=== PATIENT | male | born 1945 | race Caucasian/White ===

== ENCOUNTER → 2017-09-04 06:10 | Outpatient (CLI) | payer OTHER, SELFPAY ==
[2016-05-29 11:45] VITALS: BMI 29.2
[2017-09-04 08:19] LABS: AST(SGOT) 34 U/L (15-37); Alanine Aminotransfer ALT/SGPT 23 U/L (16-61); Albumin, Serum 3.2 g/dL (3.2-5.0); Alkaline Phosphatase 71 U/L (45-117); Bilirubin, Direct 0.14 mg/dL (0.00-0.30); Cholesterol 137 mg/dL (200); High Density Lipoprotein 59 mg/dL; Protein, Total 7.2 g/dL (6.4-8.2); Triglycerides 89 mg/dL; Very Low Density Lipoprotein 18 mg/dL (5-40)
== END ==
PROVIDERS: Family Provider Internal Medicine; PCP Internal Medicine; Visit Provider Physician Assistant Medical
DX: E78.5 Hyperlipidemia, unspecified (principal); I10 Essential (primary) hypertension; I25.10 Atherosclerotic heart disease of native coronary artery without angina pectoris; Z79.899 Other long term (current) drug therapy
CPT/HCPCS: 36415; 80061; 80076

== ENCOUNTER 2018-02-04 05:52 | Inpatient (IN) | payer MEDICARE, OTHER, SELFPAY ==
[2016-05-29 11:45] VITALS: BMI 29.2
[2018-01-28 14:00] VITALS: BP 111/53; PULSE 59; RESP 16; TEMP 36.5; O2SAT 97; BMI 28.8
--- NOTE | 2018-01-28 14:14 | SDCEKG_ITS ---
Test Reason : Blood Pressure : / mmHG Vent. Rate : 058 BPM Atrial Rate : 058 BPM P-R Int : 208 ms QRS Dur : 096 ms QT Int : 416 ms P-R-T Axes : 059 013 033 degrees QTc Int : 408 ms Sinus bradycardia Inferior infarct , age undetermined Abnormal ECG Confirmed by EDGAR SWAIN, BLU ([id number]), editor sound DANA SAN ([id number]) on 01/30/2018 1:07:19 PM Referred By: Byron Suarez Confirmed By:BLU HERNÁNDEZ MD
[2018-01-28 14:42] LABS: Hematocrit 41.9 % (40-54); Hemoglobin 13.7 g/dl (13.0-16.5); Mean Corp Hgb Conc 32.7 g/gl (32-36); Mean Corpuscular Volume 94.8 fL (80-94); Mean Platelet Vol. 9.6 fl (6.2-12.0); Platelet Count 195 K/mm3 (150-450); Red Blood Count 4.42 M/mm3 (4.6-6.2); Scan Indicated on CBC? Y/N NO
[2018-01-28 14:52] LABS: Anion Gap 4 (5-15); BUN 14 mg/dL (7-18); BUN/Creat Ratio 13.7 RATIO (10-20); Calcium,Total 8.2 mg/dL (8.5-10.1); Chloride 105 mmol/L (98-107); Creatinine, Serum 1.02 mg/dL (0.70-1.30); EST Glomerular Filtration Rate 76 mL/min (>60); Est Glom Filt Rate - Afr Amer 93 mL/min (>60); Estimated Creatinine Clearance 75.07 ml/min; Glucose 109 mg/dL (74-106); Potassium 4.3 mmol/L (3.5-5.1); Sodium Level 137 mmol/L (136-145)
[2018-02-04] VITALS (12 sets, daily range): BP systolic 101–126; BP diastolic 60–82; PULSE 51–95; RESP 14–18; TEMP 36.2–37.2; O2SAT 94–100; BMI 28.8
--- NOTE | 2018-02-04 | COL._PTH ---
PATIENT: KAREN ALMONTE LOC: MS2 U#:[id number] AGE/SX: 72/M ROOM: [facility] – [place] RE02/04/[address]: Dr. Byron Suarez MD : [id number] BED: 1 DIS: 02/08/2018 SPEC #: [id number] RECD: 02/04/18 14:36 STATUS: GODWIN REQ #: [id number] ANTHONY: 02/04/18 00:[address]: Byron Suarez DEPT: SURGICAL PATHOLOGY RECD BY: Jae You ENTERED: 02/04/18 14:37 SP TYPE: COLON OTHR DR: Dr. Anjali Hernandes MD Tissues: Colon, NOS Procedures: Surgery Specimen Level HEADER OPERATION: Laparoscopic right ariadna collectomy PRE-OP DIAGNOSIS: Unresectable polyp of ascending colon TISSUE SUBMITTED: Right colon MICROSCOPIC DIAGNOSIS Right colon, hemicolectomy: Tubulovillous adenoma with focal high-grade dysplasia (3 cm in greatest dimension). Appendix with focal hyperplastic changes at the tip. Five pericolonic lymph nodes with reactive changes. Small intestinal and colonic donuts, no pathologic diagnosis. SJ:sp 02/06/18 COMMENT Case has been reviewed in consultation with Dr. Osorio who concurs with the above diagnosis. IDC:AM MICROSCOPIC DESCRIPTION Slides are reviewed. GROSS DESCRIPTION Received is a previously opened right hemicolectomy specimen with attached adipose tissue. The cecum with ascending colon measures 15 cm in length and segment of small intestine measuring 2 cm in length and attached appendix measures 8 cm in length and 0.5 cm in diameter. Ten centimeter away from the distal resection margin and 5 cm away from the ileocecal wall, there is a sessile polyp measuring 3 x 3 x 1 cm. A metallic clip is present adjacent to the polyp. Both resection margins are stapled. Also present attached to the ascending colon is a piece of omentum measuring 7 x 9 x 1 cm. The serosa corresponding to the polyp showed blue dye discoloration. No additional mass lesion is identified. More dictation will follow after overnight fixation. Adipose tissue is fixed in lymph node revealing solution. YUMIKO:libra 02/04/18 Also present in the container are multiple detached pieces of bowel tissue, possible dough nut pieces measuring in aggregate 5 x 3 x 2 cm. Multiple og are noted in the detached pieces of tissue. Sections of the appendix reveal unremarkable cut surfaces. A small amount of fecal material is noted. No fecalith is identified. Sections of the polyp revealed it is entirely mucosal in location. No invasion into the underlying wall is noted. Section of omentum did not reveal any mass lesion. Section of the pericolonic adipose tissue revealed a few lymph nodes. The largest lymph node measured 1 cm in greatest dimension. Associate Professor Of Biblical Studies sections are submitted as follows: 1 & 2 - detached pieces of bowel tissue, possible donut. 3 - appendix. 4 - proximal and distal resection margins. 5 to 8 - entire polyp with underlying bowel wall. 9 - omentum. 10 - one serially sectioned lymph node. 11 - multiple (3) lymph nodes. 12 - one bisected lymph node.. YUMIKO:libra 02/05/18 TC: 1 CPT: 91907, 70419 x2
[2018-02-04] MEDS: Bupivacaine Mpf 0.5% 30 ML VIAL (10:00)
--- NOTE | 2018-02-04 10:31 | OP.PCM_ITS ---
Report of Operation Date of Procedure: 02/04/18 Pre-Operative Diagnosis: unresectable polyp - right colon Post-Operative Diagnosis: unresectable polyp - right colon Surgery/Procedure Performed:: laparoscopic right hemicolectomy Description of Surgical Findings:: as above - polyp seen in specimen machine i engraver: None Type of Anesthesia:: General Anesthesiologist: Alfred Hare - ASA3 Specimen's removed: right colon Drains: none Estimated Blood Loss (mL): 75 Fluids Replaced: 1700 Description of Procedure: The patient was brought to the operating suite. Sign in was performed verifying patient, site, procedure, position, and DVT prophylaxis with SCDs. Patient 2 g of cefotetan. Preoperative bowel prep of mechanical and antibiotic comprised of GoLYTELY and then neomycin and Flagyl 1 g 3 doses evening before was given Following induction of general anesthetic. The patient?s abdomen was prepped and draped in the usual fashion. Timeout was performed verifying patient, site, position. Local anesthetic was injected below the umbilicus. Incision made and dissection carried down to the umbilical root fascia. 2 stay sutures were placed. Incision made in the fascia, the peritoneum entered under direct visualization. A 10 mm Greco trocar was inserted and secured with the stay sutures. Pneumoperitoneum to 15 mmHg was insufflated. Visual inspection revealed adhesions to the right lower quadrant consistent with his previous bilateral laparoscopic inguinal hernia repair . 2 5mm ports were placed in the standard midline position. lysis adhesions in the right lower quadrant was undertaken using laparoscopic Metzenbaum scissors. Once this was fully mobilized, Mobilization the avascular plane was undertaken from the base of the cecum up and around the hepatic flexure. Division of the lesser sac from the midline to the hepatic flexure was undertaken. When this was fully mobilized. The duodenum was visualized from the right flank region. Next, the terminal ileum area was brought up and a cleavage point noted in the mesentery. Harmonic Scalpel was used to create a window in the terminal ileal mesentery and division was taken down to the ileocolic root. Next the transverse colon was grasped and the vasculature coming from the middle colic vessel was identified. A window was made in the bare area proximal to the middle colic vessels just overlying the duodenal sweep. This was also fully divided. Dissection was then carried out at the ileal colic vessel root. The artery and vein were identified and doubly clipped proximally and doubly clipped distally with Hem-o-navin clips. With full dissection of the mesentery and full mobilization the colon, the umbilical incision was extended and a wound protector placed. The terminal ileum and cecum ascending colon part of the transverse colon were delivered through the wound protector. Complete division of the mesentery to the bowel was undertaken at both sites. The bowel was transected with an intestinal load echelon stapler. On this a functional stapled end-to-end anastomosis was performed between the ileum and transverse colon with an echelon stapler. The staple line was checked for hemostasis and following this the anastomosis closed with a TA stapler creating a wide triangle opening that was easily palpable. A 3-0 silk suture was used to take tension off the apex of the staple line and an additional 3-0 silk suture was used to close the mesenteric defect At this point, the specimen was opened on the back table. There was noted to be tumor in the expected location. Gown and gloves were changed. The umbilical fascial defect was closed with a running 0 PDS suture Pneumoperitoneum was reestablished. the fascial closure was noted to be intact. Half percent Marcaine was injected under laparoscopic guidance trans-rectus abdominous into the retrorectus sheath. Following this The 5mm ports were removed under direct visualization with no signs of bleeding. Pneumoperitoneum was released. Skin was closed with interrupted 4-0 Monocryl subcuticular sutures. Steri-Strips and bandages were applied. The patient was brought to recovery room in stable condition. - Admit VTE Documentation VTE Present on Admission: No VTE Mechan Device Prophylaxis: SCD's
[2018-02-04] MEDS: Acetaminophen 500 MG Tablet 1000 MG PO ×3 (12:06→23:49)
[2018-02-04] MEDS: Ketorolac 15 MG/ML Vial IV ×3 (12:06→23:49)
--- NOTE | 2018-02-04 12:54 | CHAPLAIN ---
Type of Pastoral Visit _x__ Initial Visit ___ Follow-up Visit ___ On-call Visit ___ General Patient Visit ___ Spiritual Assessment ___ Family Conference ___ Bereavement ___ Rapid Response ___ Code Blue ___ Other (describe below) Pastoral Care Referral From ___ Patient ___ Family ___ Nurse ___ Physician ___ Lobster Fisherman ___ Supervisor Painting _x__ Other (describe below) Sacrament/Intervention ___ Active listening ___ Anointing ___ Rastafari ___ Bereavement ___ Communion ___ Nany exploration ___ ___ Life review ___ Prayer ___ Reconciliation ___ Sacrament of Sick _x__ Supportive presence ___ Wedding ___ Other (describe below) Pastoral Comments SUPERVISOR SULF[employer]ANT was moving patient into his room and she acknowledged work of the boat buffer plastic; made offer to patient for support; pt responds that he is doing fine; pt said he would notify someone if further support is desired
[2018-02-04] MEDS: Pravastatin 80 MG Tablet PO (21:08)
[2018-02-04] MEDS: Metoprolol Tartrate 50 MG Tablet PO (21:08)
[2018-02-05] VITALS (8 sets, daily range): BP systolic 116–123; BP diastolic 56–77; PULSE 51–76; RESP 16–18; TEMP 36.3–37.4; O2SAT 96–99
[2018-02-05] MEDS: Ketorolac 15 MG/ML Vial IV ×3 (05:17→17:11)
[2018-02-05] MEDS: Acetaminophen 500 MG Tablet 1000 MG PO ×4 (05:17→23:51)
[2018-02-05 05:47] LABS: Hematocrit 37.3 % (40-54); Hemoglobin 12.4 g/dl (13.0-16.5); Mean Corp Hgb Conc 33.2 g/gl (32-36); Mean Corpuscular Hgb 31.3 pg (27.0-32.0); Mean Corpuscular Volume 94.2 fL (80-94); Mean Platelet Vol. 10.2 fl (6.2-12.0); Platelet Count 185 K/mm3 (150-450); RBC Distribution Width CV 12.5 % (11.6-14.6); RBC Distribution Width SD 42.2 fl (35.1-43.9); Red Blood Count 3.96 M/mm3 (4.6-6.2); White Blood Count 10.5 K/mm3 (4.4-11.0)
[2018-02-05 05:53] LABS: Scan Indicated on CBC? Y/N NO
[2018-02-05 06:22] LABS: Anion Gap 8 (5-15); BUN 14 mg/dL (7-18); Calcium,Total 7.8 mg/dL (8.5-10.1); Chloride 102 mmol/L (98-107); Creatinine, Serum 1.08 mg/dL (0.70-1.30); EST Glomerular Filtration Rate 72 mL/min (>60); Est Glom Filt Rate - Afr Amer 87 mL/min (>60); Glucose 98 mg/dL (74-106); Potassium 4.2 mmol/L (3.5-5.1); Sodium Level 138 mmol/L (136-145)
[2018-02-05] MEDS: Lactated Ringers 1,000 ML 40 ML IV (08:21)
[2018-02-05] MEDS: Aspirin 81 MG TAB.CHEW PO (08:31)
[2018-02-05] MEDS: Metoprolol Tartrate 50 MG Tablet PO ×2 (08:32→21:20)
[2018-02-05] MEDS: Enoxaparin 40 MG/0.4 ML Syringe SC (08:32)
[2018-02-05] MEDS: FLUoxetine 20 MG Capsule PO (08:33)
[2018-02-05] MEDS: Lisinopril 5 MG Tablet PO (08:33)
--- NOTE | 2018-02-05 10:10 | CASEMGMT ---
RN ROSANNE Face to Face with patient for initial transition planning/care coordination assessment. RN CM introduced self and role at [facility]. Patient lying in bed, alert and oriented. Patient willing to participate in assessment and is able to answer all questions appropriately. Care providers, pharmacy, and demographics verified. Patient wishes to discharge home, denies need for home health at this time. Patient states he has no further needs or concerns at this time. CM to follow for discharge planning needs that may arise. PCP: Cecilio Specialists: [place] social work faculty member Preferred Pharmacy: [facility] Insurance: [employer] Prescription Benefit: Yes Living Will/HPOA: No LNOK: Living Arrangements: Patient lives with in 2 story home, independent at home. Transportation: /self DME/HHC: None Disposition Plan: Patient to discharge home with family support and follow-up plans in place. Pippa FRIEDMAN, RN, CM
--- NOTE | 2018-02-05 13:44 | PCM.PN.SRG ---
Subjective: no complaints, scant flatus - Physical Exam General: Alert, Oriented x3, Cooperative Lungs: Clear to auscultation, Normal air movement, Wheezes - few Cardiovascular: Regular rate, No murmurs Abdomen: Bowel Sounds Present, Soft, Non Tender, Hypoactive Bowel Sounds Vital Signs Temp Pulse Resp BP Pulse Ox 97.4 F L 62 18 116/72 96 02/05/18 08:23 02/05/18 08:32 02/05/18 08:23 02/05/18 08:32 02/05/18 08:23 Oxygen Delivery Method Room Air Weight: 99.1 kg Body Mass Index (BMI) 28.8 Intake and Output for Last 24 Hours 02/03/18 02/04/18 02/05/18 23:59 23:59 23:59 Intake Total 3402 / 3402 1460 / 1460 Output Total 400 / 400 1450 / 1450 Balance 3002 / 3002 Laboratory Tests Past 24 Hrs 02/05/18 02/05/18 05:20 05:20 WBC 10.5 RBC 3.96 L Hgb 12.4 L Hct 37.3 L MCV 94.2 H MCH 31.3 MCHC 33.2 RDW 12.5 RDW Differential 42.2 Plt Count 185 MPV 10.2 Sodium 138 Potassium 4.2 Chloride 102 Carbon Dioxide 28.0 Anion Gap 8 BUN 14 Creatinine 1.08 Estim Creat Clear Calc 70.90 Est GFR (MDRD) Af Amer 87 Est GFR (MDRD) Non-Af 72 BUN/Creatinine Ratio 13.0 Glucose 98 Calcium 7.8 L Medical Necessity - Tobacco Use Smoking Status: Former smoker Assessment/Plan All Active Problems Right carotid bruit (Acute) STEMI (ST elevation myocardial infarction) (Acute) POD # 1 s/p right hemicolectomy for unresectable polyp Patient without complaints, scant flatus. will encourage ambulation ,use of IS. continue clears
[2018-02-05] MEDS: oxyCODONE 5 MG Tablet PO ×2 (14:35→23:51)
[2018-02-05] MEDS: Pravastatin 80 MG Tablet PO (21:20)
[2018-02-06 01:50] VITALS: BP 130/73; PULSE 77; RESP 16; TEMP 36.8; O2SAT 97
[2018-02-06] MEDS: Acetaminophen 500 MG Tablet 1000 MG PO ×4 (05:18→23:52)
[2018-02-06] MEDS: oxyCODONE 5 MG Tablet PO ×2 (06:33→21:16)
[2018-02-06 07:50] VITALS: BP 125/65; PULSE 80; RESP 16; TEMP 36.8; O2SAT 95
[2018-02-06] MEDS: Aspirin 81 MG TAB.CHEW PO (07:51)
[2018-02-06] MEDS: Ondansetron ODT 4 MG Tablet PO (11:00)
[2018-02-06 11:43] VITALS: PULSE 78
[2018-02-06] MEDS: Metoprolol Tartrate 50 MG Tablet PO ×2 (11:43→21:14)
[2018-02-06] MEDS: FLUoxetine 20 MG Capsule PO (11:43)
[2018-02-06] MEDS: Enoxaparin 40 MG/0.4 ML Syringe SC (11:43)
[2018-02-06] MEDS: Lisinopril 5 MG Tablet PO (11:43)
[2018-02-06 14:40] VITALS: BP 135/77; PULSE 86; RESP 18; TEMP 36.6; O2SAT 94
--- NOTE | 2018-02-06 15:51 | PCM.PN.SRG ---
Subjective: abdominal distention, burping - Physical Exam General: Alert, Oriented x3, Cooperative Lungs: Clear to auscultation, Normal air movement Cardiovascular: Regular rate, No murmurs Abdomen: Soft, Hypoactive Bowel Sounds, Distended Vital Signs Temp Pulse Resp BP Pulse Ox 97.9 F 86 18 135/77 H 94 02/06/18 14:40 02/06/18 14:40 02/06/18 14:40 02/06/18 14:40 02/06/18 14:40 Oxygen Delivery Method Room Air Weight: 99.1 kg Body Mass Index (BMI) 28.8 Intake and Output for Last 24 Hours 02/04/18 02/05/18 02/06/18 23:59 23:59 23:59 Intake Total 3402 / 3402 2160 / 2160 360 / 360 Output Total 400 / 400 1450 / 1450 Balance 3002 / 3002 710 / 710 360 / 360 Medical Necessity - Tobacco Use Smoking Status: Former smoker Assessment/Plan All Active Problems (Last Updated 02/05/18 @ 13:46 by Byron Suarez MD) Right carotid bruit (Acute) STEMI (ST elevation myocardial infarction) (Acute) POD # 2 s/p right hemicolectomy for unresectable polyp Patient without complaints, scant flatus. will encourage ambulation ,use of IS. likely advanced orals too quickly. We will go a sips of clears on hold and show for now.
[2018-02-06 21:05] VITALS: BP 122/69; PULSE 80; RESP 20; TEMP 36.6; O2SAT 96
[2018-02-06 21:14] VITALS: PULSE 80
[2018-02-06] MEDS: Pravastatin 80 MG Tablet PO (21:14)
[2018-02-07 03:09] VITALS: BP 125/77; PULSE 66; RESP 18; TEMP 36.7; O2SAT 97
[2018-02-07] MEDS: Ondansetron ODT 4 MG Tablet PO ×2 (04:41→17:30)
[2018-02-07] MEDS: Acetaminophen 500 MG Tablet 1000 MG PO ×3 (06:07→19:25)
--- NOTE | 2018-02-07 08:06 | PCM.PN.SRG ---
Subjective: increased flatus, bowel movement, decreased belching still some abdominal cramping - Physical Exam General: Alert, Oriented x3, Cooperative Lungs: Clear to auscultation, Normal air movement Cardiovascular: Regular rate, No murmurs Abdomen: Bowel Sounds Present, Soft, Hypoactive Bowel Sounds, Distended Vital Signs Temp Pulse Resp BP Pulse Ox 98.1 F 66 18 125/77 H 97 02/07/18 03:09 02/07/18 03:09 02/07/18 03:09 02/07/18 03:09 02/07/18 03:09 Oxygen Delivery Method Room Air Weight: 99.1 kg Body Mass Index (BMI) 28.8 Intake and Output for Last 24 Hours 02/05/18 02/06/18 02/07/18 23:59 23:59 23:59 Intake Total 2160 / 2160 1160 / 1160 100 / 100 Output Total 1450 / 1450 Balance 710 / 710 1160 / 1160 100 / 100 Medical Necessity - Tobacco Use Smoking Status: Former smoker Assessment/Plan All Active Problems (Last Updated 02/05/18 @ 13:46 by Byron Suarez MD) Right carotid bruit (Acute) STEMI (ST elevation myocardial infarction) (Acute) POD # 3 s/p right hemicolectomy for unresectable polyp Patient without complaints, scant flatus. will encourage ambulation ,use of IS. likely advanced orals too quickly. improved abdominal discomfort and more flatus and bowel movement. We'll return to clear liquids but not advance for now.
[2018-02-07] MEDS: Aspirin 81 MG TAB.CHEW PO (08:10)
[2018-02-07 08:14] VITALS: BP 126/80; PULSE 78; RESP 16; TEMP 36.8; O2SAT 93
[2018-02-07 09:40] VITALS: PULSE 78
[2018-02-07] MEDS: FLUoxetine 20 MG Capsule PO (09:40)
[2018-02-07] MEDS: Enoxaparin 40 MG/0.4 ML Syringe SC (09:40)
[2018-02-07] MEDS: Metoprolol Tartrate 50 MG Tablet PO ×2 (09:40→21:48)
[2018-02-07] MEDS: Lisinopril 5 MG Tablet PO (09:40)
[2018-02-07] MEDS: oxyCODONE 5 MG Tablet PO (09:49)
[2018-02-07 14:12] VITALS: BP 134/78; PULSE 79; RESP 16; TEMP 36.7; O2SAT 96
[2018-02-07 20:35] VITALS: BP 139/71; PULSE 86; RESP 18; TEMP 37.1; O2SAT 96
[2018-02-07 21:48] VITALS: PULSE 84
[2018-02-07] MEDS: Pravastatin 80 MG Tablet PO (21:48)
[2018-02-08] MEDS: Acetaminophen 500 MG Tablet 1000 MG PO ×2 (00:06→06:09)
[2018-02-08] MEDS: Ondansetron ODT 4 MG Tablet PO (01:23)
[2018-02-08 01:56] VITALS: BP 145/91; PULSE 80; RESP 18; TEMP 36.6; O2SAT 95
--- NOTE | 2018-02-08 06:44 | DCINST_ITS ---
Discharge Diet: Light diet - advance as tolerated - clears until sunday Discharge Activity: May Not Drive - for 1 week or while taking narcotic pain meds., May not drive while taking narcotic pain medications. May shower in (days): 1 Lifting Restrictions: 10 pounds Call your doctor if your incision/area has: Continuous Slow Oozing, Sudden Increased Bleeding, Increased Pain/ Swelling, Increased Redness, Foul Smelling Discharge Call your doctor if you observe: Fever of 101 or Higher Suture Line Care: Avoid Pulling/Pushing, Avoid Pinching/Bending Additional Dressing/Incision Instructions:: Change or remove dressing in 4 days. Leave steri-strips in place for 1 week. Allergies/Adverse Reactions: Allergies No Known Allergies Allergy (Verified 01/28/18 13:54) Medications to take at Discharge Fluoxetine [Prozac] 20 mg PO DAILY 05/28/16 Meclizine HCl 25 mg PO Q6H PRN PRN 05/28/16 Acetaminophen [Tylenol Tablet] 650 mg PO Q6H PRN PRN #0 tablet 05/31/16 Nitroglycerin [Nitrostat] 0.4 mg SL PRN PRN #1 bottle 05/31/16 Aspirin [Aspirin, Baby] 81 mg PO DAILY@0800 01/28/18 Lisinopril [Prinivil] 5 mg PO QDAY 01/28/18 Metoprolol Tartrate [Lopressor (beta shayla)] 50 mg PO BID 01/28/18 Pravastatin Sodium 80 mg PO DAILY 01/28/18 Ticagrelor [Brilinta] 90 mg PO BID 01/28/18 Acetaminophen [Tylenol] 1,000 mg PO Q6 tablet 02/08/18 Fluoxetine [Prozac] 20 mg PO DAILY capsule 02/08/18 Ondansetron [Zofran Odt] 4 mg PO Q6H PRN PRN tablet 02/08/18 Oxycodone [Oxyir] 5 - 10 mg PO Q4H PRN PRN 7 Days #14 tab 02/08/18 The following prescriptions were given: Oxycodone [Oxyir] 5 - 10 mg PO Q4H PRN PRN 7 Days #14 tab PRN Reason: Mod-Severe Pain (4-01/02) Primary Care Physician: Anjali Hernandes MD [Primary Care Provider] - Test Results: Test results from this visit will be discussed in further detail at your follow- up appointment, if applicable. Please Follow Up With: Byron Suarez MD - [phone] When: Call to make an appointment to be seen Sunday or Sunday
[2018-02-08 09:18] VITALS: PULSE 80
[2018-02-08] MEDS: Lisinopril 5 MG Tablet PO (09:18)
[2018-02-08] MEDS: Aspirin 81 MG TAB.CHEW PO (09:18)
[2018-02-08] MEDS: Metoprolol Tartrate 50 MG Tablet PO (09:18)
[2018-02-08] MEDS: FLUoxetine 20 MG Capsule PO (09:18)
[2018-02-08 09:26] VITALS: BP 124/62; PULSE 80; RESP 18; TEMP 36.8; O2SAT 96
--- NOTE | 2018-02-08 12:38 | PCM.DC.SUM ---
Discharge Date and Diagnosis Date of Admission: 02/04/18 Date of Discharge: 02/08/18 - Primary Discharge Diagnosis sessile unresectable right colon polyp - Secondary Discharge Diagnosis Chronic Problems (Last Updated 02/05/18 @ 13:46 by Byron Suarez MD) Depression (Chronic) History of rheumatic fever (Chronic) Smoking addiction (Chronic) HLD (hyperlipidemia) (Chronic) HTN (hypertension) (Chronic) Hospital Course and Treatment Operations: None, - - laparoscopic right hemicolectomy Summary of Care Provided: The patient is a 72 year old M with a sessile unresectable colon polyp identified endoscopy 2 weeks previously. The patient returns for laparoscopic right hemicolectomy. He underwent outpatient bowel prep and presented on February 04 for laparoscopic right hemicolectomy. Surgical procedure was uneventful area did the patient's diet was advanced on postoperative day 1 but then noted some bloating. He was retracted back to clear liquids had improvement of bowel function with flatus and liquid stool and discharged home on postoperative day 4. - Physical Exam Vital Signs Temp Pulse Resp BP Pulse Ox 98.3 F 80 18 124/62 H 96 02/08/18 09:26 02/08/18 09:26 02/08/18 09:26 02/08/18 09:26 02/08/18 09:26 Oxygen Delivery Method Room Air Weight: 99.1 kg Body Mass Index (BMI) 28.8 Intake and Output for Last 24 Hours 02/06/18 02/07/18 02/08/18 23:59 23:59 23:59 Intake Total 1160 / 1160 450 / 450 250 / 250 Balance 1160 / 1160 450 / 450 250 / 250 Discharge Diet: Light diet - advance as tolerated - clears until sunday Discharge Activity: May Not Drive - for 1 week or while taking narcotic pain meds., May not drive while taking narcotic pain medications. May shower in (days): 1 Call your doctor if your incision/area has: Continuous Slow Oozing, Sudden Increased Bleeding, Increased Pain/ Swelling, Increased Redness, Foul Smelling Discharge Call your doctor if you observe: Fever of 101 or Higher Suture Line Care: Avoid Pulling/Pushing, Avoid Pinching/Bending Additional Dressing/Incision Instructions:: Change or remove dressing in 4 days. Leave steri-strips in place for 1 week. Home Medications: Medications to take at Discharge Fluoxetine [Prozac] 20 mg PO DAILY 05/28/16 Meclizine HCl 25 mg PO Q6H PRN PRN 05/28/16 Acetaminophen [Tylenol Tablet] 650 mg PO Q6H PRN PRN #0 tablet 05/31/16 Nitroglycerin [Nitrostat] 0.4 mg SL PRN PRN #1 bottle 05/31/16 Aspirin [Aspirin, Baby] 81 mg PO DAILY@0800 01/28/18 Lisinopril [Prinivil] 5 mg PO QDAY 01/28/18 Metoprolol Tartrate [Lopressor (beta shayla)] 50 mg PO BID 01/28/18 Pravastatin Sodium 80 mg PO DAILY 01/28/18 Ticagrelor [Brilinta] 90 mg PO BID 01/28/18 Acetaminophen [Tylenol] 1,000 mg PO Q6 tablet 02/08/18 Fluoxetine [Prozac] 20 mg PO DAILY capsule 02/08/18 Ondansetron [Zofran Odt] 4 mg PO Q6H PRN PRN tablet 02/08/18 Oxycodone [Oxyir] 5 - 10 mg PO Q4H PRN PRN 7 Days #14 tab 02/08/18 Following Prescrptions Were Given to Patient: Oxycodone [Oxyir] 5 - 10 mg PO Q4H PRN PRN 7 Days #14 tab PRN Reason: Mod-Severe Pain (-01/02) Primary Care Physician: Anjali Hernandes MD [Primary Care Provider] - Please Follow Up With: Byron Suarez MD - [phone] When: Call to make an appointment to be seen Sunday or Sunday Medical Necessity - Tobacco Use Smoking Status: Former smoker Meaningful Use Info Meaningful Use Diagnoses (Choose all that apply): None applicable
--- NOTE | 2018-02-13 17:28 | CASEMGMT ---
Discharge Follow Up phone call. YAEL: 9 STRATA: 3 Discharge Date: 02-08-18 Adm Dx: Lap hemicolectomy RN ROSANNE spoke with Mr Arana and inquired about how he has been doing since his discharge. Pt states, i'm improving, slowly, but improving. States he had an appt with Dr Suarez today who also told him he was improving. States he has another appt with Dr Suarez next week. States he has not made a follow-up appt with Dr Hernandes yet but he plans to do so after his appt with Dr Suarez. Pt reports his pain is manageable now with Tylenol as needed. States does not have any oozing, redness, swelling, or drainage, just some bruising around the incision site. States Dr Suarez looked at it today as well. Pt denies having any questions or concerns at this time. SUMI LYA thanked pt for choosing [facility]. Denzel FRIEDMAN RN, CM
== END 2018-02-08 10:25 | disposition home or self-care (01) | DRG 331 ==
LOC: ACINP 05:52 → MS2 08:28
PROVIDERS: Anesthesiology; Admitting Provider Surgery; Family Provider Internal Medicine; PCP Internal Medicine; Referring Provider Surgery; Visit Provider Surgery
PROC: 0DTF4ZZ Resection of Right Large Intestine, Percutaneous Endoscopic Approach (ICD-10-PCS; CPT 44205; principal; 2018-02-04 07:10)
DX: D12.2 Benign neoplasm of ascending colon (principal); I10 Essential (primary) hypertension; E78.5 Hyperlipidemia, unspecified; Z86.79 Personal history of other diseases of the circulatory system; Z23 Encounter for immunization; Z87.891 Personal history of nicotine dependence; F32.9 Major depressive disorder, single episode, unspecified; I25.10 Atherosclerotic heart disease of native coronary artery without angina pectoris; Z95.5 Presence of coronary angioplasty implant and graft
CPT/HCPCS: 36415; 80048; 85027; 88309; 93005; 94762; J7120; 90686; A4216; J2405

== ENCOUNTER → 2018-05-29 06:10 | Outpatient (CLI) | payer MEDICARE, OTHER, SELFPAY ==
[2016-05-29 11:45] VITALS: BMI 29.2
[2018-03-28 08:51] VITALS: BMI 27.9
[2018-05-29 07:06] LABS: AST(SGOT) 35 U/L (15-37); Alanine Aminotransfer ALT/SGPT 25 U/L (16-61); Albumin, Serum 3.3 g/dL (3.2-5.0); Alkaline Phosphatase 85 U/L (45-117); Bilirubin, Direct 0.19 mg/dL (0.00-0.30); Cholesterol 145 mg/dL (200); Globulin 4.2 g/dL (2.2-4.2); High Density Lipoprotein 56 mg/dL; Protein, Total 7.5 g/dL (6.4-8.2); Triglycerides 96 mg/dL; Very Low Density Lipoprotein 19 mg/dL (5-40)
== END ==
PROVIDERS: Family Provider Internal Medicine; PCP Internal Medicine; Referring Provider Internal Medicine Cardiovascular Disease; Visit Provider Internal Medicine Cardiovascular Disease
DX: E78.5 Hyperlipidemia, unspecified (principal)
CPT/HCPCS: 36415; 80061; 80076

== ENCOUNTER → 2019-01-07 12:18 | Outpatient (CLI) | payer MEDICARE, SELFPAY ==
[2016-05-29 11:45] VITALS: BMI 29.2
[2019-01-07 12:13] VITALS: BMI 29.2
[2019-01-07 13:43] LABS: Absolute Lymphocyte Count 2.34 X10^3/uL (0.83-4.51); Absolute Neutrophil Count 2.8 X10^3/uL (2.0-7.7); Basophil# 0.02 X10^3/uL; Basophil% 0.3 % (0-1); Eosinophil# 0.05 X10^3/uL; Eosinophils% 0.9 % (0-5); Hematocrit 38.6 % (40-54); Hemoglobin 12.1 g/dL (13.0-16.5); Lymphocyte # 2.34 X10^3/ul (4.0); Lymphocyte % 40.3 % (19-41); Mean Corp Hgb Conc 31.3 g/dL (32-36); Mean Corpuscular Hgb 28.3 pg (27.0-32.0); Mean Corpuscular Volume 90.2 fL (80-94); Mean Platelet Vol. 10.5 fl (6.2-12.0); Monocyte# 0.57 X10^3/uL; Monocyte% 9.8 % (0-10); NRBC Flagged by Analyzer 0 % (0-5); Neutrophil # 2.81 X10^3/uL (2.7-7.7); Neutrophil % 48.5 % (47-70); POSITIVE MORPHOLOGY YES; Platelet Count 177 K/mm3 (150-450); RBC Distribution Width CV 20.1 % (11.6-14.6); RBC Distribution Width SD 65.1 fl (35.1-43.9); Red Blood Count 4.28 M/mm3 (4.6-6.2); White Blood Count 5.8 K/mm3 (4.4-11.0)
[2019-01-07 13:45] LABS: Differential Indicated SCAN CRITERIA MET
[2019-01-07 14:14] LABS: Anisocytosis RARE
[2019-01-07 14:29] LABS: AST(SGOT) 26 U/L (15-37); Alanine Aminotransfer ALT/SGPT 20 U/L (16-61); Albumin, Serum 3.1 g/dL (3.2-5.0); Alkaline Phosphatase 62 U/L (45-117); Anion Gap 4 (5-15); BUN 14 mg/dL (7-18); BUN/Creat Ratio 15.1 RATIO (10-20); Bilirubin, Direct 0.13 mg/dL (0.00-0.30); Calcium,Total 8.5 mg/dL (8.5-10.1); Chloride 105 mmol/L (98-107); Creatinine, Serum 0.92 mg/dL (0.70-1.30); EST Glomerular Filtration Rate 85 mL/min (>60); Est Glom Filt Rate - Afr Amer 103 mL/min (>60); Globulin 3.5 g/dL (2.2-4.2); Glucose 87 mg/dL (74-106); Potassium 4.2 mmol/L (3.5-5.1); Protein, Total 6.6 g/dL (6.4-8.2); Sodium Level 137 mmol/L (136-145)
[2019-01-07 15:13] LABS: Hepatitis C Antibody Non-Reactive (Nonreactive)
== END ==
PROVIDERS: Family Provider Internal Medicine; PCP Internal Medicine; Referring Provider Nurse Practitioner Family; Visit Provider Nurse Practitioner Family
DX: Z01.89 Encounter for other specified special examinations (principal); E78.2 Mixed hyperlipidemia; D64.9 Anemia, unspecified; I25.10 Atherosclerotic heart disease of native coronary artery without angina pectoris; I10 Essential (primary) hypertension; Z78.9 Other specified health status; Z79.899 Other long term (current) drug therapy; Z86.2 Personal history of diseases of the blood and blood-forming organs and certain disorders involving the immune mechanism
CPT/HCPCS: 36415; 80048; 80076; 85025; 86803

== ENCOUNTER → 2019-04-15 09:42 | Outpatient (CLI) | payer MEDICARE, OTHER, SELFPAY ==
[2016-05-29 11:45] VITALS: BMI 29.2
[2019-04-07 10:23] VITALS: BMI 30.5
--- NOTE | 2019-04-15 09:43 | CDU_ITS ---
Reason For Study: Carotid artery disease Rt. Velocities/BP Lt. Velocities/BP Prox CCA 98.2/13.4 cm/sec. Prox CCA 104.7/16 cm/sec. Mid CCA 85.2/10.8 cm/sec. Mid CCA 89/16 cm/sec. Dist CCA 79.9/12.1 cm/sec. Dist CCA 78.6/16 cm/sec. Prox ICA 53.9/16 cm/sec. Prox ICA 32.2/6.9 cm/sec. Mid ICA 72.1/22.6 cm/sec. Mid ICA 71.7/24.5 cm/sec. Dist ICA 87.8/22.6 cm/sec. Dist ICA 83.8/28.9 cm/sec. Rt. ICA/CCA = 1.0. Lt. ICA/CCA = 0.9. Prox ECA 96.9/5.6 cm/sec. Prox ECA 81.2/5.6 cm/sec. Rt. Vert. 59.1/17.3 cm/sec. Lt. Vert. 44.7/8.8 cm/sec. Right Extracranial There is intimal thickening but no significant atherosclerotic plaque noted in the right common carotid artery. There is heterogeneous, irregular atherosclerotic plaque noted in the right internal carotid artery. There is no significant atherosclerotic plaque noted in the right external carotid artery. Antegrade flow is noted in the right vertebral artery. Structure noted in the right thyroid measuring approximently 1.22 x 1.73 x 2.43 cm. Left Extracranial There is homogeneous, smooth atherosclerotic plaque noted in the left common carotid artery. There is heterogeneous, irregular atherosclerotic plaque noted in the left internal carotid artery. There is no significant atherosclerotic plaque noted in the left external carotid artery. Antegrade flow is noted in the left vertebral artery. Structure noted in the left thyroid measuring 0.90 x 0.87 x 1.55 cm. Procedure Carotid Duplex [id number]. Exam performed in department. Interpretation Summary Minimal calcific plaque at the proximal right internal carotid artery <50% stenosis right internal carotid <50% stenosis right external carotid Minimal calcific plaque at the proximal left internal carotid artery <50% stenosis left internal carotid <50% stenosis left external carotid Patent, antegrade, <50% stenosis bilateral vertebrals Solid cystic right thyroid nodule 1.22 x 1.73 x 2.43 cm Mostly cystic with some solid component left thyroid 0.9 x 0.87 x 1.55 cm Ordering Physician: Gaurav Rizo Referring Physician: Anjali Hernandes M.D. Performed By: Pippa Weldon RVT
== END ==
PROVIDERS: Family Provider Internal Medicine; PCP Internal Medicine; Referring Provider Internal Medicine Cardiovascular Disease; Visit Provider Internal Medicine Cardiovascular Disease
DX: I65.23 Occlusion and stenosis of bilateral carotid arteries (principal)
CPT/HCPCS: 93880

== ENCOUNTER → 2019-04-24 07:19 | Outpatient (CLI) | payer MEDICARE, OTHER, SELFPAY ==
[2016-05-29 11:45] VITALS: BMI 29.2
[2019-04-07 10:23] VITALS: BMI 30.5
[2019-04-24 07:39] LABS: Hematocrit 43.2 % (40-54); Mean Corp Hgb Conc 32.4 g/dL (32-36); Mean Corpuscular Hgb 29.9 pg (27.0-32.0); Mean Corpuscular Volume 92.3 fL (80-94); Mean Platelet Vol. 8.6 fl (6.2-12.0); Platelet Count 421 K/mm3 (150-450); RBC Distribution Width CV 13.1 % (11.6-14.6); RBC Distribution Width SD 44.1 fl (35.1-43.9); Red Blood Count 4.68 M/mm3 (4.6-6.2); White Blood Count 10.8 K/mm3 (4.4-11.0)
[2019-04-24 08:13] LABS: AST(SGOT) 24 U/L (15-37); Alanine Aminotransfer ALT/SGPT 22 U/L (16-61); Albumin, Serum 2.8 g/dL (3.2-5.0); Alkaline Phosphatase 71 U/L (45-117); Anion Gap 3 (5-15); BUN 18 mg/dL (7-18); BUN/Creat Ratio 15.1 RATIO (10-20); Bilirubin, Direct 0.18 mg/dL (0.00-0.30); Calcium,Total 9.1 mg/dL (8.5-10.1); Chloride 101 mmol/L (98-107); Cholesterol 130 mg/dL (200); Creatinine, Serum 1.19 mg/dL (0.70-1.30); EST Glomerular Filtration Rate 64 mL/min (>60); Est Glom Filt Rate - Afr Amer 77 mL/min (>60); Ferritin 157 ng/mL (26-388); Globulin 4.8 g/dL (2.2-4.2); Glucose 90 mg/dL (74-106); High Density Lipoprotein 44 mg/dL; Iron 69 ug/dL (65-175); Iron Binding Capacity,Total 311 ug/dL (250-450); Potassium 4.4 mmol/L (3.5-5.1); Protein, Total 7.6 g/dL (6.4-8.2); Sodium Level 135 mmol/L (136-145); Triglycerides 81 mg/dL; Very Low Density Lipoprotein 16 mg/dL (5-40)
== END ==
PROVIDERS: PCP Internal Medicine; Referring Provider Internal Medicine Cardiovascular Disease; Visit Provider Internal Medicine Cardiovascular Disease
DX: E78.00 Pure hypercholesterolemia, unspecified (principal); D50.8 Other iron deficiency anemias; Z79.899 Other long term (current) drug therapy
CPT/HCPCS: 36415; 80048; 80061; 80076; 82728; 83540; 83550; 85027

== ENCOUNTER → 2019-05-20 06:29 | Outpatient (CLI) | payer MEDICARE, OTHER, SELFPAY ==
[2016-05-29 11:45] VITALS: BMI 29.2
[2019-05-19 11:35] VITALS: BMI 29.2
[2019-05-20 08:15] LABS: ALB/GLOB Ratio 0.7 RATIO (0.9-2.4); AST(SGOT) 26 U/L (15-37); Alanine Aminotransfer ALT/SGPT 23 U/L (16-61); Albumin, Serum 3.1 g/dL (3.2-5.0); Alkaline Phosphatase 67 U/L (45-117); Anion Gap 4 (5-15); BUN 17 mg/dL (7-18); BUN/Creat Ratio 16.2 RATIO (10-20); Calcium,Total 8.8 mg/dL (8.5-10.1); Chloride 102 mmol/L (98-107); Creatinine, Serum 1.05 mg/dL (0.70-1.30); EST Glomerular Filtration Rate 74 mL/min (>60); Est Glom Filt Rate - Afr Amer 89 mL/min (>60); Free T3 2.6 pg/mL (2.18-3.98); Globulin 4.4 g/dL (2.2-4.2); Glucose 96 mg/dL (74-106); Potassium 4.3 mmol/L (3.5-5.1); Protein, Total 7.5 g/dL (6.4-8.2); Sodium Level 136 mmol/L (136-145); T4 Free Direct 0.92 ng/dL (0.76-1.46); Thyroid Stim Hormone (TSH) 1.16 uIU/mL (0.358-3.74)
--- NOTE | 2019-05-20 15:30 | FLU_PTH ---
PATIENT: KAREN ALMONTE LOC: LAB U#:[id number] AGE/SX: 79/M ROOM: RE05/20/[address]: Dr. Shankar Negrete MD : [id number] BED: DIS: SPEC #: [id number] RECD: 05/21/19 10:38 STATUS: GODWIN REQ #: [id number] ANTHONY: 05/20/19 15:[address]: Hernando Mora DEPT: CYTOLOGY RECD BY: Colt Moe ENTERED: 05/21/19 11:20 SP TYPE: Fluid OTHR DR: MD Dr. Shankar Tineo MD Tissues: A - Thyroid gland, NOS B - Thyroid gland, NOS C - Thyroid gland, NOS Procedures: Special Stain Group II Surgery Specimen Level IV Cytospin Fluid Cytology Other Comments: @ Ordering doctor for SSII edited from to @ by NIRANJAN at 05/21/19 1138 @ Ordering doctor for SUIV edited from to DR.RCEBUL Hill by NIRANJAN at 05/21/19 1138 @ Ordering doctor for CYSPIN edited from to DR.RCEBUL Hill by NIRANJAN at 05/21/19 1138 @ Ordering doctor for CYOTHER edited from to @ by NIRANJAN at 05/21/19 1138 @ Submitting doctor edited from to DR.RCEBUL Hill by NIRANJAN at 05/21/19 1138 HEADER OPERATION: Bilateral thyroid FNA PRE-OP DIAGNOSIS: Bilateral thyroid nodule TISSUE SUBMITTED: A - Right thyroid fluid for cytology, B - Right thyroid slides x6, C - Left thyroid slides x6 DIAGNOSIS CYTOLOGY A. Fine needle aspiration, right thyroid nodule (cytospin and cell block): Adequate for evaluation. Negative, consistent with benign follicular/colloid nodule. B. Fine needle aspiration, right thyroid nodule (smears): Adequate for evaluation. Negative, consistent with benign follicular/colloid nodule. C. Fine needle aspiration, left thyroid nodule (smears): Adequate for evaluation. Negative, consistent with benign follicular/colloid nodule. AM:michael 05/22/19 CYTOLOGY STUDY Slides are reviewed. CYTOLOGY GROSS A - Received is <0.25 ml of red, cloudy fluid labeled with the patient's name and and designated per the requisition as right thyroid. Submitted for cytology preparation including cell block. B - Received are six smears labeled with the patient's name and designated per the requisition as right thyroid. Submitted for staining. C - Received are six smears labeled with the patient's name and designated per the requisition as left thyroid. Submitted for staining. / michael 05/21/19 TC:5 CPT: 73266 x2, 39005, 59112
[2019-05-21 11:36] LABS: Thyroid Peroxidase AB 10 IU/mL (0-34)
== END ==
PROVIDERS: PCP Internal Medicine; Referring Provider Internal Medicine Endocrinology, Diabetes & Metabolism; Visit Provider Internal Medicine Endocrinology, Diabetes & Metabolism
DX: E04.1 Nontoxic single thyroid nodule (principal)
CPT/HCPCS: 36415; 80053; 84439; 84443; 84481; 86376; 88108; 88161; 88305; 88313

== ENCOUNTER → 2019-05-21 | Outpatient (CLI) | payer MEDICARE, OTHER, SELFPAY ==
[2016-05-29 11:45] VITALS: BMI 29.2
[2019-05-20 15:19] VITALS: BMI 29.2
== END | disposition home or self-care (01) ==
LOC: LABSPEC 12:20
PROVIDERS: PCP Internal Medicine; Referring Provider Surgery; Visit Provider Surgery
DX: E04.1 Nontoxic single thyroid nodule (principal)

== ENCOUNTER → 2020-03-17 06:05 | Outpatient (CLI) | payer MEDICARE, OTHER, SELFPAY ==
[2016-05-29 11:45] VITALS: BMI 29.2
[2019-10-09 09:25] VITALS: BMI 30.4
[2020-03-17 07:25] LABS: AST(SGOT) 31 U/L (15-37); Alanine Aminotransfer ALT/SGPT 24 U/L (16-61); Albumin, Serum 3.1 g/dL (3.2-5.0); Alkaline Phosphatase 66 U/L (45-117); Bilirubin, Direct 0.18 mg/dL (0.00-0.30); Cholesterol 159 mg/dL (200); High Density Lipoprotein 60 mg/dL; Protein, Total 7.1 g/dL (6.4-8.2); Triglycerides 93 mg/dL; Very Low Density Lipoprotein 19 mg/dL (5-40)
== END ==
PROVIDERS: PCP Internal Medicine; Referring Provider Internal Medicine Cardiovascular Disease; Visit Provider Internal Medicine Cardiovascular Disease
DX: E78.00 Pure hypercholesterolemia, unspecified (principal); E78.2 Mixed hyperlipidemia
CPT/HCPCS: 36415; 80061; 80076

== ENCOUNTER 2021-03-27 01:18 | Inpatient (IN) | payer MEDICARE, OTHER, SELFPAY ==
[2016-05-29 11:45] VITALS: BMI 29.2
[2021-03-27] VITALS (15 sets, daily range): BP systolic 135–151; BP diastolic 76–93; PULSE 64–82; RESP 16–18; TEMP 36.3–36.9; O2SAT 94–98; BMI 31.3; BMI 31.5
--- NOTE | 2021-03-27 01:51 | RAD_ITS ---
STUDY: X-RAY CHEST REASON FOR EXAM: Male, 75 years old. Cough weakness and shortness of breath. TECHNIQUE: AP COMPARISON: 05/28/2016 CXR FINDINGS: Mild elevation right hemidiaphragm and mild bibasilar densities. Lungs otherwise clear. No evidence of pneumothorax or pleural effusion. Heart size normal. No concerning mediastinal or hilar lesions. Atherosclerosis thoracic aorta. No acute osseous abnormality. No evidence of free air under the diaphragm. RAD/Chest 1 View (Portable) IMPRESSION: Mild bibasilar densities most likely represents atelectasis. Mild pneumonia or edema possible but less likely. Electronically Signed: Aleks Sauer MD at 2:31 EST Tel , Service support ,
--- NOTE | 2021-03-27 01:51 | EKG12_ITS ---
Test Reason : WEAKNESS Blood Pressure : / mmHG Vent. Rate : 066 BPM Atrial Rate : 066 BPM P-R Int : 196 ms QRS Dur : 104 ms QT Int : 442 ms P-R-T Axes : 052 038 049 degrees QTc Int : 463 ms Normal sinus rhythm Normal ECG Confirmed by JENNY SWAIN, DELICIA ([id number]), managing editor OBI TAVERAS ([id number]) on 03/30/2021 10:17:21 AM Referred By: A[place] Confirmed By:DELICIA ALVARADO MD
--- NOTE | 2021-03-27 01:52 | EDS_ITS ---
HPI History of Present Illness Chief Complaint: Cough Informant: patient and spouse/S.O. Onset/Context/Timing Onset: Days Context: Gradual Onset Current Severity: Moderate Maximum Severity: Moderate Narrative Narrative: Patient presents secondary to generalized weakness and cough for the past 6 days. He was seen at his PCPs office on the . Chest x-ray was done and Covid test was negative. He was given prednisone and albuterol. Patient denies significant improvement and did fall tonight secondary to his weakness. No injury. He denies fever. No chest pain. [facility] Medical History (Updated 03/27/21 @ 02:[address] Kareen Perry MD) Depression Essential (primary) hypertension History of rheumatic fever Mixed hyperlipidemia Old myocardial infarction Presence of stent in coronary artery (~05/28/16) Right carotid bruit Smoking addiction STEMI (ST elevation myocardial infarction) Thyroid nodule Home Medications meclizine 25 mg PO Q6H PRN PRN 05/28/16 [History Last Taken 01/25/16 08:00] nitroglycerin 0.4 mg SL PRN PRN #1 bottle 05/31/16 [Rx Last Taken Unknown] aspirin 81 mg PO DAILY@0800 01/28/18 [History Last Taken Unknown] ondansetron 4 mg PO Q6H PRN PRN tab 02/08/18 [Rx Last Taken Unknown] docusate sodium 100 mg capsule 100 mg PO DAILY 05/20/19 [History Last Taken Unknown] pravastatin 80 mg tablet 80 mg PO DAILY #90 tab 05/17/20 [Rx Last Taken Unknown] metoprolol tartrate 50 mg tablet 50 mg PO BID #180 tab 06/07/20 [Rx Last Taken Unknown] buspirone 5 mg tablet 2.5 mg PO Q OTHER DAY tablet 06/30/20 [History Last Taken Unknown] ferrous sulfate 325 mg (65 mg iron) tablet 325 mg PO TID tablet 06/30/20 [History Last Taken Unknown] fluoxetine 40 mg capsule 40 mg PO DAILY cap 06/30/20 [History Last Taken Unknown] fluticasone propionate 50 mcg/actuation nasal spray,suspension 2 spray INTRANASAL DAILY 06/30/20 [History Last Taken Unknown] lisinopril 2.5 mg tablet 2.5 mg PO QDAY #90 tab 08/04/20 [Rx Last Taken Unknown] Allergy/AdvReac Type Severity Reaction Status Date / Time No Known Allergies Allergy Verified 03/27/21 01:27 Family History Grandfather CAD (coronary artery disease) Heart disease Father CAD (coronary artery disease) CABG x 4 Mother Colon cancer Surgical History Atherosclerosis of [place] coronary artery of [place] heart without angina pectoris History of ear surgery (~1986) History of inguinal hernia repair History of partial colectomy (~01/2018) History of tonsillectomy and adenoidectomy (~1952) Presence of coronary angioplasty implant and graft (~05/28/16) Social History Smoking Status: Former smoker how long ago did patient quit smokin years ago alcohol intake: never substance use type: does not use caffeine: Yes Type: coffee Number of servings: 4 what type of physical activity do you participate in: walking, bicycling and weight training frequency: daily duration: 60-90 minutes/day ROS ROS ED Constitutional Constitutional ED: Denies chills or fever(s) Eyes Eyes: Denies change in vision ENT ENT ED: Denies sore throat Cardiovascular Cardiovascular: Denies chest pain Respiratory/Chest Respiratory/Chest: Reports cough and dyspnea Gastrointestinal Gastrointestinal: Denies abdominal pain, diarrhea, nausea or vomiting Genitourinary Genitourinary ED: Denies dysuria Musculoskeletal Musculoskeletal: Denies back pain or neck pain Integumentary Denies rash Neurologic Neurologic: Reports weakness; Denies headache(s) Allergic/Immunologic Allergic/Immunologic ED: Denies urticaria EXAM Physical Exam Const Vital Signs: 03/27/21 01:21 03/27/21 01:28 Temperature 98.1 F Temperature Source Oral Pulse Rate 71 Respiratory Rate 18 Respiratory Effort Normal Respiratory Depth Normal Respiratory Pattern Normal Blood Pressure 148/76 H Blood Pressure Mean 100 Pulse Ox 97 Oxygen Delivery Method Room Air Room Air Positive well nourished and well developed General Appearance ED: well developed HEENT Reports moist mucous membranes Eyes PERRL and EOMs intact bilaterally Neck supple Chest Wall inspection of chest normal and palpation of chest normal Resp normal respiratory effort Auscultation: rales Cardio regular rate and regular rhythm GI normal to inspection, nondistended, normoactive bowel sounds and non-tender Palpation: soft Extremity normal to inspection Neuro oriented x3 Sensorium / Orientation: alert Psych mental status grossly normal Skin no rashes or lesions noted MDM MDM MDM Narrative Medical decision making narrative: EKG, chest x-ray, Covid test, lab work obtained. Lab Data Attestation: I reviewed the patient's lab results. Labs: Laboratory Results - last 24 hr 03/27/21 03/27/21 03/27/21 02:00 02:00 02:00 WBC 13.4 H RBC 4.14 L Hgb 13.1 Hct 37.3 L MCV 90.1 MCH 31.6 MCHC 35.1 RDW Std Deviation 39.2 RDW Coeff of Alicia 11.9 Plt Count 277 MPV 8.7 Immature Gran % (Auto) 0.400 Neut % (Auto) 81.4 H Lymph % (Auto) 10.5 L [place] % (Auto) 7.4 Eos % (Auto) 0.2 Baso % (Auto) 0.1 Absolute Neuts (auto) 10.9 H Absolute Lymphs (auto) 1.41 Nucleated RBC % 0 Sodium 122 L Potassium 4.2 Chloride 87 L Carbon Dioxide 27.0 Anion Gap 8 BUN 15 Creatinine 0.87 Estim Creat Clear Calc 84.19 Est GFR (MDRD) Af Amer 111 Est GFR (MDRD) Non-Af 92 BUN/Creatinine Ratio 17.3 Glucose 95 Calcium 8.1 L Troponin I High Sens 7 B-Natriuretic Peptide 258.7 H Radiography Chest X-Ray - ED: 1 View, Read by ED Physician and Chronic Changes Diagnostic Testing: Clinical Impression(s) from Imaging Studies Chest X-Ray 03/27/21 01:51 IMPRESSION: Mild bibasilar densities most likely represents atelectasis. Mild pneumonia or edema possible but less likely. Electronically Signed: Aleks Sauer MD at 2:31 EST Tel , Service support , EKG Initial EKG: Attestation: I personally reviewed and interpreted this EKG as follows: Interpretation: Sinus Rhythm (Sinus at 66 with no acute ischemia.) Treatment and Re-Evaluation Comments:: Chest x-ray reveals no obvious focal infiltrate. EKG unremarkable. Lab work reveals a white count of 13.4, however patient has been on prednisone. Chemistry studies significant for a sodium of 122. I did [facility]. In November 2020 patient had a sodium level of 135. I believe this is likely the cause of his weakness. Normal saline has been ordered. Troponin is normal at 7 and BNP is 258. I believe the patient likely has a viral URI but his weakness is caused by the hyponatremia. I will speak with hospitalist regarding admission. Discharge Plan Triage Chief Complaint: Cough ED Provider: Kareen Perry Dx/Rx/DC Orders Clinical Impression: Hyponatremia, URI (upper respiratory infection) Prescriptions: No Action docusate sodium [Colace] 100 mg capsule 100 mg PO DAILY RF: 0 buspirone 5 mg tablet 2.5 mg PO Q OTHER DAY RF: 0 ferrous sulfate [Feosol] 325 mg (65 mg iron) tablet 325 mg PO TID RF: 0 fluoxetine 40 mg capsule 40 mg PO DAILY RF: 0 fluticasone propionate 50 mcg/actuation spray,suspension 2 spray INTRANASAL DAILY RF: 0 meclizine 25 MG tablet 25 mg PO Q6H PRN PRN (Reason: Vertigo) RF: 0 nitroglycerin 0.4 MG tablet, sublingual 0.4 mg SL PRN PRN (Reason: chest pain) Qty: 1 RF: 0 aspirin 81 MG tablet,chewable 81 mg PO DAILY@0800 RF: 0 ondansetron 4 MG tablet 4 mg PO Q6H PRN PRN (Reason: NAUSEA) RF: 0 pravastatin 80 mg tablet 80 mg PO DAILY Qty: 90 RF: 3 metoprolol tartrate 50 mg tablet 50 mg PO BID Qty: 180 RF: 3 lisinopril 2.5 mg tablet 2.5 mg PO QDAY Qty: 90 RF: 3 Primary Care Provider: Anjali Hernandes Referrals: Anjali Hernandes MD [Primary Care Provider] -
[2021-03-27 02:09] LABS: Absolute Lymphocyte Count 1.41 X10^3/uL (0.83-4.51); Absolute Neutrophil Count 10.9 X10^3/uL (2.0-7.7); Basophil# 0.02 X10^3/uL; Basophil% 0.1 % (0-1); Eosinophil# 0.03 X10^3/uL; Eosinophils% 0.2 % (0-5); Hematocrit 37.3 % (40-54); Hemoglobin 13.1 g/dL (13.0-16.5); Lymphocyte # 1.41 X10^3/ul (0.83-4.51); Lymphocyte % 10.5 % (19-41); Mean Corp Hgb Conc 35.1 g/dL (32-36); Mean Corpuscular Hgb 31.6 pg (27.0-32.0); Mean Corpuscular Volume 90.1 fL (80-94); Mean Platelet Vol. 8.7 fl (6.2-12.0); Monocyte# 0.99 X10^3/uL; Monocyte% 7.4 % (0-10); NRBC Flagged by Analyzer 0 % (0-5); Neutrophil # 10.93 X10^3/uL (2.7-7.7); Neutrophil % 81.4 % (47-70); Platelet Count 277 K/mm3 (150-450); RBC Distribution Width CV 11.9 % (11.6-14.6); RBC Distribution Width SD 39.2 fl (35.1-43.9); Red Blood Count 4.14 M/mm3 (4.6-6.2); White Blood Count 13.4 K/mm3 (4.4-11.0)
[2021-03-27 02:31] LABS: Anion Gap 8 (5-15); BUN 15 mg/dL (7-18); BUN/Creat Ratio 17.3 RATIO (10-20); Calcium,Total 8.1 mg/dL (8.5-10.1); Chloride 87 mmol/L (98-107); Creatinine, Serum 0.87 mg/dL (0.70-1.30); EST Glomerular Filtration Rate 92 mL/min (>60); Est Glom Filt Rate - Afr Amer 111 mL/min (>60); Estimated Creatinine Clearance 84.19 ml/min; Glucose 95 mg/dL (74-106); Potassium 4.2 mmol/L (3.5-5.1); Sodium Level 122 mmol/L (136-145); Troponin-I HS 7 pg/mL (3.0-78.0)
[2021-03-27 02:36] LABS: BNP,B-Type NATRIURETIC PEPTIDE 258.7 pg/mL (0-100)
--- NOTE | 2021-03-27 03:09 | HP.PCM.HOS_ITS ---
HPI - General General Date of Admission: 03/27/21 Date of Service: 03/27/21 Chief Complaint: Weakness HPI Narrative KAREN ALMONTE, is a 75 M with a significant history of CAD status post stent; former smoker and hypertension who presents to emergency department with 1 day history of progressively worsening weakness. Associated with his symptoms as cough and for which patient went to the urgent care on March 23, 2021 and was prescribed a prednisone and breathing treatment for which he has been taking. He had some wheezes. His reported that with the prednisone and breathing treatments the wheezing has improved. Also patient has been taking NyQuil. Covid test at the urgent care on 23 March 2021 was negative. On this presentation at the emergency department his sodium was severely low so emergent department doctor recommended patient be admitted. COVID-19 vaccination status: Patient has received 2 doses of vaccination plus a booster. [facility] Medical History (Updated 03/27/21 @ 03:52 by Jazmyne Jackson) Anemia Coronary artery disease Depression Essential (primary) hypertension History of rheumatic fever Hypertension Mixed hyperlipidemia Myocardial infarct Old myocardial infarction Presence of stent in coronary artery (~05/28/16) Right carotid bruit Smoking addiction STEMI (ST elevation myocardial infarction) Thyroid nodule Home Medications nitroglycerin 0.4 mg SL PRN PRN #1 bottle 05/31/16 [Rx Last Taken Unknown] aspirin 81 mg PO DAILY@0800 01/28/18 [History Last Taken Unknown] ondansetron 4 mg PO Q6H PRN PRN tab 02/08/18 [Rx Last Taken Unknown] docusate sodium 100 mg capsule 100 mg PO DAILY 05/20/19 [History Last Taken Unknown] pravastatin 80 mg tablet 80 mg PO DAILY #90 tab 05/17/20 [Rx Last Taken Unknown] metoprolol tartrate 50 mg tablet 50 mg PO BID #180 tab 06/07/20 [Rx Last Taken Unknown] buspirone 5 mg tablet 2.5 mg PO Q OTHER DAY tablet 06/30/20 [History Last Taken Unknown] ferrous sulfate 325 mg (65 mg iron) tablet 325 mg PO TID tablet 06/30/20 [History Last Taken Unknown] fluoxetine 40 mg capsule 40 mg PO DAILY cap 06/30/20 [History Last Taken Unknown] fluticasone propionate 50 mcg/actuation nasal spray,suspension 2 spray INTRANASAL DAILY 06/30/20 [History Last Taken Unknown] lisinopril 2.5 mg tablet 2.5 mg PO QDAY #90 tab 08/04/20 [Rx Last Taken Unknown] Allergy/AdvReac Type Severity Reaction Status Date / Time No Known Allergies Allergy Verified 03/27/21 01:27 Family History Grandfather CAD (coronary artery disease) Heart disease Father CAD (coronary artery disease) CABG x 4 Mother Colon cancer Surgical History (Updated 03/27/21 @ 03:52 by Jazmyne Jackson) Atherosclerosis of [place] coronary artery of [place] heart without angina pectoris History of coronary artery stent placement History of ear surgery (~1986) History of inguinal hernia repair History of partial colectomy (~01/2018) History of tonsillectomy and adenoidectomy (~1952) Presence of coronary angioplasty implant and graft (~05/28/16) Social History Smoking Status: Former smoker how long ago did patient quit smokin years ago alcohol intake: never substance use type: does not use caffeine: Yes Type: coffee Number of servings: 4 what type of physical activity do you participate in: walking, bicycling and weight training frequency: daily duration: 60-90 minutes/day ROS ROS Narrative Constitutional: Reports fatigue. Denies fever, chills, anorexia and change in weight Eyes: Denies blurry vision, change in eye color, change in vision, discharge fro m eye(s), double vision, erythema, eye pain, loss of vision or other HEENT: Denies abnormal hearing, dysphagia, ear pain, epistaxis, headache(s), hearing loss, nasal congestion, nasal discharge, post nasal drip, sinus pressure, sore throat or other Cardiovascular: Denies chest pain or palpitations. Denies dyspnea on exertion, orthopnea and paroxysmal nocturnal dyspnea Respiratory/Chest: Reports cough productive for sputum. Reports wheezes. Denies shortness of breath. Gastrointestinal: Denies abdominal pain, coffee ground emesis, constipation, diarrhea, dyspepsia, hematemesis, hematochezia, loose stools, melena, nausea, vomiting or other Genitourinary: Denies burning urination, difficulty urinating, dysuria, hematuria, nocturia, urinary frequency, urinary hesitancy, urinary incontinence, urinary urgency or other Musculoskeletal: Denies arthralgias, back pain, joint pain, joint stiffness, joint swelling, myalgias, neck pain or other Neurologic: Denies abnormal gait, abnormal speech, confusion, disequilibrium, dizziness, focal weakness, headache(s), numbness, paresthesias, seizure-like activity, seizures, syncope, tingling, tremor(s) or other Psychiatric: Denies anxiety, depression, homicidal ideation, suicidal ideation or other Endocrinology: Denies change in body appearance, cold intolerance, excessive sweating, heat intolerance, polydipsia, polyuria or other Hematologic/Lymphatic: Denies anemia, easy bleeding, easy bruising, lymphadenopathy or other Integumentary: Denies rashes Allergic/Immunologic: Denies rhinitis, hives, eczema, asthma or other Vital Signs Vital Signs Vital Signs: 03/27/21 01:21 03/27/21 01:28 Temperature 98.1 F Temperature Source Oral Pulse Rate 71 Respiratory Rate 18 Respiratory Effort Normal Respiratory Depth Normal Respiratory Pattern Normal Blood Pressure 148/76 H Blood Pressure Mean 100 Pulse Ox 97 Oxygen Delivery Method Room Air Room Air Weight Weight: 107.7 kg Body Mass Index (BMI) 31.3 Physical Exam Narrative Physical exam: General: Well-nourished, well-developed. Head: Normocephalic, atraumatic, no tenderness Eyes: PERRLA, EOMI ENT, no trauma, moist mucous membranes, no rhinorrhea Neck: Nontender, full range of motion, no spinal tenderness, deformities, step- off CVS: Regular rate and rhythm. S1-S2 present. No murmur, gallop or rub. Respiratory : Mild Rales, mild rhonchi. Chest wall nontender, no wheezing Abdomen: Soft, nontender, nondistended, normal bowel sounds, no masses : Deferred Back: Nontender, no CVA tenderness, no midline spinal tenderness, deformities, step-offs Extremities: Nontender full range of motion, no trauma Skin: Normal color, no trauma, abrasions Neuro: Alert, oriented, cranial nerves II through XII grossly intact. Psychiatry: Normal mood. Normal affect. Not depressed. Not anxious. Results Lab / Micro Data Result Diagrams: 03/27/21 02:00 03/27/21 02:00 Labs: Laboratory Results - last 24 hr 03/27/21 02:00: WBC 13.4 H, RBC 4.14 L, Hgb 13.1, Hct 37.3 L, MCV 90.1, MCH 31.6, MCHC 35.1, RDW Std Deviation 39.2, RDW Coeff of Alicia 11.9, Plt Count 277, MPV 8.7, Immature Gran % (Auto) 0.400, Neut % (Auto) 81.4 H, Lymph % (Auto) 10.5 L, [place] % (Auto) 7.4, Eos % (Auto) 0.2, Baso % (Auto) 0.1, Absolute Neuts (auto) 10.9 H, Absolute Lymphs (auto) 1.41, Nucleated RBC % 0 03/27/21 02:00: Sodium 122 L, Potassium 4.2, Chloride 87 L, Carbon Dioxide 27.0, Anion Gap 8, BUN 15, Creatinine 0.87, Estim Creat Clear Calc 84.19, Est GFR (MDRD) Af Amer 111, Est GFR (MDRD) Non-Af 92, BUN/Creatinine Ratio 17.3, Glucose 95, Calcium 8.1 L, Troponin I High Sens 7 03/27/21 02:00: B-Natriuretic Peptide 258.7 H Micro: Microbiology 03/27/21 01:54 Nasal Secretion SARS-CoV-2 Antigen (Rapid) - Final Radiology Impression Chest X-Ray 03/27/21 01:51 IMPRESSION: Mild bibasilar densities most likely represents atelectasis. Mild pneumonia or edema possible but less likely. Electronically Signed: Aleks Sauer MD at 2:31 EST Tel , Service support , Assessment & Plan Assessment/Plan (1) Hyponatremia: (2) URI (upper respiratory infection): (3) Weakness: PLAN: Hyponatremia Review emergent department labs showed sodium of 122. From review of previous records [facility] lowest sodium on file is 133. Review of community records show that on 11/24/2020 patient sodium was 135. Etiology is unclear at this time. Check uric acid Check urine osmolarity Check urine sodium Check serum osmolality Check TSH. Of note patient was on prednisone and remote check cortisol level. Received normal saline bolus at the emergency department and started on maintenance infusion of 150 mL's per hour. Normal saline 75 mL/h while inpatient ordered. Goal is not to increase sodium by more than 8 to 10 mL equivalents in 24 hours. Generalized weakness Like secondary to hyponatremia and steroid myopathy. Hold steroids at this time. PT and OT to work with patient for strengthening and balance training. Acute upper URI symptoms Emergent department labs reviewed showed a negative rapid Covid antigen test. Radiologist interpretation of CXR: Mild bibasilar densities most likely representing atelectasis; mild pneumonia or edema possible but less likely . Actual chest x-ray was independently interpreted. Mild pathology seen by radiologist was not clearly noticeable by myself. Received Mucinex at the emergency department. Mucinex. Incentive spirometer and Acapella ordered. Albuterol as needed. Leukocytosis: Review of labs showed white count of 13.4. Likely from demargination secondary to steroid use. Trend CBC. DVT prophylaxis: Subcutaneous Lovenox ordered. Charges/Coding Visit Charges Inpatient E&M: 79696 Init Hosp L3
[2021-03-27 03:10] LABS: Color, Urine Yellow (Yellow); Glucose, Dipstick Normal (Normal); Ketone-Dipstick 5 mg/dl (Negative); Leukocyte Esterase-Dipstick Negative /ul (Negative); Mucous, Urine 0 SEEN /hpf (<or=2+); Nitrite-Dipstick Negative (Negative); Occult Blood-Urine 25 /ul (Negative); Protein-Dipstick Negative (Negative); Squamous Epithelial Cells - UA 0 SEEN /hpf (0-5); Urine Bilirubin Dipstick Negative (Negative); Urine Clarity Clear (Clear); Urine Urobilinogen Normal (Normal); Urine pH 6.5 (5.0 - 8.0); White Blood Cells 0 SEEN /hpf (0-5)
[2021-03-27] MEDS: guaiFENesin 1,200 MG Tablet 1200 MG PO ×2 (03:23→07:58)
[2021-03-27 03:46] LABS: Bacteria 1+ /hpf (None Seen); Red Blood Cells-Urine 0-5 SEEN /hpf (0-5)
--- NOTE | 2021-03-27 03:47 | PCS.PANDOC ---
PANDEMIC DOCUMENTATION INITIATED: Date: 11/08/2020 Time: 1900 Emergency documentation initiated 03/27/20 @ 0345
[2021-03-27 03:52] LABS: Uric Acid 3.1 mg/dL (3.5-7.2)
--- NOTE | 2021-03-27 04:02 | PCS.PANDOC ---
PANDEMIC DOCUMENTATION INITIATED: Date: 03/27/2021 Time: 6272
[2021-03-27] MEDS: Enoxaparin 40 MG/0.4 ML Syringe SC (04:10)
[2021-03-27] MEDS: Meclizine HCl 25 MG Tablet PO ×2 (06:41→12:15)
[2021-03-27 07:54] LABS: Absolute Lymphocyte Count 1.54 X10^3/uL (0.83-4.51); Absolute Neutrophil Count 8.8 X10^3/uL (2.0-7.7); Basophil# 0.01 X10^3/uL; Basophil% 0.1 % (0-1); Eosinophil# 0.02 X10^3/uL; Eosinophils% 0.2 % (0-5); Hematocrit 35.2 % (40-54); Hemoglobin 12.4 g/dL (13.0-16.5); Lymphocyte # 1.54 X10^3/ul (0.83-4.51); Lymphocyte % 13.5 % (19-41); Mean Corp Hgb Conc 35.2 g/dL (32-36); Mean Corpuscular Hgb 31.5 pg (27.0-32.0); Mean Corpuscular Volume 89.3 fL (80-94); Mean Platelet Vol. 8.8 fl (6.2-12.0); Monocyte# 0.97 X10^3/uL; Monocyte% 8.5 % (0-10); NRBC Flagged by Analyzer 0 % (0-5); Neutrophil # 8.83 X10^3/uL (2.7-7.7); Neutrophil % 77.1 % (47-70); Platelet Count 258 K/mm3 (150-450); RBC Distribution Width CV 11.9 % (11.6-14.6); RBC Distribution Width SD 38.6 fl (35.1-43.9); Red Blood Count 3.94 M/mm3 (4.6-6.2); White Blood Count 11.4 K/mm3 (4.4-11.0)
[2021-03-27 08:20] LABS: Anion Gap 8 (5-15); BUN 12 mg/dL (7-18); BUN/Creat Ratio 16.6 RATIO (10-20); Calcium,Total 7.6 mg/dL (8.5-10.1); Chloride 87 mmol/L (98-107); Creatinine, Serum 0.72 mg/dL (0.70-1.30); EST Glomerular Filtration Rate 113 mL/min (>60); Est Glom Filt Rate - Afr Amer 136 mL/min (>60); Estimated Creatinine Clearance 71.13 ml/min; Glucose 92 mg/dL (74-106); Potassium 3.9 mmol/L (3.5-5.1); Sodium Level 121 mmol/L (136-145); Thyroid Stim Hormone (TSH) 0.46 uIU/mL (0.358-3.74)
--- NOTE | 2021-03-27 08:29 | PCM.PN.HOSP ---
Subjective Subjective Patient having dizziness, lightheadedness with progressive weakness for 1 day. Prior to that he was having cough and URI symptoms given prednisone prescription and Flonase on March 23. He tested negative for Covid twice and influenza he and B negative. Patient also having feeling of nystagmus but denies vertigo. Patient has history of dizziness in the past. He also tripped, because of knee weakness but was held up by and no actual fall or major injury. No syncope. Patient denies recent history of vomiting, diarrhea or fluid loss. Not on diuretic patient is on fluoxetine Objective Data Objective Data Vital Signs: Vital Signs Temp Pulse Resp BP Pulse Ox 98.3 F 64 18 138/84 H 97 03/27/21 07:52 03/27/21 07:52 03/27/21 07:52 03/27/21 07:52 03/27/21 07:52 Oxygen Delivery Method Room Air Weight: 232 lb 9.403 oz Body Mass Index (BMI) 31.5 Intake & Output: Intake and Output for Last 24 Hours 03/25/21 03/26/21 03/27/21 23:59 23:59 23:59 Intake Total 700 / 700 Balance 700 / 700 Lab / Micro Data Result Diagrams: 03/27/21 07:30 03/27/21 07:30 Labs: Laboratory Results - last 24 hr 03/27/21 02:00: WBC 13.4 H, RBC 4.14 L, Hgb 13.1, Hct 37.3 L, MCV 90.1, MCH 31.6, MCHC 35.1, RDW Std Deviation 39.2, RDW Coeff of Alicia 11.9, Plt Count 277, MPV 8.7, Immature Gran % (Auto) 0.400, Neut % (Auto) 81.4 H, Lymph % (Auto) 10.5 L, [place] % (Auto) 7.4, Eos % (Auto) 0.2, Baso % (Auto) 0.1, Absolute Neuts (auto) 10.9 H, Absolute Lymphs (auto) 1.41, Nucleated RBC % 0 03/27/21 02:00: Sodium 122 L, Potassium 4.2, Chloride 87 L, Carbon Dioxide 27.0, Anion Gap 8, BUN 15, Creatinine 0.87, Estim Creat Clear Calc 84.19, Est GFR (MDRD) Af Amer 111, Est GFR (MDRD) Non-Af 92, BUN/Creatinine Ratio 17.3, Glucose 95, Calcium 8.1 L, Troponin I High Sens 7 03/27/21 02:00: B-Natriuretic Peptide 258.7 H 03/27/21 02:00: Uric Acid 3.1 L 03/27/21 03:05: Urine Color Yellow, Urine Clarity Clear, Urine pH 6.5, Ur Specific Christine 1.010, Urine Protein Negative, Urine Glucose (UA) Normal, Urine Ketones 5 H, Urine Occult Blood 25 H, Urine Nitrite Negative, Urine Bilirubin Negative, Urine Urobilinogen Normal, Ur Leukocyte Esterase Negative, Urine RBC 0-5 SEEN, Urine WBC 0 SEEN, Ur Squamous Epith Cells 0 SEEN, Urine Bacteria 1+, Urine Mucus 0 SEEN 03/27/21 07:30: WBC 11.4 H, RBC 3.94 L, Hgb 12.4 L, Hct 35.2 L, MCV 89.3, MCH 31.5, MCHC 35.2, RDW Std Deviation 38.6, RDW Coeff of Alicia 11.9, Plt Count 258, MPV 8.8, Immature Gran % (Auto) 0.600, Neut % (Auto) 77.1 H, Lymph % (Auto) 13.5 L, [place] % (Auto) 8.5, Eos % (Auto) 0.2, Baso % (Auto) 0.1, Absolute Neuts (auto) 8.8 H, Absolute Lymphs (auto) 1.54, Nucleated RBC % 0 03/27/21 07:30: Sodium 121 L, Potassium 3.9, Chloride 87 L, Carbon Dioxide 26.0, Anion Gap 8, BUN 12, Creatinine 0.72, Estim Creat Clear Calc 71.13, Est GFR (MDRD) Af Amer 136, Est GFR (MDRD) Non-Af 113, BUN/Creatinine Ratio 16.6, Glucose 92, Calcium 7.6 L, TSH 0.46 Micro: Microbiology 03/27/21 01:54 Nasal Secretion SARS-CoV-2 Antigen (Rapid) - Final Radiography Diagnostic Testing: Radiology Impression Chest X-Ray 03/27/21 01:51 IMPRESSION: Mild bibasilar densities most likely represents atelectasis. Mild pneumonia or edema possible but less likely. Electronically Signed: Aleks Sauer MD at 2:31 EST Tel , Service support , Physical Exam Narrative General: Alert, Oriented x3, Cooperative HEENT: Mild saccadic nystagmus of both eyes. Atraumatic, PERRLA, EOMI, Normocephalic Oral: No Gingival or Mucosal Lesions/ Ulcerations Neck: Supple, No JVD, Negative Carotid Bruits Lungs: Air entry diminished in bilateral lung bases. Bilateral wheezing Cardiovascular: Regular rate, Regular Rhythm, Normal S1, Normal S2, No murmurs Abdomen: Bowel Sounds Present, Soft, Non Tender, Non-Distended : No renal angle tenderness. No suprapubic tenderness. Extremities: No edema, Capillary Refill Less than 3 Seconds Skin: No rashes, No breakdown Musculoskeletal: No Tenderness to Palpation of Joints or Extremities Neurological: Cranial nerves II-XII grossly intact, DTR 2+/4 and Symmetrical, Neuro grossly intact Psych/Mental Status: Flat affect Assessment & Plan Assessment/Plan (1) Hyponatremia: (2) URI (upper respiratory infection): (3) Weakness: PLAN: 1. Hypotonic isovolemic hyponatremia, exact etiology unclear but probably due to medication with possibility of SIADH: Patient does not have history of hypovolemia no clinical signs of hypovolemia. Serum sodium did not increase of sodium with IV fluid after 1 L of bolus and then 75 mill per hour mL but actually went down from 122-1 21. We will try 500 mL and no sign more and then stop it. In the meantime follow serum and urine osmolarity, urine electrolytes and creatinine. TSH is normal. Serum cortisol 4 AM, liver profile and CK ordered. Uric acid 3.1. Serum calcium 7.6. 2. 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 Prednisone was started on 03/23 therefore I do not think it is because of a steroid myopathy. Started on dexamethasone which might help for dizziness and bronchitis PT and OT to work with patient for strengthening and balance training. Hold pravastatin Acute upper URI symptoms: Negative Covid antigen. Negative influenza a and B as per patient as an outpatient. On Flonase, Mucinex D and a steroid bronchodilator as needed. Incentive spirometry and Pep. Chest x-ray shows bibasilar densities. COVID-19 atelectasis Leukocytosis: Review of labs showed white count of 13.4. Likely from demargination secondary to steroid use. Monitor strict DVT prophylaxis: Subcutaneous Lovenox ordered. Charges/Coding Procedures Hospitalists Procedures: [id number] Prolonged Physician INPT
[2021-03-27 08:41] LABS: Osmolality, Serum 247 mOsm/KG (280-301)
[2021-03-27] MEDS: 0.9% Normal Saline 1,000 ML 75 ML IV (08:46)
[2021-03-27 08:49] LABS: AST(SGOT) 43 U/L (15-37); Alanine Aminotransfer ALT/SGPT 23 U/L (16-61); Albumin, Serum 2.2 g/dL (3.2-5.0); Alkaline Phosphatase 57 U/L (45-117); Bilirubin, Direct 0.24 mg/dL (0.00-0.30); Globulin 3.5 g/dL (2.2-4.2); Protein, Total 5.7 g/dL (6.4-8.2)
[2021-03-27] MEDS: diazePAM 2 MG Tablet PO (08:52)
[2021-03-27 08:59] LABS: CPK Total, Creatine Kinase 459 U/L (39-308)
[2021-03-27 09:46] LABS: Urine Sodium 73 mmol/L (Not Establ.)
[2021-03-27 10:02] LABS: Urine Chloride 88 mmol/L (Not Establ.); Urine Sodium 73 mmol/L (Not Establ.)
[2021-03-27 10:12] LABS: Osmolality, Urine 342 mOsm/KG
[2021-03-27] MEDS: Aspirin 81 MG TAB.CHEW PO (10:40)
[2021-03-27] MEDS: Fluticasone 0.05% 1 SPRAY NASAL.SRY 2 SPRAY NASAL (10:40)
[2021-03-27] MEDS: Metoprolol Tartrate 25 MG Tablet PO ×2 (10:41→20:07)
[2021-03-27] MEDS: Ferrous Sulfate 325 MG Tablet PO (10:41)
[2021-03-27] MEDS: Lisinopril 2.5 MG Tablet PO (10:42)
[2021-03-27] MEDS: Senna/Docusate Sodium 1 Tablet 2 TABLET PO ×2 (10:43→20:03)
[2021-03-27] MEDS: Acetaminophen 325 MG Tablet 650 MG PO ×2 (13:51→20:04)
[2021-03-27 15:13] LABS: Sodium Level 120 mmol/L (136-145)
[2021-03-27] MEDS: dexAMETHasone 4 MG Tablet PO (18:20)
[2021-03-27] MEDS: guaiFENesin/D-Methorphan TAB.SR.12H 1 TABLET PO (19:57)
[2021-03-27] MEDS: MELATONIN 3 MG TABLET PO (20:08)
[2021-03-27] MEDS: Polyethylene Glycol 3350 17 GM PACKET PO (20:41)
[2021-03-28] VITALS (14 sets, daily range): BP systolic 127–143; BP diastolic 75–90; PULSE 63–91; RESP 14–18; TEMP 36.5–36.8; O2SAT 92–97
[2021-03-28] MEDS: Enoxaparin 40 MG/0.4 ML Syringe SC (05:41)
[2021-03-28 05:54] LABS: Absolute Lymphocyte Count 1.29 X10^3/uL (0.83-4.51); Absolute Neutrophil Count 8.1 X10^3/uL (2.0-7.7); Basophil# 0.01 X10^3/uL; Basophil% 0.1 % (0-1); Hematocrit 36.2 % (40-54); Hemoglobin 12.8 g/dL (13.0-16.5); Lymphocyte # 1.29 X10^3/ul (0.83-4.51); Lymphocyte % 12.8 % (19-41); Mean Corp Hgb Conc 35.4 g/dL (32-36); Mean Corpuscular Hgb 31.3 pg (27.0-32.0); Mean Corpuscular Volume 88.5 fL (80-94); Monocyte# 0.62 X10^3/uL; Monocyte% 6.2 % (0-10); NRBC Flagged by Analyzer 0 % (0-5); Neutrophil # 8.09 X10^3/uL (2.7-7.7); Neutrophil % 80.2 % (47-70); Platelet Count 285 K/mm3 (150-450); RBC Distribution Width CV 11.9 % (11.6-14.6); RBC Distribution Width SD 38.9 fl (35.1-43.9); Red Blood Count 4.09 M/mm3 (4.6-6.2); White Blood Count 10.1 K/mm3 (4.4-11.0)
[2021-03-28 06:18] LABS: BUN 11 mg/dL (7-18); Estimated Creatinine Clearance 71.13 ml/min; Glucose 104 mg/dL (74-106)
[2021-03-28 06:19] LABS: Anion Gap 8 (5-15); BUN/Creat Ratio 15.6 RATIO (10-20); Calcium,Total 8.3 mg/dL (8.5-10.1); Chloride 89 mmol/L (98-107); EST Glomerular Filtration Rate 116 mL/min (>60); Est Glom Filt Rate - Afr Amer 141 mL/min (>60); Sodium Level 121 mmol/L (136-145)
--- NOTE | 2021-03-28 08:07 | PN.HOSP_ITS ---
Subjective Subjective No fever. Patient dizziness and lightheadedness is resolved. Patient feels more energetic. Sodium remains low, 121. Possible SIADH Objective Data Objective Data Vital Signs: Vital Signs Temp Pulse Resp BP Pulse Ox 97.7 F L 65 18 127/82 H 97 03/28/21 02:20 03/28/21 02:20 03/28/21 02:20 03/28/21 02:20 03/28/21 02:20 Oxygen Delivery Method Room Air Weight: 232 lb 9.403 oz Body Mass Index (BMI) 31.5 Intake & Output: Intake and Output for Last 24 Hours 03/26/21 03/27/21 03/28/21 23:59 23:59 23:59 Intake Total 1747.5 / 2047.5 500 / 500 Balance 1747.5 / 2047.5 500 / 500 Lab / Micro Data Result Diagrams: 03/28/21 05:30 03/28/21 05:30 Labs: Laboratory Results - last 24 hr 03/27/21 07:30: Serum Osmolality 247 L 03/27/21 07:30: Sodium 121 L, Potassium 3.9, Chloride 87 L, Carbon Dioxide 26.0, Anion Gap 8, BUN 12, Creatinine 0.72, Estim Creat Clear Calc 71.13, Est GFR (MDRD) Af Amer 136, Est GFR (MDRD) Non-Af 113, BUN/Creatinine Ratio 16.6, Glucose 92, Calcium 7.6 L, TSH 0.46 03/27/21 07:30: Total Bilirubin 1.00, Direct Bilirubin 0.24, AST 43 H, ALT 23, Alkaline Phosphatase 57, Total Protein 5.7 L, Albumin 2.2 L, Globulin 3.5 03/27/21 07:30: Total Creatine Kinase 459 H 03/27/21 09:35: Urine Osmolality 342, Ur Random Sodium 73 03/27/21 09:35: Ur Random Sodium 73, Urine Potassium 24.0, Urine Chloride 88 03/27/21 09:35: Urine Creatinine 34.80 03/27/21 14:45: Sodium 120 L 03/28/21 05:30: WBC 10.1, RBC 4.09 L, Hgb 12.8 L, Hct 36.2 L, MCV 88.5, MCH 31.3, MCHC 35.4, RDW Std Deviation 38.9, RDW Coeff of Alicia 11.9, Plt Count 285, MPV 9.0, Immature Gran % (Auto) 0.700, Neut % (Auto) 80.2 H, Lymph % (Auto) 12.8 L, [place] % (Auto) 6.2, Eos % (Auto) 0.0, Baso % (Auto) 0.1, Absolute Neuts (auto) 8.1 H, Absolute Lymphs (auto) 1.29, Nucleated RBC % 0 03/28/21 05:30: Sodium 121 L, Potassium 4.0, Chloride 89 L, Carbon Dioxide 24.0, Anion Gap 8, BUN 11, Creatinine 0.70, Estim Creat Clear Calc 71.13, Est GFR (MDRD) Af Amer 141, Est GFR (MDRD) Non-Af 116, BUN/Creatinine Ratio 15.6, Glucose 104, Calcium 8.3 L Micro: Microbiology 03/27/21 01:54 Nasal Secretion SARS-CoV-2 Antigen (Rapid) - Final Physical Exam Narrative Patient is states he has been chronically urinating low amount although does not measure for about 1 year General: Alert, Oriented x3, Cooperative HEENT: No nystagmus noticed atraumatic, PERRLA, EOMI, Normocephalic Oral: No Gingival or Mucosal Lesions/ Ulcerations Neck: Supple, No JVD, Negative Carotid Bruits Lungs: Air entry diminished in bilateral lung bases. No crepitation/rhonchi or wheezing Cardiovascular: Regular rate, Regular Rhythm, Normal S1, Normal S2, No murmurs Abdomen: Bowel Sounds Present, Soft, Non Tender, Non-Distended : No renal angle tenderness. No suprapubic tenderness. Extremities: No edema, Capillary Refill Less than 3 Seconds Skin: No rashes, No breakdown Musculoskeletal: No Tenderness to Palpation of Joints or Extremities Neurological: Cranial nerves II-XII grossly intact, DTR 2+/4 and Symmetrical, Neuro grossly intact Psych/Mental Status: Flat affect Assessment & Plan Assessment/Plan (1) Hyponatremia: (2) URI (upper respiratory infection): (3) Weakness: PLAN: 1. Hypotonic isovolemic hyponatremia, exact etiology unclear but probably due to medication with possibility of SIADH: Patient does not have history of hypovolemia no clinical signs of hypovolemia. Serum sodium did not increase of sodium with IV fluid even after fluid boluses. Started on fluid restriction. TSH is normal. Serum cortisol 4 AM, liver profile and CK ordered. Uric acid 3.1. Serum calcium 7.6. 03/28: CK 459. Urine osmolality more than serum osmolarity. Urine sodium 34, urine potassium 24. Nephrology consult requested yesterday. TSH 0.46 on low normal. Free T4 ordered. Serum cortisol pending. Dizziness is resolved. 2. 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 Prednisone was started on 03/23 therefore I do not think it is because of a steroid myopathy. Started on dexamethasone which might help for dizziness and bronchitis PT and OT to work with patient for strengthening and balance training. Hold pravastatin Acute upper URI symptoms: Negative Covid antigen. Negative influenza a and B as per patient as an outpatient. On Flonase, Mucinex D and a steroid bron chodilator as needed. Incentive spirometry and Pep. Chest x-ray shows bibasilar densities consistent with bilateral atelectasis. Leukocytosis: Review of labs showed white count of 13.4. Likely from demargination secondary to steroid use. Monitor strict DVT prophylaxis: Subcutaneous Lovenox ordered. Charges/Coding Visit Charges Inpatient E&M: 17690 Subs Hosp L2
[2021-03-28] MEDS: Metoprolol Tartrate 25 MG Tablet PO ×2 (08:48→22:54)
[2021-03-28] MEDS: guaiFENesin/D-Methorphan TAB.SR.12H 1 TABLET PO ×2 (08:48→22:55)
[2021-03-28] MEDS: Aspirin 81 MG TAB.CHEW PO (08:48)
[2021-03-28] MEDS: Lisinopril 2.5 MG Tablet PO (08:48)
[2021-03-28] MEDS: dexAMETHasone 4 MG Tablet PO (08:48)
[2021-03-28] MEDS: Fluticasone 0.05% 1 SPRAY NASAL.SRY 2 SPRAY NASAL (08:49)
[2021-03-28] MEDS: Senna/Docusate Sodium 1 Tablet 2 TABLET PO ×2 (08:55→22:55)
[2021-03-28] MEDS: Acetaminophen 325 MG Tablet 650 MG PO (09:26)
[2021-03-28 09:42] LABS: T4 Free Direct 1.51 ng/dL (0.76-1.46)
--- NOTE | 2021-03-28 11:25 | CASEMGMT ---
RN CM Face to Face with patient for initial transition planning/care coordination assessment. RN CM introduced self and role at [facility]. Patient lying in bed, alert and oriented, at bedside. Patient willing to participate in assessment and is able to answer all questions appropriately. Care providers, pharmacy, and demographics verified. Patient wishes to discharge home, denies need for home health at this time. Patient states he has no further needs or concerns at this time. CM to follow for discharge planning needs that may arise. PCP: Cecilio Specialists: Darrius cardiolgoist; Erick surgeon Preferred Pharmacy: [facility] retail Insurance: [employer] Prescription Benefit: yes Living Will/HPOA: yes, Margaret Tobar LNOK: Living Arrangements: Patient lives with in a 2 story home. Patient states he is independent and able to ambulate stairs. Transportation: self, DME/HHC: Patient states he has shower chair and raised toilet. Patient denies previous HHC or SNF. Disposition Plan: Patient to discharge home with family support and follow-up plans in place. Pippa FRIEDMAN, RN, CM
--- NOTE | 2021-03-28 11:35 | CON.PCM.RE_ITS ---
Assessment & Plan Assessment/Plan (1) Hyponatremia: PLAN: There is no prior history of chronic hyponatremia. Last available serum sodium was from 05/20/2019, and his serum sodium was 136 mmol/L at that time. This patient presented to the hospital on 6 03/27/2021 with serum sodium of 122 mmol/L. Despite current treatment, serum sodium has not markedly improved. Serum sodium is 121 mmol/L today. My suspicion for the cause of hyponatremia is still volume depletion. However, SIADH triggered by pulmonary infection is also possible. Urine studies are more consistent with SIADH although this is a diagnosis of exclusion. TSH is not bad. Although cortisol level is on the lower side, I have a low suspicion for adrenal insufficiency since he has been on corticosteroid for 1 week prior to admission. I will limit fluid intake to 1.5 L/day. I encouraged the patient to increase solute intake, particularly protein. We will check serum sodium every 8 hours for the next 24 to 48 hours. If there is no trend towards improvement, I may add furosemide to help obligate distal collecting duct water excretion or add more sources of protein. There is no need for hypertonic saline today. HPI Consult Data Date of Consult: 03/28/21 HPI Narrative Reason for Consultation: Hyponatremia HPI Narrative: KAREN ALMONTE, is a 75-year-old man with past history of hypertension, coronary artery disease status post UT/PCI, hyperlipidemia, and depression. The patient presented to [facility] yesterday with weakness which worsened over the last 24 to 48 hours prior to presentation. The patient has also been weak, coughing, and wheezing for the past 1 week before admission. He presented to the urgent care center on 03/23/2021 and was prescribed pred nisone and bronchodilator. He tested negative for Covid on 03/23/2021. Because of increasing weakness and shortness of breath, the patient presented to the hospital yesterday on 03/27/2021. Nephrology is asked to see the patient because of persistent hyponatremia. Last available serum sodium level was from 05/20/2019, and was normal at that time at 136 mmol/L. The patient denies headache, nausea, vomiting, or diarrhea. In fact, he is complaining of constipation. He denies recent confusion which was corroborated by his who is bedside. There has been no edema, orthopnea or PND. He denies ataxia or frequent falling. [facility] Medical History (Updated 03/27/21 @ 03:52 by Jazmyne Jackson) Anemia Coronary artery disease Depression Essential (primary) hypertension History of rheumatic fever Hypertension Mixed hyperlipidemia Myocardial infarct Old myocardial infarction Presence of stent in coronary artery (~05/28/16) Right carotid bruit Smoking addiction STEMI (ST elevation myocardial infarction) Thyroid nodule Home Medications nitroglycerin 0.4 mg SL PRN PRN #1 bottle 05/31/16 [Rx Last Taken Unknown] aspirin 81 mg PO DAILY@0800 01/28/18 [History Last Taken Unknown] ondansetron 4 mg PO Q6H PRN PRN tab 02/08/18 [Rx Last Taken Unknown] docusate sodium 100 mg capsule 100 mg PO DAILY 05/20/19 [History Last Taken Unknown] pravastatin 80 mg tablet 80 mg PO DAILY #90 tab 05/17/20 [Rx Last Taken Unknown] metoprolol tartrate 50 mg tablet 50 mg PO BID #180 tab 06/07/20 [Rx Last Taken Unknown] buspirone 5 mg tablet 2.5 mg PO Q OTHER DAY tablet 06/30/20 [History Last Taken Unknown] ferrous sulfate 325 mg (65 mg iron) tablet 325 mg PO TID tablet 06/30/20 [History Last Taken Unknown] fluoxetine 40 mg capsule 40 mg PO DAILY cap 06/30/20 [History Last Taken Unknown] fluticasone propionate 50 mcg/actuation nasal spray,suspension 2 spray INTRANASAL DAILY 06/30/20 [History Last Taken Unknown] lisinopril 2.5 mg tablet 2.5 mg PO QDAY #90 tab 08/04/20 [Rx Last Taken Unknown] Allergy/AdvReac Type Severity Reaction Status Date / Time No Known Allergies Allergy Verified 03/27/21 01:27 Family History Grandfather CAD (coronary artery disease) Heart disease Father CAD (coronary artery disease) CABG x 4 Mother Colon cancer Surgical History (Updated 03/27/21 @ 03:52 by Jazmyne Jackson) Atherosclerosis of [place] coronary artery of [place] heart without angina pectoris History of coronary artery stent placement History of ear surgery (~1986) History of inguinal hernia repair History of partial colectomy (~01/2018) History of tonsillectomy and adenoidectomy (~1952) Presence of coronary angioplasty implant and graft (~05/28/16) Social History Smoking Status: Former smoker how long ago did patient quit smokin years ago alcohol intake: never substance use type: does not use caffeine: Yes Type: coffee Number of servings: 4 what type of physical activity do you participate in: walking, bicycling and weight training frequency: daily duration: 60-90 minutes/day ROS ROS Narrative 03/06 review exam was done and are otherwise noncontributory. Physical Exam Narrative General: NAD, alert and oriented x3 HEENT: Normocephalic, atraumatic. Mucous membranes moist. PERRLA, EOMI. Neck: Supple. No JVD. Heart: Normal S1, S2. No rubs, murmurs or gallops. Lungs: Good air exchange. Mild expiratory wheezing diffusely. Abdomen: Normal bowel sounds. Abdomen is soft, nontender, no guarding or rebound. Extremity: No clubbing, cyanosis, or edema. Neurologic: No focal neurologic deficits. Musculoskeletal: Full passive range of motion. There is no joint swelling. Psychiatric: Normal mood and affect. Skin: Warm and dry. No rash. Lab / Micro Data Result Diagrams: 03/28/21 05:30 03/28/21 05:30 Labs: Laboratory Results - last 24 hr 03/27/21 14:45: Sodium 120 L 03/28/21 05:30: Cortisol 3.30 L 03/28/21 05:30: WBC 10.1, RBC 4.09 L, Hgb 12.8 L, Hct 36.2 L, MCV 88.5, MCH 31.3, MCHC 35.4, RDW Std Deviation 38.9, RDW Coeff of Alicia 11.9, Plt Count 285, MPV 9.0, Immature Gran % (Auto) 0.700, Neut % (Auto) 80.2 H, Lymph % (Auto) 12.8 L, [place] % (Auto) 6.2, Eos % (Auto) 0.0, Baso % (Auto) 0.1, Absolute Neuts (auto) 8.1 H, Absolute Lymphs (auto) 1.29, Nucleated RBC % 0 03/28/21 05:30: Sodium 121 L, Potassium 4.0, Chloride 89 L, Carbon Dioxide 24.0, Anion Gap 8, BUN 11, Creatinine 0.70, Estim Creat Clear Calc 71.13, Est GFR (MDRD) Af Amer 141, Est GFR (MDRD) Non-Af 116, BUN/Creatinine Ratio 15.6, Glu cose 104, Calcium 8.3 L 03/28/21 05:30: Free T4 1.51 H
[2021-03-28] MEDS: Ferrous Sulfate 325 MG Tablet PO (12:09)
[2021-03-28 13:11] LABS: Sodium Level 120 mmol/L (136-145)
[2021-03-28] MEDS: dexAMETHasone 2 MG TABLET PO (18:39)
[2021-03-28 21:58] LABS: Sodium Level 122 mmol/L (136-145)
[2021-03-28] MEDS: MELATONIN 3 MG TABLET PO (22:55)
[2021-03-29] VITALS (11 sets, daily range): BP systolic 121–132; BP diastolic 66–81; PULSE 66–99; RESP 18; TEMP 36.6–36.9; O2SAT 96–995
[2021-03-29 05:52] LABS: Absolute Lymphocyte Count 1.71 X10^3/uL (0.83-4.51); Absolute Neutrophil Count 7.8 X10^3/uL (2.0-7.7); Basophil# 0.02 X10^3/uL; Basophil% 0.2 % (0-1); Eosinophil# 0.01 X10^3/uL; Eosinophils% 0.1 % (0-5); Hematocrit 35.7 % (40-54); Hemoglobin 12.4 g/dL (13.0-16.5); Lymphocyte # 1.71 X10^3/ul (0.83-4.51); Lymphocyte % 16.2 % (19-41); Mean Corp Hgb Conc 34.7 g/dL (32-36); Mean Corpuscular Hgb 30.9 pg (27.0-32.0); Monocyte# 0.91 X10^3/uL; Monocyte% 8.6 % (0-10); NRBC Flagged by Analyzer 0 % (0-5); Neutrophil # 7.81 X10^3/uL (2.7-7.7); Platelet Count 291 K/mm3 (150-450); RBC Distribution Width CV 11.9 % (11.6-14.6); RBC Distribution Width SD 39.4 fl (35.1-43.9); Red Blood Count 4.01 M/mm3 (4.6-6.2); White Blood Count 10.6 K/mm3 (4.4-11.0)
[2021-03-29] MEDS: Enoxaparin 40 MG/0.4 ML Syringe SC (05:53)
[2021-03-29 06:09] LABS: Anion Gap 9 (5-15); BUN 12 mg/dL (7-18); BUN/Creat Ratio 17.2 RATIO (10-20); Chloride 88 mmol/L (98-107); EST Glomerular Filtration Rate 117 mL/min (>60); Est Glom Filt Rate - Afr Amer 142 mL/min (>60); Estimated Creatinine Clearance 71.13 ml/min; Glucose 112 mg/dL (74-106); Potassium 3.6 mmol/L (3.5-5.1); Sodium Level 123 mmol/L (136-145)
--- NOTE | 2021-03-29 07:27 | PN.HOSP_ITS ---
Subjective Subjective Patient serum sodium is still low. Started on sodium salt in the morning. Labs reviewed. Does not have dizziness. Patient had prednisone restarted on 03/23 for bronchitis. Objective Data Objective Data Vital Signs: Vital Signs Temp Pulse Resp BP Pulse Ox 97.9 F 66 18 128/81 H 98 03/29/21 03:19 03/29/21 03:19 03/29/21 03:19 03/29/21 03:19 03/29/21 03:19 Oxygen Delivery Method Room Air Weight: 232 lb 9.403 oz Body Mass Index (BMI) 31.5 Intake & Output: Intake and Output for Last 24 Hours 03/27/21 03/28/21 03/29/21 23:59 23:59 23:59 Intake Total 1747.5 / 2047.5 1340 / 1490 300 / 300 Balance 1747.5 / 2047.5 1340 / 1490 300 / 300 Lab / Micro Data Result Diagrams: 03/29/21 05:25 03/29/21 05:25 Labs: Laboratory Results - last 24 hr 03/28/21 05:30: Cortisol 3.30 L 03/28/21 05:30: Free T4 1.51 H 03/28/21 12:30: Sodium 120 L 03/28/21 21:10: Sodium 122 L 03/29/21 05:25: WBC 10.6, RBC 4.01 L, Hgb 12.4 L, Hct 35.7 L, MCV 89.0, MCH 30.9, MCHC 34.7, RDW Std Deviation 39.4, RDW Coeff of Alicia 11.9, Plt Count 291, MPV 9.0, Immature Gran % (Auto) 0.900, Neut % (Auto) 74.0 H, Lymph % (Auto) 16.2 L, [place] % (Auto) 8.6, Eos % (Auto) 0.1, Baso % (Auto) 0.2, Absolute Neuts (auto) 7.8 H, Absolute Lymphs (auto) 1.71, Nucleated RBC % 0 03/29/21 05:25: Sodium 123 L, Potassium 3.6, Chloride 88 L, Carbon Dioxide 26.0, Anion Gap 9, BUN 12, Creatinine 0.70, Estim Creat Clear Calc 71.13, Est GFR (MDRD) Af Amer 142, Est GFR (MDRD) Non-Af 117, BUN/Creatinine Ratio 17.2, Glucose 112 H, Calcium 8.0 L Micro: Microbiology 03/27/21 01:54 Nasal Secretion SARS-CoV-2 Antigen (Rapid) - Final Physical Exam Narrative General: Alert, Oriented x3, Cooperative HEENT: No nystagmus. Atraumatic, PERRLA, EOMI, Normocephalic Oral: No Gingival or Mucosal Lesions/ Ulcerations Neck: Supple, No JVD, Negative Carotid Bruits Lungs: Air entry diminished in bilateral lung bases. No crepitation/rhonchi or wheezing Cardiovascular: Regular rate, Regular Rhythm, Normal S1, Normal S2, No murmurs Abdomen: Bowel Sounds Present, Soft, Non Tender, Non-Distended : No renal angle tenderness. No suprapubic tenderness. Extremities: No edema, Capillary Refill Less than 3 Seconds Skin: No rashes, No breakdown Musculoskeletal: No Tenderness to Palpation of Joints or Extremities Neurological: Cranial nerves II-XII grossly intact, DTR 2+/4 and Symmetrical, Neuro grossly intact Psych/Mental Status: Flat affect Assessment & Plan Assessment/Plan (1) Hyponatremia: (2) URI (upper respiratory infection): (3) Weakness: PLAN: 1. Hypotonic isovolemic hyponatremia, exact etiology unclear but probably due to medication with possibility of SIADH: Patient does not have history of hypovolemia no clinical signs of hypovolemia. Serum sodium did not increase of sodium with IV fluid even after fluid boluses. Started on fluid restriction. TSH is normal. Serum cortisol 4 AM, liver profile and CK ordered. Uric acid 3.1. Serum calcium 7.6. 03/28: CK 459. Urine osmolality more than serum osmolarity. Urine sodium 34, urine potassium 24. Nephrology consult requested yesterday. TSH 0.46 on low normal. Free T4 ordered. Serum cortisol pending. Dizziness is resolved. 03/29: Serum sodium does not show appropriate increase with fluid restriction. Started on sodium chloride tablets 2 g twice daily. Serum cortisol level low. Most likely due to prednisone which was started on 03/23, exact reason unclear although hypothalamic pituitary adrenal axis suppression is possibility but rare in 1 week time. Started on hydrocortisone 10 mg at breakfast and 5 mg p.o. daily. I do not think she will need hydrocortisone/steroid replacement at the time of discharge. Discussed with salt operator and does not Steroid/hydrocortisone for hyponatremia. Follow-up with fishing instructor as an outpatient after 1 month for outpatient cosyntropin test. 2. 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 Prednisone was started on 03/23 therefore I do not think it is because of a steroid myopathy. Dexamethasone was started for dizziness and bronchitis but is now stopped. PT and OT to work with patient for strengthening and balance training. Hold p ravastatin 3 acute upper URI symptoms: Negative Covid antigen. Negative influenza a and B as per patient as an outpatient. On Flonase, Mucinex D and a steroid bronchodilator as needed. Incentive spirometry and Pep. Chest x-ray shows bibasilar densities consistent with bilateral atelectasis. Leukocytosis: Review of labs showed white count of 13.4. Likely from demargination secondary to steroid use. Monitor strict DVT prophylaxis: Subcutaneous Lovenox ordered. Charges/Coding Visit Charges Inpatient E&M: 11791 Subs Hosp L2
[2021-03-29] MEDS: Fluticasone 0.05% 1 SPRAY NASAL.SRY 2 SPRAY NASAL (09:13)
[2021-03-29] MEDS: guaiFENesin/D-Methorphan TAB.SR.12H 1 TABLET PO ×2 (09:14→22:05)
[2021-03-29] MEDS: Senna/Docusate Sodium 1 Tablet 2 TABLET PO ×2 (09:14→22:06)
[2021-03-29] MEDS: Lisinopril 2.5 MG Tablet PO (09:14)
[2021-03-29] MEDS: Metoprolol Tartrate 25 MG Tablet PO ×2 (09:14→22:06)
[2021-03-29] MEDS: Aspirin 81 MG TAB.CHEW PO (09:14)
[2021-03-29] MEDS: Ferrous Sulfate 325 MG Tablet PO (10:45)
[2021-03-29] MEDS: Bisacodyl 5 MG Tablet PO (10:45)
[2021-03-29] MEDS: Sodium Chloride 1 GM Tablet 2 GM PO ×2 (10:46→22:06)
[2021-03-29] MEDS: Hydrocortisone 10 MG Tablet PO (10:46)
--- NOTE | 2021-03-29 11:14 | PCM.PN.REN ---
Subjective Subjective Following for hyponatremia. The patient denies chest pain, shortness of breath, or nausea. There has been no headache today. There is no ataxia when walking between his bed to the restroom. He is not confused. Objective Data Objective Data Vital Signs: Vital Signs Temp Pulse Resp BP Pulse Ox 97.8 F 84 18 132/80 H 100 03/29/21 09:15 03/29/21 09:15 03/29/21 09:15 03/29/21 09:15 03/29/21 09:15 Oxygen Delivery Method Room Air Weight: 105.5 kg Body Mass Index (BMI) 31.5 Intake & Output: Intake and Output for Last 24 Hours 03/27/21 03/28/21 03/29/21 23:59 23:59 23:59 Intake Total 1747.5 / 2047.5 1340 / 1490 300 / 300 Balance 1747.5 / 2047.5 1340 / 1490 300 / 300 Lab / Micro Data Result Diagrams: 03/29/21 05:25 03/29/21 05:25 Labs: Laboratory Results - last 24 hr 03/28/21 12:30: Sodium 120 L 03/28/21 21:10: Sodium 122 L 03/29/21 05:25: WBC 10.6, RBC 4.01 L, Hgb 12.4 L, Hct 35.7 L, MCV 89.0, MCH 30.9, MCHC 34.7, RDW Std Deviation 39.4, RDW Coeff of Alicia 11.9, Plt Count 291, MPV 9.0, Immature Gran % (Auto) 0.900, Neut % (Auto) 74.0 H, Lymph % (Auto) 16.2 L, [place] % (Auto) 8.6, Eos % (Auto) 0.1, Baso % (Auto) 0.2, Absolute Neuts (auto) 7.8 H, Absolute Lymphs (auto) 1.71, Nucleated RBC % 0 03/29/21 05:25: Sodium 123 L, Potassium 3.6, Chloride 88 L, Carbon Dioxide 26.0, Anion Gap 9, BUN 12, Creatinine 0.70, Estim Creat Clear Calc 71.13, Est GFR (MDRD) Af Amer 142, Est GFR (MDRD) Non-Af 117, BUN/Creatinine Ratio 17.2, Glucose 112 H, Calcium 8.0 L Micro: Microbiology 03/27/21 01:54 Nasal Secretion SARS-CoV-2 Antigen (Rapid) - Final Physical Exam Narrative General: NAD, alert and oriented x3 HEENT: Normocephalic, atraumatic. Mucous membranes moist. PERRLA, EOMI. Neck: Supple. No JVD. Heart: Normal S1, S2. No rubs, murmurs or gallops. Lungs: Good air exchange. Mild expiratory wheezing diffusely. Abdomen: Normal bowel sounds. Abdomen is soft, nontender, no guarding or rebound. Extremity: No clubbing, cyanosis, or edema. Neurologic: No focal neurologic deficits. Assessment & Plan Assessment/Plan (1) Hyponatremia: PLAN: There is no prior history of chronic hyponatremia. Last available serum sodium was from 05/20/2019, and his serum sodium was 136 mmol/L at that time. This patient presented to the hospital on 6 03/27/2021 with serum sodium of 122 mmol/L. Serum sodium remained low at 121 mmol/L yesterday. My suspicion is that there was a component of hypotonic hyponatremia due to volume depletion on presentation. 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 TSH is not bad. Although cortisol level is on the lower side, I have a low suspicion for adrenal insufficiency since he has been on corticosteroid for 1 week prior to admission. I will limit fluid intake to 1.5 L/day. I encouraged the patient to continue to to increase solute intake, particularly protein. We will continue to check serum sodium every 8 hours for the next 24 to 48 hours. Although serum sodium has improved to 123 mmol/L today, the rate of rise for her serum sodium has been very slow. Therefore, I will add furosemide to help the kidney obligate more water loss. We will have to be careful with volume depletion with the use of furosemide. I will monitor his volume status closely.
[2021-03-29] MEDS: Furosemide 20 MG Tablet PO (13:16)
[2021-03-29] MEDS: Hydrocortisone 10 MG Tablet 5 MG PO (16:28)
[2021-03-30] VITALS (11 sets, daily range): BP systolic 130–135; BP diastolic 66–72; PULSE 77–92; RESP 18–20; TEMP 36.5–36.9; O2SAT 94–96
[2021-03-30 05:48] LABS: Absolute Lymphocyte Count 1.48 X10^3/uL (0.83-4.51); Absolute Neutrophil Count 7.9 X10^3/uL (2.0-7.7); Basophil# 0.01 X10^3/uL; Basophil% 0.1 % (0-1); Eosinophil# 0.02 X10^3/uL; Eosinophils% 0.2 % (0-5); Hematocrit 35.5 % (40-54); Hemoglobin 12.4 g/dL (13.0-16.5); Lymphocyte # 1.48 X10^3/ul (0.83-4.51); Lymphocyte % 13.8 % (19-41); Mean Corp Hgb Conc 34.9 g/dL (32-36); Mean Corpuscular Hgb 31.6 pg (27.0-32.0); Mean Corpuscular Volume 90.6 fL (80-94); Mean Platelet Vol. 8.7 fl (6.2-12.0); Monocyte# 1.16 X10^3/uL; Monocyte% 10.8 % (0-10); NRBC Flagged by Analyzer 0 % (0-5); Neutrophil # 7.92 X10^3/uL (2.7-7.7); Neutrophil % 73.9 % (47-70); Platelet Count 307 K/mm3 (150-450); RBC Distribution Width CV 12.2 % (11.6-14.6); RBC Distribution Width SD 39.8 fl (35.1-43.9); Red Blood Count 3.92 M/mm3 (4.6-6.2); White Blood Count 10.7 K/mm3 (4.4-11.0)
[2021-03-30 06:08] LABS: Anion Gap 9 (5-15); BUN 14 mg/dL (7-18); BUN/Creat Ratio 21.1 RATIO (10-20); Calcium,Total 7.9 mg/dL (8.5-10.1); Chloride 89 mmol/L (98-107); Creatinine, Serum 0.66 mg/dL (0.70-1.30); EST Glomerular Filtration Rate 125 mL/min (>60); Est Glom Filt Rate - Afr Amer 151 mL/min (>60); Estimated Creatinine Clearance 71.13 ml/min; Glucose 89 mg/dL (74-106); Potassium 3.5 mmol/L (3.5-5.1); Sodium Level 123 mmol/L (136-145)
[2021-03-30] MEDS: Enoxaparin 40 MG/0.4 ML Syringe SC (06:15)
[2021-03-30] MEDS: Aspirin 81 MG TAB.CHEW PO (09:04)
[2021-03-30] MEDS: Sodium Chloride 1 GM Tablet 2 GM PO ×2 (09:05→20:08)
[2021-03-30] MEDS: Metoprolol Tartrate 25 MG Tablet PO ×2 (09:05→20:08)
[2021-03-30] MEDS: Senna/Docusate Sodium 1 Tablet 2 TABLET PO ×2 (09:05→20:08)
[2021-03-30] MEDS: guaiFENesin/D-Methorphan TAB.SR.12H 1 TABLET PO ×2 (09:06→20:08)
[2021-03-30] MEDS: Lisinopril 2.5 MG Tablet PO (09:06)
[2021-03-30] MEDS: Furosemide 20 MG Tablet PO (09:06)
[2021-03-30] MEDS: Fluticasone 0.05% 1 SPRAY NASAL.SRY 2 SPRAY NASAL (09:06)
[2021-03-30] MEDS: Hydrocortisone 10 MG Tablet 5 MG PO ×2 (11:13→16:54)
[2021-03-30] MEDS: Ferrous Sulfate 325 MG Tablet PO (11:13)
--- NOTE | 2021-03-30 13:51 | PCM.PN.REN ---
Subjective Subjective Following for hyponatremia. The patient has bilateral flank bruising without pain. He denies headache, nausea, ataxia, or confusion. There is no shortness of breath at rest. Objective Data Objective Data Vital Signs: Vital Signs Temp Pulse Resp BP Pulse Ox 97.8 F 84 18 134/66 H 96 03/30/21 08:42 03/30/21 09:05 03/30/21 08:42 03/30/21 09:05 03/30/21 08:42 Oxygen Delivery Method Room Air Weight: 105.5 kg Body Mass Index (BMI) 31.5 Intake & Output: Intake and Output for Last 24 Hours 03/28/21 03/29/21 03/30/21 23:59 23:59 23:59 Intake Total 1340 / 1490 1050 / 1210 400 / 400 Output Total 730 / 910 630 / 630 Balance 1340 / 1490 320 / 300 -230 / -230 Lab / Micro Data Result Diagrams: 03/30/21 05:30 03/30/21 05:30 Labs: Laboratory Results - last 24 hr 03/30/21 05:30: WBC 10.7, RBC 3.92 L, Hgb 12.4 L, Hct 35.5 L, MCV 90.6, MCH 31.6, MCHC 34.9, RDW Std Deviation 39.8, RDW Coeff of Alicia 12.2, Plt Count 307, MPV 8.7, Immature Gran % (Auto) 1.200 H, Neut % (Auto) 73.9 H, Lymph % (Auto) 13.8 L, [place] % (Auto) 10.8 H, Eos % (Auto) 0.2, Baso % (Auto) 0.1, Absolute Neuts (auto) 7.9 H, Absolute Lymphs (auto) 1.48, Nucleated RBC % 0 03/30/21 05:30: Sodium 123 L, Potassium 3.5, Chloride 89 L, Carbon Dioxide 25.0, Anion Gap 9, BUN 14, Creatinine 0.66 L, Estim Creat Clear Calc 71.13, Est GFR (MDRD) Af Amer 151, Est GFR (MDRD) Non-Af 125, BUN/Creatinine Ratio 21.1 H, Glucose 89, Calcium 7.9 L Micro: Microbiology 03/27/21 01:54 Nasal Secretion SARS-CoV-2 Antigen (Rapid) - Final Physical Exam Narrative General: NAD, alert and oriented x3 HEENT: Normocephalic, atraumatic. Mucous membranes moist. PERRLA, EOMI. Neck: Supple. No JVD. Heart: Normal S1, S2. No rubs, murmurs or gallops. Lungs: Rhonchi bilaterally. Abdomen: Normal bowel sounds. Abdomen is soft, nontender, no guarding or rebound. Extremity: No clubbing, cyanosis, or edema. Neurologic: No focal neurologic deficits. Assessment & Plan Assessment/Plan (1) Hyponatremia: PLAN: There is no prior history of chronic hyponatremia. Last available serum sodium was from 05/20/2019, and his serum sodium was 136 mmol/L at that time. This patient presented to the hospital on 03/27/2021 with serum sodium of 122 mmol/L. Serum sodium remained low at 121 mmol/L on 03/28/2021. My suspicion is that there was a component of hypotonic hyponatremia due to volume depletion on presentation. 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 TSH is not bad. Although cortisol level is on the lower side, I have a low suspicion for adrenal insufficiency since he has been on corticosteroid for 1 week prior to admission. Serum sodium remains unimproved at 123 mmol/L in the last 24 hours. I will limit fluid intake to 1.2 L/day. Added Lasix yesterday, but he has only received 1 dose prior to this morning lab. Sodium chloride tablet was also started by hospitalist yesterday. I encouraged the patient to continue to to increase solute intake, particularly protein. We will continue to check serum sodium every 8 hours. If there is no trend towards improvement, I will add tolvaptan tomorrow.
--- NOTE | 2021-03-30 14:31 | CT_ITS ---
STUDY: CTA ABDOMEN AND PELVIS WITH CONTRAST REASON FOR EXAM: Male, 75 years old. Flank ecchymosis. RADIATION DOSAGE (If Supplied By Facility): CTDIvol = ( 31.52 ) mGy, DLP = ( 893.67 ) mGycm TECHNIQUE: Transaxial images were obtained from the dome of the diaphragm to the symphysis pubis without oral contrast. IV 100mL Isovue-370 was administered. Sagittal and coronal images were reconstructed. Individualized dose optimization techniques were used for this CT. COMPARISON: None. FINDINGS: Left lower lobe pulmonary infiltration. Coronary artery calcification. Normal liver. Normal gallbladder and extrahepatic biliary system. Normal spleen. Normal pancreas. Normal bilateral adrenal glands. Normal right kidney. There is a 3 cm x 2.4 cm cyst in the posterior inferior pole of the left kidney. There is a small hiatal hernia. Normal small intestine. Moderate amount of fecal material is seen in the colon. The appendix is visualized and appears normal. There is diffuse atherosclerotic calcification of the abdominal aorta and its major visceral branches, without a demonstrated aneurysm. Normal inferior vena cava. Normal retroperitoneum. Normal urinary bladder. There is a small umbilical hernia containing fat. The neck of the hernia measures 3.5 cm. The herniated fat shows increased density. Mild degree of increased markings in the deep subcutaneous tissues overlying the left flank suggestive of the area of ecchymosis. There are diffuse degenerative changes of the visualized lumbar spine. CT/CTA Abdomen W/WO Contrast IMPRESSION: Left lower lobe infiltrate. Mild increased markings in the subcutaneous tissues overlying the left flank suggestive of possible ecchymosis. Left renal cyst. Electronically Signed: Gagan Buck MD at 15:17 EST , Service support ,
--- NOTE | 2021-03-30 17:49 | PCM.PN.HOSP ---
Subjective Subjective Patient reports he is really feeling fairly well overall. He states he would like to go home but when we discussed his sodium being 123 he understands why we cannot allow him to go home yet. He is on room air and appears comfortable. Objective Data Objective Data Vital Signs: Vital Signs Temp Pulse Resp BP Pulse Ox 97.7 F L 80 18 135/71 H 95 03/30/21 15:25 03/30/21 15:25 03/30/21 15:25 03/30/21 15:25 03/30/21 15:25 Oxygen Delivery Method Room Air Weight: 105.5 kg Body Mass Index (BMI) 31.5 Intake & Output: Intake and Output for Last 24 Hours 03/28/21 03/29/21 03/30/21 23:59 23:59 23:59 Intake Total 1340 / 1490 1050 / 1210 640 / 640 Output Total 730 / 910 1730 / 1730 Balance 1340 / 1490 320 / 300 -1090 / -1090 Lab / Micro Data Result Diagrams: 03/30/21 05:30 03/30/21 05:30 Labs: Laboratory Results - last 24 hr 03/30/21 05:30: WBC 10.7, RBC 3.92 L, Hgb 12.4 L, Hct 35.5 L, MCV 90.6, MCH 31.6, MCHC 34.9, RDW Std Deviation 39.8, RDW Coeff of Alicia 12.2, Plt Count 307, MPV 8.7, Immature Gran % (Auto) 1.200 H, Neut % (Auto) 73.9 H, Lymph % (Auto) 13.8 L, [place] % (Auto) 10.8 H, Eos % (Auto) 0.2, Baso % (Auto) 0.1, Absolute Neuts (auto) 7.9 H, Absolute Lymphs (auto) 1.48, Nucleated RBC % 0 03/30/21 05:30: Sodium 123 L, Potassium 3.5, Chloride 89 L, Carbon Dioxide 25.0, Anion Gap 9, BUN 14, Creatinine 0.66 L, Estim Creat Clear Calc 71.13, Est GFR (MDRD) Af Amer 151, Est GFR (MDRD) Non-Af 125, BUN/Creatinine Ratio 21.1 H, Glucose 89, Calcium 7.9 L Micro: Microbiology 03/27/21 01:54 Nasal Secretion SARS-CoV-2 Antigen (Rapid) - Final Radiography Diagnostic Testing: Radiology Impression Abdomen CTA 03/30/21 14:31 IMPRESSION: Left lower lobe infiltrate. Mild increased markings in the subcutaneous tissues overlying the left flank suggestive of possible ecchymosis. Left renal cyst. Electronically Signed: Gagan Buck MD at 15:17 EST , Service support , Physical Exam Const alert, oriented x3, no apparent distress, average body habitus and healthy appearing Constitutional Narrative: Older obese white male sitting up in bed, appears comfortable, nontoxic, watching television Exam Limitations: no limitations Nutritional Appearance: obese HEENT head/scalp atraumatic, moist oral mucous membranes and oropharynx normal HEENT Narrative: No thrush, Mallampati 3 Head and Scalp: normocephalic Resp normal respiratory effort, no retractions, no use of accessory muscles and clear to auscultation bilaterally Auscultation: Negative for crackles, rales, rhonchi or wheezes Cardio regular rate, regular rhythm, S1 normal heart sound, S2 normal heart sound, no murmurs, no rub, no gallops, no clicks and no JVD GI normal to inspection, nondistended, normoactive bowel sounds, soft to palpation, non-tender and non-distended Extremity no clubbing, cyanosis or edema Peripheral Pulses: Yes pulses 2+ throughout Neuro oriented x3, CN's II-XII intact bilaterally, moves all extremities and no focal motor deficits Sensorium / Orientation: awake and alert Speech: speech normal Assessment & Plan Assessment/Plan (1) Hyponatremia: (2) Weakness: PLAN: Acute hyponatremia -Nephrology is following -Serum sodium has slowly improved but now stagnant at 123 -Suspicion is that there is a component of hypotonic hyponatremia due to volume depletion with superimposed SIADH triggered by respiratory infection -Urine studies are also consistent with SIADH -Cortisol is on the lower size but the suspicion for adrenal insufficiency is low since his steroid use has been minimal prior to admission -TSH is normal -Fluid restriction was made more strict to 1.2 L/day -Continue Lasix -Q 8 hours sodiums -If there is no improvement next 24 hours nephrology indicates they will add tolvaptan -Continue to hold home fluoxetine and BuSpar -We will discontinue Cortef Generalized weakness -PT and OT document initial evaluation on 03/27/2021 but no formal documentation with regards to abilities have been documented -Have therapy services reevaluate the patient tomorrow -Discharge plan is for discharge home but we will need to reevaluate debility prior to that time Bilateral flank ecchymosis -Concerning for Roland Summers sign -Benign abdominal exam and stable hemoglobin -CTA of abdomen and pelvis was performed and negative for any acute findings related to his pancreas. Upper respiratory tract infection -Leukocytosis has resolved -Patient states clinically he is feeling well Hypertension -Continue lisinopril -Continue metoprolol CAD -Continue aspirin Hyperlipidemia -Pravastatin on hold with generalized weakness -We will likely reinitiate on discharge DVT prophylaxis -Continue enoxaparin 40 mg daily CODE STATUS -Full code Charges/Coding Visit Charges Inpatient E&M: 70051 Subs Hosp L2
[2021-03-30 21:08] LABS: Anion Gap 9 (5-15); BUN 15 mg/dL (7-18); BUN/Creat Ratio 17.9 RATIO (10-20); Calcium,Total 8.3 mg/dL (8.5-10.1); Chloride 89 mmol/L (98-107); Creatinine, Serum 0.84 mg/dL (0.70-1.30); EST Glomerular Filtration Rate 95 mL/min (>60); Est Glom Filt Rate - Afr Amer 115 mL/min (>60); Estimated Creatinine Clearance 84.68 ml/min; Glucose 103 mg/dL (74-106); Potassium 3.5 mmol/L (3.5-5.1); Sodium Level 124 mmol/L (136-145)
[2021-03-31] VITALS (10 sets, daily range): BP systolic 104–137; BP diastolic 55–75; PULSE 66–86; RESP 16–20; TEMP 36.3–37.1; O2SAT 94–96
[2021-03-31 02:47] LABS: Anion Gap 9 (5-15); BUN 15 mg/dL (7-18); Calcium,Total 8.1 mg/dL (8.5-10.1); Chloride 90 mmol/L (98-107); Creatinine, Serum 0.79 mg/dL (0.70-1.30); EST Glomerular Filtration Rate 102 mL/min (>60); Est Glom Filt Rate - Afr Amer 123 mL/min (>60); Estimated Creatinine Clearance 71.13 ml/min; Glucose 103 mg/dL (74-106); Potassium 3.4 mmol/L (3.5-5.1); Sodium Level 126 mmol/L (136-145)
[2021-03-31] MEDS: Enoxaparin 40 MG/0.4 ML Syringe SC (06:19)
[2021-03-31] MEDS: Aspirin 81 MG TAB.CHEW PO (07:33)
[2021-03-31] MEDS: Furosemide 20 MG Tablet PO (09:48)
[2021-03-31] MEDS: Fluticasone 0.05% 1 SPRAY NASAL.SRY 2 SPRAY NASAL (09:48)
[2021-03-31] MEDS: Metoprolol Tartrate 25 MG Tablet PO ×2 (09:49→21:31)
[2021-03-31] MEDS: guaiFENesin/D-Methorphan TAB.SR.12H 1 TABLET PO ×2 (09:50→21:31)
[2021-03-31] MEDS: Senna/Docusate Sodium 1 Tablet 2 TABLET PO ×2 (09:50→21:31)
[2021-03-31] MEDS: Lisinopril 2.5 MG Tablet PO (09:51)
[2021-03-31] MEDS: Sodium Chloride 1 GM Tablet 2 GM PO ×2 (09:51→21:31)
[2021-03-31 11:08] LABS: Anion Gap 7 (5-15); BUN 17 mg/dL (7-18); BUN/Creat Ratio 20.7 RATIO (10-20); Calcium,Total 8.2 mg/dL (8.5-10.1); Chloride 92 mmol/L (98-107); Creatinine, Serum 0.82 mg/dL (0.70-1.30); EST Glomerular Filtration Rate 97 mL/min (>60); Est Glom Filt Rate - Afr Amer 118 mL/min (>60); Estimated Creatinine Clearance 86.75 ml/min; Glucose 113 mg/dL (74-106); Potassium 3.3 mmol/L (3.5-5.1); Sodium Level 127 mmol/L (136-145)
[2021-03-31] MEDS: Amox/Clavulanate 875 MG Tablet PO ×2 (11:22→17:14)
[2021-03-31] MEDS: Ferrous Sulfate 325 MG Tablet PO (11:24)
--- NOTE | 2021-03-31 11:26 | PCM.DC.SUM ---
Providers Date of Admission: 03/27/21 Primary Care Physician: Dr. Anjali Hernandes MD Consultations 03/27/21 15:23 Consult: Nephrology Routine Consulting Provider: Nakul Bonilla Reason for Consult: Hyponatremia, probably SIADH EMERGENT Consult: No MD Notified: Yes Date Notified: 03/27/21 Time Notified: 15:24 Method of Notification: Answering Service Reason For Visit: HYPONATREMIA Diagnosis Discharge Diagnosis (1) Hyponatremia: Status: Acute Code(s): E87.1 - Hypo-osmolality and hyponatremia (2) Weakness: Status: Acute Code(s): R53.1 - Weakness Medications at Discharge Home Medications nitroglycerin 0.4 mg SL PRN PRN #1 bottle 05/31/16 aspirin 81 mg PO DAILY@0800 01/28/18 ondansetron 4 mg PO Q6H PRN PRN tab 02/08/18 docusate sodium 100 mg capsule 100 mg PO DAILY 05/20/19 pravastatin 80 mg tablet 80 mg PO DAILY #90 tab 05/17/20 metoprolol tartrate 50 mg tablet 50 mg PO BID #180 tab 06/07/20 buspirone 5 mg tablet 2.5 mg PO Q OTHER DAY tablet 06/30/20 ferrous sulfate 325 mg (65 mg iron) tablet 325 mg PO TID tablet 06/30/20 fluoxetine 40 mg capsule 40 mg PO DAILY cap 06/30/20 fluticasone propionate 50 mcg/actuation nasal spray,suspension 2 spray INTRANASAL DAILY 06/30/20 lisinopril 2.5 mg tablet 2.5 mg PO QDAY #90 tab 08/04/20 amoxicillin-pot clavulanate 1 tab PO BIDCM #14 tab 03/31/21 furosemide 20 mg PO DAILY #30 tab 03/31/21 sodium chloride 2 g PO BID #120 tab 03/31/21 Physical Exam Const alert, oriented x3, no apparent distress, average body habitus and healthy appearing Constitutional Narrative: Older obese white male sitting up in bed, appears comfortable, nontoxic, watching television General Appearance: cooperative, comfortable, well kempt and well developed Orientation / Consciousness: awake Exam Limitations: no limitations Nutritional Appearance: obese HEENT normocephalic, head/scalp atraumatic, moist oral mucous membranes and oropharynx normal HEENT Narrative: Mildly hard of hearing, significant nasal congestion with what sounds to be drainage into his upper airway Resp normal respiratory effort, no retractions, no use of accessory muscles and clear to auscultation bilaterally Auscultation: Negative for crackles, rales, rhonchi or wheezes Cardio regular rate, regular rhythm, S1 normal heart sound, S2 normal heart sound, no murmurs, no rub, no gallops, no clicks and no JVD GI normal to inspection, nondistended, normoactive bowel sounds, soft to palpation, non-tender and non-distended Extremity no clubbing, cyanosis or edema Neuro oriented x3, CN's II-XII intact bilaterally, moves all extremities and no focal motor deficits Sensorium / Orientation: awake and alert Speech: speech normal Weight / BMI Weight Weight: 105.5 kg Body Mass Index (BMI) 31.5 ABG / Lab / Microbiology Data Result Diagrams: 03/30/21 05:30 03/31/21 10:39 Laboratory: Laboratory Results - last 24 hr 03/30/21 20:05: Sodium 124 L, Potassium 3.5, Chloride 89 L, Carbon Dioxide 26.0, Anion Gap 9, BUN 15, Creatinine 0.84, Estim Creat Clear Calc 84.68, Est GFR (MDRD) Af Amer 115, Est GFR (MDRD) Non-Af 95, BUN/Creatinine Ratio 17.9, Glucose 103, Calcium 8.3 L 03/31/21 02:24: Sodium 126 L, Potassium 3.4 L, Chloride 90 L, Carbon Dioxide 27.0, Anion Gap 9, BUN 15, Creatinine 0.79, Estim Creat Clear Calc 71.13, Est GFR (MDRD) Af Amer 123, Est GFR (MDRD) Non-Af 102, BUN/Creatinine Ratio 19.0, Glucose 103, Calcium 8.1 L 03/31/21 10:39: Sodium 127 L, Potassium 3.3 L, Chloride 92 L, Carbon Dioxide 28.0, Anion Gap 7, BUN 17, Creatinine 0.82, Estim Creat Clear Calc 86.75, Est GFR (MDRD) Af Amer 118, Est GFR (MDRD) Non-Af 97, BUN/Creatinine Ratio 20.7 H, Glucose 113 H, Calcium 8.2 L Microbiology: Microbiology 03/27/21 01:54 Nasal Secretion SARS-CoV-2 Antigen (Rapid) - Final Radiography Diagnostic Testing: Radiology Impression Abdomen CTA 03/30/21 14:31 IMPRESSION: Left lower lobe infiltrate. Mild increased markings in the subcutaneous tissues overlying the left flank suggestive of possible ecchymosis. Left renal cyst. Electronically Signed: Gagan Buck MD at 15:17 EST , Service support , D/C Instructions Discharge Diet: - (1200 cc (1.2L) of fluids daily) Discharge Activity: Return to Normal Activity Meaningful Use Info Meaningful Use Diagnoses (Choose all that apply): None applicable Discharge Plan Admission Admit Date/Time: 03/27/21 03:03 Primary Reason for Your Visit: Generalized weakness/hyponatremia Attending Provider: Paty Balbuena Primary Care Provider: Anjali Hernandes Consulting Providers: Nakul Bonilla Instructions Additional Instructions / Restrictions: 1. Recheck basic metabolic profile early next week at the instructions of nephrology 2. Take all medications as indicated below 3. Monitor strict fluid restriction to 1200 cc/mL daily Discharge Orders/Prescriptions Prescriptions: New sodium chloride 1 gram Tablet 2 g PO BID Qty: 120 RF: 0 furosemide 20 mg Tablet 20 mg PO DAILY Qty: 30 RF: 0 amoxicillin-pot clavulanate 875-125 mg Tablet 1 tab PO BIDCM Qty: 14 RF: 0 Continued docusate sodium [Colace] 100 mg capsule 100 mg PO DAILY RF: 0 ferrous sulfate [Feosol] 325 mg (65 mg iron) tablet 325 mg PO TID RF: 0 fluticasone propionate 50 mcg/actuation spray,suspension 2 spray INTRANASAL DAILY RF: 0 nitroglycerin 0.4 MG tablet, sublingual 0.4 mg SL PRN PRN (Reason: chest pain) Qty: 1 RF: 0 aspirin 81 MG tablet,chewable 81 mg PO DAILY@0800 RF: 0 ondansetron 4 MG tablet 4 mg PO Q6H PRN PRN (Reason: NAUSEA) RF: 0 pravastatin 80 mg tablet 80 mg PO DAILY Qty: 90 RF: 3 metoprolol tartrate 50 mg tablet 50 mg PO BID Qty: 180 RF: 3 lisinopril 2.5 mg tablet 2.5 mg PO QDAY Qty: 90 RF: 3 Held buspirone 5 mg tablet 2.5 mg PO Q OTHER DAY RF: 0 Hold Instructions: Until discussed at follow-up with nephrology fluoxetine 40 mg capsule 40 mg PO DAILY RF: 0 Hold Instructions: Until discussed as outpatient with nephrology Referrals / Follow Up: Anjali Hernandes MD [Primary Care Provider] - In 1 Week Nakul Bonilla MD [STAFF PHYSICIAN] - In 1 Week (Office should call you for appointment) Disposition Disposition (needs filled in before D/C Order can be placed): Home, Self Care Charges/Coding Visit Charges Inpatient E&M: 92920 Disch Hosp
--- NOTE | 2021-03-31 11:35 | PCM.PN.HOSP ---
Subjective Subjective Patient states he is overall feeling better. His weakness has improved. No issues overnight. He states that he is having some continued sinus drainage that he notices he is coughing up sputum in the morning but seems to get better during the day. It sounds as if he is having a significant amount of sinus drainage with lying supine. Objective Data Objective Data Vital Signs: Vital Signs Temp Pulse Resp BP Pulse Ox 97.6 F L 83 16 124/65 H 94 03/31/21 08:05 03/31/21 09:49 03/31/21 08:05 03/31/21 08:05 03/31/21 08:05 Oxygen Delivery Method Room Air Weight: 105.5 kg Body Mass Index (BMI) 31.5 Intake & Output: Intake and Output for Last 24 Hours 03/29/21 03/30/21 03/31/21 23:59 23:59 23:59 Intake Total 1050 / 1210 1240 / 1240 150 / 150 Output Total 730 / 910 5 / 2054 275 / 275 Balance 320 / 300 -815 / -815 -125 / -125 Lab / Micro Data Result Diagrams: 03/30/21 05:30 03/31/21 10:39 Labs: Laboratory Results - last 24 hr 03/30/21 20:05: Sodium 124 L, Potassium 3.5, Chloride 89 L, Carbon Dioxide 26.0, Anion Gap 9, BUN 15, Creatinine 0.84, Estim Creat Clear Calc 84.68, Est GFR (MDRD) Af Amer 115, Est GFR (MDRD) Non-Af 95, BUN/Creatinine Ratio 17.9, Glucose 103, Calcium 8.3 L 03/31/21 02:24: Sodium 126 L, Potassium 3.4 L, Chloride 90 L, Carbon Dioxide 27.0, Anion Gap 9, BUN 15, Creatinine 0.79, Estim Creat Clear Calc 71.13, Est GFR (MDRD) Af Amer 123, Est GFR (MDRD) Non-Af 102, BUN/Creatinine Ratio 19.0, Glucose 103, Calcium 8.1 L 03/31/21 10:39: Sodium 127 L, Potassium 3.3 L, Chloride 92 L, Carbon Dioxide 28.0, Anion Gap 7, BUN 17, Creatinine 0.82, Estim Creat Clear Calc 86.75, Est GFR (MDRD) Af Amer 118, Est GFR (MDRD) Non-Af 97, BUN/Creatinine Ratio 20.7 H, Glucose 113 H, Calcium 8.2 L Micro: Microbiology 03/27/21 01:54 Nasal Secretion SARS-CoV-2 Antigen (Rapid) - Final Radiography Diagnostic Testing: Radiology Impression Abdomen CTA 03/30/21 14:31 IMPRESSION: Left lower lobe infiltrate. Mild increased markings in the subcutaneous tissues overlying the left flank suggestive of possible ecchymosis. Left renal cyst. Electronically Signed: Gagan Buck MD at 15:17 EST , Service support , Physical Exam Const alert, oriented x3, no apparent distress, average body habitus and healthy appearing Constitutional Narrative: Older obese white male sitting up in bed, appears comfortable, nontoxic, watching television General Appearance: cooperative, comfortable, well kempt and well developed Orientation / Consciousness: awake Exam Limitations: no limitations Nutritional Appearance: obese HEENT normocephalic, head/scalp atraumatic, moist oral mucous membranes and oropharynx normal HEENT Narrative: Nasal drainage noted Head and Scalp: normocephalic Resp normal respiratory effort, no retractions, no use of accessory muscles and clear to auscultation bilaterally Auscultation: Negative for crackles, rales, rhonchi or wheezes Cardio regular rate, regular rhythm, S1 normal heart sound, S2 normal heart sound, no murmurs, no rub, no gallops, no clicks and no JVD GI normal to inspection, nondistended, normoactive bowel sounds, soft to palpation, non-tender and non-distended Extremity no clubbing, cyanosis or edema Peripheral Pulses: Yes pulses 2+ throughout Neuro oriented x3, moves all extremities and no focal motor deficits Sensorium / Orientation: awake and alert Speech: speech normal Assessment & Plan Assessment/Plan (1) Hyponatremia: (2) Weakness: (3) Hypokalemia: PLAN: Acute hyponatremia -Nephrology is following appreciate input -Serum sodium has now improved to 127 with treatment -Suspicion is that there is a component of hypotonic hyponatremia due to volume depletion with superimposed 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 twice daily -Continue Q 8 hours sodiums -Continue to hold home fluoxetine and BuSpar till patient can follow-up as an outpatient with nephrology after discharge Hypokalemia -40 mEq of p.o. potassium -Potassium scheduled since patient will be on continue diuresis for some time -Repeat BMP in a.m. Generalized weakness -Patient was evaluated by PT and OT today and has no home needs or continued inpatient needs for therapy services -Discharge plan is for discharge home but we will need to reevaluate debility prior to that time Bilateral flank ecchymosis -Concerning for Roland Summers sign but CTA of the abdomen pelvis was negative for any acute findings with regards to his pancreas or elsewhere -Benign abdominal exam and stable hemoglobin -Etiology unknown Upper respiratory tract infection -Patient with continued sinus drainage and intermittent cough is worse in the morning -Start Augmentin twice daily for 7 days Hypertension -Continue lisinopril -Continue metoprolol CAD -Continue aspirin Hyperlipidemia -Pravastatin on hold with generalized weakness -We will likely reinitiate on discharge DVT prophylaxis -Continue enoxaparin 40 mg daily CODE STATUS -Full code Charges/Coding Visit Charges Inpatient E&M: 17653 Subs Hosp L2
--- NOTE | 2021-03-31 11:37 | PN.RENAL_ITS ---
Subjective Subjective Following for hyponatremia. The patient denies headache, nausea, or increasing edema. There is no ataxia. He is not confused. Objective Data Objective Data Vital Signs: Vital Signs Temp Pulse Resp BP Pulse Ox 97.6 F L 83 16 124/65 H 94 03/31/21 08:05 03/31/21 09:49 03/31/21 08:05 03/31/21 08:05 03/31/21 08:05 Oxygen Delivery Method Room Air Weight: 105.5 kg Body Mass Index (BMI) 31.5 Intake & Output: Intake and Output for Last 24 Hours 03/29/21 03/30/21 03/31/21 23:59 23:59 23:59 Intake Total 1050 / 1210 1240 / 1240 150 / 150 Output Total 730 / 910 2054 / 2054 275 / 275 Balance 320 / 300 -815 / -815 -125 / -125 Lab / Micro Data Result Diagrams: 03/30/21 05:30 03/31/21 10:39 Labs: Laboratory Results - last 24 hr 03/30/21 20:05: Sodium 124 L, Potassium 3.5, Chloride 89 L, Carbon Dioxide 26.0, Anion Gap 9, BUN 15, Creatinine 0.84, Estim Creat Clear Calc 84.68, Est GFR (MDRD) Af Amer 115, Est GFR (MDRD) Non-Af 95, BUN/Creatinine Ratio 17.9, Glucose 103, Calcium 8.3 L 03/31/21 02:24: Sodium 126 L, Potassium 3.4 L, Chloride 90 L, Carbon Dioxide 27 .0, Anion Gap 9, BUN 15, Creatinine 0.79, Estim Creat Clear Calc 71.13, Est GFR (MDRD) Af Amer 123, Est GFR (MDRD) Non-Af 102, BUN/Creatinine Ratio 19.0, Glucose 103, Calcium 8.1 L 03/31/21 10:39: Sodium 127 L, Potassium 3.3 L, Chloride 92 L, Carbon Dioxide 28.0, Anion Gap 7, BUN 17, Creatinine 0.82, Estim Creat Clear Calc 86.75, Est GFR (MDRD) Af Amer 118, Est GFR (MDRD) Non-Af 97, BUN/Creatinine Ratio 20.7 H, Glucose 113 H, Calcium 8.2 L Micro: Microbiology 03/27/21 01:54 Nasal Secretion SARS-CoV-2 Antigen (Rapid) - Final Radiography Diagnostic Testing: Radiology Impression Abdomen CTA 03/30/21 14:31 IMPRESSION: Left lower lobe infiltrate. Mild increased markings in the subcutaneous tissues overlying the left flank suggestive of possible ecchymosis. Left renal cyst. Electronically Signed: Gagan Buck MD at 15:17 EST , Service support , Physical Exam Narrative General: NAD, alert and oriented x3 HEENT: Normocephalic, atraumatic. Mucous membranes moist. PERRLA, EOMI. Neck: Supple. No JVD. Heart: Normal S1, S2. No rubs, murmurs or gallops. Lungs: Rhonchi bilaterally. Abdomen: Normal bowel sounds. Abdomen is soft, nontender, no guarding or rebound. Extremity: No clubbing, cyanosis, or edema. Neurologic: No focal neurologic deficits. Assessment & Plan Assessment/Plan (1) Hyponatremia: PLAN: There is no prior history of chronic hyponatremia. Last available serum sodium was from 05/20/2019, and his serum sodium was 136 mmol/L at that time. This patient presented to the hospital on 03/27/2021 with serum sodium of 122 mmol/L. Serum sodium remained low at 121 mmol/L on 03/28/2021. My suspicion is that there was a component of hypotonic hyponatremia due to volume depletion on presentation. 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 Urine studies are also more consistent with S IADH. TSH is not bad. Although cortisol level is on the lower side, I have a low suspicion for adrenal insufficiency since he has been on corticosteroid for 1 week prior to admission. Serum sodium has finally starting to correct at a safe rate. Serum sodium is most recently 127 mmol/L. He is asymptomatic from hyponatremia. I will continue to limit fluid intake to 1.2 L/day. Added Lasix on 03/29/2021. We will continue Lasix. Sodium chloride tablet was also started by hospitalist on 03/29/2021 as well. Potassium is low possibly from Lasix. Therefore, I will schedule potassium chloride. Correcting potassium deficit will also help to keep sodium from falling. I encouraged the patient to continue to to increase solute intake, particularly protein. We will continue to check serum sodium every 8 hours for today. No need for tolvaptan today. If serum sodium continues to increase over the next 24 hours, the patient can be discharged tomorrow. Above plan discussed with Dr. Balbuena.
[2021-03-31 19:28] LABS: Anion Gap 7 (5-15); BUN 21 mg/dL (7-18); BUN/Creat Ratio 23.5 RATIO (10-20); Calcium,Total 8.3 mg/dL (8.5-10.1); Chloride 92 mmol/L (98-107); Creatinine, Serum 0.89 mg/dL (0.70-1.30); EST Glomerular Filtration Rate 88 mL/min (>60); Est Glom Filt Rate - Afr Amer 107 mL/min (>60); Estimated Creatinine Clearance 79.93 ml/min; Glucose 134 mg/dL (74-106); Potassium 3.3 mmol/L (3.5-5.1); Sodium Level 127 mmol/L (136-145)
[2021-04-01 00:05] VITALS: PULSE 81
[2021-04-01] MEDS: Acetaminophen 325 MG Tablet 650 MG PO (01:06)
[2021-04-01 04:36] VITALS: BP 106/68; PULSE 69; RESP 16; TEMP 36.7; O2SAT 94
[2021-04-01] MEDS: Enoxaparin 40 MG/0.4 ML Syringe SC (05:21)
[2021-04-01 07:00] VITALS: BP 132/64; PULSE 71; RESP 16; TEMP 36.6; O2SAT 95
[2021-04-01 07:26] LABS: Magnesium 2.4 mg/dL (1.6-2.6)
[2021-04-01] MEDS: Aspirin 81 MG TAB.CHEW PO (07:31)
[2021-04-01] MEDS: Potassium Chloride Oral Tablet 20 MEQ 40 MEQ PO ×2 (07:32→14:39)
[2021-04-01] MEDS: Amox/Clavulanate 875 MG Tablet PO (07:32)
--- NOTE | 2021-04-01 08:24 | NURSING ---
SITTING IN BED EATING BREAKFAST. C/O COUGH, PT IS ON MUCINEX BID
[2021-04-01] MEDS: Fluticasone 0.05% 1 SPRAY NASAL.SRY 2 SPRAY NASAL (09:42)
[2021-04-01 09:43] VITALS: PULSE 71
[2021-04-01] MEDS: Furosemide 20 MG Tablet PO (09:43)
[2021-04-01] MEDS: Metoprolol Tartrate 25 MG Tablet PO (09:43)
[2021-04-01] MEDS: guaiFENesin/D-Methorphan TAB.SR.12H 1 TABLET PO (09:44)
[2021-04-01] MEDS: Lisinopril 2.5 MG Tablet PO (09:45)
[2021-04-01] MEDS: Sodium Chloride 1 GM Tablet 2 GM PO (09:45)
[2021-04-01] MEDS: Senna/Docusate Sodium 1 Tablet 2 TABLET PO (09:47)
[2021-04-01 12:56] VITALS: PULSE 72
--- NOTE | 2021-04-01 13:02 | DS.PCM_ITS ---
Providers Date of Admission: 03/27/21 Primary Care Physician: Dr. Anjali Hernandes MD Consultations 03/27/21 15:23 Consult: Nephrology Routine Consulting Provider: Nakul Bonilla Reason for Consult: Hyponatremia, probably SIADH EMERGENT Consult: No MD Notified: Yes Date Notified: 03/27/21 Time Notified: 15:24 Method of Notification: Answering Service Reason For Visit: HYPONATREMIA Diagnosis Discharge Diagnosis (1) Hyponatremia: Status: Acute Code(s): E87.1 - Hypo-osmolality and hyponatremia (2) Weakness: Status: Acute Code(s): R53.1 - Weakness (3) Hypokalemia: Status: Acute Code(s): E87.6 - Hypokalemia (4) URI (upper respiratory infection): Status: Acute Code(s): J06.9 - Acute upper respiratory infection, unspecified Medications at Discharge Home Medications nitroglycerin 0.4 mg SL PRN PRN #1 bottle 05/31/16 aspirin 81 mg PO DAILY@0800 01/28/18 ondansetron 4 mg PO Q6H PRN PRN tab 02/08/18 docusate sodium 100 mg capsule 100 mg PO DAILY 05/20/19 pravastatin 80 mg tablet 80 mg PO DAILY #90 tab 05/17/20 metoprolol tartrate 50 mg tablet 50 mg PO BID #180 tab 06/07/20 buspirone 5 mg tablet 2.5 mg PO Q OTHER DAY tablet 06/30/20 ferrous sulfate 325 mg (65 mg iron) tablet 325 mg PO TID tablet 06/30/20 fluoxetine 40 mg capsule 40 mg PO DAILY cap 06/30/20 fluticasone propionate 50 mcg/actuation nasal spray,suspension 2 spray INTRANASAL DAILY 06/30/20 lisinopril 2.5 mg tablet 2.5 mg PO QDAY #90 tab 08/04/20 amoxicillin-pot clavulanate 1 tab PO BIDCM #14 tab 03/31/21 furosemide 20 mg PO DAILY #30 tab 03/31/21 sodium chloride 2 g PO BID #120 tab 03/31/21 Hospital Course Procedures None Summary of Care Provided Minutes Spent on Discharge: 38 Hospital Course: Mr. Arana is a 75-year-old white male who presented to the emergency d epartment at [facility] on 03/27/2021 with a chief complaint of generalized weakness and cough. It had been present for approximately 6 days on arrival. He had been seen by his PCP on the . A chest x-ray and a Covid test were done at that time and were negative and he was given prednisone and albuterol. He denied any significant improvement with this treatment and presented after a fall secondary to his generalized weakness. He also complained about dizziness, lightheadedness and continued URI symptoms with cough upon presentation. In the emergency department he was found to be hyponatremic with a sodium of 120. He was initially treated with IV fluids but had no improvement and further work-up was commenced and nephrology was consulted. He had no significant neurological symptoms other than generalized weakness upon presentation. He also had a mild leukocytosis on arrival as well. After being seen by nephrology he was placed on a 1.5 L fluid restriction, enc ouraged to increase solute intake particularly protein, and serial sodiums were monitored. Sodium tablets and Lasix were also added on 03/29/2021 which did improve his hyponatremia more readily than simple fluid restriction. His labs were consistent with SIADH but it was felt that there was a hypotonic hyponatremic component due to volume depletion upon presentation. Urine studies were more consistent with SIADH however. His TSH and cortisol level were performed and both with were within normal range. He had only been on prednisone for a week prior to presentation so adrenal insufficiency is unlikely. His sodium slowly trended up to 127 on the day of discharge. It did show stability and the case was discussed with nephrology and they felt comfortable for discharge as well with close follow-up with them early next week. It was noted he had bilateral flank ecchymosis consistent with Julian Summers sign and a CTA of his abdomen and pelvis was performed to rule out any pancreas issues or retroperitoneal bleeding and this was negative. His hemoglobin was also stable throughout his hospitalization. He was evaluated by physical therapy and able to perform ADLs and IADLs independently and had no mobility difficulties. Given his persistent nasal congestion and a.m. cough that subsided with time during the day I suspect he has a sinus infection and he was started on Augmentin and will complete course at discharge. Prescriptions were faxed to his pharmacy prior to discharge and he was instructed in compliance with these until seen by nephrology next week to address any changes in his Lasix or sodium dosing. He was able to be discharged home in stable condition on 04/01/2021. He is to follow-up next week with Dr. Bocanegra from nephrology and in the next 1 to 2 weeks with his primary care physician. We did hold his antidepressants and antianxiety medications on discharge given the fact that they can contribute to SIADH. Discharge diagnoses: Acute hyponatremia Hypokalemia-resolved Generalized weakness-improved Bilateral flank ecchymosis URI Hypertension CAD Hyperlipidemia Physical Exam Const alert, oriented x3, no apparent distress, average body habitus and healthy appearing Constitutional Narrative: Older obese white male sitting up in bed, appears comfortable, nontoxic, watching television General Appearance: cooperative, comfortable, well kempt and well developed Orientation / Consciousness: awake Exam Limitations: no limitations Nutritional Appearance: obese HEENT normocephalic, head/scalp atraumatic, moist oral mucous membranes and oropharynx normal Eyes PERRL, EOMs intact bilaterally and conjunctivae normal Neck no lymphadenopathy, supple and no JVD Resp normal respiratory effort, no retractions, no use of accessory muscles and clear to auscultation bilaterally Resp Narrative: Slightly diminished but clear Auscultation: Negative for crackles, rales, rhonchi or wheezes Cardio regular rate, regular rhythm, S1 normal heart sound, S2 normal heart sound, no murmurs, no rub, no gallops, no clicks and no JVD GI normal to inspection, nondistended, normoactive bowel sounds, soft to palpation, non-tender and non-distended Extremity no clubbing, cyanosis or edema Skin no rashes or lesions noted, no wounds, skin turgor normal and no jaundice Neuro oriented x3, CN's II-XII intact bilaterally, moves all extremities and no focal motor deficits Neuro Narrative: Mild generalized weakness Sensorium / Orientation: awake and alert Speech: speech normal Psych affect normal Weight / BMI Weight Weight: 105.5 kg Body Mass Index (BMI) 31.5 ABG / Lab / Microbiology Data Result Diagrams: 03/30/21 05:30 03/31/21 18:53 Laboratory: Laboratory Results - last 24 hr 03/31/21 18:53: Sodium 127 L, Potassium 3.3 L, Chloride 92 L, Carbon Dioxide 28.0, Anion Gap 7, BUN 21 H, Creatinine 0.89, Estim Creat Clear Calc 79.93, Est GFR (MDRD) Af Amer 107, Est GFR (MDRD) Non-Af 88, BUN/Creatinine Ratio 23.5 H, Glucose 134 H, Calcium 8.3 L 04/01/21 05:59: Magnesium 2.4 Microbiology: Microbiology 03/27/21 01:54 Nasal Secretion SARS-CoV-2 Antigen (Rapid) - Final D/C Instructions Discharge Diet: - (1200 cc (1.2L) of fluids daily) Meaningful Use Info Meaningful Use Diagnoses (Choose all that apply): None applicable Discharge Plan Admission Admit Date/Time: 03/27/21 03:03 Primary Reason for Your Visit: Generalized weakness/hyponatremia Attending Provider: Paty Balbuena Primary Care Provider: Anjali Hernandes Consulting Providers: Nakul Bonilla Instructions Additional Instructions / Restrictions: 1. Recheck basic metabolic profile early next week at the instructions of nephrology 2. Take all medications as indicated below 3. Monitor strict fluid restriction to 1200 cc/mL daily Discharge Orders/Prescriptions Prescriptions: New sodium chloride 1 gram Tablet 2 g PO BID Qty: 120 RF: 0 furosemide 20 mg Tablet 20 mg PO DAILY Qty: 30 RF: 0 amoxicillin-pot clavulanate 875-125 mg Tablet 1 tab PO BIDCM Qty: 14 RF: 0 Continued docusate sodium [Colace] 100 mg capsule 100 mg PO DAILY RF: 0 ferrous sulfate [Feosol] 325 mg (65 mg iron) tablet 325 mg PO TID RF: 0 fluticasone propionate 50 mcg/actuation spray,suspension 2 spray INTRANASAL DAILY RF: 0 nitroglycerin 0.4 MG tablet, sublingual 0.4 mg SL PRN PRN (Reason: chest pain) Qty: 1 RF: 0 aspirin 81 MG tablet,chewable 81 mg PO DAILY@0800 RF: 0 ondansetron 4 MG tablet 4 mg PO Q6H PRN PRN (Reason: NAUSEA) RF: 0 pravastatin 80 mg tablet 80 mg PO DAILY Qty: 90 RF: 3 metoprolol tartrate 50 mg tablet 50 mg PO BID Qty: 180 RF: 3 lisinopril 2.5 mg tablet 2.5 mg PO QDAY Qty: 90 RF: 3 Held buspirone 5 mg tablet 2.5 mg PO Q OTHER DAY RF: 0 Hold Instructions: Until discussed at follow-up with nephrology fluoxetine 40 mg capsule 40 mg PO DAILY RF: 0 Hold Instructions: Until discussed as outpatient with nephrology Referrals / Follow Up: Anjali Hernandes MD [Primary Care Provider] - In 1 Week Nakul Bonilla MD [STAFF PHYSICIAN] - In 1 Week (Office should call you for appointment) Disposition Disposition (needs filled in before D/C Order can be placed): Home, Self Care Charges/Coding Visit Charges Inpatient E&M: 02947 Disch Hosp
[2021-04-01 14:33] VITALS: BP 123/81; PULSE 84; RESP 16; TEMP 36.7; O2SAT 97
[2021-04-01] MEDS: Ferrous Sulfate 325 MG Tablet PO (14:39)
== END 2021-04-01 15:50 | disposition home or self-care (01) | DRG 645 ==
LOC: ED 02:59 → MS2 03:12
PROVIDERS: Internal Medicine; Internal Medicine Nephrology; Admitting Provider Hospitalist; Emergency Provider Emergency Medicine; PCP Internal Medicine; Visit Provider Internal Medicine
DX: E22.2 Syndrome of inappropriate secretion of antidiuretic hormone (principal); E78.2 Mixed hyperlipidemia; E86.9 Volume depletion, unspecified; E87.6 Hypokalemia; I25.10 Atherosclerotic heart disease of native coronary artery without angina pectoris; J40 Bronchitis, not specified as acute or chronic; I10 Essential (primary) hypertension; J06.9 Acute upper respiratory infection, unspecified; I25.2 Old myocardial infarction; R53.1 Weakness; Z79.82 Long term (current) use of aspirin; Z79.01 Long term (current) use of anticoagulants; Z87.891 Personal history of nicotine dependence
CPT/HCPCS: 36415; 71045; 74175; 80048; 80076; 81001; 82436; 82533; 82550; 82570; 83735; 83880; 83930; 83935; 84133; 84295; 84300; 84439; 84443; 84484; 84550; 85025; 87426; 93005; 94667; 94668; 97162; 99251; 99285; 99406; J7030; J7040; Q9967; A4216; G0463

== ENCOUNTER 2021-04-11 08:46 | Outpatient (CLI) | payer MEDICARE, OTHER, SELFPAY ==
[2016-05-29 11:45] VITALS: BMI 29.2
[2021-04-11 10:28] LABS: Albumin, Serum 2.9 g/dL (3.2-5.0); BUN 21 mg/dL (7-18); BUN/Creat Ratio 24.9 RATIO (10-20); Calcium,Total 8.8 mg/dL (8.5-10.1); Chloride 102 mmol/L (98-107); Creatinine, Serum 0.84 mg/dL (0.70-1.30); EST Glomerular Filtration Rate 95 mL/min (>60); Est Glom Filt Rate - Afr Amer 114 mL/min (>60); Glucose 85 mg/dL (74-106); Phosphorus 2.6 mg/dL (2.5-4.9); Potassium 4.1 mmol/L (3.5-5.1); Sodium Level 137 mmol/L (136-145)
[2021-04-11 10:35] LABS: Osmolality, Serum 286 mOsm/KG (280-301)
[2021-04-11 15:13] LABS: Osmolality, Urine 569 mOsm/KG
[2021-04-11 15:17] LABS: Urine Sodium 116 mmol/L (Not Establ.)
== END 2021-04-11 23:59 | disposition short-term general hospital (02) ==
PROVIDERS: PCP Internal Medicine; Visit Provider Internal Medicine Nephrology
DX: E87.1 Hypo-osmolality and hyponatremia (principal)
CPT/HCPCS: 36415; 80069; 83930; 83935; 84133; 84300

== ENCOUNTER 2022-10-22 14:04 | Observation (INO) | payer MEDICARE, OTHER, SELFPAY ==
[2016-05-29 11:45] VITALS: BMI 29.2
[2022-10-22 14:05] VITALS: BP 154/101; PULSE 69; RESP 16; TEMP 37; O2SAT 98; BMI 30.6
--- NOTE | 2022-10-22 14:23 | CT_ITS ---
INDICATION: vertigo EXAMINATION: CT BRAIN WITH CONTRAST TECHNIQUE: Noncontrast axial images were obtained of the brain. Subsequently, routine carotid CT angiogram protocol was performed without and with IV contrast. In addition, images were obtained of the [place]. NASCET criteria using the distal ICAs for comparison were used for evaluation of stenoses. 3D reconstructions were reviewed. A radiation dose optimization technique was used for this scan. IV Contrast dosage and agent: 100 cc [id number] COMPARISON: None. FINDINGS: --CT BRAIN: BRAIN PARENCHYMA: No intra- or extra-axial hemorrhage. No evidence of acute infarct. No intracranial mass or mass effect. Posterior fossa structures are unremarkable. CSF SPACES: Appropriate for age. No hydrocephalus. Basal cisterns are patent. CALVARIUM, SKULL BASE, PARANASAL SINUSES AND MASTOID AIR CELLS: Mild left maxillary sinus mucoperiosteal thickening. No discrete lytic or blastic abnormalities. ASPECTS Score for Acute Strokes: 10 --CTA NECK: AORTIC ARCH AND BRANCHES: Great vessel origins patent. RIGHT CCA: No occlusion, significant stenosis or dissection. RIGHT ICA: No occlusion, significant stenosis or dissection. LEFT CCA: No occlusion, significant stenosis or dissection. LEFT ICA: No occlusion, significant stenosis or dissection. RIGHT VERTEBRAL ARTERY: No occlusion, significant stenosis or dissection. LEFT VERTEBRAL ARTERY: No occlusion, significant stenosis or dissection. NECK SOFT TISSUES: Multiple and bilateral thyroid nodules, 1.4 cm on the right and 1.3 cm on the left. --CTA HEAD: --Anterior circulation: ICAs: No significant stenosis at the intracranial/visualized segments. ACAs: No significant stenosis at the visualized segments. ACOM: Present. MCAs: No significant stenosis at the visualized segments. --Posterior circulation: PCOMs: Not seen. electronic transaction implementer: No significant stenosis at the visualized segments. BASILAR ARTERY: No significant stenosis. VERTEBRAL ARTERIES: No significant stenosis at the intradural/visualized segments. No evidence of intracranial aneurysm or vascular malformation. CT/CTA Head AND Neck W/ Contrast IMPRESSION: Negative CT Brain, CTA Carotid, and CTA Brain. Electronically Signed: Ga Saxena MD at 16:02 EDT ,
--- NOTE | 2022-10-22 14:23 | EKG12_ITS ---
Test Reason : Blood Pressure : / mmHG Vent. Rate : 068 BPM Atrial Rate : 068 BPM P-R Int : 206 ms QRS Dur : 110 ms QT Int : 400 ms P-R-T Axes : 059 032 016 degrees QTc Int : 425 ms Normal sinus rhythm Incomplete right bundle branch block Inferior infarct , age undetermined Abnormal ECG Confirmed by CESAR SWAIN, MODE ([id number]), magazine editor KELLI GLASER ([id number]) on 10/26/2022 8:40:03 AM Referred By: Confirmed By:VIVIANA GUERRERO MD
--- NOTE | 2022-10-22 14:25 | EX.ED.DYSGE1 ---
HPI History of Present Illness Chief Complaint: Weakness Informant: patient Onset/Context/Timing Onset: Today Narrative Narrative: Patient presents with an 10-minute episode of head spinning and lightheaded sensation. He states he was driving and had sudden onset of lightheadedness, near syncope, head spinning sensation. He was able to pull off the road and call family. He states he started drinking some water and episode resolved after about 10 minutes. He did not have any speech difficulties or difficulty with extremities at the time. He denies any dizziness at this time and is able to turn his head side to side without difficulty, however does state he would not of been able to turn his head like that during this episode. [facility] Medical History Anemia Coronary artery disease Depression Essential (primary) hypertension History of rheumatic fever Hypertension Hyponatremia Mixed hyperlipidemia Myocardial infarct Old myocardial infarction Presence of stent in coronary artery (~05/28/16) Right carotid bruit Smoking addiction STEMI (ST elevation myocardial infarction) Thyroid nodule Home Medications nitroglycerin 0.4 mg sublingual tablet 0.4 mg sublingual PRN PRN chest pain #1 BOTTLE 05/31/16 [Rx Last Taken Unknown] aspirin 81 mg chewable tablet 81 mg PO DAILY@0800 BLOOD THINNER 01/28/18 [History Last Taken Unknown] ondansetron 4 mg disintegrating tablet 4 mg PO Q6H PRN PRN NAUSEA 02/08/18 [Rx Last Taken Unknown] docusate sodium 100 mg capsule (Colace) 100 mg PO DAILY stool softner 05/20/19 [History Last Taken Unknown] ferrous sulfate 325 mg (65 mg iron) tablet (Feosol) 325 mg PO TID vitamin 06/30/20 [History Last Taken Unknown] fluticasone propionate 50 mcg/actuation nasal spray,suspension 2 spray intranasal DAILY allergy 06/30/20 [History Last Taken Unknown] escitalopram oxalate 10 mg tablet 10 mg PO DAILY 01/17/22 [History Last Taken Unknown] rosuvastatin 20 mg tablet 20 mg PO DAILY #30 tabs 02/13/22 [Rx Last Taken Unknown] metoprolol tartrate 50 mg tablet 50 mg PO BID BP #180 tabs 06/15/22 [Rx Last Taken Unknown] Allergy/AdvReac Type Severity Reaction Status Date / Time No Known Allergies Allergy Verified 10/22/22 14:08 Family History Grandfather CAD (coronary artery disease) Heart disease Father CAD (coronary artery disease) CABG x 4 Mother Colon cancer Surgical History Atherosclerosis of [place] coronary artery of [place] heart without angina pectoris History of coronary artery stent placement History of ear surgery (~1986) History of inguinal hernia repair History of partial colectomy (~01/2018) History of tonsillectomy and adenoidectomy (~1952) Presence of coronary angioplasty implant and graft (~05/28/16) Social History Smoking Status: Current some day smoker tobacco type: cigarettes how long ago did patient quit smokin alcohol intake: never substance use type: does not use caffeine: Yes Type: coffee Number of servings: 4 what type of physical activity do you participate in: walking, bicycling and weight training frequency: daily duration: 60-90 minutes/day ROS ROS ED Constitutional Constitutional ED: Denies chills or fever(s) Eyes Eyes: Denies change in vision or discharge from eye(s) ENT ENT ED: Denies discharge from eye(s), rhinorrhea or sore throat Cardiovascular Cardiovascular: Denies chest pain or palpitations Respiratory/Chest Respiratory/Chest: Denies cough or dyspnea Gastrointestinal Gastrointestinal: Denies abdominal pain, diarrhea, nausea or vomiting Genitourinary Genitourinary ED: Denies dysuria Musculoskeletal Musculoskeletal: Denies back pain or extremity pain Integumentary Denies Abrasions or rash Neurologic Neurologic: Denies headache(s) or weakness Psychiatric Psychiatric: Denies anxiety or depression Allergic/Immunologic Allergic/Immunologic ED: Denies lip swelling or urticaria EXAM Physical Exam Const Vital Signs: 10/22/22 14:05 10/22/22 14:39 Temperature 98.6 F Temperature Source Temporal Pulse Rate 69 Respiratory Rate 16 Respiratory Effort Normal Respiratory Pattern Normal Blood Pressure 154/101 H Blood Pressure Mean 118 Pulse Ox 98 Oxygen Delivery Method Room Air Positive well nourished and well developed General Appearance ED: well developed HEENT Reports normocephalic and head/scalp atraumatic Eyes PERRL and EOMs intact bilaterally Neck supple Chest Wall inspection of chest normal and palpation of chest normal Resp normal respiratory effort and clear to auscultation bilaterally Cardio regular rate and regular rhythm GI normal to inspection, nondistended, normoactive bowel sounds Palpation: soft Extremity normal to inspection Neuro oriented x3 and no sensory deficits noted Neuro Narrative: NIH equals 0 at the time of my exam. Sensorium / Orientation: alert Motor Exam: strength 5/5 throughout Psych mental status grossly normal Skin no rashes or lesions noted MDM MDM MDM Narrative Medical decision making narrative: Patient placed on cardiac tech. EKG obtained to evaluate for cardiac arrhythmia/ischemia. Labwork obtained to evaluate for leukocytosis, anemia, and electrolyte derangement. CTA of the head and neck obtained to evaluate for any evidence of stroke. Lab Data Attestation: I reviewed the patient's lab results. Labs: Laboratory Results - last 24 hr 10/22/22 14:30 WBC 6.7 RBC 4.64 Hgb 14.8 Hct 44.5 MCV 95.9 H MCH 31.9 MCHC 33.3 RDW Std Deviation 44.2 H RDW Coeff of Alicia 12.4 Plt Count 194 MPV 9.7 Immature Gran % (Auto) 0.100 Neut % (Auto) 54.3 Lymph % (Auto) 37.0 [place] % (Auto) 7.9 Eos % (Auto) 0.6 Baso % (Auto) 0.1 Absolute Neuts (auto) 3.6 Absolute Lymphs (auto) 2.47 Nucleated RBC % 0 Sodium 134 L Potassium 4.3 Chloride 101 Carbon Dioxide 31.0 Anion Gap 2 L BUN 21 H Creatinine 1.13 Estim Creat Clear Calc 61.04 Est GFR (MDRD) Af Amer 81 Est GFR (MDRD) Non-Af 67 BUN/Creatinine Ratio 18.6 Glucose 116 H Calcium 8.8 Troponin I High Sens 7 Radiography Diagnostic Testing: Clinical Impression(s) from Imaging Studies Head/Neck CTA 10/22/22 14:23 IMPRESSION: Negative CT Brain, CTA Carotid, and CTA Brain. Electronically Signed: Ga Saxena MD at 16:02 EDT , EKG Initial EKG: Attestation: I personally reviewed and interpreted this EKG as follows: Interpretation: Sinus Rhythm (Sinus at 68 bpm. No acute ischemia.) Treatment and Re-Evaluation :: CBC and chemistry studies significant only for slightly low sodium at 134. Patient has a history of hyponatremia as low as 120 in the past. Troponin is normal at 7. Glucose is 116. CTA of the head and neck reveals no acute findings. EKG is sinus rhythm with no ischemia. On repeat evaluation patient lying in bed. He states he will get intermittent warm flushes over his body with a little bit of lightheadedness/spinning sensation. At this time he is able to turn his head side to side without symptoms. I will order a COVID swab to ensure he is not developing early symptoms of COVID. My biggest concern would be possible TIA with central vertigo as patient had a nontriggered 10-minute episode of what sounds on vertigo that spontaneously resolved. I will speak with hospitalist regarding observation overnight for monitoring of symptoms and probable MRI. Discharge Plan Triage Chief Complaint: Weakness ED Provider: Kareen Perry Dx/Rx/DC Orders Clinical Impression: Vertigo Prescriptions: No Action docusate sodium [Colace] 100 mg capsule 100 mg PO DAILY ferrous sulfate [Feosol] 325 mg (65 mg iron) tablet 325 mg PO TID fluticasone propionate 50 mcg/actuation spray,suspension 2 spray INTRANASAL DAILY Rx Instructions: administer into each nostril escitalopram oxalate 10 mg tablet 10 mg PO DAILY nitroglycerin 0.4 MG tablet, sublingual 0.4 mg SL PRN PRN (Reason: chest pain) Qty: 1 0RF Patient Comments: CHEST PAIN aspirin 81 MG tablet,chewable 81 mg PO DAILY@0800 Patient Comments: HEART HEALTH ondansetron 4 MG tablet 4 mg PO Q6H PRN PRN (Reason: NAUSEA) 0RF rosuvastatin 20 mg tablet 20 mg PO DAILY Qty: 30 11RF metoprolol tartrate 50 mg tablet 50 mg PO BID Qty: 180 3RF Primary Care Provider: Anjali Hernandes Referrals: Anjali Hernandes MD [Primary Care Provider] - Disposition Disposition: [facility]
[2022-10-22 14:37] LABS: Absolute Lymphocyte Count 2.47 X10^3/uL (0.83-4.51); Absolute Neutrophil Count 3.6 X10^3/uL (2.0-7.7); Basophil# 0.01 X10^3/uL; Basophil% 0.1 % (0-1); Eosinophil# 0.04 X10^3/uL; Eosinophils% 0.6 % (0-5); Hematocrit 44.5 % (40-54); Hemoglobin 14.8 g/dL (13.0-16.5); Lymphocyte # 2.47 X10^3/ul (0.83-4.51); Mean Corp Hgb Conc 33.3 g/dL (32-36); Mean Corpuscular Hgb 31.9 pg (27.0-32.0); Mean Corpuscular Volume 95.9 fL (80-94); Mean Platelet Vol. 9.7 fl (6.2-12.0); Monocyte# 0.53 X10^3/uL; Monocyte% 7.9 % (0-10); NRBC Flagged by Analyzer 0 % (0-5); Neutrophil # 3.61 X10^3/uL (2.7-7.7); Neutrophil % 54.3 % (47-70); Platelet Count 194 K/mm3 (150-450); RBC Distribution Width CV 12.4 % (11.6-14.6); RBC Distribution Width SD 44.2 fl (35.1-43.9); Red Blood Count 4.64 M/mm3 (4.6-6.2); White Blood Count 6.7 K/mm3 (4.4-11.0)
[2022-10-22 15:00] LABS: Anion Gap 2 (5-15); BUN 21 mg/dL (7-18); BUN/Creat Ratio 18.6 RATIO (10-20); Calcium,Total 8.8 mg/dL (8.5-10.1); Chloride 101 mmol/L (98-107); Creatinine, Serum 1.13 mg/dL (0.70-1.30); EST Glomerular Filtration Rate 67 mL/min (>60); Est Glom Filt Rate - Afr Amer 81 mL/min (>60); Estimated Creatinine Clearance 61.04 ml/min; Glucose 116 mg/dL (74-106); Potassium 4.3 mmol/L (3.5-5.1); Sodium Level 134 mmol/L (136-145); Troponin-I HS 7 pg/mL (3.0-78.0)
[2022-10-22] MEDS: 0.9% Normal Saline 1,000 ML 150 ML IV (15:03)
--- NOTE | 2022-10-22 16:39 | HP.PCM_ITS ---
HPI - General General Date of Admission: 10/22/22 Date of Service: 10/22/22 Chief Complaint: weakness, lightheadedness HPI Narrative KAREN ALMONTE, is a 77 M with a PMH as outlined who presents via the ED on 10/22/2022 with a complaint of weakness and lightheadedness as well as head spinning for about 10 mins. He said he felt flushed and he said it felt like he was having an anxiety attack. THis occurred whilst he was driving. He said he was able to pull off the road till his symptoms resolved. He drank some water which helped symptoms resolve. He denied any weakness, numbness or tingling nad denied any speech difficulty. He said earlier he felt dizzy with turning his head, which had resolved by the time he came in to the ED. Vitals were otherwise stable. He hasnt experienced any symptoms like this before. Vitals were BP of 154/101, [place] of 69, RR of 16 and temp of 98.6F. He was saturating at 98% on room air. CBC showed hemoglobin of 14.8 with WBC of 6.7 and platelets of 194. Chemistry shows sodium of 134 with potassium of 4.3 and creatinine of 1.13. Initial troponin was negative. CTA of the head and neck showed no evidence of any hemodynamically significant occlusion. CT of the brain showed no acute intracranial pathology. He has been admitted to be managed for probable TIA to rule out a stroke. [facility] Medical History Anemia Coronary artery disease Depression Essential (primary) hypertension History of rheumatic fever Hypertension Hyponatremia Mixed hyperlipidemia Myocardial infarct Old myocardial infarction Presence of stent in coronary artery (~05/28/16) Right carotid bruit Smoking addiction STEMI (ST elevation myocardial infarction) Thyroid nodule Home Medications nitroglycerin 0.4 mg sublingual tablet 0.4 mg sublingual PRN PRN chest pain #1 BOTTLE 05/31/16 [Rx Last Taken Unknown] aspirin 81 mg chewable tablet 81 mg PO DAILY@0800 BLOOD THINNER 01/28/18 [History Last Taken Unknown] ondansetron 4 mg disintegrating tablet 4 mg PO Q6H PRN PRN NAUSEA 02/08/18 [Rx Last Taken Unknown] docusate sodium 100 mg capsule (Colace) 100 mg PO DAILY stool softner 05/20/19 [History Last Taken Unknown] ferrous sulfate 325 mg (65 mg iron) tablet (Feosol) 325 mg PO TID vitamin 06/30/20 [History Last Taken Unknown] fluticasone propionate 50 mcg/actuation nasal spray,suspension 2 spray intranasal DAILY allergy 06/30/20 [History Last Taken Unknown] escitalopram oxalate 10 mg tablet 10 mg PO DAILY 01/17/22 [History Last Taken Unknown] rosuvastatin 20 mg tablet 20 mg PO DAILY #30 tabs 02/13/22 [Rx Last Taken Unknown] metoprolol tartrate 50 mg tablet 50 mg PO BID BP #180 tabs 06/15/22 [Rx Last Taken Unknown] Allergy/AdvReac Type Severity Reaction Status Date / Time No Known Allergies Allergy Verified 10/22/22 14:08 Family History Grandfather CAD (coronary artery disease) Heart disease Father CAD (coronary artery disease) CABG x 4 Mother Colon cancer Surgical History Atherosclerosis of [place] coronary artery of [place] heart without angina pecto ris History of coronary artery stent placement History of ear surgery (~1986) History of inguinal hernia repair History of partial colectomy (~01/2018) History of tonsillectomy and adenoidectomy (~1952) Presence of coronary angioplasty implant and graft (~05/28/16) Social History Smoking Status: Current some day smoker tobacco type: cigarettes how long ago did patient quit smokin alcohol intake: never substance use type: does not use caffeine: Yes Type: coffee Number of servings: 4 what type of physical activity do you participate in: walking, bicycling and weight training frequency: daily duration: 60-90 minutes/day ROS Constitutional Constitutional: Reports fatigue, malaise and weakness; Denies anorexia, chills or fever(s) Eyes Eyes: Denies change in vision or double vision ENT HEENT: Denies dysphagia, headache(s) or hearing loss Cardiovascular Cardiovascular: Denies chest pain, edema, orthopnea, palpitations or paroxysmal nocturnal dyspnea Respiratory/Chest Respiratory/Chest: Denies cough, shortness of breath at rest or shortness of breath with exertion Gastrointestinal Gastrointestinal: Denies abdominal pain, constipation, diarrhea, nausea or vomiting Genitourinary Genitourinary: Denies dysuria Musculoskeletal Musculoskeletal: Denies back pain, extremity pain or muscle weakness Integumentary Integumentary: Denies dry skin Neurologic Neurologic: Reports dizziness and weakness; Denies confusion, focal weakness, headache(s), lack of coordination, numbness, seizures, tingling or tremor(s) Psychiatric Psychiatric: Denies anxiety Endocrine Endocrinology: Denies change in body appearance Vital Signs Vital Signs Vital Signs: 10/22/22 14:05 10/22/22 14:39 Temperature 98.6 F Temperature Source Temporal Pulse Rate 69 Respiratory Rate 16 Respiratory Effort Normal Respiratory Pattern Normal Blood Pressure 154/101 H Blood Pressure Mean 118 Pulse Ox 98 Oxygen Delivery Method Room Air Weight Weight: 226 lb Body Mass Index (BMI) 30.6 Physical Exam Const alert, oriented x3 and no apparent distress General Appearance: cooperative HEENT normocephalic, head/scalp atraumatic and moist oral mucous membranes Eyes PERRL and EOMs intact bilaterally Neck supple and no JVD General: trachea midline Lymph Lymphatic: no lymphadenopathy noted Resp normal respiratory effort, normal air movement and clear to auscultation bilaterally Cardio regular rate, regular rhythm, S1 normal heart sound, S2 normal heart sound and no murmurs GI normal to inspection, nondistended, normoactive bowel sounds, soft to palpation, non-tender and non-distended Extremity normal capillary refill, no clubbing, cyanosis or edema and no calf tenderness Skin General Skin Exam: no breakdown Neuro CN's II-XII intact bilaterally, no focal motor deficits, no sensory deficits noted and deep tendon reflexes 2+ bilaterally Speech: speech normal Motor Exam: strength 5/5 throughout and general weakness Psych thought process normal and cooperative Appearance: appropriate Results Lab / Micro Data 10/22/22 14:30 10/22/22 14:30 Labs: Laboratory Results - last 24 hr 10/22/22 14:30: WBC 6.7, RBC 4.64, Hgb 14.8, Hct 44.5, MCV 95.9 H, MCH 31.9, MCHC 33.3, RDW Std Deviation 44.2 H, RDW Coeff of Alicia 12.4, Plt Count 194, MPV 9.7, Immature Gran % (Auto) 0.100, Neut % (Auto) 54.3, Lymph % (Auto) 37.0, [place] % (Auto) 7.9, Eos % (Auto) 0.6, Baso % (Auto) 0.1, Absolute Neuts (auto) 3.6, Absolute Lymphs (auto) 2.47, Nucleated RBC % 0, Sodium 134 L, Potassium 4.3, Chloride 101, Carbon Dioxide 31.0, Anion Gap 2 L, BUN 21 H, Creatinine 1.13, Estim Creat Clear Calc 61.04, Est GFR (MDRD) Af Amer 81, Est GFR (MDRD) Non-Af 67, BUN/Creatinine Ratio 18.6, Glucose 116 H, Calcium 8.8, Troponin I High Sens 7 Radiology Impression Head/Neck CTA 10/22/22 14:23 IMPRESSION: Negative CT Brain, CTA Carotid, and CTA Brain. Electronically Signed: Ga Saxena MD at 16:02 EDT Reading Location ID and State: formerly [facility] / [place] Tel , Service support , Assessment & Plan Assessment/Plan (1) Vertigo: PLAN: Plan #dizziness and feeling of lighteadedness, due to possible TIA * Resolved. Was in his car driving when he is felt a sudden onset of dizziness and lightheadedness. Symptoms subsequently stopped after he stopped his car. * This does sound like a TIA which lasted about 10 minutes. He has not had such symptoms before. * Admit to PCU. CT of the brain was negative for any acute intracranial pathology and CT of the head and neck showed no evidence of hemodynamically significant stenosis. * CBC and BMP were unremarkable. * Get MRI of the brain tomorrow. * Monitor NIH score * PO aspirin and high intensity statin * PT./OT on board. Fall precautions * check lipid panel and A1C * #Hypertension: * says he was taken off his BP meds by his doctors, and has not been on any BP meds for a while. * IV hydralazine as needed. * Monitor blood pressure and resume BP meds as needed. Blood pressure elevated in the 150s now but will keep off of BP meds to allow for permissive hypertension if he does have a stroke. CAD s/p stents: had stent inserted in May 2016. On aspirin, high intensity statin. #Hyperlipidemia: On statin #History of anxiety and depression; on escitalopram. PO ativan 1mg every 6 hours as needed DVT prophylaxis: lovenox Code status: full code * Patient and counseled extensively about different types of CODE STATUS including full code, DNR CCA and DNR CCA. Patient elects to be full code. * Total [id number] time 17 minutes. Charges/Coding Visit Charges Inpatient E&M: 75685 Init Hosp L2 Procedures Hospitalists Procedures: 55700 Advncd Care Plan 30 Min
[2022-10-22 17:01] VITALS: BP 146/83; PULSE 85; RESP 18; TEMP 36.4; O2SAT 95
--- NOTE | 2022-10-22 17:33 | MRI_ITS ---
HISTORY: vertigo, episode of sudden onset dizziness. TECHNIQUE: Multiplanar and multisequence MR images of the brain were obtained without contrast. 303 images. COMPARISON: CT prior day. FINDINGS: BRAIN PARENCHYMA: Mild foci of increased T2 FLAIR signal in the bilateral cerebral white matter. No abnormal focus of restricted diffusion. No acute intracranial hemorrhage identified. CSF SPACES: Mild generalized volume loss. No significant midline shift or other mass effect.No extra-axial fluid collection. VASCULAR SYSTEM: Major intracranial flow voids are maintained. PARANASAL SINUSES AND MASTOID AIR CELLS: Mild left maxillary sinus mucosal thickening. ORBITS: Symmetric contents. MRI/Brain without Contrast IMPRESSION: No evidence for acute infarct. Mild chronic involutional and white matter changes. Electronically Signed: Lisa De Leon MD at 10:46 EDT ,
[2022-10-22 17:55] VITALS: BP 143/77; PULSE 81; RESP 18; TEMP 36.7; O2SAT 95
[2022-10-22 18:00] VITALS: BP 143/77; PULSE 81; RESP 18; TEMP 36.7; O2SAT 95
[2022-10-22 18:20] LABS: Troponin-I HS 12 pg/mL (3.0-78.0)
[2022-10-22] MEDS: LORazepam 1 MG Tablet PO (18:29)
[2022-10-22 20:20] VITALS: O2SAT 98
[2022-10-22] MEDS: Meclizine 12.5 MG Tablet PO (20:44)
[2022-10-22] MEDS: Atorvastatin Calcium 40 MG Tablet PO (20:44)
[2022-10-22 21:02] LABS: Troponin-I HS 14 pg/mL (3.0-78.0)
[2022-10-22 22:00] VITALS: BP 126/56; PULSE 88; RESP 16; TEMP 36.7; O2SAT 96
[2022-10-23] VITALS: BMI 30.6
[2022-10-23] MEDS: LORazepam 1 MG Tablet PO (00:46)
[2022-10-23] MEDS: 0.9% Normal Saline 1,000 ML 150 ML IV ×2 (01:37→08:25)
[2022-10-23 02:00] VITALS: BP 109/62; PULSE 79; RESP 16; TEMP 36.7; O2SAT 95
[2022-10-23] MEDS: Meclizine 12.5 MG Tablet PO ×2 (05:05→13:57)
[2022-10-23] MEDS: Acetaminophen 325 MG Tablet 650 MG PO ×2 (05:06→11:07)
[2022-10-23 06:00] VITALS: BP 130/74; PULSE 68; RESP 16; TEMP 36.7; O2SAT 96
[2022-10-23 06:08] LABS: Absolute Lymphocyte Count 2.45 X10^3/uL (0.83-4.51); Absolute Neutrophil Count 3.1 X10^3/uL (2.0-7.7); Basophil# 0.02 X10^3/uL; Basophil% 0.3 % (0-1); Eosinophil# 0.04 X10^3/uL; Eosinophils% 0.6 % (0-5); Hematocrit 41.4 % (40-54); Hemoglobin 13.5 g/dL (13.0-16.5); Lymphocyte # 2.45 X10^3/ul (0.83-4.51); Lymphocyte % 39.1 % (19-41); Mean Corp Hgb Conc 32.6 g/dL (32-36); Mean Corpuscular Hgb 31.3 pg (27.0-32.0); Mean Corpuscular Volume 96.1 fL (80-94); Mean Platelet Vol. 10.1 fl (6.2-12.0); Monocyte# 0.61 X10^3/uL; Monocyte% 9.7 % (0-10); NRBC Flagged by Analyzer 0 % (0-5); Neutrophil # 3.13 X10^3/uL (2.7-7.7); Neutrophil % 50.1 % (47-70); Platelet Count 179 K/mm3 (150-450); RBC Distribution Width CV 12.3 % (11.6-14.6); RBC Distribution Width SD 44.2 fl (35.1-43.9); Red Blood Count 4.31 M/mm3 (4.6-6.2); White Blood Count 6.3 K/mm3 (4.4-11.0)
[2022-10-23 06:34] LABS: Anion Gap 4 (5-15); BUN 13 mg/dL (7-18); BUN/Creat Ratio 17.2 RATIO (10-20); Calcium,Total 8.1 mg/dL (8.5-10.1); Chloride 108 mmol/L (98-107); Cholesterol 135 mg/dL (200); Creatinine, Serum 0.76 mg/dL (0.70-1.30); EST Glomerular Filtration Rate 106 mL/min (>60); Est Glom Filt Rate - Afr Amer 129 mL/min (>60); Estimated Creatinine Clearance 68.98 ml/min; Glucose 100 mg/dL (74-106); High Density Lipoprotein 48 mg/dL; Potassium 3.5 mmol/L (3.5-5.1); Sodium Level 139 mmol/L (136-145); Triglycerides 95 mg/dL; Very Low Density Lipoprotein 19 mg/dL (5-40)
--- NOTE | 2022-10-23 07:00 | ECHOD_ITS ---
Reason For Study: TIA/CVA Procedure This was a 2D Doppler, Color Flow transthoracic echocardiogram. Exam performed portable in patient room. Left Ventricle Normal LV size. The estimated ejection fraction is 55 %. No evidence for diastolic dysfunction. No regional wall motion abnormalities noted. Right Ventricle Normal RV size. Normal systolic function. Atria Normal left atrium. Normal right atrium. No doppler evidence for ASD. Bubble contrast study negative for right to left interatrial shunt. Mitral Valve There is no mitral valve stenosis. Trivial mitral valve insufficiency. Tricuspid Valve There is no tricuspid stenosis. Trivial tricuspid valve insufficiency. Unable to estimate RV systolic pressure due to insufficient tricuspid regurgitant envelope. Aortic Valve Trisinus/trileaflet aortic valve. There is no aortic stenosis. No aortic valve insufficiency. Pulmonic Valve There is no pulmonic valvular stenosis. No pulmonic valve insufficiency. Great Vessels Normal aortic root. Pericardium/Pleural No pericardial effusion. Medication Performed a rapid injection of agitated mix of 9 cc saline and 1cc air to assess for atrial septal defect. MMode/2D Measurements & Calculations LVIDd: 5.1 cm IVSd: 1.1 cm Ao root diam: 3.4 cm LVIDs: 3.6 cm LVPWd: 0.99 cm RVDd: 3.4 cm FS: 28.5 % LAV(MOD-bp): 62.6 ml LVAd ap4: 31.6 cm2 LVAd ap2: 35.5 cm2 LAV(MOD-bp) Indexed: 28.1 ml/m2 LVLd ap4: 8.4 cm LVLd ap2: 9.0 cm LAV(MOD-sp2): 61.1 ml EDV(MOD-sp4): 98.1 ml EDV(MOD-sp2): 115.4 ml LAV(MOD-sp4): 56.8 ml EDV(sp4-el): 100.4 ml EDV(sp2-el): 118.6 ml LVAs ap4: 18.2 cm2 LVAs ap2: 19.0 cm2 LVLs ap4: 7.0 cm LVLs ap2: 7.1 cm ESV(MOD-sp4): 39.1 ml ESV(MOD-sp2): 43.6 ml ESV(sp4-el): 40.1 ml ESV(sp2-el): 43.5 ml EF(MOD-sp4): 60.2 % EF(MOD-sp2): 62.2 % EF(sp4-el): 60.1 % SV(MOD-sp4): 59.0 ml SV(MOD-sp2): 71.7 ml SV(sp4-el): 60.3 ml LA A4 area: 18.9 cm2 LA dimension(2D): 4.2 cm RA A4 area: 16.4 cm2 TAPSE: 2.5 cm Time Measurements MV dec time: 0.20 sec Doppler Measurements & Calculations MV E max burak: 76.1 cm/sec Lat Peak E' Burak: 11.5 cm/sec Med Peak E' Burak: 7.5 cm/sec MV A max burak: 104.5 cm/sec E/E' lat: 6.6 E/E' med: 10.2 MV E/A: 0.73 MV V2 max: 108.0 cm/sec Ao V2 max: 116.8 cm/sec MV max P.7 mmHg MV dec slope: 392.5 cm/sec2 Ao max P.5 mmHg MV V2 mean: 73.0 cm/sec Ao V2 mean: 79.2 cm/sec MV mean P.3 mmHg Ao mean P.9 mmHg MV V2 VTI: 43.6 cm Ao V2 VTI: 28.9 cm AV (velocity ratio): 0.99 LV V1 max: 112.1 cm/sec PA V2 max: 119.3 cm/sec LV V1 max P.0 mmHg PA V2 mean: 79.3 cm/sec LV V1 mean P.0 mmHg LV V1 mean: 81.1 cm/sec LV V1 VTI: 28.5 cm ECHO/Echo Complete Interpretation Summary The estimated ejection fraction is 55 %. No evidence for diastolic dysfunction. Trivial mitral valve insufficiency. Ordering Physician: Kimmie Woods Referring Physician: Anjali Hernandes M.D. Performed By: Maricarmen Goldstein RCS
[2022-10-23 07:33] VITALS: O2SAT 96
--- NOTE | 2022-10-23 09:20 | NURSING ---
Off floor to MRI
[2022-10-23 10:58] VITALS: BP 138/77; PULSE 71; RESP 18; TEMP 35.7; O2SAT 98
--- NOTE | 2022-10-23 11:00 | NURSING ---
Patient off unit for MRI, NIH and VS late for this reason. NIH and VS completed upon patient return to unit.
[2022-10-23] MEDS: Escitalopram Oxalate 10 MG Tablet PO (11:08)
[2022-10-23] MEDS: Ferrous Sulfate 325 MG Tablet PO (11:08)
[2022-10-23] MEDS: Aspirin 81 MG TAB.CHEW PO (11:08)
[2022-10-23] MEDS: Docusate Sodium 100 MG Capsule PO (11:08)
[2022-10-23] MEDS: Fluticasone 0.05% 1 SPRAY NASAL.SRY 2 SPRAY NASAL (11:49)
[2022-10-23 14:00] VITALS: BP 150/86; PULSE 78; RESP 16; TEMP 36.4; O2SAT 99
--- NOTE | 2022-10-23 14:28 | DCINST_ITS ---
Discharge Instructions Diet Discharge Diet: - (DASH diet) Activity Discharge Activity: Return to Normal Activity Follow Up Care Test Results: Test results from this visit will be discussed in further detail at your follow- up appointment, if applicable. Discharge Plan Admission Admit Date/Time: 10/22/22 16:50 Primary Reason for Your Visit: Vertigo Attending Provider: Laura Villalta Primary Care Provider: Anjali Hernandes Consulting Providers: Kimmie Woods Instructions Patient Instructions: BPPV, ED Vertigo, Unspecified Additional Instructions / Restrictions: DISCHARGE INSTRUCTIONS PLEASE READ *Please take this with you to your next doctors appointment* -You are brought in due to a dizzy spell that improved with meclizine. No acute stroke was found, you will be discharged with a prescription for outpatient vestibular rehab as well as meclizine as needed -Please call your primary care provider's office upon discharge to schedule a hospital follow up within 1 week. -For any concerning signs or symptoms please call 911 or proceed to the nearest emergency department Discharge Orders/Prescriptions Prescriptions: New meclizine 12.5 mg Tablet 12.5 mg PO TID PRN PRN (Reason: Vertigo) 5 Days Qty: 15 0RF Continued docusate sodium [Colace] 100 mg capsule 100 mg PO BID ferrous sulfate [Feosol] 325 mg (65 mg iron) tablet 325 mg PO BID fluticasone propionate 50 mcg/actuation spray,suspension 2 spray INTRANASAL DAILY Rx Instructions: administer into each nostril escitalopram oxalate 10 mg tablet 10 mg PO DAILY aspirin 81 MG tablet,chewable 81 mg PO DAILY@0800 Patient Comments: HEART HEALTH ondansetron 4 MG tablet 4 mg PO Q6H PRN PRN (Reason: NAUSEA) 0RF rosuvastatin 20 mg tablet 20 mg PO DAILY Qty: 30 11RF metoprolol tartrate 50 mg tablet 50 mg PO BID Qty: 180 3RF Discontinued nitroglycerin 0.4 MG tablet, sublingual 0.4 mg SL PRN PRN (Reason: chest pain) Qty: 1 0RF Hold Instructions: NEVER USED Patient Comments: CHEST PAIN Referrals / Follow Up: Anjali Hernandes MD [Primary Care Provider] - Within 1 Week Disposition Disposition (needs filled in before D/C Order can be placed): Home, Self Care
--- NOTE | 2022-10-23 14:32 | PCM.DC.SUM ---
Providers Date of Admission: 10/22/22 Date of Discharge: 10/23/22 Primary Care Physician: Dr. Anjali Hernandes MD Reason For Visit: VERTIGO Diagnosis Discharge Diagnosis (1) Vertigo: Status: Acute Code(s): R42 - Dizziness and giddiness Plan #Vertigo #hx CAD Medications at Discharge Home Medications aspirin 81 mg chewable tablet 81 mg PO DAILY@0800 BLOOD THINNER 01/28/18 ondansetron 4 mg disintegrating tablet 4 mg PO Q6H PRN PRN NAUSEA 02/08/18 docusate sodium 100 mg capsule (Colace) 100 mg PO BID stool softner 05/20/19 ferrous sulfate 325 mg (65 mg iron) tablet (Feosol) 325 mg PO BID vitamin 06/30/20 fluticasone propionate 50 mcg/actuation nasal spray,suspension 2 spray intranasal DAILY allergy 06/30/20 escitalopram oxalate 10 mg tablet 10 mg PO DAILY 01/17/22 rosuvastatin 20 mg tablet 20 mg PO DAILY #30 tabs 02/13/22 metoprolol tartrate 50 mg tablet 50 mg PO BID BP #180 tabs 06/15/22 meclizine 12.5 mg tablet 12.5 mg PO TID PRN PRN Vertigo 5 days #15 tabs 10/23/22 Hospital Course Summary of Care Provided Minutes Spent on Discharge: 31 Hospital Course: 77-year-old male history of hypertension, coronary artery disease with stenting, vertigo presented to [facility] 10/22/2022 due to an episode of vertigo for about 10 minutes that resolved with meclizine. Given his age and risk factors he was admitted for TIA/stroke rule out. CTA of head and neck with no hemodynamically significant occlusion. Upon further discussion with patient he has had episodes exactly like this in the past that responded to meclizine but he had no further prescriptions at home. MRI with no acute stroke and echocardiogram with no PFO. Symptoms completely resolved and not resumed. Will give prescription for outpatient vestibular rehab and meclizine. Patient had no complaints on day of discharge. Discharge instructions as follows: -You are brought in due to a dizzy spell that improved with meclizine. No acute stroke was found, you will be discharged with a prescription for outpatient vestibular rehab as well as meclizine as needed -Please call your primary care provider's office upon discharge to schedule a hospital follow up within 1 week. -For any concerning signs or symptoms please call 911 or proceed to the nearest emergency department Physical Exam Narrative General: Alert, oriented, no apparent distress HEENT: Atraumatic, normocephalic Eyes: Anicteric, normal conjunctiva, extraocular movements grossly intact Neck: Supple Respiratory: Clear to auscultation bilaterally, normal respiratory effort Cardiovascular: Regular rate and rhythm GI: Soft, nontender, nondistended Extremities: No edema Musculoskeletal: Moving all extremities Neuro: No overt focal neurological deficits Skin: No rashes appreciated Psych: Cooperative Weight / BMI Weight Weight: 101.151 kg Body Mass Index (BMI) 30.6 ABG / Lab / Microbiology Data 10/23/22 05:33 10/23/22 05:33 Laboratory: Laboratory Results - last 24 hr 10/22/22 14:30: WBC 6.7, RBC 4.64, Hgb 14.8, Hct 44.5, MCV 95.9 H, MCH 31.9, MCHC 33.3, RDW Std Deviation 44.2 H, RDW Coeff of Alicia 12.4, Plt Count 194, MPV 9.7, Immature Gran % (Auto) 0.100, Neut % (Auto) 54.3, Lymph % (Auto) 37.0, Davidson % (Auto) 7.9, Eos % (Auto) 0.6, Baso % (Auto) 0.1, Absolute Neuts (auto) 3.6, Absolute Lymphs (auto) 2.47, Nucleated RBC % 0, Sodium 134 L, Potassium 4.3, Chloride 101, Carbon Dioxide 31.0, Anion Gap 2 L, BUN 21 H, Creatinine 1.13, Estim Creat Clear Calc 61.04, Est GFR (MDRD) Af Amer 81, Est GFR (MDRD) Non-Af 67, BUN/Creatinine Ratio 18.6, Glucose 116 H, Calcium 8.8, Troponin I High Sens 7 10/22/22 17:54: Troponin I High Sens 12 10/22/22 20:38: Troponin I High Sens 14 10/23/22 05:33: WBC 6.3, RBC 4.31 L, Hgb 13.5, Hct 41.4, MCV 96.1 H, MCH 31.3, MCHC 32.6, RDW Std Deviation 44.2 H, RDW Coeff of Alicia 12.3, Plt Count 179, MPV 10.1, Immature Gran % (Auto) 0.200, Neut % (Auto) 50.1, Lymph % (Auto) 39.1, Davidson % (Auto) 9.7, Eos % (Auto) 0.6, Baso % (Auto) 0.3, Absolute Neuts (auto) 3.1, Absolute Lymphs (auto) 2.45, Nucleated RBC % 0, Sodium 139, Potassium 3.5, Chloride 108 H, Carbon Dioxide 27.0, Anion Gap 4 L, BUN 13, Creatinine 0.76, Estim Creat Clear Calc 68.98, Est GFR (MDRD) Af Amer 129, Est GFR (MDRD) Non-Af 106, BUN/Creatinine Ratio 17.2, Glucose 100, Calcium 8.1 L, Triglycerides 95, Cholesterol 135, LDL Cholesterol 68, VLDL Cholesterol 19, HDL Cholesterol 48 Microbiology: Microbiology 10/22/22 17:14 Nasal Secretion SARS-CoV-2 Antigen (Rapid) - Final Radiography Diagnostic Testing: Radiology Impression Head/Neck CTA 10/22/22 14:23 IMPRESSION: Negative CT Brain, CTA Carotid, and CTA Brain. Electronically Signed: Ga Saxena MD at 16:02 EDT , Brain MRI 10/22/22 17:33 IMPRESSION: No evidence for acute infarct. Mild chronic involutional and white matter changes. Electronically Signed: Lisa De eLon MD at 10:46 EDT , Echocardiogram 10/23/22 07:00 Interpretation Summary The estimated ejection fraction is 55 %. No evidence for diastolic dysfunction. Trivial mitral valve insufficiency. Ordering Physician: Kimmie Woods Referring Physician: Anjali Hernandes M.D. Performed By: Maricarmen Goldstein RCS D/C Instructions Discharge Diet: - (DASH diet) Meaningful Use Info Meaningful Use Diagnoses (Choose all that apply): None applicable Discharge Plan Admission Admit Date/Time: 10/22/22 16:50 Primary Reason for Your Visit: Vertigo Attending Provider: Laura Villalta Primary Care Provider: Anjali Hernandes Consulting Providers: Kimmie Woods Instructions Patient Instructions: BPPV, ED Vertigo, Unspecified Additional Instructions / Restrictions: DISCHARGE INSTRUCTIONS PLEASE READ *Please take this with you to your next doctors appointment* -You are brought in due to a dizzy spell that improved with meclizine. No acute stroke was found, you will be discharged with a prescription for outpatient vestibular rehab as well as meclizine as needed -Please call your primary care provider's office upon discharge to schedule a hospital follow up within 1 week. -For any concerning signs or symptoms please call 911 or proceed to the nearest emergency department Discharge Orders/Prescriptions Prescriptions: New meclizine 12.5 mg Tablet 12.5 mg PO TID PRN PRN (Reason: Vertigo) 5 Days Qty: 15 0RF Continued docusate sodium [Colace] 100 mg capsule 100 mg PO BID ferrous sulfate [Feosol] 325 mg (65 mg iron) tablet 325 mg PO BID fluticasone propionate 50 mcg/actuation spray,suspension 2 spray INTRANASAL DAILY Rx Instructions: administer into each nostril escitalopram oxalate 10 mg tablet 10 mg PO DAILY aspirin 81 MG tablet,chewable 81 mg PO DAILY@0800 Patient Comments: [facility] ondansetron 4 MG tablet 4 mg PO Q6H PRN PRN (Reason: NAUSEA) 0RF rosuvastatin 20 mg tablet 20 mg PO DAILY Qty: 30 11RF metoprolol tartrate 50 mg tablet 50 mg PO BID Qty: 180 3RF Discontinued nitroglycerin 0.4 MG tablet, sublingual 0.4 mg SL PRN PRN (Reason: chest pain) Qty: 1 0RF Hold Instructions: NEVER USED Patient Comments: CHEST PAIN Referrals / Follow Up: Anjali Hernandes MD [Primary Care Provider] - Within 1 Week Disposition Disposition (needs filled in before D/C Order can be placed): Home, Self Care Charges/Coding Visit Charges Inpatient E&M: 83772 Disch Hosp >30min
--- NOTE | 2022-10-23 14:56 | CASEMGMT ---
SUMI LAY notified that patient has order for discharge. Hospitalist recommending vestibular therapy at discharge. Script received. SUMI LAY in to discuss vestibular therapy with patient, patient agreeable. Patient provided script for outpatient therapy with [facility] information. Patient had no further questions or concerns at this time.
--- NOTE | 2022-10-23 15:13 | PHA.DC.MR.R ---
Pharmacy [place] Med Reconciliation Pharmacy Service has performed discharge medication reconciliation for this patient. Per home medication list, patient has taken before. Did not educational guidance counselor. The patient's discharge medication list was reviewed for discrepancies and discrepancies were resolved. Medications at Discharge Home Medications aspirin 81 mg chewable tablet 81 mg PO DAILY@0800 BLOOD THINNER 01/28/18 ondansetron 4 mg disintegrating tablet 4 mg PO Q6H PRN PRN NAUSEA 02/08/18 docusate sodium 100 mg capsule (Colace) 100 mg PO BID stool softner 05/20/19 ferrous sulfate 325 mg (65 mg iron) tablet (Feosol) 325 mg PO BID vitamin 06/30/20 fluticasone propionate 50 mcg/actuation nasal spray,suspension 2 spray intranasal DAILY allergy 06/30/20 escitalopram oxalate 10 mg tablet 10 mg PO DAILY 01/17/22 rosuvastatin 20 mg tablet 20 mg PO DAILY #30 tabs 02/13/22 metoprolol tartrate 50 mg tablet 50 mg PO BID BP #180 tabs 06/15/22 meclizine 12.5 mg tablet 12.5 mg PO TID PRN PRN Vertigo 5 days #15 tabs 10/23/22
[2022-10-23 15:26] VITALS: BP 141/78; PULSE 72; RESP 16; TEMP 35.9; O2SAT 99
[2022-10-23 16:03] VITALS: BMI 30.6
== END 2022-10-23 14:31 | disposition home or self-care (01) ==
LOC: ED 16:26 → PCU 17:05
PROVIDERS: Admitting Provider Student in an Organized Health Care Education/Training Program; Emergency Provider Emergency Medicine; PCP Internal Medicine; Visit Provider Internal Medicine
DX: R42 Dizziness and giddiness (principal); I25.10 Atherosclerotic heart disease of native coronary artery without angina pectoris; I10 Essential (primary) hypertension; E78.2 Mixed hyperlipidemia; R53.1 Weakness; D64.9 Anemia, unspecified; Z79.82 Long term (current) use of aspirin; F17.210 Nicotine dependence, cigarettes, uncomplicated; Z79.899 Other long term (current) drug therapy; I25.2 Old myocardial infarction; F41.9 Anxiety disorder, unspecified; F32.A Depression, unspecified
CPT/HCPCS: 36415; 70496; 70498; 70551; 80048; 80061; 84484; 85025; 87811; 93005; 93306; 94762; 96360; 96361; 97162; 97166; 99221; 99285; J7030; Q9967; G0378

== ENCOUNTER 2022-11-14 10:30 | Outpatient (RCR) | payer MEDICARE, OTHER, SELFPAY ==
[2016-05-29 11:45] VITALS: BMI 29.2
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
--- NOTE | 2022-12-29 08:38 | HP.PT.NRP ---
Patient Information Patient Information: KAREN ALMONTE was seen in my office for initial evaluation on 11/06/22. The following Plan of Care was established for this patient: POC Established Initial Frequency: 1x/Week Initial Duration: 2-4 Weeks Anticipated Interventions Patient/Client Instruction: Educate patient on: Condition and Plan of Care For the Purpose of:: To increase tolerance to activity/condition/position For the Purpose of:: To increase tolerance to activity/condition/position Last Seen Last Seen: This patient was last seen in our office 11/14/22. Pertinent comments regarding their Physical therapy will appear below: Pt seen 2 visits of POC and was 50% better. Was to f/u two weeks later but did not schedule or attend. at this point it has been over 6 weeks and I will discontinue due to nonattendance. At this point I will be discontinuing this patient from physical therapy. I would be happy to see this patient again in the future if found appropriate by the physician. Thank you! Alfred Richardson, DPT, OCS, CSCS Balance/Gait/Functional tests Balance/Special Test Scores Functional Gait Assessment Score: 28 % Disability: 6.6700 Dizziness Score: 74
== END 2022-11-14 19:00 | disposition home or self-care (01) ==
LOC: PT 10:30
PROVIDERS: PCP Internal Medicine; Referring Provider Internal Medicine; Visit Provider Internal Medicine
DX: R42 Dizziness and giddiness (principal)
CPT/HCPCS: 97110; 97161; 97530

== ENCOUNTER → 2023-05-21 | Outpatient (CLI) | payer MEDICARE, OTHER, SELFPAY ==
[2016-05-29 11:45] VITALS: BMI 29.2
--- NOTE | 2023-05-21 09:54 | CDU_ITS ---
Reason For Study: Carotid Bruit Rt. Velocities/BP Lt. Velocities/BP Prox CCA 79.0/13.8 cm/sec. Prox CCA 90.4/24.1 cm/sec. Mid CCA 71.4/15.7 cm/sec. Mid CCA 96.5/21.6 cm/sec. Dist CCA 75.2/10.0 cm/sec. Dist CCA 73.2/18.2 cm/sec. Prox ICA 66.7/16.6 cm/sec. Prox ICA 55.6/11.7 cm/sec. Mid ICA 88.4/28.0 cm/sec. Mid ICA 72.1/27.0 cm/sec. Dist ICA 65.8/26.1 cm/sec. Dist ICA 80.9/34.6 cm/sec. Rt. ICA/CCA = 1.2. Lt. ICA/CCA = 0.8. Prox ECA 68.6/9.1 cm/sec. Prox ECA 79.9/8.1 cm/sec. Rt. Vert. 47.8/10.0 cm/sec. Lt. Vert. 32.8/6.6 cm/sec. Right Extracranial There is intimal thickening but no significant atherosclerotic plaque noted in the right common carotid artery. There is heterogeneous, irregular atherosclerotic plaque noted in the right internal carotid artery. There is intimal thickening but no significant atherosclerotic plaque noted in the right external carotid artery. Antegrade flow is noted in the right vertebral artery. Incidental Finding : Anechoic non-vascularized area noted in Rt Thyroid measuring approximately 1.15cm x 0.44cm. Left Extracranial There is intimal thickening but no significant atherosclerotic plaque noted in the left common carotid artery. There is heterogeneous, irregular atherosclerotic plaque noted in the left internal carotid artery. There is heterogeneous, irregular atherosclerotic plaque noted in the left external carotid artery. Antegrade flow is noted in the left vertebral artery. Procedure Carotid Duplex [id number]. This is a Carotid Duplex examination using B-mode, color flow and specral Doppler. The exam was diagnostic. Exam performed in department. VL/Carotid Duplex Ultrasound Interpretation Summary Mild (<50%) stenosis right extracranial internal carotid. Mild (<50%) stenosis left extracranial internal carotid. Patent and antegrade vertebrals bilaterally. Incidental Finding : Anechoic non-vascularized area noted in right thyroid leda uring approximately 1.15cm x 0.44cm. Ordering Physician: Toro Loving Referring Physician: Anjali Hernandes Performed By: Mook Vanegas RVT
--- OUTSIDE RECORDS SUMMARY | 2023-05-21 10:33 | XMS RPT_ITS | CCD ---
Author Name Unknown Address [address] [place] [address] Organization [facility] Care Team Providers Care 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 Name Role Phone Lavern Justice Unavailable Unavailable Jaleesa Christopher Unavailable Unavailable Lavern Justice Unavailable Unavailable Anel JONAS, Gaye Mckee Unavailable Agata JONAS, Heidi Nichols Unavailable Unavailable JOSE Resendiz, Gaye Layton Unavailable Khushi Hernandes MD Primary Care Provider Khushi Hernandes MD Primary Care Provider Khushi Hernandes MD Primary Care Provider NORA KHUSHI Lan Primary Care Unavailable JERMAIN HARTLEY Attending Unavailable LAVERN RAMOS Attending Unavailable TALAMPAS, KHUSHI D Primary Care Unavailable TALAMPAS, KHUSHI D Primary Care Unavailable JERMAIN HARTLEY Referring Unavailable TALAMPAS, KHUSHI D Primary Care Unavailable JERMAIN HARTLEY Attending Unavailable LAVERN RAMOS Referring Unavailable TALAMPAS, KHUSHI D Primary Care Unavailable MARIAH MCCAIN Attending Unavailable TALAMPAS, KHUSHI D Primary Care Unavailable JERMAIN HARTLEY Referring Unavailable TALAMPAS, KHUSHI D Primary Care Unavailable JERMAIN HARTLEY Referring Unavailable Medications Current Medications Medication Drug Class(es) Dates Sig (Normalized) Sig (Original) furosemide 20 mg oral tablet (1 source) Loop Diuretic Start: 03-31-2021 End: 09-02-2021 take 1 tablet by mouth once daily furosemide (LASIX) 20 mg tablet Take 20 mg by mouth once daily. 0 03/31/2021 09/02/2021 Discontinued Completed/Discontinued Medications Medication Drug Class(es) Dates Sig (Normalized) Sig (Original) acetaminophen 325 mg oral capsule (13 sources) acetaminophen 32 5 mg cap Take by mouth every 4 hours as needed. 0 Active Problems Active Problems Problem Classification Problem Date Documented Date Episodic/Chronic Acute myocardial infarction (7 sources) Myocardial infarction; Translations: [ST elevation (STEMI) myocardial infarction involving other coronary artery of inferior wall] Onset: 06-09-2016 06-09-2016 Chronic Anxiety disorders (14 sources) Mixed anxiety and depressive disorder; Translations: [Anxiety disorder, unspecified] Chronic Cardiac dysrhythmias (7 sources) Ventricular tachycardia; Translations: [Ventricular tachycardia] Onset: 06-09-2016 06-09-2016 Chronic Coronary atherosclerosis and other heart disease (20 sources) Atherosclerotic heart disease of [place] coronary artery without angina pectoris; Translations: [Coronary atherosclerosis] Onset: 06-09-2016 06-09-2016 Chronic Deficiency and other anemia (1 source) Iron deficiency anemia; Translations: [Iron deficiency anemia, unspecified] 10-27-2022 Episodic Disorders of lipid metabolism (8 sources) Hyperlipidemia; Translations: [Pure hypercholesterolemia] Onset: 06-09-2016 06-09-2016 Chronic Essential hypertension (20 sources) Hypertensive disorder; Translations: [Essential (primary) hypertension] Onset: 06-09-2016 09-15-2016 Chronic Fluid and electrolyte disorders (1 source) Hyponatremia; Translations: [Hypo-osmolality and hyponatremia] Episodic Hypertension with complications and secondary hypertension (4 sources) Essential (primary) hypertension; Translations: [Essential (primary) hypertension] Onset: 06-09-2016 06-09-2016 Chronic Mood disorders (13 sources) Depressive disorder; Translations: [Depression] 09-28-2017 Chronic Nutritional deficiencies (2 sources) Vitamin D deficiency; Translations: [Vitamin D deficiency, unspecified] Onset: 10-27-2022 10-27-2022 Chronic Other and unspecified benign neoplasm (2 sources) History of polyp of colon; Translations: [Personal history of colonic polyps] Episodic Other and unspecified benign neoplasm (1 source) Dysplasia of colon; Translations: [Polyp of colon] Episodic Other ear and sense organ disorders (13 sources) Tinnitus; Translations: [Tinnitus, unspecified ear] 11-29-2004 Episodic Other screening for suspected conditions (not mental disorders or infectious disease) (6 sources) Patient encounter status; Translations: [Encounter for screening for malignant neoplasm of colon] Episodic Residual codes; unclassified (1 source) Family history of cancer of colon; Translations: [Family history of malignant neoplasm of digestive organs] Episodic Screening or history of mental health and substance abuse (14 sources) Tobacco dependence syndrome; Translations: [Nicotine dependence, unspecified, uncomplicated] Onset: 06-09-2016 Resolved: 06-15-2016 06-15-2016 Chronic Spondylosis; intervertebral disc disorders; other back problems (1 source) Acute back pain with sciatica; Translations: [Lumbago with sciatica, left side] Episodic Thyroid disorders (2 sources) Multinodular goiter; Translations: [Nontoxic multinodular goiter] Onset: 10-27-2022 10-27-2022 Chronic Unclassified (4 sources) Placement of stent in coronary artery ; Translations: [Presence of cardiac and vascular implant and graft, unspecified] Onset: 06-09-2016 06-09-2016 Unclassified (3 sources) Long-term drug therapy; Translations: [Other joint terminal attack controller (current) drug therapy] Onset: 06-09-2016 06-09-2016 Unclassified (1 source) Acute midline low back pain without sciatica; Translations: [Acute midline low back pain without sciatica] Onset: 05-15-2023 Past or Other Problems Problem Classification Problem Date Documented Date Episodic/Chronic Abdominal hernia (13 sources) Bilateral inguinal hernia; Translations: [Bilateral inguinal hernia, without obstruction or gangrene, not specified as recurrent] Onset: 08-24-2008 08-24-2008 Episodic Conditions associated with dizziness or vertigo (2 sources) Vertigo; Translations: [Dizziness and giddiness] Onset: 10-27-2022 10-27-2022 Episodic Deficiency and other anemia (1 source) Iron deficiency anemia, unspecified; Translations: [Iron deficiency anemia, unspecified iron deficiency anemia type] Onset: 10-27-2022 Episodic Immunizations and screening for infectious disease (3 sources) Requires varicella vaccination; Translations: [Encounter for immunization] Onset: 02-06-2023 02-06-2023 Episodic Other aftercare (4 sources) Other joint terminal attack controller (current) drug therapy; Translations: [Other snf (current) drug therapy] Onset: 06-09-2016 06-09-2016 Episodic Other aftercare (1 source) Encounter for therapeutic drug level monitoring; Translations: [Encounter for therapeutic drug monitoring] Onset: 10-27-2022 Episodic Other circulatory disease (13 sources) Telangiectasia disorder; Translations: [Nevus, non-neoplastic] Onset: 01-28-2009 01-28-2009 Episodic Other nutritional; endocrine; and metabolic disorders (7 sources) Body mass index (BMI) 28.0-28.9, adult; Translations: [Body mass index (BMI) 28.0-28.9, adult] Onset: 06-15-2016 06-15-2016 Episodic Other nutritional; endocrine; and metabolic disorders (2 sources) Body mass index (BMI) 29.0-29.9, adult; Translations: [Body mass index (BMI) 29.0-29.9, adult] Onset: 06-15-2016 12-29-2016 Episodic Residual codes; unclassified (13 sources) Insomnia disorder related to known organic factor; Translations: [Insomnia, unspecified] Onset: 03-25-2007 03-25-2007 Episodic Results Test Name Value Interpretation Reference Range Facil ity Vital Signs Date Time Vital Sign Value Performing Clinician Christelle reno 02-06-2023 09:43-0500 Body weight 100.7 kg Lavern Rudolphs SOIL CONSERVATION TEACHER.FERRULER Work Phone: [facility] 02-06-2023 09:43-0500 Diastolic blood pressure 75 mm[Hg] Lavern Ramos SOIL CONSERVATION TEACHER.FERRULER Work Phone: [facility] 02-06-2023 09:43-0500 Heart rate 62 /min Lavern Ramos SOIL CONSERVATION TEACHER.FERRULER Work Phone: [facility] 02-06-2023 09:43-0500 Respiratory rate 16 /min Lavern Ramos SOIL CONSERVATION TEACHER.FERRULER Work Phone: [facility] 02-06-2023 09:43-0500 Systolic blood pressure 125 mm[Hg] Lavern Ramos SOIL CONSERVATION TEACHER.FERRULER Work Phone: [facility] 10-27-2022 07:27-0400 Body weight 101.15 kg Jermain Hartley SOIL CONSERVATION TEACHER.TUFTING MACHINE OPERATOR Work Phone: [facility] 10-27-2022 07:27-0400 Diastolic blood pressure 88 mm[Hg] Jermain Vasquezr SOIL CONSERVATION TEACHER.TUFTING MACHINE OPERATOR Work Phone: [facility] 10-27-2022 07:27-0400 Heart rate 66 /min Jermain Odilia SOIL CONSERVATION TEACHER.TUFTING MACHINE OPERATOR Work Phone: [facility] 10-27-2022 07:27-0400 Respiratory rate 20 /min Jermain Odilia SOIL CONSERVATION TEACHER.TUFTING MACHINE OPERATOR Work Phone: [facility] 10-27-2022 07:27-0400 SaO2% (BldA) [Mass fraction] 96 % Jermain Odilia SOIL CONSERVATION TEACHER.TUFTING MACHINE OPERATOR Work Phone: [facility] 10-27-2022 07:27-0400 Systolic blood pressure 140 mm[Hg] Jermain Odilia SOIL CONSERVATION TEACHER.TUFTING MACHINE OPERATOR Work Phone: [facility] 03-07-2022 12:15-0500 Diastolic blood pressure 64 mm[Hg] Byron Suarez MD Work Phone: [facility] 03-07-2022 12:15-0500 Heart rate 57 /min Byron Suarez MD Work Phone: [facility] 03-07-2022 12:15-0500 Respiratory rate 16 /min Byron Suarez MD Work Phone: [facility] 03-07-2022 12:15-0500 SaO2% (BldA) [Mass fraction] 95 % Byron Suarez MD Work Phone: [facility] 03-07-2022 12:15-0500 Systolic blood pressure 121 mm[Hg] Byron Suarez MD Work Phone: [facility] 03-07-2022 10:19-0500 Body temperature 97.7 [degF] Byron Suarez MD Work Phone: [facility] 03-07-2022 10:19-0500 Body weight 102 kg Byron Suarez MD Work Phone: [facility] 02-06-2022 08:24-0500 Body weight 102.01 kg Khushi Hernandes MD Work Phone: [facility] 02-06-2022 08:24-0500 Diastolic blood pressure 84 mm[Hg] Khushi Hernandes MD Work Phone: [facility] 02-06-2022 08:24-0500 Heart rate 57 /min Khushi Hernandes MD Work Phone: [facility] 02-06-2022 08:24-0500 SaO2% (BldA) [Mass fraction] 97 % Khushi Hernandes MD Work Phone: [facility] 02-06-2022 08:24-0500 Systolic blood pressure 138 mm[Hg] Khushi Hernandes MD Work Phone: [facility] 12-28-2021 10:17-0400 Body height 182.9 cm Shavon Keke PA-C Work Phone: [facility] 12-28-2021 10:17-0400 Body temperature 97.5 [degF] Shavon Wakonda PA-C Work Phone: [facility] 12-28-2021 10:17-0400 Body weight 102.06 kg Shavon Wakonda PA-C Work Phone: [facility] 12-28-2021 10:17-0400 Diastolic blood pressure 82 mm[Hg] Shavon Keke PA-C Work Phone: [facility] 12-28-2021 10:17-0400 Heart rate 66 /min Shavon Keke PA-C Work Phone: [facility] 12-28-2021 10:17-0400 Respiratory rate 14 /min Shavon Wakonda PA-C Work Phone: [facility] 12-28-2021 10:17-0400 SaO2% (BldA) [Mass fraction] 95 % Shavon Wakonda PA-C Work Phone: [facility] 12-28-2021 10:17-0400 Systolic blood pressure 138 mm[Hg] Shavon Wakonda PA-C Work Phone: [facility] 06-10-2021 09:49-0400 Body weight 100.25 kg Khushi Hernandes MD Work Phone: [facility] 06-10-2021 09:49-0400 Diastolic blood pressure 82 mm[Hg] Khushi Hernandes MD Work Phone: [facility] 06-10-2021 09:49-0400 Heart rate 76 /min Khushi Hernandes MD Work Phone: [facility] 06-10-2021 09:49-0400 Systolic blood pressure 122 mm[Hg] Khushi Hernandes MD Work Phone: [facility] 12-29-2016 10:51-0400 BMI (Body Mass Index) 29.02 kg/m2 Gaye Resendiz PA-C [facility] Work Phone: 12-29-2016 10:51-0400 BP Diastolic 70 mm[Hg] Gaye Resendiz PA-C [facility] Work Phone: 12-29-2016 10:51-0400 BP Systolic 122 mm[Hg] Gaye Resendiz PA-C [facility] Work Phone: 12-29-2016 10:51-0400 Height 185.42 cm Gaye Resendiz PA-C [facility] Work Phone: 12-29-2016 10:51-0400 Pulse (Heart Rate) 50 /min Gaye Resendiz PA-C [facility] Work Phone: 12-29-2016 10:51-0400 Respiratory Rate 20 /min Gaye Resendiz PA-C [facility] Work Phone: 12-29-2016 10:51-0400 Weight 99.79 kg Gaye Resendiz PA-C [facility] Work Phone: 09-15-2016 14:28-0400 BMI (Body Mass Index) 29.13 kg/m2 [facility] Work Phone: 09-15-2016 14:28-0400 BP Diastolic 70 mm[Hg] [facility] Work Phone: 09-15-2016 14:28-0400 BP Systolic 120 mm[Hg] [facility] Work Phone: 09-15-2016 14:28-0400 Height 185.42 cm [facility]vern [facility] Work Phone: 09-15-2016 14:28-0400 Pulse (Heart Rate) 56 /min [facility] Work Phone: 09-15-2016 14:28-0400 Respiratory Rate 20 /min [facility] Work Phone: 09-15-2016 14:28-0400 Weight 100.15 kg Lavern [facility] Work Phone: 06-15-2016 12:15-0400 Heart rate 52 /min Heidi Parmar RN [facility] Work Phone: 06-15-2016 11:43-0400 BMI (Body Mass Index) 28.63 kg/m2 [facility] Work Phone: 06-15-2016 11:43-0400 BP Diastolic 80 mm[Hg] Gaye Tam RN [facility] Work Phone: 06-15-2016 11:43-0400 BP Systolic 122 mm[Hg] Gaye Tam RN [facility] Work Phone: 06-15-2016 11:43-0400 Height 185.42 cm Gaye Tam RN [facility] Work Phone: 06-15-2016 11:43-0400 Pulse (Heart Rate) 56 /min [facility] Work Phone: 06-15-2016 11:43-0400 Respiratory Rate 12 /min [facility] Work Phone: 06-15-2016 11:43-0400 Weight 98.43 kg [facility] Work Phone: Encounters Encounter Date Encounter Type Care Provider Facility Start: 05-15-2023 End: 05-15-2023 ambulatory MARIAH MARRERO Facility:[facility] Start: 05-10-2023 ambulatory Jermain Nichols PRN.CNP Work Phone: [facility] Procedures Date Procedure Procedure Detail Performing Clinician Start: 03-07-2022 Colonoscopy flx dx w /collj spec when pfrmd Shavon Davies PA-C Work Phone: Start: 03-07-2022 Colonoscopy Snow curran RN Start: 02-06-2022 INFLUENZA SEASONAL QUADRIVALENT HIGH DOSE AGE 65+ Khushi Hernandes MD Work Phone: Start: 12-17-2018 Colonoscopy Khushi cartagena MD Work Phone: Start: 12-03-2018 Electrocardiogram Start: 12-29-2016 End: 12-29-2016 Follow Up Appt 6 months Gaye thomas PA-C Work Phone: Start: 12-29-2016 End: 12-29-2016 PFM Gaye Resendiz PA-C Work Phone: Start: 09-15-2016 End: 12-13-2016 Follow Up Appt 3 months Gaye thomas PA-C Work Phone: Start: 09-15-2016 End: 12-13-2016 MMM Gaye Resendiz PA-C Work Phone: Start: 06-15-2016 End: 07-12-2016 Cardiovascular stress test using treadmill Gaurav Rizo MD Start: 06-15-2016 End: 06-15-2016 Ecg routine ecg w/least 12 lds w/i&r Gaurav Rizo MD Start: 06-15-2016 End: 08-25-2016 Follow Up Appt 3 months Gaurav Rizo MD Start: 06-15-2016 End: 08-25-2016 MMM Gaurav Rizo MD Start: 06-15-2016 End: 06-16-2016 Referral to lathe set up person Gaurav headley MD Start: 06-15-2016 End: 06-15-2016 Dietary management education, guidance, and counseling Heidi Parmar RN Start: 06-15-2016 End: 07-12-2016 Cardiovascular stress test using treadmill Gaurav Rizo MD Start: 06-15-2016 End: 06-15-2016 Electrocardiogram, complete Gaurav dominguez MD Start: 06-15-2016 End: 08-25-2016 Follow Up Appt 3 months Gaurav Rizo MD Start: 06-15-2016 End: 08-25-2016 MMM Gaurav Rzio MD Start: 06-15-2016 End: 06-16-2016 Referral to lathe set up person Gaurav headley MD Start: 06-09-2016 Placement of stent i n coronary artery Coronary stent Heidi Parmar RN Plan of Treatment Date Care Activity Detail Author Start: 11-28-2032 Urine microalbumin profile DTaP,Tdap,Td Vaccine (3 - Td or Tdap) [facility] Start: 01-20-2027 LIPID SCREEN LIPID SCREEN [facility] Start: 05-04-2026 Diabetes Screening Diabetes Screening [facility] Start: 04-26-2026 LIPID SCREEN LIPID SCREEN [facility] Start: 03-07-2025 Colonoscopy COLONOSCOPY [facility] Start: 03-07-2025 COLORECTAL CANCER SCREENING COLORECTAL CANCER SCREENING [facility] Start: 01-20-2025 DIABETES SCREEN DIABETES SCREEN [facility] Start: 01-20-2025 Diabetes Screening Diabetes Screening [facility] Start: 05-04-2024 Hepatitis B surface antibody level LDL Cholesterol [facility] Start: 04-26-2024 DIABETES SCREEN DIABETES SCREEN [facility] Start: 04-24-2024 Annual PCP Team Chronic Disease Visit Annual PCP Team Chronic Disease Visit [facility] Start: 02-07-2024 BP Controlled (<130/80) BP Controlled (<130/80) [facility] Start: 10-28-2023 ANNUAL PCP TEAM CHRONIC DISEASE VISIT ANNUAL PCP TEAM CHRONIC DISEASE VISIT [facility] Start: 03-26-2023 Advance Directive Discussion Advance Directive Discussion [facility] Start: 02-06-2023 ANNUAL PCP TEAM CHRONIC DISEASE VISIT ANNUAL PCP TEAM CHRONIC DISEASE VISIT [facility] Start: 02-06-2023 End: 05-08-2023 Comprehensive metabolic 2000 panel - Serum or Plasma [facility] Work Phone: Immunizations Immunization Date Immunization Notes Care Provider Fa cility 11-28-2022 respiratory syncytia l virus (RSV) vaccine, bivalent (ABRYSVO) Lavern Ramos SOIL CONSERVATION TEACHER.FERRULER Work Phone: [facility] Work Phone: 11-28-2022 tetanus toxoid, redu rashawn diphtheria toxoid, and acellular pertussis vaccine, adsorbed Lavern Ramos SOIL CONSERVATION TEACHER.FERRULER Work Phone: [facility] Work Phone: 11-28-2022 zoster vaccine recombinant Lavern Ramos SOIL CONSERVATION TEACHER.FERRULER Work Phone: [facility] Work Phone: 11-07-2022 influenza (aIIV4) vaccine, age 65+ yr, quadrivalent, PF (FLUAD QUAD) Lavern Ramos SOIL CONSERVATION TEACHER.FERRULER Work Phone: [facility] Work Phone: 02-06-2022 influenza, high-dose , quadrivalent vaccine (FLUZONE HIGH DOSE QUADRIVALENT) Khushi Hernandes MD Work Phone: [facility] 02-06-2022 influenza virus vacc ine, unspecified formulation Byron Suarez MD Work Phone: [facility] 03-09-2021 COVID-19 original vaccine, full dose, monovalent (MODERNA) Lavern Ramos SOIL CONSERVATION TEACHER.FERRULER Work Phone: [facility] Work Phone: 01-25-2021 influenza, seasonal, injectable, preservative free Lavern Ramos SOIL CONSERVATION TEACHER.FERRULER Work Phone: [facility] Work Phone: 01-05-2021 COVID-19 original vaccine, full dose, monovalent (MODERNA) Lavern Ramos SOIL CONSERVATION TEACHER.FERRULER Work Phone: [facility] Work Phone: 11-26-2020 influenza, high-dose , quadrivalent vaccine (FLUZONE HIGH DOSE QUADRIVALENT) Khushi Hernandes MD Work Phone: [facility] 04-07-2020 COVID-19 original vaccine, full dose, monovalent (MODERNA) Lavern Ramos SOIL CONSERVATION TEACHER.FERRULER Work Phone: [facility] Work Phone: 12-22-2019 influenza (aIIV4) vaccine, age 65+ yr, quadrivalent, PF (FLUAD QUAD) Lavern Ramos SOIL CONSERVATION TEACHER.FERRULER Work Phone: [facility] Work Phone: 12-22-2019 influenza, injectabl e, quadrivalent, contains preservative Khushi Hernandes MD Work Phone: [facility] Work Phone: 04-09-2019 influenza, high dose seasonal, preservative-free Khushi Hernandes MD Work Phone: [facility] 02-05-2018 influenza, seasonal, injectable Lavern Ramos SOIL CONSERVATION TEACHER.FERRULER Work Phone: [facility] Work Phone: 02-05-2018 influenza, seasonal, injectable, preservative free Khushi Hernandes MD Work Phone: [facility] 01-17-2016 influenza, high dose seasonal, preservative-free Khushi Hernandes MD Work Phone: [facility] 12-25-2015 influenza, seasonal, injectable Lavern Ramos SOIL CONSERVATION TEACHER.FERRULER Work Phone: [facility] Work Phone: 12-25-2015 influenza, seasonal, injectable, preservative free Khushi Hernandes MD Work Phone: [facility] 12-24-2014 pneumococcal conjuga te vaccine, 13 valent Khushi Hernandes MD Work Phone: [facility] 05-12-2014 pneumococcal conjuga te vaccine, 13 valent Khushi Hernandes MD Work Phone: [facility] 01-24-2013 pneumococcal polysaccharide vaccine, 23 valent Khushi Hernandes MD Work Phone: [facility] 03-26-1995 diphtheria and tetan us toxoids, adsorbed for pediatric use Khushi Hernandes MD Work Phone: [facility] Work Phone: Payers Date Payer Category Payer Medicare [id number] 2017 Private Health Insurance [employer] [id number] 2017-Present [phone] [address] [place] [address] Indemnity [id number] 2017 Private Health Insurance [employer] [id number] 2017-Present [phone] [address] [place] [address] Indemnity [id number] 2017 Medicare MEDICARE MEDICAR E A AND B [id number] 2017-Present [phone] [place] [address] Medicare [id number] 2017 Medicare MEDICARE MEDICAR E A AND B [id number] 2017-Present [phone] [place] [address] Medicare [id number] 2017 Medicare [id number] Social History Date Type Detail Facility Start: 10-28-2016 End: 12-28-2021 Tobacco smoking status NHIS Ex-smoker [facility] End: 05-26-2016 History of tobacco use Current smoker [facility] End: 05-26-2016 History of tobacco use Cigarette Smoker [facility] Start: 10-28-2016 End: 10-02-2022 Cigarettes smoked current (pack per day) - Reported 0.5 [facility] Start: 10-28-2016 End: 12-28-2021 Tobacco use and exposure Smokeless tobacco non-user [facility] Start: 04-12-2021 End: 04-24-2023 Alcohol intake Ex-drinker (finding) [facility] Start: 08-21-2019 End: 02-05-2022 History SDOH Alcohol Frequency 2 [facility] Start: 04-04-2019 End: 08-21-2019 History SDOH Alcohol Std Drinks 1 [facility] Start: 04-04-2019 End: 08-21-2019 History SDOH Social Connections Phone 3 [facility] Start: 07-24-2019 End: 02-05-2022 History SDOH Physical Activity DPW 0 [facility] Start: 07-24-2019 End: 08-21-2019 History SDOH Stress 5 [facility] Start: 04-03-2019 Education 20 [facility] Start: 1945 Sex Assigned At Not on file C [facility] Start: 05-31-2021 End: 02-06-2022 Exposure to SARS-CoV-2 (event) Not sure [facility] Start: 12-28-2021 History SDOH Alcohol Comment Socially- monthly [facility] Start: 12-28-2021 Tobacco Comment pipe [facility] Start: 08-21-2019 End: 10-02-2022 Social connection and isolation panel [facility] Attends [employer] Services Not on file C [facility] How often to you hav e a drink containing alcohol? Monthly or less [facility] How many standard dr inks containing alcohol do you have on a typical day? 1 or 2 [facility] Do you feel stress - tense, restless, nervous, or anxious, or unable to sleep at night because your mind is troubled all the time - these days [OSQ] Very much [facility] (I/We) worried wheth er (my/our) food would run out before (I/we) got money to buy more. Never true [facility] At any time in the p ast 12 months, were you homeless or living in senior care [including now]? No [facility] Start: 12-18-2018 Gender identity Identifies as male gender (finding) [facility] Are you now , , , , never or living with a partner? [facility] How often do you hav e 6 or more drinks on 1 occasion? Never [facility] Do you feel stress - tense, restless, nervous, or anxious, or unable to sleep at night because your mind is troubled all the time - these days [OSQ] Only a little [facility] Clinical Notes 10-28-2016 to 05-16-2023 Telephone Encounter - Jermain Hartley APRN.TUFTING MACHINE OPERATOR - 05/09/2023 9:03 AM Lavern Dorado APRN.FERRULER - 02/06/2023 9:40 AM ESTTelephone Encounter - Shavon Frank RN - 10/31/2022 3:31 PM EDT Note Date & Type Note Facility 05-16-2023 Note HNO ID: [id number] Author: MARIAH [facility] Service: ? Author Type: Physical Therapist Type: Progress Notes Filed: 05/16/2023 14:42 Note Text: Episode Visit Count: 1 Therapist That Will Accept/Oversee The Plan Of Care: Mariah Mccain Start of Care Date: 05/15/23 Onset Date: 03/15/23 Plan of Care Certification Date: 05/15/23 Next Certification Due Date: 07/14/23 Patient Identified by Name and Date of : Yes REHABILITATION AND SPORTS THERAPY PHYSICAL THERAPY EVALUATION PLAN OF CARE: Assessment: Karen Arana presents with chief complaint of chronic LBP that interferes with sitting, rising from a chair, standing, walking, bending, heavy exertion, lifting, sleeping . He presents with impairments in ADL's, overall function, posture, range of motion, strength, and symptom management. PROMIS? (Patient-Reported Outcomes Measurement Information System) scores were reviewed and self efficacy domain identified as a rehabilitation concern. Prognosis for therapy is Good due to: current objective clinical presentation, good overall health status, positive past response to therapy, within-session changes, good support system/ coping skills . He will benefit from skilled therapy servicesto meet the goals established for this plan of care as noted below. Classification Low Back Pain Classification: Movement Control MDT Spine Classification: Lumbar Spinal Stenosis Lumbar Spinal Stenosis Criteria: Leg symptoms relieved with flexion and exacerbated with extension, Longstanding loss of lumbar extension, Older population Goals for Episode of Care: created on 05/15/23 through 07/14/23 Independent in home exercises. Patient will decrease pain rating by 2 points to meet minimal clinical important difference for numeric pain rating scale. Restore pain-free lumbar ROM to Minimal limitations to allow for improved functional mobility Stand / Walk as needed for ADLs and IADLs without pain/symptoms. Sleep through night without pain/symptoms. Patient will increase strength of trunk/core to 4+/5 to allow for improve ability to complete ADLs. Planned Interventions, Frequency, and Duration: Current Frequency: 1x/week Duration: 8 weeks Total Number of Visits Planned: 8 Planned Treatment Interventions: Therapeutic exercise (31186), Neuromuscular re-education (44187), Manual therapy (32278), Therapeutic activities (29898), Self-senior living management (73155), Patient/Family/Caregiver Education, Body Mechanics Training PLAN FOR NEXT VISIT: July trial traction, progress neutral spine strengthening Patient demonstrates good understanding of plan of care and treatment. The above goals and plan of care were discussed and agreed upon by patient/family. SUBJECTIVE: LBP for years with recent exacerbation when he was sweeping snow. Notes pain was higher than previous episodes, and feels cramping/pressure like sensation. Radiating pain into the L hip and thigh, occasional numbness into the L thigh and as far down as the al. Patient is taking prescribed pain meds and anti-inflammatory, limited his activity. Patient notes it feels better to lie flat on his back on the floor. patient has an inversion table and finds traction does help. Standing for prolonged periods, sitting for prolonged periods, standing to cook can worsen symptoms. Functional Limitations: sitting, rising from a chair, standing, walking, bending, heavy exertion, lifting, sleeping Prior Level of Function: Independent without limitations Intake Information: Prescription present Red Flags Vertebral Fracture Red Flags: Age >70 Abdominal Aortic Aneurysm Red Flags: Age >60, History of PVD, CAD Abdominal Aortic Aneurysm Clinical Reasoning: Proceed with caution Cancer Red Flags: Age >50 or <20 Cancer Clinical Reasoning: No identified risk factors. Infection Clinical Reasoning: No identified risk factors. Cauda Equina Syndrome Clinical Reasoning: No identified risk factors. Red Flags - Cervical Cancer Red Flags: Age >50 or <20 Cancer Clinical Reasoning: No identified risk factors. Infection Clinical Reasoning: No identified risk factors. Pain: Pain Pain Level: 8 Pain Location: Low Back/Lumbar Spine - Left Description: Cramping, Aching, Pressure, Numbness Frequency: Continuous PROMIS Scales Higher is Better 05/14/2023 Phys Func - Score 41 (mild dysfunction) Phys Func - Percentile 18% Self-Eff Symptom - Score 41 (Average) Self-Eff Symptom - Percentile 18% T-scores: mean of general population = 50. 5 points is clinically meaningfully difference Percentiles provide an indication of how the patient's score ranks in relation to the general population. Higher percentile rankings indicate better function/quality of life. 50th percentile is the average of the general population and indicates half of respondents had a worse score. OBJECTIVE MEASURES WITH LEVEL OF FUNCTION: Lumbar Spine AROM Lumbar Flexion: Pain (more content not included)... [facility] 05-09-2023 Miscellaneous Notes See separate encounter documented in this encounter [facility] 04-24-2023 Note HNO ID: [id number] Author: ERNA SYLVESTER RT(R) Service: ? Author Type: Nursing Care Attendant Type: Progress Notes Filed: 04/24/2023 08:46 Note Text: Radiology Service Progress Note PATIENT NAME: Karen Arana DATE OF SERVICE: April 24, 2023 TIME: 8:38 AM PATIENT IDENTITY VERIFICATION COMPLETED USING TWO (2) IDENTIFIERS: Name and Date of confirmed by patient verbally. FALL SCREENING: Has the patient had 2 falls in the last year or 1 fall with injury or currently using an Ambulatory Assistive Device (Walker, Cane, Wheelchair, Crutches, etc.)? No PATIENT GENDER DATA: Male PATIENT RELEVANT IMPLANT DATA REVIEWED: Yes PATIENT PRESENTS WITH AN IMPLANTABLE OR ATTACHED CHOCOLATE PRODUCTION MACHINE OPERATOR: No RADIOLOGY DEPARTMENT: General X-ray: Exam(s) Completed: Spine X-Ray(s): Lumbar AP / LAT / L5-S1 PERIPHERAL IV DATA: Not applicable SIGNED BY: RT Destinee(R) April 24, 2023 8:38 AM [facility] 04-24-2023 Note HNO ID: [id number] Author: JERMAIN HARTLEY APRN.TUFTING MACHINE OPERATOR Service: ? Author Type: Nurse Practitioner Type: Progress Notes Filed: 04/24/2023 09:15 Note Text: SUBJECTIVE Karen Arana is a 77 year old male here today for acute concern. Chief Complaint Patient presents with: Same Day Appointment: lower back pain , getting worse, chronic problem since 1964 HPI Karen Arana is an 77 year old male presents today for back pain. Onset was years ago, worse the last few weeks. It is localized to lower back. Told in the past it was a compressed vertebra. Not sleeping great. It is constant. It is described as aching. It has been alleviated by nothing, tried tylenol and aggravated by movement like sitting to standing. Severity is 7/10 at the worst. No significant trauma that patient is aware of. Off and on numbness in the left front thigh, no issues with tingling, weakness, saddle paresthesia and no bowel or bladder difficulties/leaking/loss of control. His medications were reviewed today and his list is now up to date. Medications Current Outpatient Medications Medication Sig naproxen (NAPROSYN) 500 mg tablet Take 1 tablet by mouth two times a day with meals. Take with food. escitalopram oxalate (LEXAPRO) 10 mg tablet Take 1 tablet by mouth once daily. rosuvastatin (CRESTOR) 20 mg tablet meclizine (ANTIVERT) 25 mg tab Take 1 tablet by mouth three times daily as needed. EVERY 6 HOURS NEEDED acetaminophen 325 mg cap Take by mouth every 4 hours as needed. fluticasone (FLONASE) 50 mcg/actuation nasal spray Use 2 Sprays in each nostril once daily. docusate sodium (STOOL SOFTENER ORAL) Take 1 tablet by mouth once daily. Ferrous Fumarate 324 mg (106 mg iron) tab Take by mouth three times daily. metoprolol tartrate, short acting, (LOPRESSOR) 50 mg tablet Take 1 tablet by mouth twice daily. aspirin, enteric coated (ADULT LOW DOSE ASPIRIN) 81 mg EC tablet Take 1 tablet by mouth once daily. nitroglycerin sublingual (NITROQUICK) 0.4 mg SL tablet Dissolve 0.4 mg under the tongue every 5 minutes as needed. No current facility-administered medications for this visit. 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 OBJECTIVE BP 142/70 Pulse 71 Temp 96.9 Resp 12 Ht 6' 0 (1.83m) Wt 228 lb (103.4kg) SpO2 97% BMI 30.92 kg/(m2). Physical Exam Vitals and nursing note reviewed. Constitutional: General: He is awake. He is not in acute distress. Appearance: Normal appearance. He is well-developed and well-groomed. He is not ill-appearing, toxic-appearing or diaphoretic. HENT: Head: Normocephalic. Right Ear: External ear normal. Left Ear: External ear normal. Nose: Nose normal. Eyes: General: Vision grossly intact. Conjunctiva/sclera: Conjunctivae normal. Pupils: Pupils are equal, round, and reactive to light. Neck: Vascular: No JVD. Trachea: Trachea normal. Cardiovascular: Rate and Rhythm: Normal rate and regular rhythm. Pulses: Normal pulses. Heart sounds: Normal heart sounds. No murmur heard. Pulmonary: Effort: Pulmonary effort is normal. No accessory muscle usage, prolonged expiration or respiratory distress. Breath sounds: Normal breath sounds. Musculoskeletal: Cervical back: Normal and neck supple. Thoracic back: Normal. Lumbar back: Tenderness present. No swelling, edema, deformity, signs of trauma, lacerations, spasms or bony tenderness. Decreased range of motion. Positive left straight leg raise test (slightly). Negative right straight leg raise test. No scoliosis. Skin: General: Skin is warm and dry. Capillary Refill: Capillary refill takes less than 2 seconds. Neurological: General: No focal deficit present. Mental Status: He is alert and oriented to person, place, and time. Mental status is at baseline. Psychiatric: Attention and Perception: Attention and perception normal. Mood and Affect: Mood and affect normal. Speech: Speech normal. Behavior (more content not included)... [facility] 02-06-2023 Note HNO ID: [id number] Author: Lavern Ramos APRN.FERRULER Service: ? Author Type: Nurse Specialist Type: Progress Notes Filed: 02/06/2023 5:32 PM Note Text: SUBJECTIVE: Advance Directive Discussion due on 03/26/2022 BP Controlled (<130/80) due on 04/12/2022 Covid-19 Vaccine() due on 01/02/2023 LDL Cholesterol due on 01/20/2023 Shingrix Vaccine(2 of 2) due on 01/23/2023 HPI Karen Arana is a 77 year old male. 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 3 year follow up recommended. Followed by [facility], most recent visit July 2022. ER visit for vertigo October 22, 2022. He was seen at 03/23/2021 for lower respiratory tract infection. Treated with albuterol and prednisone. CXR was unremarkable. Negative covid19 test. Notes listening to professors lecture on Youtube channel. Vertigo not currently bothersome. Did do rehab and found it helpful. New lathe set up person, Dr Rizo went to [place]. Discharged from nephrology. HTN: Without report of headache, chest pain, palpitations, dyspnea, peripheral edema, orthopnea, fatigue, and PND. Last 3 Encounter BP Readings: Date: BP: 02/06/2023 125/75 10/27/2022 140/88 03/07/2022 121/64 Hyperlipidemia. Mr. Arana reports doing well on current therapy His most recent lipid panels are: Cholesterol, Total (mg/dL) Date Value 01/20/2022 171 04/26/2021 154 11/24/2020 142 HDL Cholesterol (mg/dL) Date Value 01/20/2022 49 04/26/2021 49 11/24/2020 55 LDL Cholesterol (mg/dL) Date Value 01/20/2022 88 04/26/2021 87 11/24/2020 70 Triglyceride (mg/dL) Date Value 01/20/2022 172 04/26/2021 90 11/24/2020 85 Mood stable on current treatment, no voiced SI, HI. Review of Systems Constitutional: Negative. Objective BP 125/75 Pulse 62 Resp 16 Wt 100.7 kg (222 lb) BMI 30.11 kg/m? Physical Exam Vitals and nursing note reviewed. Constitutional: Appearance: Normal appearance. HENT: Head: Normocephalic and atraumatic. Eyes: Conjunctiva/sclera: Conjunctivae normal. Cardiovascular: Rate and Rhythm: Normal rate and regular rhythm. Heart sounds: Normal heart sounds. Pulmonary: Effort: Pulmonary effort is normal. Breath sounds: Normal breath sounds. Abdominal: General: Bowel sounds are normal. Palpations: Abdomen is soft. Musculoskeletal: Right lower leg: No edema. Left lower leg: No edema. Skin: General: Skin is warm and dry. Neurological: General: No focal deficit present. Mental Status: He is alert and oriented to person, place, and time. ALLERGIES No Known Allergies Medications rosuvastatin (CRESTOR) 20 mg tablet meclizine (ANTIVERT) 25 mg tab Take 1 tablet by mouth three times daily as needed. EVERY 6 HOURS NEEDED escitalopram oxalate (LEXAPRO) 10 mg tablet Take 1 tablet by mouth once daily. acetaminophen 325 mg cap Take by mouth every 4 hours as needed. fluticasone (FLONASE) 50 mcg/actuation nasal spray Use 2 Sprays in each nostril once daily. docusate sodium (STOOL SOFTENER ORAL) Take 1 tablet by mouth once daily. Ferrous Fumarate 324 mg (106 mg iron) tab Take by mouth three times daily. metoprolol tartrate, short acting, (LOPRESSOR) 50 mg tablet Take 1 tablet by mouth twice daily. aspirin, enteric coated (ADULT LOW DOSE ASPIRIN) 81 mg EC tablet Take 1 tablet by mouth once daily. nitroglycerin sublingual (NITROQUICK) 0.4 mg SL tablet Dissolve 0.4 mg under the tongue every 5 minutes as needed. PAST MEDICAL HISTORY Diagnosis Date Coronary artery disease involving [place] coronary artery of [place] heart without angina pectoris 10/28/[address] [facility]; left circumflex stent after May [address] segment elevation CA--syncope the only symptom Depressive disorder, not elsewhere classified Depression (non-psychotic) Generalized anxiety disorder Anxiety, Generalized Hypertension Low sodium levels 03/2021 Rheumatic fever with cardiac involvement at 10 years old; had murmur in the past Tobacco use disorder Unspecified tinnitus Tinnitus left ear Social History Tobacco Use Smoking status: Former Packs/day: 0.50 Years: 20.00 Additional pack years: 0.00 Total pack years: 10.00 Types: Cigarettes Quit date: 05/26/2016 Years since quittin.7 Smokeless tobacco: Never Tobacco comments: pipe Vaping Use Vaping Use: Never used Substance Use Topics Alcohol use: Not Currently Comment: Socially- monthly (more content not included)... [facility] 02-06-2023 History of Present illness Narrative SUBJECTIVE: Advance Directive Discussion due on 03/26/2022 BP Controlled (<130/80) due on 04/12/2022 Covid-19 Vaccine( season) due on 01/02/2023 LDL Cholesterol due on 01/20/2023 Shingrix Vaccine(2 of 2) due on 01/23/2023 HPI Karen Arana is a 77 year old male. 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 3 year follow up recommended. Followed by [facility], most recent visit July 2022. ER visit for vertigo October 22, 2022. He was seen at 03/23/2021 for lower respiratory tract infection. Treated with albuterol and prednisone. CXR was unremarkable. Negative covid19 test. Notes listening to professors lecture on Youtube channel. Vertigo not currently bothersome. Did do rehab and found it helpful. New lathe set up person, Dr Rizo went to [place]. Discharged from nephrology. HTN: Without report of headache, chest pain, palpitations, dyspnea, peripheral edema, orthopnea, fatigue, and PND. Last 3 Encounter BP Readings: Date: BP: 02/06/2023 125/75 10/27/2022 140/88 03/07/2022 121/64 Hyperlipidemia. Mr. Arana reports doing well on current therapy His most recent lipid panels are: Cholesterol, Total (mg/dL) Date Value 01/20/2022 171 04/26/2021 154 11/24/2020 142 HDL Cholesterol (mg/dL) Date Value 01/20/2022 49 04/26/2021 49 11/24/2020 55 LDL Cholesterol (mg/dL) Date Value 01/20/2022 88 04/26/2021 87 11/24/2020 70 Triglyceride (mg/dL) Date Value 01/20/2022 172 04/26/2021 90 11/24/2020 85 Mood stable on current treatment, no voiced SI, HI. Review of Systems Constitutional: Negative. Objective BP 125/75 Pulse 62 Resp 16 Wt 100.7 kg (222 lb) BMI 30.11 kg/m Physical Exam Vitals and nursing note reviewed. Constitutional: Appearance: Normal appearance. HENT: Head: Normocephalic and atraumatic. Eyes: Conjunctiva/sclera: Conjunctivae normal. Cardiovascular: Rate and Rhythm: Normal rate and regular rhythm. Heart sounds: Normal heart sounds. Pulmonary: Effort: Pulmonary effort is normal. Breath sounds: Normal breath sounds. Abdominal: General: Bowel sounds are normal. Palpations: Abdomen is soft. Musculoskeletal: Right lower leg: No edema. Left lower leg: No edema. Skin: General: Skin is warm and dry. Neurological: General: No focal deficit present. Mental Status: He is alert and oriented to person, place, and time. ALLERGIES No Known Allergies Medications rosuvastatin (CRESTOR) 20 mg tablet meclizine (ANTIVERT) 25 mg tab Take 1 tablet by mouth three times daily as needed. EVERY 6 HOURS NEEDED escitalopram oxalate (LEXAPRO) 10 mg tablet Take 1 tablet by mouth once daily. acetaminophen 325 mg cap Take by mouth every 4 hours as needed. fluticasone (FLONASE) 50 mcg/actuation nasal spray Use 2 Sprays in each nostril once daily. docusate sodium (STOOL SOFTENER ORAL) Take 1 tablet by mouth once daily. Ferrous Fumarate 324 mg (106 mg iron) tab Take by mouth three times daily. metoprolol tartrate, short acting, (LOPRESSOR) 50 mg tablet Take 1 tablet by mouth twice daily. aspirin, enteric coated (ADULT LOW DOSE ASPIRIN) 81 mg EC tablet Take 1 tablet by mouth once daily. nitroglycerin sublingual (NITROQUICK) 0.4 mg SL tablet Dissolve 0.4 mg under the tongue every 5 minutes as needed. PAST MEDICAL HISTORY Diagnosis Date Coronary artery disease involving [place] coronary artery of [place] heart without angina pectoris 10/28/[address] [facility]; left circumflex stent after May [address] segment elevation CA--syncope the only symptom Depressive disorder, not elsewhere classified Depression (non-psychotic) Generalized anxiety disorder Anxiety, Generalized Hypertension Low sodium levels 03/2021 Rheumatic fever with cardiac involvement at 10 years old; had murmur in the past Tobacco use disorder Unspecified tinnitus Tinnitus left ear Social History Tobacco Use Smoking status: Former Packs/day: 0.50 Years: 20.00 Additional pack years: 0.00 Total pack years: 10.00 Types: Cigarettes Quit date: 05/26/2016 Years since quittin.7 Smokeless tobacco: Never Tobacco comments: pipe Vaping Use Vaping Use: Never used Substance Use Topics Alcohol use: Not Currently Comment: Socially- monthly Drug use: No Component Latest Ref Rng & Units 01/19/2022 01/20/2022 10/27/2022 WBC 3.70 - 11.00 k/uL 6.45 7.38 RBC 4.20 - 6.00 m/uL 4.86 4.88 Hemoglobin 13.0 - 17.0 g/dL 15.2 15.3 Hematocrit 39.0 - 51.0 % 46.5 47.2 MCV 80.0 - 100.0 fL 95.7 96.7 MCH 26.0 - 34.0 pg 31.3 31.4 MCHC 30.5 - 36.0 g/dL 32.7 32.4 RDW-CV 11.5 - 15.0 % 12.5 12.6 Platelet Count 150 - 400 k/uL 231 227 MPV 9.0 - 12.7 fL 10.0 10.7 Neut% % 63.4 Abs Neut (ANC) 1.45 - 7.50 k/uL 4.68 Lymph% % 26.8 Abs Lymph 1.00 - 4.00 k/uL 1.98 Perkins% % 8.3 Abs Perkins <0.87 k/uL 0.61 Eosin% % 0.9 Abs Eosin <0.46 k/uL 0.07 Baso% % 0.3 Abs Baso <0.11 k/uL <0.03 Immature Gran % % 0.3 IMMATURE GRANS (ABS) <0.10 k/uL <0.03 NRBC /100 WBC 0.0 Absolute nRBC <0.01 k/uL <0.01 <0.01 DTYPE Auto Protein, Total 6.3 - 8.0 g/dL 6.3 Albumin 3.9 - 4.9 g/dL 4.0 Calcium 8.5 - 10.2 mg/dL 9.6 9.2 Bilirubin, Total 0.2 - 1.3 mg/dL 0.3 Alkaline Phosphatase 38 - 113 U/L 71 AST 14 - 40 U/L 32 ALT 10 - 54 U/L 16 Glucose 74 - 99 mg/dL 61 (L) 68 (L) BUN 9 - 24 mg/dL 21 23 Creatinine 0.73 - 1.22 mg/dL 0.95 0.88 Sodium 136 - 144 mmol/L 138 135 (L) Potassium 3.7 - 5.1 mmol/L 4.8 4.9 Chloride 97 - 105 mmol/L 102 100 CO2 22 - 30 mmol/L 29 27 Anion Gap 9 - 18 mmol/L 7 (L) 8 (L) eGFR >=60 mL/min/1.73m 83 90 Cholesterol, Total <200 mg/dL 171 Triglyceride <150 mg/dL 172 (H) HDL Cholesterol >39 mg/dL 49 Non HDL Cholesterol <130 mg/dL 122 Fasting Time hrs 2 VLDL Cholesterol <30 mg/dL 34 (H) TC:HDL Ratio <5.10 3.49 LDL Cholesterol <100 mg/dL 88 LDL:HDL Ratio <2.54 1.80 Iron 41 - 186 ug/dL 122 TIBC 232 - 386 ug/dL 309 Transferrin Saturation 15.0 - 57.0 % 39.5 Sodium, Urine Random 14 - 216 mmol/L 118 Osmolality, Urine 50 - 1,200 mOsm/kg 709 Vitamin D 25 Hydroxy 31.0 - 80.0 ng/mL 40.1 TSH 0.270 - 4.200 mIU/L 1.770 Magnesium 1.7 - 2.3 mg/dL 2.2 Vitamin B12 232 - 1,245 pg/mL 406 ASSESSMENT/PLAN: 1. Primary hypertension - ICD9: 401.9, ICD10: I10 (primary diagnosis) controlled - Continue current medications - Encouraged sodium restriction, DASH or Mediterranean diet - Recommend regular aerobic exercise 2. Need for shingles vaccine - ICD9: V04.89, ICD10: Z23 - [employer]INGRIX PRINTED PHARMACY INSTRUCTIONS 3. Encounter for immunization - ICD9: V03.89, ICD10: Z23 - TDAP PRINTED PHARMACY INSTRUCTIONS - RSV PRINTED PHARMACY INSTRUCTIONS - INFLUENZA VACCINE, PRSV FREE, AGE 65+ YR, HIGH DOSE, QUADRIVALENT (FLUZONE HIGH-DOSE) - [employer] COVID-19 VACCINE (2022- [place]) AGE 12+ YR 4. Coronary artery disease involving [place] coronary artery of [place] heart without angina pectoris - ICD9: 414.01, ICD10: I25.10 - LIPID PANEL BASIC - COMP METABOLIC PANEL - LIPID PANEL BASIC 6 mo follow up MD Lavern Gibbons APRN.FERRULER Medical Decision Making: Problems: Moderate: 2+ stable chronic illnesses Data: Unique test(s) ordered: 2 Risk: Moderate: Drug management Medical Decision Making Level: 4 - Moderate documented in this encounter [facility] 10-31-2022 Miscellaneous Notes Pt called in asking about what else he could try for vertigo. I told him he had a consult in for PT and that is one of the main ways to help with vertigo. Pt states he has an appointment for 11/14/22. Put Pt through to see if he would be able to get in sooner. Jermain increased his Meclizine at his most recent appointment. Pt was asking if there was anything else he could do. Please call and advise. documented in this encounter [facility] 10-27-2022 Note HNO ID: [id number] Author: Jermain Hartley APRN.TUFTING MACHINE OPERATOR Service: ? Author Type: Nurse Practitioner Type: Progress Notes Filed: 10/27/2022 8:11 AM Note Text: SUBJECTIVE Karen Arana is a 77 year old male here today for a hospital follow up. Chief Complaint Patient presents with: Hospital F/U HPI Karen Arana is a 77 year old male established patient of Dr. Hernandes. He presents today for follow up from being seen at [facility], admitted on 10/22 and discharged on 10/23. No outreach done. He had an episode of vertigo. Has a history of this. Did not have any meclizine. Went to ER for eval. Vertigo causes depression, feels down about this. Takes the meclizine daily to prevent episodes. About twice daily. Work up done in the hospital, no significant findings. Reviewed in care every where. He had an ECHO. EF 55%, trivial mitral valve insufficiency. Sees [facility]. Stent in 2017. Last episode of vertigo had been 5+ years. Ekg in the hospital was stable. Drinks up to 3-7ish cups of coffee a day, little water, maybe a gatorade. History of low sodium. Brain imaging had no acute issues. Mild white matter changes. CTA head and neck negative. Thyroid nodules noted, known history of this. His medications were reviewed today and his list is now up to date. Medications Current Outpatient Medications Medication Sig rosuvastatin (CRESTOR) 20 mg tablet escitalopram oxalate (LEXAPRO) 10 mg tablet Take 1 tablet by mouth once daily. acetaminophen 325 mg cap Take by mouth every 4 hours as needed. fluticasone (FLONASE) 50 mcg/actuation nasal spray Use 2 Sprays in each nostril once daily. docusate sodium (STOOL SOFTENER ORAL) Take 1 tablet by mouth once daily. Ferrous Fumarate 324 mg (106 mg iron) tab Take by mouth three times daily. metoprolol tartrate, short acting, (LOPRESSOR) 50 mg tablet Take 1 tablet by mouth twice daily. aspirin, enteric coated (ADULT LOW DOSE ASPIRIN) 81 mg EC tablet Take 1 tablet by mouth once daily. nitroglycerin sublingual (NITROQUICK) 0.4 mg SL tablet Dissolve 0.4 mg under the tongue every 5 minutes as needed. meclizine (ANTIVERT) 25 mg tab Take 1 tablet by mouth three times daily as needed. EVERY 6 HOURS NEEDED No current facility-administered medications for this visit. 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 Cardiovascular: Negative. Neurological: Positive for dizziness and light-headedness. Negative for tremors, seizures, syncope, facial asymmetry, speech difficulty, weakness, numbness and headaches. OBJECTIVE BP 140/88 Pulse 66 Resp 20 Wt 223 lb (101.2kg) SpO2 96% Physical Exam Vitals and nursing note reviewed. Constitutional: General: He is awake. He is not in acute distress. Appearance: Normal appearance. He is well-developed and well-groomed. He is not ill-appearing, toxic-appearing or diaphoretic. HENT: Head: Normocephalic. Right Ear: Hearing and external ear normal. There is impacted cerumen (small amount of soft appearing cerumen in the right canal). Left Ear: Hearing, tympanic membrane, ear canal and external ear normal. Nose: Nose normal. Eyes: General: Vision grossly intact. Conjunctiva/sclera: Conjunctivae normal. Pupils: Pupils are equal, round, and reactive to light. Neck: Vascular: No JVD. Trachea: Trachea normal. Cardiovascular: Rate and Rhythm: Normal rate and regular rhythm. Pulses: Normal pulses. Heart sounds: Normal heart sounds. No murmur heard. Pulmonary: Effort: Pulmonary effort is normal. No accessory muscle usage, prolonged expiration or respiratory distress. Breath sounds: Normal breath sounds. Musculoskeletal: Cervical back: Neck supple. Skin: General: Skin is warm and dry. Capillary Refill: Capillary refill takes less than 2 seconds. Neurological: General: No focal deficit present. Mental Status: He is alert and oriented to person, place, and time. Mental status is at baseline. Cranial Nerves: Cranial nerves 2-12 are intact. Sensory: Sensation is intact. (more content not included)... [facility] 10-27-2022 Instructions Jermain Hartley APRN.CNP - 10/27/2022 7:49 AM EDT Look in to Vestibular physical therapy, can do with [facility] or [facility]. documented in this encounter [facility] 10-27-2022 History of Present illness Narrative SUBJECTIVE Karen Arana is a 77 year old male here today for a hospital follow up. Chief Complaint Patient presents with: Hospital F/U HPI Karen Arana is a 77 year old male established patient of Dr. Hernandes. He presents today for follow up from being seen at [facility], admitted on 10/22 and discharged on 10/23. No outreach done. He had an episode of vertigo. Has a history of this. Did not have any meclizine. Went to ER for eval. Vertigo causes depression, feels down about this. Takes the meclizine daily to prevent episodes. About twice daily. Work up done in the hospital, no significant findings. Reviewed in care every where. He had an ECHO. EF 55%, trivial mitral valve insufficiency. Sees [facility]. Stent in 2017. Last episode of vertigo had been 5+ years. Ekg in the hospital was stable. Drinks up to 3-7ish cups of coffee a day, little water, maybe a gatorade. History of low sodium. Brain imaging had no acute issues. Mild white matter changes. CTA head and neck negative. Thyroid nodules noted, known history of this. His medications were reviewed today and his list is now up to date. Medications Current Outpatient Medications Medication Sig rosuvastatin (CRESTOR) 20 mg tablet escitalopram oxalate (LEXAPRO) 10 mg tablet Take 1 tablet by mouth once daily. acetaminophen 325 mg cap Take by mouth every 4 hours as needed. fluticasone (FLONASE) 50 mcg/actuation nasal spray Use 2 Sprays in each nostril once daily. docusate sodium (STOOL SOFTENER ORAL) Take 1 tablet by mouth once daily. Ferrous Fumarate 324 mg (106 mg iron) tab Take by mouth three times daily. metoprolol tartrate, short acting, (LOPRESSOR) 50 mg tablet Take 1 tablet by mouth twice daily. aspirin, enteric coated (ADULT LOW DOSE ASPIRIN) 81 mg EC tablet Take 1 tablet by mouth once daily. nitroglycerin sublingual (NITROQUICK) 0.4 mg SL tablet Dissolve 0.4 mg under the tongue every 5 minutes as needed. meclizine (ANTIVERT) 25 mg tab Take 1 tablet by mouth three times daily as needed. EVERY 6 HOURS NEEDED No current facility-administered medications for this visit. 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 Cardiovascular: Negative. Neurological: Positive for dizziness and light-headedness. Negative for tremors, seizures, syncope, facial asymmetry, speech difficulty, weakness, numbness and headaches. OBJECTIVE BP 140/88 Pulse 66 Resp 20 Wt 223 lb (101.2kg) SpO2 96% Physical Exam Vitals and nursing note reviewed. Constitutional: General: He is awake. He is not in acute distress. Appearance: Normal appearance. He is well-developed and well-groomed. He is not ill-appearing, toxic-appearing or diaphoretic. HENT: Head: Normocephalic. Right Ear: Hearing and external ear normal. There is impacted cerumen (small amount of soft appearing cerumen in the right canal). Left Ear: Hearing, tympanic membrane, ear canal and external ear normal. Nose: Nose normal. Eyes: General: Vision grossly intact. Conjunctiva/sclera: Conjunctivae normal. Pupils: Pupils are equal, round, and reactive to light. Neck: Vascular: No JVD. Trachea: Trachea normal. Cardiovascular: Rate and Rhythm: Normal rate and regular rhythm. Pulses: Normal pulses. Heart sounds: Normal heart sounds. No murmur heard. Pulmonary: Effort: Pulmonary effort is normal. No accessory muscle usage, prolonged expiration or respiratory distress. Breath sounds: Normal breath sounds. Musculoskeletal: Cervical back: Neck supple. Skin: General: Skin is warm and dry. Capillary Refill: Capillary refill takes less than 2 seconds. Neurological: General: No focal deficit present. Mental Status: He is alert and oriented to person, place, and time. Mental status is at baseline. Cranial Nerves: Cranial nerves 2-12 are intact. Sensory: Sensation is intact. Motor: Motor function is intact. Coordination: Coordination is intact. Gait: Gait is intact. Psychiatric: Attention and Perception: Attention and perception normal. Mood and Affect: Mood and affect normal. Speech: Speech normal. Behavior: Behavior normal. Behavior is cooperative. Thought Content: Thought content normal. Cognition and Memory: Cognition and memory normal. Judgment: Judgment normal. ASSESSMENT/PLAN: 1. Vertigo - ICD9: 780.4, ICD10: R42 (primary diagnosis) No red flags on exam. Reviewed hospital notes and work up. Agree with checking in with cardiology soon. Meclizine as needed. Consult to PT for vestibular therapy. Can check labs for any other issues that might be contributing. - CBC + DIFF - IRON + TIBC - VITAMIN D 25 HYDROXY - TSH BLD - MAGNESIUM BLD - VITAMIN B12 BLOOD - CONSULT TO PHYSICAL THERAPY - MECLIZINE 25 MG TABLET 2. Iron deficiency anemia, unspecified iron deficiency anemia type - ICD9: 280.9, ICD10: D50.9 - CBC + DIFF - IRON + TIBC 3. Vitamin D deficiency - ICD9: 268.9, ICD10: E55.9 - VITAMIN D 25 HYDROXY 4. Multiple thyroid nodules - ICD9: 241.1, ICD10: E04.2 - TSH BLD 5. Encounter for therapeutic drug monitoring - ICD9: V58.83, ICD10: Z51.81 - CBC + DIFF - IRON + TIBC - VITAMIN D 25 HYDROXY - TSH BLD - MAGNESIUM BLD - VITAMIN B12 BLOOD Portions of this note have been entered by ancillary staff. I have reviewed and when necessary edited, so that they are an adequate record of my encounter with this patient Please note that parts of this document were created using voice recognition software and therefore may contain grammatical errors. Patient verbalizes understanding of instructions from today's visit and in agreement with treatment plan. Questions answered. Agrees to call the office if questions, concerns of issues with acute symptoms not improving or if they worsen. See diagnoses and orders for additional plan(s). Allergies and medications were reviewed, list was updated, and refills given if needed. Past medical, surgical, social, and family history reviewed and updated as appropriate. Encouraged proper diet & exercise as well as compliance with taking medications. Age-appropriate health preventative measures were discussed. Return if symptoms worsen or fail to improve. We will call with lab results and decide on next steps/follow up from there. ALICIA Ag documented in this encounter [facility] 03-17-2022 Miscellaneous Notes Pt stated he tested positive for covid today at home. She stated he has congestion, sinus pressure and achy. He stated he would like to know what medication he can get. Offer to triage pt or he can do the Express care online. Pt stated he will do the Express care online. WHAT TO DO IF YOU ARE SICK WITH CORONAVIRUS DISEASE 2019 (COVID-19) If you are sick with COVID-19 or think you might have COVID-19, follow the steps below to care for yourself and to help protect other people in your home and community. Stay home except to get medical care Stay home. Most people with COVID-19 have mild illness and can recover at home without medical care. Do not leave your home, except to get medical care. Do not visit public areas. Take care of yourself. Get rest and stay hydrated. Take [id number] medicines, such as acetaminophen, to help you feel better. Stay in touch with your doctor. Call before you get medical care. Be sure to get care if you have trouble breathing, or have any other emergency warning signs, or if you think it is an emergency. Avoid public transportation, ride-sharing, or taxis. Separate yourself from other people As much as possible, stay in a specific room and away from other people and pets in your home. If possible, you should use a separate bathroom. If you need to be around other people or animals in or outside of the home, wear a mask. Tell your close contacts that they may have been exposed to COVID-19. An infected person can spread COVID-19 starting 48 hours (or 2 days) before the person has any symptoms or tests positive. By letting your close contacts know they may have been exposed to COVID-19, you are helping to protect everyone. Additional guidance is available for those living in close quarters and shared housing. See COVID-19 and Animals if you have questions about pets. If you are diagnosed with COVID-19, someone from the health department may call you. Answer the call to slow the spread. When you can be around others after you had or likely had COVID-19 If You Test Positive for COVID-19 (Isolation) Everyone, regardless of vaccination status: Stay home for 5 days. If you have no symptoms or your symptoms are resolving after 5 days, you can leave your house. Continue to wear a mask around others for 5 additional days. If you have a fever, continue to stay home until your fever resolves, even if it is longer than 5 days. If You Were Exposed to Someone with COVID-19 (Quarantine) If you: 1. Have been boosted OR 2. Completed the primary series of Pfizer or Moderna vaccine within the last 6 months OR 3. Completed the primary series of J&J vaccine within the last 2 months THEN: 1. Wear a mask around others for 10 days. 2. Test on day 5, if possible. If you develop symptoms get a test and stay home. If You Were Exposed to Someone with COVID-19 (Quarantine) If you: 1. Completed the primary series of Pfizer or Moderna vaccine over 6 months ago and are not boosted OR 2. Completed the primary series of J&J over 2 months ago and are not boosted OR 3. Are unvaccinated THEN: 1. Stay home for 5 days. After that continue to wear a mask around others for 5 additional days. 2. If you can't quarantine you must wear a mask for 10 days. 3. Test on day 5 if possible. If you develop symptoms get a test and stay home. I had COVID-19 or I tested positive for COVID-19 and I have a weakened immune system If you have a weakened immune system (immunocompromised) due to a health condition or medication, you might need to stay home and isolate longer than 10 days. Talk to your healthcare provider for more information. Your doctor may work with an infectious disease expert at your local health department to determine when you can be around others. Monitor your symptoms Symptoms of COVID-19 include fever, cough, or other symptoms. Follow care instructions from your healthcare provider and local health department. Your local health authorities may give instructions on checking your symptoms and reporting information. When to seek emergency medical attention Look for emergency warning signs* for COVID-19. If someone is showing any of these signs, seek emergency medical care immediately: Trouble breathing Persistent pain or pressure in the chest New confusion Inability to wake or stay awake Bluish lips or face *This list is not all possible symptoms. Please call your medical provider for any other symptoms that are severe or concerning to you. Call 911 or call ahead to your local emergency facility: Notify the fitting room operator that you are seeking care for someone who has or may have COVID-19. Call ahead before visiting your doctor Call ahead. Many medical visits for routine care are being postponed or done by phone or telemedicine. If you have a medical appointment that cannot be postponed, call your doctor s office, and tell them you have or may have COVID-19. This will help the office protect themselves and other patients. If you are sick, wear a mask over your nose and mouth You should wear a mask over your nose and mouth if you must be around other people or animals, including pets (even at home). You don t need to wear the mask if you are alone. If you can t put on a mask (because of trouble breathing, for example), cover your coughs and sneezes in some other way. Try to stay at least 6 feet away from other people. This will help protect the people around you. Masks should not be placed on young children under age 2 years, anyone who has trouble breathing, or anyone who is not able to remove the mask without help. Note: During the COVID-19 pandemic, medical grade facemasks are reserved for healthcare workers and some first responders. Cover your coughs and sneezes Cover your mouth and nose with a tissue when you cough or sneeze. Throw away used tissues in a lined trash can. Immediately wash your hands with soap and water for at least 20 seconds. If soap and water are not available, clean your hands with an alcohol-based hand braiding machine tender that contains at least 60% alcohol. Clean your hands often Wash your hands often with soap and water for at least 20 seconds. This is especially important after blowing your nose, coughing, or sneezing; going to the bathroom; and before eating or preparing food. Use hand braiding machine tender if soap and water are not available. Use an alcohol-based hand braiding machine tender with at least 60% alcohol, covering all surfaces of your hands and rubbing them together until they feel dry. Soap and water are the best option, especially if hands are visibly dirty. Avoid touching your eyes, nose, and mouth with unwashed hands. Avoid sharing personal household items Do not share dishes, drinking glasses, cups, eating utensils, towels, or bedding with other people in your home. Wash these items thoroughly after using them with soap and water or put in the math and science instructor. Clean all high-touch surfaces everyday Clean and disinfect high-touch surfaces in your sick room and bathroom; wear disposable gloves. Let someone else clean and disinfect surfaces in common areas, but you should clean your bedroom and bathroom, if possible. If a caregiver or other person needs to clean and disinfect a sick person s bedroom or bathroom, they should do so on an as-needed basis. The caregiver/other person should wear a mask and disposable gloves prior to cleaning. They should wait as long as possible after the person who is sick has used the bathroom before coming in to clean and use the bathroom. High-touch surfaces include phones, remote controls, counters, tabletops, doorknobs, bathroom fixtures, toilets, keyboards, tablets, and bedside tables. Clean and disinfect areas that may have blood, stool, or body fluids on them. Use household cigarette filter inspector and disinfectants. Clean the area or item with soap and water or another detergent if it is dirty. Then, use a household disinfectant. Be sure to follow the instructions on the label to ensure safe and effective use of the product. Many products recommend keeping the surface wet for several minutes to ensure germs are killed. Many also recommend precautions such as wearing gloves and making sure you have good ventilation during use of the product. Most EPA-registered household disinfectants should be effective. Updated 03.30.2021 Source: https://www.cdc.gov/coronavirus/20 19-ncov/ub-gkc-bym-sick/steps-when -sick.html documented in this encounter [facility] 03-07-2022 Nurse Note Arrived in phase II via cart. Left lateral position. Sedated, but responds to verbal stimuli. Color normal; skin warm and dry Respirations wnl and unlabored. Abdomen soft and with + bowel sounds in quads X 4. Patient resting comfortably. Family at bedside. Dr. Suarez at bedside to review procedure and recommendations. Alysha Gusman RN documented in this encounter [facility] 03-07-2022 History and physical note UPDATED PROCEDURAL SEDATION HISTORY AND PHYSICAL EXAMINATION SERVICE DATE: 03/07/2022 SERVICE TIME: 11:05 AM PHYSICAL EXAM MUST BE COMPLETED ON ADMISSION PROCEDURE: Procedure Indications: The History and Physical (completed in the past 30 days) has been reviewed and the patient has been examined. The contents accurately reflect the patient's condition with the following additions or revisions since the H&P was completed. ASA Class: ASA Class:: Patient with mild systemic disease Examination indicates no changes. AIRWAY: Airway Visualization of [place]: Yes Mouth opening greater than 2 fingerbreadths: Yes Neck Full Range of Motion: Yes LUNGS: Lungs clear to auscultation CARDIAC: Regular rhythm,Regular rate Provisional Diagnosis/Treatment Plan: history of polyps - screening colonoscopy SEDATION GOAL: Moderate This H&P can be found in the attached. SIGNATURE: Byron Suarez MD PATIENT NAME: Karen Arana DATE: March 07, 2022 TIME: 11:05 AM Source Note - Byron Suarez MD - 03/07/2022 10:30 AM EST HISTORY AND PHYSICAL Karen Arana 1945 REFERRING PHYSICIAN: Self CHIEF COMPLAINT: Consult HPI: The patient is a 76 year old male referred for endoscopy. Karen notes a personal history of colon polyps and prior colon resection for a dysplastic polyp. Patient denies any change in bowel habits, weight changes, blood in stools, black tarry stools or abdominal pain. NOTES family history of colon issues. The patient notes no upper GI complaints. Karen has undergone prior endoscopy. Most recent colonoscopy 12/17/[address] Suarez. Prep was noted to be inadequate at that time. Anastomosis was patent with healthy-appearing mucosa. Repeat colonoscopy was recommended in 3 years. Patient's past medical history is significant for coronary artery disease, hypertension, anxiety, tobacco use, history of rheumatic fever, Patient follows with Dr. Hernandes in primary care. Patient denies chest pain, shortness of breath or recent hospitalizations. Denies problems with sedation in the past. PAST MEDICAL HISTORY PAST MEDICAL HISTORY Diagnosis Date Coronary artery disease involving [place] coronary artery of [place] heart without angina pectoris 10/28/[address] [facility]; left circumflex stent after May [address] segment elevation CA--syncope the only symptom Depressive disorder, not elsewhere classified Depression (non-psychotic) Generalized anxiety disorder Anxiety, Generalized Hypertension Low sodium levels 03/2021 Rheumatic fever with cardiac involvement at 10 years old; had murmur in the past Tobacco use disorder Unspecified tinnitus Tinnitus left ear PAST SURGICAL HISTORY PAST SURGICAL HISTORY Procedure Laterality Date ADENOIDECTOMY PRIMARY <AGE 13 Adenoidectomy COLONOSCOPY FLX DX W/COLLJ SPEC WHEN PFRMD 01/15/2018 Colonoscopy COLONOSCOPY FLX DX W/COLLJ SPEC WHEN PFRMD 12/17/2018 repeat in 3 years ESOPHAGOGASTRODUODENOSCOPY TRANSORAL DIAGNOSTIC 12/17/2018 EGD LAPAROSCOPY SURG RPR INITIAL INGUINAL HERNIA 09/23/08 BILATERAL - triple hernia repair. Dr. Mora PAST SURGICAL HISTORY OF stapedectomy TONSILLECTOMY PRIMARY/SECONDARY <AGE 13 Tonsillectomy CURRENT MEDICATIONS Current Outpatient Medications Medication Sig escitalopram oxalate (LEXAPRO) 10 mg tablet Take 1 tablet by mouth once daily. meclizine (ANTIVERT) 25 mg tab EVERY 6 HOURS NEEDED acetaminophen 325 mg cap Take by mouth every 4 hours as needed. fluticasone (FLONASE) 50 mcg/actuation nasal spray Use 2 Sprays in each nostril once daily. ondansetron (ZOFRAN) 4 mg tablet Take by mouth every 8 hours as needed for nausea/vomiting. docusate sodium (STOOL SOFTENER ORAL) Take 1 tablet by mouth once daily. lisinopril (ZESTRIL) 5 mg tablet Take 0.5 tablets by mouth once daily. Ferrous Fumarate 324 mg (106 mg iron) tab Take by mouth three times daily. metoprolol tartrate, short acting, (LOPRESSOR) 50 mg tablet Take 1 tablet by mouth twice daily. pravastatin (PRAVACHOL) 80 mg tablet Take 1 tablet by mouth once daily. aspirin, enteric coated (ADULT LOW DOSE ASPIRIN) 81 mg EC tablet Take 1 tablet by mouth once daily. nitroglycerin sublingual (NITROQUICK) 0.4 mg SL tablet Dissolve 0.4 mg under the tongue every 5 minutes as needed. No current facility-administered medications for this visit. ALLERGIES: Patient has no known allergies. PERSONAL HISTORY: SOCIAL HISTORY Social History Tobacco Use Smoking status: Former Packs/day: 0.50 Years: 20.00 Pack years: 10.00 Types: Cigarettes Quit date: 05/26/2016 Years since quittin.5 Smokeless tobacco: Never Tobacco comments: pipe Vaping Use Vaping Use: Never used Substance Use Topics Alcohol use: Not Currently Comment: Socially- monthly Drug use: No FAMILY HISTORY: FAMILY HISTORY FAMILY HISTORY Problem Relation Age of Onset Colon Cancer Mother 88 Resected 2012 Heart Father Cancer Father Cancer Maternal Grandmother bladder other (pud) Paternal Grandfather other (ascvd) Paternal Grandfather other (Bladder Cancer) Paternal Grandfather Cancer Paternal Uncle bladder REVIEW OF SYMPTOMS: The review of systems data was entered by the nurse and reviewed by me REVIEW OF SYSTEMS: General: The patient denies fatigue, denies weight loss, denies weight gain, denies feeling hot, and denies feelings of cold. Eyes: The patient denies glaucoma, denies eye injury/surgery, does not wear glasses or contacts. Ear/Nose/Throat: The patient denies allergies, denies hayfever, denies ear infections, and denies bloody noses. Cardiovascular: The patient denies chest pain, denies heart disease, denies high blood pressure,notes cardiac stent, denies prior heart attack, denies irregular heart beat, denies high cholesterol, denies poor circulation, denies heart failure, other cardiac issues, denies claudication, denies cold feet, denies peripheral arterial stent. Respiratory: The patient denies tuberculosis, denies pneumonia, denies frequent cough, denies pulmonary embolism, denies shortness of breath, and denies coughing up blood. Gastrointestinal: The patient denies difficulty swallowing, denies acid reflux, denies ulcers, denies vomiting, denies jaundice/hepatitis, denies gallbladder problems, denies black or tarry stools, denies hemorrhoids, denies bleeding from rectum, denies diverticulitis, denies constipation, denies diarrhea, denies loss of stool control, and denies hernias. Kidney/Bladder: The patient denies kidney stones, denies urine infections, and denies bloody urine. Skin: The patient denies a history of skin cancer, denies bleeding/changing moles, and denies a history of skin rash. Neurologic: The patient denies a history of epilepsy/convulsions, denies headaches, denies head/spinal injuries, and denies stroke/TIA. Psychiatric: The patient denies psychiatric medications, notes depression, and denies voices, denies substance abuse. Endocrine: The patient denies thyroid disorders, denies diabetes, and denies hormonal problems. Hematologic: The patient denies a history of bruising, denies bleeding, and denies anemia, denies blood clots. Infections: The patient denies a history of measles and mumps, notes rheumatic fever, and denies sexually transmitted diseases. Musculoskeletal: The patient notes back pain/injury, denies back problems, denies sciatica, denies knee/foot trouble, denies arthritis, or denies gout. When was patient's last Mammogram screening? N/A Last Colonoscopy: 12/17/2018 Laurence Salmeron LPN I have confirmed and edited as necessary, the PFSH and ROS obtained by others. Shavon Davies PA-C PHYSICAL EXAMINATION: General: The patient is 76 year old male, well nourished, well hydrated in no acute distress. The patient is oriented to time, place, and person. VITALS: Blood pressure 138/82, pulse 66, temperature 36.4 C (97.5 F), temperature source Temporal, resp. rate 14, height 182.9 cm (6'), weight 102.1 kg (225 lb), SpO2 95 %. Body mass index is 30.52 kg/m . HEENT: Normal cephalic, ataumatic, pupils are equally round, sclera are anicteric, mucous membranes are moist, oropharynx is clear. Neck has no masses, asymmetry or lymphadenopathy. Respiratory: Clear to auscultation and percussion. Normal respiratory excursion and pattern. Cardiac: Examination is regular rate and rhythm. Normal S1/S2 Abdominal exam: Soft, nontender, with no palpable masses. No hepatosplenomegaly. No palpable hernias. Extremities: no clubbing, cyanosis or edema. No adenopathy. LABORATORY VALUES: As Noted RADIOLOGIC STUDIES: As Noted Assessment IMPRESSION: encounter for high-risk surveillance colonoscopy-personal history of colon polyps and s/p colon resection for dysplastic polyp PLAN: I have reviewed my findings with the surgeon. Will plan for lower endoscopy. We discussed the risks and benefits of the planned endoscopy. I have informed the patient that complications can occur including failure to complete the endoscopy and perforation. The patient had the opportunity to ask questions concerning the planned endoscopy. My staff has also explained the procedure to the patient in understandable terms and has given the patient printed material concerning the procedure. The patient freely consents to surgery. The patient was offered a surgery/procedure at a [facility] facility. I have counseled the patient regarding the risk of exposure to and/or potential harm posed by the COVID-19 virus with having a surgery/procedure at this time versus the risk of delaying the surgery/procedure. It is not possible to know either the risk of delaying the surgery or procedure or chance of getting an infection with perfect accuracy, but a joint decision was made between the patient and myself to proceed at this time with endoscopy. I plan to use Miralax/Dulcolaxbowel preparation I have explained to the patient the difference between IV conscious sedation and MAC anesthesia - and I have offered either, according to the patient's wishes. I have explained that with IV conscious sedation there is no anesthesia provider available and therefore there is a limitation of the amount of IV medications that can be given and that the patient may wake up in the middle of the procedure and/or experience pain/discomfort during the procedure. Further discussion was done and the patient was given the opportunity to ask questions and all questions were answered. The patient chooses IV conscious sedation Diagnoses: (Z12.11) Encounter for screening for malignant neoplasm of colon (primary encounter diagnosis) (Z86.010) History of colonic polyps (K63.5) Dysplastic colon polyp (Z80.0) Family history of colon cancer I spent a total of 25 minutes on the date of the service which included preparing to see the patient, [id number] patient care, completing clinical documentation, obtaining and/or reviewing separately obtained history, performing a medically appropriate examination, and counseling and educating the patient/family/caregiver. Shavon Davies PA-C HISTORY AND PHYSICAL Karen Arana 1945 REFERRING PHYSICIAN: Self CHIEF COMPLAINT: Consult HPI: The patient is a 76 year old male referred for endoscopy. Karen notes a personal history of colon polyps and prior colon resection for a dysplastic polyp. Patient denies any change in bowel habits, weight changes, blood in stools, black tarry stools or abdominal pain. NOTES family history of colon issues. The patient notes no upper GI complaints. Karen has undergone prior endoscopy. Most recent colonoscopy 12/17/[address] Suarez. Prep was noted to be inadequate at that time. Anastomosis was patent with healthy-appearing mucosa. Repeat colonoscopy was recommended in 3 years. Patient's past medical history is significant for coronary artery disease, hypertension, anxiety, tobacco use, history of rheumatic fever, Patient follows with Dr. Hernandes in primary care. Patient denies chest pain, shortness of breath or recent hospitalizations. Denies problems with sedation in the past. PAST MEDICAL HISTORY PAST MEDICAL HISTORY Diagnosis Date Coronary artery disease involving [place] coronary artery of [place] heart without angina pectoris 10/28/[address] Rizo at [facility]; left circumflex stent after May [address] segment elevation CA--syncope the only symptom Depressive disorder, not elsewhere classified Depression (non-psychotic) Generalized anxiety disorder Anxiety, Generalized Hypertension Low sodium levels 03/2021 Rheumatic fever with cardiac involvement at 10 years old; had murmur in the past Tobacco use disorder Unspecified tinnitus Tinnitus left ear PAST SURGICAL HISTORY PAST SURGICAL HISTORY Procedure Laterality Date ADENOIDECTOMY PRIMARY <AGE 13 Adenoidectomy COLONOSCOPY FLX DX W/COLLJ SPEC WHEN PFRMD 01/15/2018 Colonoscopy COLONOSCOPY FLX DX W/COLLJ SPEC WHEN PFRMD 12/17/2018 repeat in 3 years ESOPHAGOGASTRODUODENOSCOPY TRANSORAL DIAGNOSTIC 12/17/2018 EGD LAPAROSCOPY SURG RPR INITIAL INGUINAL HERNIA 09/23/08 BILATERAL - triple hernia repair. Dr. Mora PAST SURGICAL HISTORY OF stapedectomy TONSILLECTOMY PRIMARY/SECONDARY <AGE 13 Tonsillectomy CURRENT MEDICATIONS Current Outpatient Medications Medication Sig escitalopram oxalate (LEXAPRO) 10 mg tablet Take 1 tablet by mouth once daily. meclizine (ANTIVERT) 25 mg tab EVERY 6 HOURS NEEDED acetaminophen 325 mg cap Take by mouth every 4 hours as needed. fluticasone (FLONASE) 50 mcg/actuation nasal spray Use 2 Sprays in each nostril once daily. ondansetron (ZOFRAN) 4 mg tablet Take by mouth every 8 hours as needed for nausea/vomiting. docusate sodium (STOOL SOFTENER ORAL) Take 1 tablet by mouth once daily. lisinopril (ZESTRIL) 5 mg tablet Take 0.5 tablets by mouth once daily. Ferrous Fumarate 324 mg (106 mg iron) tab Take by mouth three times daily. metoprolol tartrate, short acting, (LOPRESSOR) 50 mg tablet Take 1 tablet by mouth twice daily. pravastatin (PRAVACHOL) 80 mg tablet Take 1 tablet by mouth once daily. aspirin, enteric coated (ADULT LOW DOSE ASPIRIN) 81 mg EC tablet Take 1 tablet by mouth once daily. nitroglycerin sublingual (NITROQUICK) 0.4 mg SL tablet Dissolve 0.4 mg under the tongue every 5 minutes as needed. No current facility-administered medications for this visit. ALLERGIES: Patient has no known allergies. PERSONAL HISTORY: SOCIAL HISTORY Social History Tobacco Use Smoking status: Former Packs/day: 0.50 Years: 20.00 Pack years: 10.00 Types: Cigarettes Quit date: 05/26/2016 Years since quittin.5 Smokeless tobacco: Never Tobacco comments: pipe Vaping Use Vaping Use: Never used Substance Use Topics Alcohol use: Not Currently Comment: Socially- monthly Drug use: No FAMILY HISTORY: FAMILY HISTORY FAMILY HISTORY Problem Relation Age of Onset Colon Cancer Mother 88 Resected 2012 Heart Father Cancer Father Cancer Maternal Grandmother bladder other (pud) Paternal Grandfather other (ascvd) Paternal Grandfather other (Bladder Cancer) Paternal Grandfather Cancer Paternal Uncle bladder REVIEW OF SYMPTOMS: The review of systems data was entered by the nurse and reviewed by me REVIEW OF SYSTEMS: General: The patient denies fatigue, denies weight loss, denies weight gain, denies feeling hot, and denies feelings of cold. Eyes: The patient denies glaucoma, denies eye injury/surgery, does not wear glasses or contacts. Ear/Nose/Throat: The patient denies allergies, denies hayfever, denies ear infections, and denies bloody noses. Cardiovascular: The patient denies chest pain, denies heart disease, denies high blood pressure,notes cardiac stent, denies prior heart attack, denies irregular heart beat, denies high cholesterol, denies poor circulation, denies heart failure, other cardiac issues, denies claudication, denies cold feet, denies peripheral arterial stent. Respiratory: The patient denies tuberculosis, denies pneumonia, denies frequent cough, denies pulmonary embolism, denies shortness of breath, and denies coughing up blood. Gastrointestinal: The patient denies difficulty swallowing, denies acid reflux, denies ulcers, denies vomiting, denies jaundice/hepatitis, denies gallbladder problems, denies black or tarry stools, denies hemorrhoids, denies bleeding from rectum, denies diverticulitis, denies constipation, denies diarrhea, denies loss of stool control, and denies hernias. Kidney/Bladder: The patient denies kidney stones, denies urine infections, and denies bloody urine. Skin: The patient denies a history of skin cancer, denies bleeding/changing moles, and denies a history of skin rash. Neurologic: The patient denies a history of epilepsy/convulsions, denies headaches, denies head/spinal injuries, and denies stroke/TIA. Psychiatric: The patient denies psychiatric medications, notes depression, and denies voices, denies substance abuse. Endocrine: The patient denies thyroid disorders, denies diabetes, and denies hormonal problems. Hematologic: The patient denies a history of bruising, denies bleeding, and denies anemia, denies blood clots. Infections: The patient denies a history of measles and mumps, notes rheumatic fever, and denies sexually transmitted diseases. Musculoskeletal: The patient notes back pain/injury, denies back problems, denies sciatica, denies knee/foot trouble, denies arthritis, or denies gout. When was patient's last Mammogram screening? N/A Last Colonoscopy: 12/17/2018 Laurence Salmeron LPN I have confirmed and edited as necessary, the PFSH and ROS obtained by others. Shavon Davies PA-C PHYSICAL EXAMINATION: General: The patient is 76 year old male, well nourished, well hydrated in no acute distress. The patient is oriented to time, place, and person. VITALS: Blood pressure 138/82, pulse 66, temperature 36.4 C (97.5 F), temperature source Temporal, resp. rate 14, height 182.9 cm (6'), weight 102.1 kg (225 lb), SpO2 95 %. Body mass index is 30.52 kg/m . HEENT: Normal cephalic, ataumatic, pupils are equally round, sclera are anicteric, mucous membranes are moist, oropharynx is clear. Neck has no masses, asymmetry or lymphadenopathy. Respiratory: Clear to auscultation and percussion. Normal respiratory excursion and pattern. Cardiac: Examination is regular rate and rhythm. Normal S1/S2 Abdominal exam: Soft, nontender, with no palpable masses. No hepatosplenomegaly. No palpable hernias. Extremities: no clubbing, cyanosis or edema. No adenopathy. LABORATORY VALUES: As Noted RADIOLOGIC STUDIES: As Noted Assessment IMPRESSION: encounter for high-risk surveillance colonoscopy-personal history of colon polyps and s/p colon resection for dysplastic polyp PLAN: I have reviewed my findings with the surgeon. Will plan for lower endoscopy. We discussed the risks and benefits of the planned endoscopy. I have informed the patient that complications can occur including failure to complete the endoscopy and perforation. The patient had the opportunity to ask questions concerning the planned endoscopy. My staff has also explained the procedure to the patient in understandable terms and has given the patient printed material concerning the procedure. The patient freely consents to surgery. The patient was offered a surgery/procedure at a [facility] facility. I have counseled the patient regarding the risk of exposure to and/or potential harm posed by the COVID-19 virus with having a surgery/procedure at this time versus the risk of delaying the surgery/procedure. It is not possible to know either the risk of delaying the surgery or procedure or chance of getting an infection with perfect accuracy, but a joint decision was made between the patient and myself to proceed at this time with endoscopy. I plan to use Miralax/Dulcolaxbowel preparation I have explained to the patient the difference between IV conscious sedation and MAC anesthesia - and I have offered either, according to the patient's wishes. I have explained that with IV conscious sedation there is no anesthesia provider available and therefore there is a limitation of the amount of IV medications that can be given and that the patient may wake up in the middle of the procedure and/or experience pain/discomfort during the procedure. Further discussion was done and the patient was given the opportunity to ask questions and all questions were answered. The patient chooses IV conscious sedation Diagnoses: (Z12.11) Encounter for screening for malignant neoplasm of colon (primary encounter diagnosis) (Z86.010) History of colonic polyps (K63.5) Dysplastic colon polyp (Z80.0) Family history of colon cancer I spent a total of 25 minutes on the date of the service which included preparing to see the patient, [id number] patient care, completing clinical documentation, obtaining and/or reviewing separately obtained history, performing a medically appropriate examination, and counseling and educating the patient/family/caregiver. Shavon Davies PA-C documented in this encounter [facility] 03-06-2022 Miscellaneous Notes Last office visit: 02/06/22 Next appointment scheduled: 10/02/22 Patient has been identified by name and date of : Yes Requested Prescriptions Pending Prescriptions Disp Refills escitalopram oxalate (LEXAPRO) 10 mg tablet 90 tablet 3 Sig: Take 1 tablet by mouth once daily. RX INSTRUCTIONS: Patient aware RX will be sent to pharmacy. No need to notify patient. Jada Pineda Pss documented in this encounter [facility] 02-06-2022 History of Present illness Narrative This note was created using [employer]. Subjective Karen Arana is a 76 year old male. Patient presents with: F/U 6 months SUBJECTIVE: Karen Arana is a 76 year old year old gentleman here today for 6 month follow up appointment for review of medical conditions. Recurrent back pain issues since 19. This time worse after hours of driving (6 hours). Some numbness in left thigh. Wakes up in pain. Has inversion table to 60 degrees for about 10 minutes. Seeing chiropractor--had helped last year. Has taken Tylenol two 500mg once or twice a day. 12 hour capsules. [employer] wants his LDL under 70. Dr. Rizo and [facility] Oneal. Does healthy oils. Herrick oil and eats lots of salmon. Avoids processed sugars. Noted that lipids were not fasting. PAST MEDICAL HISTORY Diagnosis Date Coronary artery disease involving [place] coronary artery of [place] heart without angina pectoris 10/28/[address] [facility]; left circumflex stent after May [address] segment elevation CA--syncope the only symptom Depressive disorder, not elsewhere classified Depression (non-psychotic) Generalized anxiety disorder Anxiety, Generalized Hypertension Low sodium levels 03/2021 Rheumatic fever with cardiac involvement at 10 years old; had murmur in the past Tobacco use disorder Unspecified tinnitus Tinnitus left ear Current Outpatient Medications Medication Sig escitalopram oxalate (LEXAPRO) 10 mg tablet Take 1 tablet by mouth once daily. meclizine (ANTIVERT) 25 mg tab EVERY 6 HOURS NEEDED acetaminophen 325 mg cap Take by mouth every 4 hours as needed. fluticasone (FLONASE) 50 mcg/actuation nasal spray Use 2 Sprays in each nostril once daily. docusate sodium (STOOL SOFTENER ORAL) Take 1 tablet by mouth once daily. Ferrous Fumarate 324 mg (106 mg iron) tab Take by mouth three times daily. metoprolol tartrate, short acting, (LOPRESSOR) 50 mg tablet Take 1 tablet by mouth twice daily. pravastatin (PRAVACHOL) 80 mg tablet Take 1 tablet by mouth once daily. aspirin, enteric coated (ADULT LOW DOSE ASPIRIN) 81 mg EC tablet Take 1 tablet by mouth once daily. nitroglycerin sublingual (NITROQUICK) 0.4 mg SL tablet Dissolve 0.4 mg under the tongue every 5 minutes as needed. ondansetron (ZOFRAN) 4 mg tablet Take by mouth every 8 hours as needed for nausea/vomiting. lisinopril (ZESTRIL) 5 mg tablet Take 0.5 tablets by mouth once daily. No current facility-administered medications for this visit. Review of Systems Objective BP 138/84 Pulse (!) 57 Wt 102 kg (224 lb 14.4 oz) SpO2 97% BMI 30.50 kg/m Last 5 Encounter Wt Readings: Date: Wt: 02/06/2022 102 kg (224 lb 14.4 oz) 12/28/2021 102.1 kg (225 lb) 06/10/2021 100.2 kg (221 lb) 04/12/2021 98 kg (216 lb) 03/23/2021 104.9 kg (231 lb 3.2 oz) No waist measurement recorded Estimated body mass index is 30.5 kg/m as calculated from the following: Height as of 12/28/21: 182.9 cm (6'). Weight as of this encounter: 102 kg (224 lb 14.4 oz). Last 5 Encounter BP Readings: Date: BP: 02/06/2022 138/84 12/28/2021 138/82 06/10/2021 122/82 04/12/2021 124/84 03/23/2021 126/84 Physical Exam Vitals reviewed. Constitutional: Appearance: Normal appearance. Eyes: Conjunctiva/sclera: Conjunctivae normal. Cardiovascular: Rate and Rhythm: Normal rate and regular rhythm. Heart sounds: Normal heart sounds. Pulmonary: Effort: Pulmonary effort is normal. Breath sounds: Normal breath sounds. Musculoskeletal: Lumbar back: Tenderness (paravertebral muscles and over spine muscles) present. Comments: Straightening of normal lumbar lordosis. Skin: General: Skin is warm and dry. Neurological: General: No focal deficit present. Mental Status: He is alert and oriented to person, place, and time. Psychiatric: Mood and Affect: Mood normal. Behavior: Behavior normal. Thought Content: Thought content normal. Judgment: Judgment normal. Nodule in left hand near over ring finger tendon in palm. About pea sized. Component Latest Ref Rng & Units 04/26/2021 01/19/2022 01/20/2022 Protein, Total 6.3 - 8.0 g/dL 6.8 6.3 Albumin 3.9 - 4.9 g/dL 3.7 (L) 4.0 Calcium 8.5 - 10.2 mg/dL 9.2 9.6 9.2 Bilirubin, Total 0.2 - 1.3 mg/dL 0.5 0.3 Alkaline Phosphatase 38 - 113 U/L 76 71 AST 14 - 40 U/L 28 32 Glucose 74 - 99 mg/dL 86 61 (L) 68 (L) BUN 9 - 24 mg/dL 19 21 23 Creatinine 0.73 - 1.22 mg/dL 0.93 0.95 0.88 Sodium 136 - 144 mmol/L 138 138 135 (L) Potassium 3.7 - 5.1 mmol/L 3.8 4.8 4.9 Chloride 97 - 105 mmol/L 100 102 100 CO2 22 - 30 mmol/L 29 29 27 Anion Gap 9 - 18 mmol/L 9 7 (L) 8 (L) ALT 10 - 54 U/L 18 16 eGFR- >60 eGFR-All Other Races . >60 eGFR >=60 mL/min/1.73m 83 90 WBC 3.70 - 11.00 k/uL 6.65 6.45 RBC 4.20 - 6.00 m/uL 4.64 4.86 Hemoglobin 13.0 - 17.0 g/dL 14.5 15.2 Hematocrit 39.0 - 51.0 % 46.3 46.5 MCV 80.0 - 100.0 fL 99.8 95.7 MCH 26.0 - 34.0 pg 31.3 31.3 MCHC 30.5 - 36.0 g/dL 31.3 32.7 RDW-CV 11.5 - 15.0 % 13.3 12.5 Platelet Count 150 - 400 k/uL 278 231 MPV 9.0 - 12.7 fL 9.8 10.0 Absolute nRBC <0.01 k/uL <0.01 <0.01 Cholesterol, Total <200 mg/dL 154 171 Triglyceride <150 mg/dL 90 172 (H) HDL Cholesterol >39 mg/dL 49 49 LDL Cholesterol <100 mg/dL 87 88 Non HDL Cholesterol <130 mg/dL 105 122 Fasting Time hrs 12 2 VLDL Cholesterol <30 mg/dL 18 34 (H) TC:HDL Ratio <5.10 3.14 3.49 LDL:HDL Ratio <2.54 1.78 1.80 Sodium, Urine Random 14 - 216 mmol/L 118 Osmolality, Urine 50 - 1,200 mOsm/kg 709 Assessment and Plan Encounter Diagnosis ICD-10-CM 1. Acute midline low back pain with left-sided sciatica M54.42 recurrent 2. Pure hypercholesterolemia E78.00 3. Primary hypertension I10 4. Coronary artery disease involving [place] coronary artery of [place] heart without angina pectoris I25.10 5. Encounter for immunization Z23 INFLUENZA SEASONAL QUADRIVALENT HIGH DOSE AGE 65+ Above issues addressed with patient. Patient involved in shared decision making for management of medical issues. Sounds like probably pinched nerve with sciatica symptoms. Working with chiropractor on back issues (Dr. Sree Martinez). Discussed might need anti-inflammatory if ice/cold compresses not effective along with rest, stretching and chiropractor treatment. Can refer to PT or pain management as needed. Discussed goal LDL<70 per lathe set up person given CAD. Faxing results of labs to [facility]. Patient wants to discuss with them options of meds but did discuss with him that they can change statin to Crestor or Lipitor from pravastatin, instead of adding a med. Continue healthy diet. BP controlled. Continue present management. History and medications reviewed. Epic updated as needed Refills and/or prescriptions taken care of and meds adjusted as indicated after reviewed history, exam and labs. Health Maintenance reviewed. Updated record and/or ordered tests as recorded. Encouraged on efforts at healthy diet and regular exercise and adequate sleep. Khushi Hernandes MD documented in this encounter [facility] 12-28-2021 History of Present illness Narrative HISTORY AND PHYSICAL Karen Arana 1945 REFERRING PHYSICIAN: Self CHIEF COMPLAINT: Consult HPI: The patient is a 76 year old male referred for endoscopy. Karen notes a personal history of colon polyps and prior colon resection for a dysplastic polyp. Patient denies any change in bowel habits, weight changes, blood in stools, black tarry stools or abdominal pain. NOTES family history of colon issues. The patient notes no upper GI complaints. Karen has undergone prior endoscopy. Most recent colonoscopy 12/17/[address] Suarez. Prep was noted to be inadequate at that time. Anastomosis was patent with healthy-appearing mucosa. Repeat colonoscopy was recommended in 3 years. Patient's past medical history is significant for coronary artery disease, hypertension, anxiety, tobacco use, history of rheumatic fever, Patient follows with Dr. Hernandes in primary care. Patient denies chest pain, shortness of breath or recent hospitalizations. Denies problems with sedation in the past. PAST MEDICAL HISTORY Diagnosis Date Coronary artery disease involving [place] coronary artery of [place] heart without angina pectoris 10/28/[address] [facility]; left circumflex stent after May [address] segment elevation CA--syncope the only symptom Depressive disorder, not elsewhere classified Depression (non-psychotic) Generalized anxiety disorder Anxiety, Generalized Hypertension Low sodium levels 03/2021 Rheumatic fever with cardiac involvement at 10 years old; had murmur in the past Tobacco use disorder Unspecified tinnitus Tinnitus left ear PAST SURGICAL HISTORY Procedure Laterality Date ADENOIDECTOMY PRIMARY <AGE 13 Adenoidectomy COLONOSCOPY FLX DX W/COLLJ SPEC WHEN PFRMD 01/15/2018 Colonoscopy COLONOSCOPY FLX DX W/COLLJ SPEC WHEN PFRMD 12/17/2018 repeat in 3 years ESOPHAGOGASTRODUODENOSCOPY TRANSORAL DIAGNOSTIC 12/17/2018 EGD LAPAROSCOPY SURG RPR INITIAL INGUINAL HERNIA 09/23/08 BILATERAL - triple hernia repair. Dr. Mora PAST SURGICAL HISTORY OF stapedectomy TONSILLECTOMY PRIMARY/SECONDARY <AGE 13 Tonsillectomy Current Outpatient Medications Medication Sig escitalopram oxalate (LEXAPRO) 10 mg tablet Take 1 tablet by mouth once daily. meclizine (ANTIVERT) 25 mg tab EVERY 6 HOURS NEEDED acetaminophen 325 mg cap Take by mouth every 4 hours as needed. fluticasone (FLONASE) 50 mcg/actuation nasal spray Use 2 Sprays in each nostril once daily. ondansetron (ZOFRAN) 4 mg tablet Take by mouth every 8 hours as needed for nausea/vomiting. docusate sodium (STOOL SOFTENER ORAL) Take 1 tablet by mouth once daily. lisinopril (ZESTRIL) 5 mg tablet Take 0.5 tablets by mouth once daily. Ferrous Fumarate 324 mg (106 mg iron) tab Take by mouth three times daily. metoprolol tartrate, short acting, (LOPRESSOR) 50 mg tablet Take 1 tablet by mouth twice daily. pravastatin (PRAVACHOL) 80 mg tablet Take 1 tablet by mouth once daily. aspirin, enteric coated (ADULT LOW DOSE ASPIRIN) 81 mg EC tablet Take 1 tablet by mouth once daily. nitroglycerin sublingual (NITROQUICK) 0.4 mg SL tablet Dissolve 0.4 mg under the tongue every 5 minutes as needed. No current facility-administered medications for this visit. ALLERGIES: Patient has no known allergies. PERSONAL HISTORY: Social History Tobacco Use Smoking status: Former Packs/day: 0.50 Years: 20.00 Pack years: 10.00 Types: Cigarettes Quit date: 05/26/2016 Years since quittin.5 Smokeless tobacco: Never Tobacco comments: pipe Vaping Use Vaping Use: Never used Substance Use Topics Alcohol use: Not Currently Comment: Socially- monthly Drug use: No FAMILY HISTORY: FAMILY HISTORY Problem Relation Age of Onset Colon Cancer Mother 88 Resected 2012 Heart Father Cancer Father Cancer Maternal Grandmother bladder other (pud) Paternal Grandfather other (ascvd) Paternal Grandfather other (Bladder Cancer) Paternal Grandfather Cancer Paternal Uncle bladder REVIEW OF SYMPTOMS: The review of systems data was entered by the nurse and reviewed by me REVIEW OF SYSTEMS: General: The patient denies fatigue, denies weight loss, denies weight gain, denies feeling hot, and denies feelings of cold. Eyes: The patient denies glaucoma, denies eye injury/surgery, does not wear glasses or contacts. Ear/Nose/Throat: The patient denies allergies, denies hayfever, denies ear infections, and denies bloody noses. Cardiovascular: The patient denies chest pain, denies heart disease, denies high blood pressure,notes cardiac stent, denies prior heart attack, denies irregular heart beat, denies high cholesterol, denies poor circulation, denies heart failure, other cardiac issues, denies claudication, denies cold feet, denies peripheral arterial stent. Respiratory: The patient denies tuberculosis, denies pneumonia, denies frequent cough, denies pulmonary embolism, denies shortness of breath, and denies coughing up blood. Gastrointestinal: The patient denies difficulty swallowing, denies acid reflux, denies ulcers, denies vomiting, denies jaundice/hepatitis, denies gallbladder problems, denies black or tarry stools, denies hemorrhoids, denies bleeding from rectum, denies diverticulitis, denies constipation, denies diarrhea, denies loss of stool control, and denies hernias. Kidney/Bladder: The patient denies kidney stones, denies urine infections, and denies bloody urine. Skin: The patient denies a history of skin cancer, denies bleeding/changing moles, and denies a history of skin rash. Neurologic: The patient denies a history of epilepsy/convulsions, denies headaches, denies head/spinal injuries, and denies stroke/TIA. Psychiatric: The patient denies psychiatric medications, notes depression, and denies voices, denies substance abuse. Endocrine: The patient denies thyroid disorders, denies diabetes, and denies hormonal problems. Hematologic: The patient denies a history of bruising, denies bleeding, and denies anemia, denies blood clots. Infections: The patient denies a history of measles and mumps, notes rheumatic fever, and denies sexually transmitted diseases. Musculoskeletal: The patient notes back pain/injury, denies back problems, denies sciatica, denies knee/foot trouble, denies arthritis, or denies gout. When was patient's last Mammogram screening? N/A Last Colonoscopy: 12/17/2018 Laurence Salmeron LPN I have confirmed and edited as necessary, the PFSH and ROS obtained by others. Shavon Davies PA-C PHYSICAL EXAMINATION: General: The patient is 76 year old male, well nourished, well hydrated in no acute distress. The patient is oriented to time, place, and person. VITALS: Blood pressure 138/82, pulse 66, temperature 36.4 C (97.5 F), temperature source Temporal, resp. rate 14, height 182.9 cm (6'), weight 102.1 kg (225 lb), SpO2 95 %. Body mass index is 30.52 kg/m . HEENT: Normal cephalic, ataumatic, pupils are equally round, sclera are anicteric, mucous membranes are moist, oropharynx is clear. Neck has no masses, asymmetry or lymphadenopathy. Respiratory: Clear to auscultation and percussion. Normal respiratory excursion and pattern. Cardiac: Examination is regular rate and rhythm. Normal S1/S2 Abdominal exam: Soft, nontender, with no palpable masses. No hepatosplenomegaly. No palpable hernias. Extremities: no clubbing, cyanosis or edema. No adenopathy. LABORATORY VALUES: As Noted RADIOLOGIC STUDIES: As Noted Assessment IMPRESSION: encounter for high-risk surveillance colonoscopy-personal history of colon polyps and s/p colon resection for dysplastic polyp PLAN: I have reviewed my findings with the surgeon. Will plan for lower endoscopy. We discussed the risks and benefits of the planned endoscopy. I have informed the patient that complications can occur including failure to complete the endoscopy and perforation. The patient had the opportunity to ask questions concerning the planned endoscopy. My staff has also explained the procedure to the patient in understandable terms and has given the patient printed material concerning the procedure. The patient freely consents to surgery. The patient was offered a surgery/procedure at a [facility] facility. I have counseled the patient regarding the risk of exposure to and/or potential harm posed by the COVID-19 virus with having a surgery/procedure at this time versus the risk of delaying the surgery/procedure. It is not possible to know either the risk of delaying the surgery or procedure or chance of getting an infection with perfect accuracy, but a joint decision was made between the patient and myself to proceed at this time with endoscopy. I plan to use Miralax/Dulcolaxbowel preparation I have explained to the patient the difference between IV conscious sedation and MAC anesthesia - and I have offered either, according to the patient's wishes. I have explained that with IV conscious sedation there is no anesthesia provider available and therefore there is a limitation of the amount of IV medications that can be given and that the patient may wake up in the middle of the procedure and/or experience pain/discomfort during the procedure. Further discussion was done and the patient was given the opportunity to ask questions and all questions were answered. The patient chooses IV conscious sedation Diagnoses: (Z12.11) Encounter for screening for malignant neoplasm of colon (primary encounter diagnosis) (Z86.010) History of colonic polyps (K63.5) Dysplastic colon polyp (Z80.0) Family history of colon cancer I spent a total of 25 minutes on the date of the service which included preparing to see the patient, [id number] patient care, completing clinical documentation, obtaining and/or reviewing separately obtained history, performing a medically appropriate examination, and counseling and educating the patient/family/caregiver. Shavon Davies PA-C REVIEW OF SYSTEMS: General: The patient denies fatigue, denies weight loss, denies weight gain, denies feeling hot, and denies feelings of cold. Eyes: The patient denies glaucoma, denies eye injury/surgery, does not wear glasses or contacts. Ear/Nose/Throat: The patient denies allergies, denies hayfever, denies ear infections, and denies bloody noses. Cardiovascular: The patient denies chest pain, denies heart disease, denies high blood pressure,notes cardiac stent, denies prior heart attack, denies irregular heart beat, denies high cholesterol, denies poor circulation, denies heart failure, other cardiac issues, denies claudication, denies cold feet, denies peripheral arterial stent. Respiratory: The patient denies tuberculosis, denies pneumonia, denies frequent cough, denies pulmonary embolism, denies shortness of breath, and denies coughing up blood. Gastrointestinal: The patient denies difficulty swallowing, denies acid reflux, denies ulcers, denies vomiting, denies jaundice/hepatitis, denies gallbladder problems, denies black or tarry stools, denies hemorrhoids, denies bleeding from rectum, denies diverticulitis, denies constipation, denies diarrhea, denies loss of stool control, and denies hernias. Kidney/Bladder: The patient denies kidney stones, denies urine infections, and denies bloody urine. Skin: The patient denies a history of skin cancer, denies bleeding/changing moles, and denies a history of skin rash. Neurologic: The patient denies a history of epilepsy/convulsions, denies headaches, denies head/spinal injuries, and denies stroke/TIA. Psychiatric: The patient denies psychiatric medications, notes depression, and denies voices, denies substance abuse. Endocrine: The patient denies thyroid disorders, denies diabetes, and denies hormonal problems. Hematologic: The patient denies a history of bruising, denies bleeding, and denies anemia, denies blood clots. Infections: The patient denies a history of measles and mumps, notes rheumatic fever, and denies sexually transmitted diseases. Musculoskeletal: The patient notes back pain/injury, denies back problems, denies sciatica, denies knee/foot trouble, denies arthritis, or denies gout. When was patient's last Mammogram screening? N/A Last Colonoscopy: 12/17/2018 Laurence Salmeron LPN documented in this encounter [facility] 06-10-2021 History of Present illness Narrative This note was created using [employer]. Subjective Karen Arana is a 75 year old male. Patient presents with: F/U 6 months SUBJECTIVE: Karen Arana is a 75 year old year old gentleman here today for 6 month follow up appointment for review of medical conditions. Reviewed had been admitted for low sodium. Was not able to walk, so called for squad. Was admitted for 5 days. Was given sodium tablets and Lasix. Was told might have been due to either antidepressant or maybe prednisone that was given for respiratory infection through . Seeing Dr. May for kidneys--November 29. Dr. 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 Doing okay so far--no panic attacks. Just a few sad moments. Not overwhelming. Told to get 80 grams of proteins daily. Does not like red meat or chicken or pork. Gets fis hand vegetables with protein. PAST MEDICAL HISTORY Diagnosis Date Coronary artery disease involving [place] coronary artery of [place] heart without angina pectoris 10/28/[address] [facility]; left circumflex stent after May [address] segment elevation CA--syncope the only symptom Depressive disorder, not elsewhere classified Depression (non-psychotic) Generalized anxiety disorder Anxiety, Generalized Hypertension Rheumatic fever with cardiac involvement at 10 years old; had murmur in the past Tobacco use disorder Unspecified tinnitus Tinnitus left ear Current Outpatient Medications Medication Sig meclizine (ANTIVERT) 25 mg tab EVERY 6 HOURS NEEDED acetaminophen (TYLENOL) 325 mg cap Take by mouth. fluticasone (FLONASE) 50 mcg/actuation nasal spray Use in the nose. ondansetron (ZOFRAN) 4 mg tablet Take by mouth every 8 hours as needed for nausea/vomiting. docusate sodium (STOOL SOFTENER ORAL) Take 1 tablet by mouth once daily. lisinopril (ZESTRIL) 5 mg tablet Take 0.5 tablets by mouth once daily. Ferrous Fumarate 324 mg (106 mg iron) tab Take by mouth three times daily. metoprolol tartrate, short acting, (LOPRESSOR) 50 mg tablet Take 1 tablet by mouth twice daily. pravastatin (PRAVACHOL) 80 mg tablet Take 1 tablet by mouth once daily. aspirin, enteric coated (ADULT LOW DOSE ASPIRIN) 81 mg EC tablet Take 1 tablet by mouth once daily. nitroglycerin sublingual (NITROQUICK) 0.4 mg SL tablet Dissolve 0.4 mg under the tongue every 5 minutes as needed. furosemide (LASIX) 20 mg tablet Take 20 mg by mouth once daily. sodium chloride 1 gram tab Take 2 g by mouth twice daily. No current facility-administered medications for this visit. Review of Systems Objective BP 122/82 Pulse 76 Wt 100.2 kg (221 lb) BMI 31.43 kg/m Last 5 Encounter Wt Readings: Date: Wt: 06/10/2021 100.2 kg (221 lb) 04/12/2021 98 kg (216 lb) 03/23/2021 104.9 kg (231 lb 3.2 oz) 11/26/2020 103.4 kg (228 lb) 04/09/2020 105.7 kg (233 lb) No waist measurement recorded Estimated body mass index is 31.43 kg/m as calculated from the following: Height as of 11/26/20: 178.6 cm (5' 10.32 ). Weight as of this encounter: 100.2 kg (221 lb). Last 5 Encounter BP Readings: Date: BP: 06/10/2021 122/82 04/12/2021 124/84 03/23/2021 126/84 11/26/2020 112/62 04/09/2020 132/78 Physical Exam Component Latest Ref Rng & Units 07/28/2019 03/17/2020 11/24/2020 04/26/2021 Protein, Total 6.3 - 8.0 g/dL 6.5 6.8 Albumin 3.9 - 4.9 g/dL 3.8 (L) 3.7 (L) Calcium 8.5 - 10.2 mg/dL 8.9 9.2 Bilirubin, Total 0.2 - 1.3 mg/dL 0.6 0.5 Alkaline Phosphatase 38 - 113 U/L 67 76 AST 14 - 40 U/L 31 33 28 Glucose 74 - 99 mg/dL 80 86 BUN 9 - 24 mg/dL 14 19 Creatinine 0.73 - 1.22 mg/dL 0.99 0.93 Sodium 136 - 144 mmol/L 135 (L) 138 Potassium 3.7 - 5.1 mmol/L 4.4 3.8 Chloride 97 - 105 mmol/L 99 100 CO2 22 - 30 mmol/L 28 29 Anion Gap 9 - 18 mmol/L 8 (L) 9 ALT 10 - 54 U/L 24 16 18 eGFR- >60 >60 eGFR-All Other Races . >60 >60 WBC 3.70 - 11.00 k/uL 7.87 6.52 6.65 RBC 4.20 - 6.00 m/uL 4.93 4.74 4.64 Hemoglobin 13.0 - 17.0 g/dL 15.2 15.0 14.5 Hematocrit 39.0 - 51.0 % 46.2 46.1 46.3 MCV 80.0 - 100.0 fL 93.7 97.3 99.8 MCH 26.0 - 34.0 pG 30.8 31.6 31.3 MCHC 30.5 - 36.0 g/dL 32.9 32.5 31.3 RDW-CV 11.5 - 15.0 % 13.1 12.5 13.3 Platelet Count 150 - 400 k/uL 274 239 278 MPV 9.0 - 12.7 fL 10.0 10.1 9.8 Absolute nRBC <0.01 k/uL <0.01 <0.01 <0.01 Cholesterol, Total <200 mg/dL 142 154 Triglyceride <150 mg/dL 93 85 90 HDL Cholesterol >39 mg/dL 60 55 49 LDL Cholesterol <100 mg/dL 80 70 87 Non HDL Cholesterol <130 mg/dL 87 105 Fasting Time hrs 12 12 VLDL Cholesterol <30 mg/dL 17 18 TC:HDL Ratio <5.10 2.58 3.14 LDL:HDL Ratio <2.54 1.27 1.78 T PROT 6 - 8.5 g/dL 7.1 ALB 3.2 - 5.2 g/dL 3.1 (A) GLOBULIN 2.2 - 4.2 g/dL 4.0 Alk Phos 50 - 136 U/L 66 BILI T 0 - 1.3 mg/dL 0.60 BILIRUBIN DIRECT 0.00 - 0.30 mg/dL 0.18 Cholesterol, Total 0 - 200 MG/DL 159 VLDL 10 - 38 Ratio 19 Iron 41 - 186 ug/dL 168 TIBC 232 - 386 ug/dL 300 Transferrin Saturation 15 - 57 % 56 Ferritin 30.3 - 565.7 ng/mL 345.0 TSH 0.270 - 4.200 uU/mL 0.638 Hep C Antibody IA Negative Negative Assessment and Plan ASSESSMENT/PLAN: 1. Primary hypertension - ICD9: 401.9, ICD10: I10 (primary diagnosis) - good control - Recommended regular aerobic exercise. - Goal of BP <130/80 - COMP METABOLIC PANEL - LIPID PANEL BASIC - CBC 2. Coronary artery disease involving [place] coronary artery of [place] heart without angina pectoris - ICD9: 414.01, ICD10: I25.10 Will see lathe set up person for follow up next week; stable - COMP METABOLIC PANEL - LIPID PANEL BASIC - CBC 3. Hyponatremia - ICD9: 276.1, ICD10: E87.1 Last checks were within normal limits 4. Anxiety and depression - ICD9: 300.00, 311, ICD10: F41.9, F32.A Stable off med Khushi Hernandes MD documented in this encounter [facility] documented as of this encounter (statuses as of 09/02/2021) [address] History of Past illness Narrative* Problem Noted Date Resolved Date Tobacco use disorder 10/28/2016 documented as of this encounter (statuses as of 10/24/2021) [address] History of Past illness Narrative* Problem Noted Date Resolved Date Tobacco use disorder 10/28/2016 documented as of this encounter (statuses as of 12/30/2021) [address] History of Past illness Narrative* Problem Noted Date Resolved Date Tobacco use disorder 10/28/2016 documented as of this encounter (statuses as of 02/07/2022) [address] History of Past illness Narrative* Problem Noted Date Resolved Date Tobacco use disorder 10/28/2016 documented as of this encounter (statuses as of 03/06/2022) [address] History of Past illness Narrative* Problem Noted Date Resolved Date Tobacco use disorder 10/28/2016 documented as of this encounter (statuses as of 03/19/2022) [address] History of Past illness Narrative* Problem Noted Date Diagnosed Date Resolved Date Tobacco use disorder 017 documented as of this encounter (statuses as of 10/27/2022) [address] History of Past illness Narrative* Problem Noted Date Diagnosed Date Resolved Date Tobacco use disorder 017 documented as of this encounter (statuses as of 11/01/2022) [address] History of Past illness Narrative* Problem Noted Date Diagnosed Date Resolved Date Tobacco use disorder 017 documented as of this encounter (statuses as of 01/27/2023) [address] History of Past illness Narrative* Problem Noted Date Diagnosed Date Resolved Date Tobacco use disorder 017 documented as of this encounter (statuses as of 02/07/2023) [address] History of Past illness Narrative* Problem Noted Date Diagnosed Date Resolved Date Tobacco use disorder 017 documented as of this encounter (statuses as of 02/14/2023) [address] History of Past illness Narrative* Problem Noted Date Diagnosed Date Resolved Date Tobacco use disorder 017 documented as of this encounter (statuses as of 05/09/2023) [facility] History of Past illness Narrative* Problem Noted Date Diagnosed Date Resolved Date Tobacco use disorder 017 documented as of this encounter (statuses as of 05/10/2023) [facility] Primary hypertension- Primary Unspecified essential hypertension Coronary artery disease involving [place] coronary artery of [place] heart without angina pectoris Hyponatremia Hyposmolality and/or hyponatremia Anxiety and depression Dysthymic disorder documented in this encounter [facility] note* Diagnosis Encounter for screening for malignant neoplasm of colon- Primary Special screening for malignant neoplasms, colon History of colonic polyps Personal history of colonic polyps Dysplastic colon polyp Benign neoplasm of colon Family history of colon cancer Family history of malignant neoplasm of gastrointestinal tract [facility] Diagnosis Acute midline low back pain with left-sided sciatica- Primary Pure hypercholesterolemia Primary hypertension Unspecified essential hypertension Coronary artery disease involving [place] coronary artery of [place] heart without angina pectoris Encounter for immunization Need for other specified prophylactic vaccination against single bacterial disease Encounter for long-term current use of medication documented in this encounter [facility] note* Diagnosis Vertigo- Primary Dizziness and giddiness Iron deficiency anemia, unspecified iron deficiency anemia type Vitamin D deficiency Unspecified vitamin D deficiency Multiple thyroid nodules Nontoxic multinodular goiter Encounter for therapeutic drug monitoring documented in this encounter [facility] note* Diagnosis Special screening for malignant neoplasms, colon- Primary History of colonic polyps Personal history of colonic polyps [facility] Diagnosis Primary hypertension- Primary Unspecified essential hypertension Need for shingles vaccine Need for prophylactic vaccination and inoculation against other viral diseases Encounter for immunization Need for other specified prophylactic vaccination against single bacterial disease Coronary artery disease involving [place] coronary artery of [place] heart without angina pectoris documented in this encounter [facility] for referral (narrative)* Outpatient Procedure (Routine) - Closed Specialty Diagnoses / Procedures Referred By Berta cortez Referred To Contact [facility] Diagnoses History of colonic polyps Procedures COLONOSCOPY SCREENING COLONOSCOPY FLX DX W/COLLJ SPEC WHEN PFRMD Shavon Davies PA-C [address] [place] [address] [address] Referral ID Status Reason Start Date Expiration Date V isits Requested Visits Authorized [id number] Closed Auto-Generate d Referral 12/28/2021 12/28/2022 1 1 [facility] for visit Narrative* Outpatient Procedure (Routine) - Closed Specialty Diagnoses / Procedures Referred By Berta cortez Referred To Contact [facility] Diagnoses History of colonic polyps Procedures COLONOSCOPY SCREENING COLONOSCOPY FLX DX W/COLLJ SPEC WHEN PFRMD Shavon Davies PA-C [address] [facility] 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 Advance Directive(s) 12/17/2018 9:27 AM Advance Directive(s) 01/15/2018 8:27 AM Reason for Referral Specialty Diagnoses / Procedures Referred By Berta cortez Referred To Contact [facility] Diagnoses Vertigo Procedures CONSULT TO PHYSICAL THERAPY PHYSICAL THERAPY EVALUATION HIGH COMPLEX 45 MINS Jermain Hartley APRN.TUFTING MACHINE OPERATOR [address] [place] [address] [facility] [address] [address] Referral ID Status Reason Start Date Expiration Date Visits Requested Visits Authorized [id number] Authorized PCP Requested Referral Auto-Generate d Referral 10/27/2022 10/27/2023 99 99 Medications Administered Section Inactive Administered Medications - up to 3 most recent administrations Medication Order MAR Action Action Date Dose Rate Site fentaNYL 50 mcg/mL 25-100 mcg injection (SUBLIMAZE) 25-100 mcg, INTRAVENOUS, DIRECTED, Starting on Sun03/07/22 at 1130, Until Sun03/07/22 at 1529, DOSING DIRECTED BY PHYSICIAN FOR PROCEDURAL SEDATION ONLY, Intraprocedure Given by LIP 03/07/2022 11:18 AM EST 25 mcg Additional Source Comments (unrecognized sect ion and content) No Status Records FoundNo Status Records Found INFORMATION SOURCE (unrecogn ized section and content) DATE CREATED AUTHOR AUTHOR'S TOSIN PATRICK 05/16/2023 [facility] Source Comments (unrecognize d section and content) In the event this informatio n is protected by the Federal Confidentiality of Alcohol and Drug Abuse Patient Records regulations: The Federal rules restrict any use of the information to criminally investigate or prosecute any alcohol or drug abuse patient.[facility] System[facility] the event this information is protected by the Federal Confidentiality of Alcohol and Drug Abuse Patient Records regulations: The Federal rules restrict any use of the information to criminally investigate or prosecute any alcohol or drug abuse patient.[facility] SystemIn the event this information is protected by the Federal Confidentiality of Alcohol and Drug Abuse Patient Records regulations: The Federal rules restrict any use of the information to criminally investigate or prosecute any alcohol or drug abuse patient.[facility] SystemIn the event this information is protected by the Federal Confidentiality of Alcohol and Drug Abuse Patient Records regulations: The Federal rules restrict any use of the information to criminally investigate or prosecute any alcohol or drug abuse patient.[facility] SystemIn the event this information is protected by the Federal Confidentiality of Alcohol and Drug Abuse Patient Records regulations: The Federal rules restrict any use of the information to criminally investigate or prosecute any alcohol or drug abuse patient.[facility] SystemIn the event this information is protected by the Federal Confidentiality of Alcohol and Drug Abuse Patient Records regulations: The Federal rules restrict any use of the information to criminally investigate or prosecute any alcohol or drug abuse patient.[facility] SystemIn the event this information is protected by the Federal Confidentiality of Alcohol and Drug Abuse Patient Records regulations: The Federal rules restrict any use of the information to criminally investigate or prosecute any alcohol or drug abuse patient.[facility] the event this information is protected by the Federal Confidentiality of Alcohol and Drug Abuse Patient Records regulations: The Federal rules restrict any use of the information to criminally investigate or prosecute any alcohol or drug abuse patient.[facility] SystemIn the event this information is protected by the Federal Confidentiality of Alcohol and Drug Abuse Patient Records regulations: The Federal rules restrict any use of the information to criminally investigate or prosecute any alcohol or drug abuse patient.[facility] SystemIn the event this information is protected by the Federal Confidentiality of Alcohol and Drug Abuse Patient Records regulations: The Federal rules restrict any use of the information to criminally investigate or prosecute any alcohol or drug abuse patient.[facility] SystemIn the event this information is protected by the Federal Confidentiality of Alcohol and Drug Abuse Patient Records regulations: The Federal rules restrict any use of the information to criminally investigate or prosecute any alcohol or drug abuse patient.[facility] SystemIn the event this information is protected by the Federal Confidentiality of Alcohol and Drug Abuse Patient Records regulations: The Federal rules restrict any use of the information to criminally investigate or prosecute any alcohol or drug abuse patient.[facility] SystemIn the event this information is protected by the Federal Confidentiality of Alcohol and Drug Abuse Patient Records regulations: The Federal rules restrict any use of the information to criminally investigate or prosecute any alcohol or drug abuse patient.[facility] Reason for Visit (unrecogniz ed section and content) Reason Comments Consult Reason Comments Refill Request Reason Comments Medication Question Reason Comments Hospital F/U Reason Comments F/U 6 Month Care Teams (unrecognized sec tion and content) 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 Specialty Start Date End Date Khushi Hernandes MD [address] [place], [place] [id number] PCP - General 05/18/03 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 Specialty Start Date End Date Khushi Hernandes MD [address] [place], [place] [id number] PCP - General 05/18/03 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 Specialty Start Date End Date Khushi Hernandes MD [address] [place], [place] [id number] PCP - General 05/18/03 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 Specialty Start Date End Date Khushi Hernandes MD [address] [place] [address] PCP - General 05/18/03 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 Specialty Start Date End Date Khushi Hernandes MD [address] [place] [address] PCP - General 05/18/03 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 Specialty Start Date End Date Khushi Hernandes MD [address] [place] [address] PCP - General 05/18/03 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 Specialty Start Date End Date Khushi Hernandes MD [address] [place] [address] PCP - General 05/18/03 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 Specialty Start Date End Date Khushi Hernandes MD [address] [place] [address] PCP - General 05/18/03 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 This clinical summary was aggregated from multiple sources. Caution should be exercised in using it in the provision of clinical care. This summary normalizes information from multiple sources, and as a consequence, information in this document may materially change the coding, format and clinical context of patient data. In addition, data may be omitted in some cases. CLINICAL DECISIONS SHOULD BE BASED ON THE PRIMARY CLINICAL RECORDS. [facility] [employer] is [employer] [facility]. provides no warranty or guarantee of the accuracy or completeness of information in this document.
[2023-05-21 12:00] LABS: Anion Gap 0 (5-15); BUN 21 mg/dL (7-18); BUN/Creat Ratio 20.6 RATIO (10-20); Calcium,Total 9.2 mg/dL (8.5-10.1); Chloride 104 mmol/L (98-107); Creatinine, Serum 1.02 mg/dL (0.70-1.30); EST Glomerular Filtration Rate 75 mL/min (>60); Est Glom Filt Rate - Afr Amer 91 mL/min (>60); Glucose 84 mg/dL (74-106); Potassium 4.9 mmol/L (3.5-5.1); Sodium Level 136 mmol/L (136-145)
== END | disposition home or self-care (01) ==
PROVIDERS: PCP Internal Medicine; Referring Provider Internal Medicine Cardiovascular Disease; Visit Provider Internal Medicine Cardiovascular Disease
DX: R09.89 Other specified symptoms and signs involving the circulatory and respiratory systems (principal); I25.10 Atherosclerotic heart disease of native coronary artery without angina pectoris; I10 Essential (primary) hypertension; E78.2 Mixed hyperlipidemia; F17.200 Nicotine dependence, unspecified, uncomplicated
CPT/HCPCS: 36415; 80048; 93880

== ENCOUNTER 2024-02-20 05:26 | Inpatient (IN) | payer MEDICARE, OTHER, SELFPAY ==
[2016-05-29 11:45] VITALS: BMI 29.2
[2024-02-20] VITALS (7 sets, daily range): BP systolic 102–120; BP diastolic 50–73; PULSE 74–115; RESP 12–22; TEMP 36.3–37; O2SAT 94–98; BMI 32.8
[2024-02-20 06:24] LABS: Anion Gap 6 (5-15); BUN 27 mg/dL (7-18); BUN/Creat Ratio 18.2 RATIO (10-20); Calcium,Total 8.6 mg/dL (8.5-10.1); Chloride 104 mmol/L (98-107); Creatinine, Serum 1.48 mg/dL (0.70-1.30); EST Glomerular Filtration Rate 49 mL/min (>60); Est Glom Filt Rate - Afr Amer 59 mL/min (>60); Estimated Creatinine Clearance 53.45 ml/min; Glucose 88 mg/dL (74-106); Potassium 4.4 mmol/L (3.5-5.1); Sodium Level 135 mmol/L (136-145); Troponin-I HS 67 pg/mL (3.0-78.0)
[2024-02-20 06:47] LABS: Absolute Neutrophil Count 15.2 X10^3/uL (2.0-7.7); Basophil# 0.04 X10^3/uL; Basophil% 0.2 % (0-1); Eosinophil# 0.02 X10^3/uL; Eosinophils% 0.1 % (0-5); Hematocrit 46.2 % (40-54); Lymphocyte % 3.7 % (19-41); Mean Corp Hgb Conc 32.5 g/dL (32-36); Mean Corpuscular Hgb 31.1 pg (27.0-32.0); Mean Corpuscular Volume 95.7 fL (80-94); Mean Platelet Vol. 9.7 fl (6.2-12.0); Monocyte# 0.11 X10^3/uL; Monocyte% 0.7 % (0-10); NRBC Flagged by Analyzer 0 % (0-5); Neutrophil # 15.16 X10^3/uL (2.7-7.7); Neutrophil % 94.6 % (47-70); POSITIVE DIFFERENTIAL YES; Platelet Count 175 K/mm3 (150-450); RBC Distribution Width CV 12.9 % (11.6-14.6); RBC Distribution Width SD 45.6 fl (35.1-43.9); Red Blood Count 4.83 M/mm3 (4.6-6.2)
[2024-02-20] MEDS: 0.9% Normal Saline (1000mL) 1,000 ML 999 ML IV (06:52)
[2024-02-20 07:54] LABS: Bacteria 0 SEEN /hpf (None Seen); Mucous, Urine 0 SEEN /hpf (<or=2+); Squamous Epithelial Cells - UA 0 SEEN /hpf (0-5); White Blood Cells 0 SEEN /hpf (0-5)
[2024-02-20 07:56] LABS: Color, Urine Yellow (Yellow); Glucose, Dipstick Normal (Normal); Ketone-Dipstick Negative (Negative); Leukocyte Esterase-Dipstick Negative /ul (Negative); Nitrite-Dipstick Negative (Negative); Occult Blood-Urine 10 /ul (Negative); Protein-Dipstick 15 mg/dl (Negative); Specific Gravity, Urine 1.015 (1.002-1.030); Urine Bilirubin Dipstick Negative (Negative); Urine Clarity Clear (Clear); Urine Urobilinogen Normal (Normal)
[2024-02-20 08:06] LABS: Red Blood Cells-Urine 0-5 SEEN /hpf (0-5)
[2024-02-20 09:26] LABS: Troponin-I HS 159 pg/mL (3.0-78.0)
[2024-02-20] MEDS: Aspirin 81 MG TAB.CHEW 324 MG PO (10:07)
[2024-02-20 14:03] LABS: Troponin-I HS 148 pg/mL (3.0-78.0)
[2024-02-20] MEDS: Metoprolol Tartrate 50 MG Tablet PO (20:35)
[2024-02-20] MEDS: Atorvastatin Calcium 40 MG Tablet PO (20:35)
[2024-02-20] MEDS: Ferrous Sulfate 325 MG Tablet PO (20:49)
[2024-02-20] MEDS: Docusate Sodium 100 MG Capsule PO (20:50)
[2024-02-21] MEDS: Acetaminophen 325 MG Tablet 650 MG PO ×3 (01:18→19:35)
[2024-02-21 05:30] VITALS: BP 107/62; PULSE 74; RESP 14; TEMP 36.8; O2SAT 97
[2024-02-21 07:25] LABS: Absolute Lymphocyte Count 0.97 X10^3/uL (0.83-4.51); Absolute Neutrophil Count 14.2 X10^3/uL (2.0-7.7); Basophil# 0.03 X10^3/uL; Basophil% 0.2 % (0-1); Eosinophil# 0.01 X10^3/uL; Eosinophils% 0.1 % (0-5); Hematocrit 40.1 % (40-54); Hemoglobin 13.1 g/dL (13.0-16.5); Lymphocyte # 0.97 X10^3/ul (0.83-4.51); Lymphocyte % 6.1 % (19-41); Mean Corp Hgb Conc 32.7 g/dL (32-36); Mean Corpuscular Hgb 30.8 pg (27.0-32.0); Mean Corpuscular Volume 94.4 fL (80-94); Monocyte# 0.64 X10^3/uL; NRBC Flagged by Analyzer 0 % (0-5); Neutrophil # 14.23 X10^3/uL (2.7-7.7); Platelet Count 153 K/mm3 (150-450); RBC Distribution Width CV 13.4 % (11.6-14.6); RBC Distribution Width SD 46.3 fl (35.1-43.9); Red Blood Count 4.25 M/mm3 (4.6-6.2)
[2024-02-21 07:46] LABS: Anion Gap 6 (5-15); BUN 20 mg/dL (7-18); BUN/Creat Ratio 19.8 RATIO (10-20); Calcium,Total 8.2 mg/dL (8.5-10.1); Chloride 103 mmol/L (98-107); Creatinine, Serum 1.01 mg/dL (0.70-1.30); EST Glomerular Filtration Rate 76 mL/min (>60); Est Glom Filt Rate - Afr Amer 92 mL/min (>60); Estimated Creatinine Clearance 78.46 ml/min; Glucose 85 mg/dL (74-106); Potassium 3.9 mmol/L (3.5-5.1); Sodium Level 133 mmol/L (136-145)
[2024-02-21 09:58] VITALS: BP 127/69; PULSE 87; RESP 18; TEMP 36.8; O2SAT 96
[2024-02-21 10:01] VITALS: PULSE 87
[2024-02-21] MEDS: Metoprolol Tartrate 50 MG Tablet PO ×2 (10:01→20:55)
[2024-02-21] MEDS: Ferrous Sulfate 325 MG Tablet PO ×2 (10:01→17:25)
[2024-02-21] MEDS: Docusate Sodium 100 MG Capsule PO ×2 (10:01→20:56)
[2024-02-21] MEDS: Escitalopram Oxalate 10 MG Tablet PO (10:01)
[2024-02-21] MEDS: Aspirin 81 MG TAB.CHEW PO (10:01)
[2024-02-21 15:32] VITALS: BP 116/69; PULSE 68; RESP 17; TEMP 36.7; O2SAT 97
[2024-02-21 20:45] VITALS: BP 136/76; PULSE 73; RESP 18; TEMP 36.4; O2SAT 96
[2024-02-21 20:55] VITALS: BP 136/76; PULSE 73
[2024-02-21] MEDS: 0.9% Saline Lock 10 ML Syringe IV (20:56)
[2024-02-21] MEDS: Atorvastatin Calcium 40 MG Tablet PO (20:56)
[2024-02-22 03:05] VITALS: BP 133/84; PULSE 63; RESP 16; TEMP 36.6; O2SAT 97
[2024-02-22] MEDS: Aspirin 81 MG TAB.CHEW PO (06:16)
[2024-02-22] MEDS: 0.9% Saline Lock 10 ML Syringe IV (06:16)
[2024-02-22 06:25] VITALS: BP 132/71; PULSE 69; RESP 18; TEMP 36.4; O2SAT 97
[2024-02-22 07:07] LABS: Absolute Lymphocyte Count 1.02 X10^3/uL (0.83-4.51); Absolute Neutrophil Count 7.1 X10^3/uL (2.0-7.7); Basophil# 0.01 X10^3/uL; Basophil% 0.1 % (0-1); Eosinophil# 0.03 X10^3/uL; Eosinophils% 0.3 % (0-5); Hematocrit 40.2 % (40-54); Hemoglobin 13.2 g/dL (13.0-16.5); Lymphocyte # 1.02 X10^3/ul (0.83-4.51); Lymphocyte % 11.6 % (19-41); Mean Corp Hgb Conc 32.8 g/dL (32-36); Mean Corpuscular Hgb 30.4 pg (27.0-32.0); Mean Corpuscular Volume 92.6 fL (80-94); Mean Platelet Vol. 9.4 fl (6.2-12.0); Monocyte# 0.57 X10^3/uL; Monocyte% 6.5 % (0-10); NRBC Flagged by Analyzer 0 % (0-5); Neutrophil # 7.11 X10^3/uL (2.7-7.7); Neutrophil % 81.2 % (47-70); Platelet Count 141 K/mm3 (150-450); RBC Distribution Width CV 13.2 % (11.6-14.6); RBC Distribution Width SD 45.3 fl (35.1-43.9); Red Blood Count 4.34 M/mm3 (4.6-6.2); White Blood Count 8.8 K/mm3 (4.4-11.0)
[2024-02-22 08:42] LABS: Anion Gap 7 (5-15); BUN 18 mg/dL (7-18); BUN/Creat Ratio 21.3 RATIO (10-20); Calcium,Total 8.3 mg/dL (8.5-10.1); Chloride 103 mmol/L (98-107); Creatinine, Serum 0.85 mg/dL (0.70-1.30); EST Glomerular Filtration Rate 93 mL/min (>60); Est Glom Filt Rate - Afr Amer 113 mL/min (>60); Estimated Creatinine Clearance 93.22 ml/min; Glucose 95 mg/dL (74-106); Potassium 3.8 mmol/L (3.5-5.1); Sodium Level 136 mmol/L (136-145)
== END 2024-02-22 15:02 | disposition home or self-care (01) | DRG 684 ==
LOC: ED 10:33 → PCU 12:19
PROVIDERS: Admitting Provider Family Medicine; Emergency Provider Emergency Medicine; PCP Internal Medicine; Visit Provider Family Medicine
DX: N17.9 Acute kidney failure, unspecified (principal); D50.9 Iron deficiency anemia, unspecified; I10 Essential (primary) hypertension; F32.A Depression, unspecified; F41.9 Anxiety disorder, unspecified; E78.2 Mixed hyperlipidemia; I25.10 Atherosclerotic heart disease of native coronary artery without angina pectoris; M54.50 Low back pain, unspecified; I25.2 Old myocardial infarction; I45.10 Unspecified right bundle-branch block; G89.29 Other chronic pain; R79.89 Other specified abnormal findings of blood chemistry; Z95.5 Presence of coronary angioplasty implant and graft; Z79.52 Long term (current) use of systemic steroids; Z79.82 Long term (current) use of aspirin; Z79.899 Other long term (current) drug therapy; Z87.891 Personal history of nicotine dependence
CPT/HCPCS: 36415; 71045; 78452; 80048; 81001; 84484; 85025; 87633; 93005; 93017; 97802; 99285; A9500; J7030; A4216; J2785

== ENCOUNTER 2024-03-10 20:25 | Inpatient (IN) | payer MEDICARE, OTHER, SELFPAY ==
[2016-05-29 11:45] VITALS: BMI 29.2
[2024-03-10] VITALS (16 sets, daily range): BP systolic 99–204; BP diastolic 53–162; PULSE 107–132; RESP 10–33; TEMP 36.2–38.6; O2SAT 92–99; BMI 32.9
--- NOTE | 2024-03-10 21:42 | ED.RN ---
Dr. Milton notified of patients tachypnea, purple nail beds and delayed cap refill time.
--- NOTE | 2024-03-10 21:53 | ED.RN ---
RT bedside to perform EKG
--- NOTE | 2024-03-10 22:03 | EKG12_ITS ---
Test Reason : DYSRHYTHMIA Blood Pressure : */* mmHG Vent. Rate : 127 BPM Atrial Rate : 127 BPM P-R Int : 144 ms QRS Dur : 128 ms QT Int : 416 ms P-R-T Axes : 16 34 18 degrees QTcB Int : 604 ms Sinus tachycardia Right bundle branch block Inferior infarct , age undetermined Abnormal ECG Confirmed by EDGAR SWAIN, BLU ([id number]), content editor KELLI GLASER ([id number]) on 03/12/2024 6:37:44 AM Referred By: CASSANDRA Confirmed By: BLU HERNÁNDEZ MD
--- NOTE | 2024-03-10 22:05 | RAD_ITS ---
INDICATION: weakness EXAMINATION/TECHNIQUE: X-RAY - XR Chest 2 Views COMPARISON: February 20, 2024 FINDINGS: LINES/DEVICES: None. LUNGS: No consolidation, edema or effusion. Possible slightly more prominent left upper lobe nodular density since the previous study. No pneumothorax. MEDIASTINUM AND CARDIOVASCULAR STRUCTURES: Cardiac silhouette not enlarged. Central airways and mediastinal contour are unremarkable. BONES AND SOFT TISSUES: Degenerative vertebral changes. RAD/Chest PA and Lateral IMPRESSION: Possible slightly more prominent left upper lobe nodular density since the previous study. Electronically Signed: Mor Jim DO at 23:46 EST Reading Location ID and State: [facility] / [place] Tel [phone], Service support ,
--- NOTE | 2024-03-10 22:05 | EX.ED.DYSGE1 ---
HPI History of Present Illness Chief Complaint: General Illness Informant: patient and spouse/S.O. Narrative Narrative: Presents with progressive decreased appetite and tremors over the past week. States today did not eat anything. He was admitted for 2 days over for elevated troponin and ISABELL. He had a nuclear stress test that was negative felt he was secondary to dehydration. Has been try to keep up with fluids. Denies chest or abdominal pain. Denies any urinary symptoms. Denies vomiting or diarrhea. Denies cough. Denies fevers or chills. Slight headache. States headache is secondary to the way he is sitting in bed currently. History of coronary disease with 1 stent in 2017. Today is able to walk to the car. States had weakness when he was admitted last time. Prior similar symptoms: Yes PFSH PFS Medical History Low back pain Hypokalemia Anemia Myocardial infarct Coronary artery disease Hypertension URI (upper respiratory infection) Hyponatremia Thyroid nodule Presence of stent in coronary artery (~05/28/16) Old myocardial infarction Mixed hyperlipidemia Essential (primary) hypertension Depression Right carotid bruit History of rheumatic fever Smoking addiction STEMI (ST elevation myocardial infarction) Home Medications ?Medication ?Instructions ?Recorded ?Last Taken ?Type aspirin 81 mg chewable tablet 81 mg PO DAILY@0800 BLOOD THINNER 01/28/18 Unknown History ondansetron 4 mg disintegrating 4 mg PO Q6H PRN PRN NAUSEA 02/08/18 Unknown Rx tablet docusate sodium 100 mg capsule 100 mg PO BID stool softner 05/20/19 Unknown History (Colace) ferrous sulfate 325 mg (65 mg 325 mg PO BID vitamin 06/30/20 Unknown History iron) tablet (Feosol) escitalopram oxalate 10 mg tablet 10 mg PO DAILY 01/17/22 Unknown History meclizine 12.5 mg tablet 12.5 mg PO TID PRN PRN Vertigo 5 10/23/22 Unknown Rx days #15 tabs losartan 50 mg tablet 50 mg PO DAILY #90 tabs 05/09/23 Unknown Rx metoprolol tartrate 50 mg tablet 50 mg PO BID BP #180 tabs 06/11/23 Unknown Rx fluticasone propionate 50 2 spray intranasal DAILY PRN 11/22/23 Unknown History mcg/actuation nasal allergy spray,suspension meloxicam 15 mg tablet 15 mg PO DAILY 11/22/23 Unknown History rosuvastatin 20 mg tablet 20 mg PO DAILY #90 tabs 11/22/23 Unknown Rx clopidogrel 75 mg tablet (Plavix) 75 mg PO DAILY #30 tabs 02/22/24 Unknown Rx Allergy/AdvReac Type Severity Reaction Status Date / Time No Known Allergies Allergy Verified 02/20/24 05:27 Family History Grandfather CAD (coronary artery disease) Heart disease Father CAD (coronary artery disease) CABG x 4 Mother Colon cancer Surgical History History of coronary artery stent placement Presence of coronary angioplasty implant and graft (~05/28/16) History of tonsillectomy and adenoidectomy (~1952) History of ear surgery (~1986) History of inguinal hernia repair History of partial colectomy (~01/2018) Atherosclerosis of [place] coronary artery of [place] heart without angina pectoris Social History Smoking Status: Former smoker how long ago did patient quit smokin alcohol intake: never substance use type: does not use caffeine: Yes Type: coffee Number of servings: 4 what type of physical activity do you participate in: walking, bicycling and weight training frequency: daily duration: 60-90 minutes/day ROS ROS ED Constitutional Constitutional ED: Denies chills, fever(s) or sweats Eyes Eyes: Denies change in vision ENT ENT ED: Denies dysphagia or sore throat Cardiovascular Cardiovascular: Denies chest pain, leg edema, palpitations or racing heartbeat Respiratory/Chest Respiratory/Chest: Denies cough, dyspnea or dyspnea on exertion Gastrointestinal Gastrointestinal: Reports other Details: Decreased appetite ; Denies abdominal pain, diarrhea, nausea or vomiting Genitourinary Genitourinary ED: Denies dysuria, hematuria or urinary frequency Musculoskeletal Musculoskeletal: Denies back pain, extremity pain or neck pain Integumentary Denies rash or wounds Neurologic Neurologic: Reports headache(s); Denies paresthesias or weakness EXAM Physical Exam Const Vital Signs: 03/10/24 20:26 03/10/24 20:29 03/10/24 20:54 Temperature 97.2 F L 97.2 F L Temperature Source Temporal Oral Pulse Rate 110 H 107 H Respiratory Rate 20 H 22 H Respiratory Effort Short of Breath Labored Respiratory Pattern Tachypnea Blood Pressure 156/74 H 204/162 H Blood Pressure Mean 101 176 Pulse Ox 99 96 Oxygen Delivery Method Room Air Room Air 03/10/24 21:18 03/10/24 21:30 03/10/24 21:33 Temperature 99.3 F H Temperature Source Oral Pulse Rate 121 H 127 H 126 H Respiratory Rate 20 H 25 H 28 H Respiratory Effort Respiratory Pattern Blood Pressure 145/99 H 145/99 H Blood Pressure Mean 109 114 Pulse Ox 93 92 Oxygen Delivery Method Room Air 03/10/24 21:45 03/10/24 21:46 03/10/24 22:00 Temperature 98.8 F Temperature Source Oral Pulse Rate 128 H 132 H 126 H Respiratory Rate 26 H 25 H 32 H Respiratory Effort Respiratory Pattern Blood Pressure 156/125 H 156/125 H 163/79 H Blood Pressure Mean 136 135 107 Pulse Ox 95 94 96 Oxygen Delivery Method Room Air Room Air 03/10/24 22:00 03/10/24 22:15 03/10/24 22:22 Temperature Temperature Source Pulse Rate Respiratory Rate 10 L Respiratory Effort Respiratory Pattern Blood Pressure 163/79 H 146/104 H Blood Pressure Mean 100 112 Pulse Ox 96 Oxygen Delivery Method 03/10/24 22:30 03/10/24 22:45 03/10/24 23:00 Temperature 101.4 F H Temperature Source Oral Pulse Rate 124 H 115 H 112 H Respiratory Rate 31 H 26 H 22 H Respiratory Effort Respiratory Pattern Blood Pressure 140/53 H 144/59 H 99/72 Blood Pressure Mean 75 81 81 Pulse Ox 95 96 Oxygen Delivery Method Room Air 03/10/24 23:00 03/10/24 23:15 03/10/24 23:30 Temperature Temperature Source Pulse Rate 113 H 113 H Respiratory Rate 27 H 26 H 33 H Respiratory Effort Respiratory Pattern Blood Pressure 99/72 132/60 H 127/60 H Blood Pressure Mean 79 80 79 Pulse Ox 96 95 95 Oxygen Delivery Method 03/10/24 23:45 03/11/24 00:00 03/11/24 00:00 Temperature 98.2 F Temperature Source Oral Pulse Rate 109 H 105 H 106 H Respiratory Rate 26 H 21 H 20 H Respiratory Effort Respiratory Pattern Blood Pressure 129/53 H 136/73 H 131/68 H Blood Pressure Mean 75 94 84 Pulse Ox 95 94 94 Oxygen Delivery Method Room Air 03/11/24 00:15 03/11/24 00:30 03/11/24 00:45 Temperature Temperature Source Pulse Rate 104 H 101 H 100 Respiratory Rate 22 H 26 H 21 H Respiratory Effort Respiratory Pattern Blood Pressure 134/75 H 136/73 H 142/74 H Blood Pressure Mean 92 88 92 Pulse Ox 95 95 96 Oxygen Delivery Method 03/11/24 01:00 03/11/24 01:15 03/11/24 01:16 Temperature 98 F Temperature Source Pulse Rate 95 96 Respiratory Rate 19 H 23 H Respiratory Effort Respiratory Pattern Blood Pressure 135/71 H 131/74 H Blood Pressure Mean 89 93 Pulse Ox 96 94 Oxygen Delivery Method Positive well nourished and well developed General Appearance ED: well developed and NAD HEENT Reports moist mucous membranes normocephalic and atraumatic Eyes EOMs intact bilaterally and conjunctivae normal General Eye ED: Yes normal appearance of both eyes Neck no lymphadenopathy and supple General: Negative for tenderness Chest Wall Chest: Negative for tenderness Resp normal respiratory effort and normal air movement Effort and Inspection: symmetric chest movement; Negative for respiratory distress Cardio regular rhythm and no murmurs Rate: tachycardic Peripheral Pulses: pulses 2+ throughout GI normal to inspection, nondistended, normoactive bowel sounds and non-tender Palpation: Negative for guarding or rebound tenderness present Back/Spine no CVA tenderness Extremity normal to inspection General Extremety ED: Negative for edema or tenderness General Extremity: Negative for edema Neuro oriented x3, CN's II-XII intact bilaterally and no sensory deficits noted Sensorium / Orientation: awake and alert Skin no rashes or lesions noted and no wounds Sepsis Attestation Sepsis Alert: Yes Sepsis Attestation: Agree w/Sepsis Date exam was performed: 03/10/24 Time exam was performed: 23:10 Possible Source of Sepsis: Genitourinary Sepsis Organ Dysfunction Criteria Present: Lactic Acid > 2 mmol/L Fluid Resuscitation Fluid Resuscitation ordered: Fluids not indicated MDM MDM MDM Narrative Medical decision making narrative: Interventions / MDM: Differential diagnosis: Febrile illness, urinary tract infection, electrolyte abnormalities Diagnosis considered but do not suspect: Pneumonia however chest x-ray negative. My EKG interpretation: Sinus rate of 127, no ST or T wave changes right bundle branch block. Chronic right bundle branch block compared to February 22, 2024. Imaging independently reviewed and interpreted by myself: 2 view chest x-ray: No infiltrates. External documents reviewed: N/A Test considered but not ordered:N/A ED course: Patient decreased appetite progressing, recent ISABELL per family. Order for labs. Urine test. COVID and flu. Two-view chest x-ray. 2310: White count returned at 16.5 temperature went up to 101.4 per nursing. I added sepsis labs with lactic acid and blood cultures. Urine being straight cath at this time. Tylenol ordered. Patient's sodium did return at 122. Creatinine 1.12. 0100: Cath urine returning with signs of infection 25 leukocytes bacteria and white cells 1125. Urine culture pending. Covered with Rocephin antibiotics as he meets severe sepsis criteria with lactic acid 3.6. Blood pressure stable. I spoke with hospitalist Dr. Quinonez for admission to ICU. Re-evaluation: stable Disposition discussed with patient/family/significant other: Patient and family Case discussed with consulting clinician: Hospitalist This note was generated with [place] dictation software. It may contain incorrect words, spelling, and punctuation that were not noted in checking the note before signing. Lab Data Attestation: I reviewed the patient's lab results. Labs: Laboratory Results - last 24 hr 03/10/24 03/10/24 20:00 23:41 WBC 16.5 H RBC 4.52 L Hgb 14.1 Hct 43.2 MCV 95.6 H MCH 31.2 MCHC 32.6 RDW Std Deviation 45.1 H RDW Coeff of Alicia 12.7 Plt Count 280 MPV 9.6 Immature Gran % (Auto) 0.600 Neut % (Auto) 77.0 H Lymph % (Auto) 14.4 L [place] % (Auto) 7.8 Eos % (Auto) 0.0 Baso % (Auto) 0.2 Absolute Neuts (auto) 12.7 H Absolute Lymphs (auto) 2.37 Nucleated RBC % 0 Sodium 122 L Potassium 5.1 Chloride 94 L Carbon Dioxide 18.0 L Anion Gap 9 BUN 16 Creatinine 1.12 Estim Creat Clear Calc 70.81 Est GFR (MDRD) Af Amer 82 Est GFR (MDRD) Non-Af 68 BUN/Creatinine Ratio 14.3 Glucose 118 H Lactic Acid 3.6 H* Calcium 8.8 Total Bilirubin 1.10 H AST 55 H ALT 30 Alkaline Phosphatase 89 Total Protein 7.8 Albumin 2.4 L Globulin 5.4 H Albumin/Globulin Ratio 0.4 L Urine Color Yellow Urine Clarity Clear Urine pH 6.0 Ur Specific Sheldon 1.015 Urine Protein 30 H Urine Glucose (UA) Normal Urine Ketones 50 H Urine Occult Blood 150 H Urine Nitrite Negative Urine Bilirubin Negative Urine Urobilinogen Normal Ur Leukocyte Esterase 25 H Urine RBC 5-10 SEEN Urine WBC 10-25 SEEN Ur Squamous Epith Cells 0 SEEN Urine Bacteria 2+ Urine Mucus 0 SEEN Radiography Diagnostic Testing: Clinical Impression(s) from Imaging Studies Chest X-Ray 03/10/24 22:05 IMPRESSION: Possible slightly more prominent left upper lobe nodular density since the previous study. Electronically Signed: Mor Jim DO at 23:46 EST Reading Location ID and State: [facility] / [place] Tel [phone], Service support , Critical Care Time Critical Care Time: Yes Critical care time (excluding procedures): 30-74 minutes, Discussing w/Patient &/or Family/Scrap Dealer, Discussing w/Consultants, Arranging Admission or Transfer, Performing Direct Patient Care at Bedside and - (35 minutes) Discharge Plan Dx/Rx/DC Orders Clinical Impression: Sepsis, Acute UTI, Acute hyponatremia, Fever Disposition Disposition: Acute Care Hospital [facility] Discharge Date/Time: 03/11/24 01:59
[2024-03-10] MEDS: 0.9% Normal Saline (1000mL) 1,000 ML 1000 ML IV (22:08)
[2024-03-10 22:10] LABS: Absolute Lymphocyte Count 2.37 X10^3/uL (0.83-4.51); Absolute Neutrophil Count 12.7 X10^3/uL (2.0-7.7); Basophil# 0.04 X10^3/uL; Basophil% 0.2 % (0-1); Hematocrit 43.2 % (40-54); Hemoglobin 14.1 g/dL (13.0-16.5); Lymphocyte # 2.37 X10^3/ul (0.83-4.51); Lymphocyte % 14.4 % (19-41); Mean Corp Hgb Conc 32.6 g/dL (32-36); Mean Corpuscular Hgb 31.2 pg (27.0-32.0); Mean Corpuscular Volume 95.6 fL (80-94); Mean Platelet Vol. 9.6 fl (6.2-12.0); Monocyte# 1.28 X10^3/uL; Monocyte% 7.8 % (0-10); NRBC Flagged by Analyzer 0 % (0-5); Neutrophil # 12.66 X10^3/uL (2.7-7.7); Platelet Count 280 K/mm3 (150-450); RBC Distribution Width CV 12.7 % (11.6-14.6); RBC Distribution Width SD 45.1 fl (35.1-43.9); Red Blood Count 4.52 M/mm3 (4.6-6.2); White Blood Count 16.5 K/mm3 (4.4-11.0)
[2024-03-10 22:32] LABS: ALB/GLOB Ratio 0.4 RATIO (0.9-2.4); AST(SGOT) 55 U/L (15-37); Alanine Aminotransfer ALT/SGPT 30 U/L (16-61); Albumin, Serum 2.4 g/dL (3.2-5.0); Alkaline Phosphatase 89 U/L (45-117); Anion Gap 9 (5-15); BUN 16 mg/dL (7-18); BUN/Creat Ratio 14.3 RATIO (10-20); Calcium,Total 8.8 mg/dL (8.5-10.1); Chloride 94 mmol/L (98-107); Creatinine, Serum 1.12 mg/dL (0.70-1.30); EST Glomerular Filtration Rate 68 mL/min (>60); Est Glom Filt Rate - Afr Amer 82 mL/min (>60); Estimated Creatinine Clearance 70.81 ml/min; Globulin 5.4 g/dL (2.2-4.2); Glucose 118 mg/dL (74-106); Potassium 5.1 mmol/L (3.5-5.1); Protein, Total 7.8 g/dL (6.4-8.2); Sodium Level 122 mmol/L (136-145)
[2024-03-10] MEDS: Acetaminophen 325 MG Tablet 650 MG PO (23:31)
[2024-03-10 23:43] LABS: Lactic Acid 3.6 mmol/L (0.4-1.9)
[2024-03-10 23:48] LABS: Mucous, Urine 0 SEEN /hpf (<or=2+); Squamous Epithelial Cells - UA 0 SEEN /hpf (0-5)
[2024-03-11] VITALS (24 sets, daily range): BP systolic 120–158; BP diastolic 59–88; PULSE 88–125; RESP 16–26; TEMP 36–37.7; O2SAT 94–99; BMI 32.3
[2024-03-11 00:58] LABS: Color, Urine Yellow (Yellow); Glucose, Dipstick Normal (Normal); Ketone-Dipstick 50 mg/dl (Negative); Protein-Dipstick 30 mg/dl (Negative); Specific Gravity, Urine 1.015 (1.002-1.030); Urine Bilirubin Dipstick Negative (Negative); Urine Clarity Clear (Clear); Urine Urobilinogen Normal (Normal)
[2024-03-11 00:59] LABS: Bacteria 2+ /hpf (None Seen); Leukocyte Esterase-Dipstick 25 /ul (Negative); Nitrite-Dipstick Negative (Negative); Occult Blood-Urine 150 /ul (Negative); Red Blood Cells-Urine 5-10 SEEN /hpf (0-5); White Blood Cells 10-25 SEEN /hpf (0-5)
[2024-03-11] MEDS: Ceftriaxone 2 GM in 0.9% Normal Saline (50mL MB+) 50 ML IV (01:23)
--- NOTE | 2024-03-11 01:54 | PCM.HP.STD ---
HPI - General General Date of Admission: 03/11/24 HPI Narrative KAREN ALMONTE, is a 78 M who presents to the hospital with fatigue and lack of appetite over the last week. States that he may have had a little bit increased urinary frequency but denies any fevers or chills. Here in the hospital he did have a temperature to 101.4 as well as a white count of 16.5. Urine sample was positive for UTI and a urine culture is pending. Lactic acid was 3.6, based on his insurance he does meet sepsis criteria and was admitted to the ICU per policy. He was also found to have hyponatremia to 122 which is new, likely related to dehydration and poor p.o. intake as well as being on escitalopram. He was given a liter of fluid in the ER. [facility] Medical History Low back pain Hypokalemia Anemia Myocardial infarct Coronary artery disease Hypertension URI (upper respiratory infection) Hyponatremia Thyroid nodule Presence of stent in coronary artery (~05/28/16) Old myocardial infarction Mixed hyperlipidemia Essential (primary) hypertension Depression Right carotid bruit History of rheumatic fever Smoking addiction STEMI (ST elevation myocardial infarction) Home Medications ?Medication ?Instructions ?Recorded ?Last Taken ?Type aspirin 81 mg chewable tablet 81 mg PO DAILY@0800 BLOOD THINNER 01/28/18 Unknown History ondansetron 4 mg disintegrating 4 mg PO Q6H PRN PRN NAUSEA 02/08/18 Unknown Rx tablet docusate sodium 100 mg capsule 100 mg PO BID stool softner 05/20/19 Unknown History (Colace) ferrous sulfate 325 mg (65 mg 325 mg PO BID vitamin 06/30/20 Unknown History iron) tablet (Feosol) escitalopram oxalate 10 mg tablet 10 mg PO DAILY 01/17/22 Unknown History meclizine 12.5 mg tablet 12.5 mg PO TID PRN PRN Vertigo 5 10/23/22 Unknown Rx days #15 tabs losartan 50 mg tablet 50 mg PO DAILY #90 tabs 05/09/23 Unknown Rx metoprolol tartrate 50 mg tablet 50 mg PO BID BP #180 tabs 06/11/23 Unknown Rx fluticasone propionate 50 2 spray intranasal DAILY PRN 11/22/23 Unknown History mcg/actuation nasal allergy spray,suspension meloxicam 15 mg tablet 15 mg PO DAILY 11/22/23 Unknown History rosuvastatin 20 mg tablet 20 mg PO DAILY #90 tabs 11/22/23 Unknown Rx clopidogrel 75 mg tablet (Plavix) 75 mg PO DAILY #30 tabs 02/22/24 Unknown Rx Allergy/AdvReac Type Severity Reaction Status Date / Time No Known Allergies Allergy Verified 02/20/24 05:27 Family History Grandfather CAD (coronary artery disease) Heart disease Father CAD (coronary artery disease) CABG x 4 Mother Colon cancer Surgical History History of coronary artery stent placement Presence of coronary angioplasty implant and graft (~05/28/16) History of tonsillectomy and adenoidectomy (~1952) History of ear surgery (~1986) History of inguinal hernia repair History of partial colectomy (~01/2018) Atherosclerosis of [place] coronary artery of [place] heart without angina pectoris Social History Smoking Status: Former smoker how long ago did patient quit smokin alcohol intake: never substance use type: does not use caffeine: Yes Type: coffee Number of servings: 4 what type of physical activity do you participate in: walking, bicycling and weight training frequency: daily duration: 60-90 minutes/day ROS Constitutional Constitutional: Reports fatigue; Denies chills, fever(s) or malaise Eyes Eyes: Denies blurry vision ENT HEENT: Denies headache(s) or nasal discharge Cardiovascular Cardiovascular: Denies chest pain, dyspnea on exertion or syncope Respiratory/Chest Respiratory/Chest: Denies cough, shortness of breath at rest or shortness of breath with exertion Gastrointestinal Gastrointestinal: Denies constipation, diarrhea, nausea or vomiting Genitourinary Genitourinary: Reports urinary frequency; Denies dysuria Neurologic Neurologic: Denies focal weakness, numbness or tremor(s) Psychiatric Psychiatric: Denies anxiety or depression Vital Signs Vital Signs Vital Signs: 03/10/24 20:26 03/10/24 20:29 03/10/24 20:54 Temperature 97.2 F L 97.2 F L Temperature Source Temporal Oral Pulse Rate 110 H 107 H Respiratory Rate 20 H 22 H Respiratory Effort Short of Breath Labored Respiratory Pattern Tachypnea Blood Pressure 156/74 H 204/162 H Blood Pressure Mean 101 176 Pulse Ox 99 96 Oxygen Delivery Method Room Air Room Air 03/10/24 21:18 03/10/24 21:30 03/10/24 21:33 Temperature 99.3 F H Temperature Source Oral Pulse Rate 121 H 127 H 126 H Respiratory Rate 20 H 25 H 28 H Respiratory Effort Respiratory Pattern Blood Pressure 145/99 H 145/99 H Blood Pressure Mean 109 114 Pulse Ox 93 92 Oxygen Delivery Method Room Air 03/10/24 21:45 03/10/24 21:46 03/10/24 22:00 Temperature 98.8 F Temperature Source Oral Pulse Rate 128 H 132 H 126 H Respiratory Rate 26 H 25 H 32 H Respiratory Effort Respiratory Pattern Blood Pressure 156/125 H 156/125 H 163/79 H Blood Pressure Mean 136 135 107 Pulse Ox 95 94 96 Oxygen Delivery Method Room Air Room Air 03/10/24 22:00 03/10/24 22:15 03/10/24 22:22 Temperature Temperature Source Pulse Rate Respiratory Rate 10 L Respiratory Effort Respiratory Pattern Blood Pressure 163/79 H 146/104 H Blood Pressure Mean 100 112 Pulse Ox 96 Oxygen Delivery Method 03/10/24 22:30 03/10/24 22:45 03/10/24 23:00 Temperature 101.4 F H Temperature Source Oral Pulse Rate 124 H 115 H 112 H Respiratory Rate 31 H 26 H 22 H Respiratory Effort Respiratory Pattern Blood Pressure 140/53 H 144/59 H 99/72 Blood Pressure Mean 75 81 81 Pulse Ox 95 96 Oxygen Delivery Method Room Air 03/10/24 23:00 03/10/24 23:15 03/10/24 23:30 Temperature Temperature Source Pulse Rate 113 H 113 H Respiratory Rate 27 H 26 H 33 H Respiratory Effort Respiratory Pattern Blood Pressure 99/72 132/60 H 127/60 H Blood Pressure Mean 79 80 79 Pulse Ox 96 95 95 Oxygen Delivery Method 03/10/24 23:45 03/11/24 00:00 03/11/24 00:00 Temperature 98.2 F Temperature Source Oral Pulse Rate 109 H 105 H 106 H Respiratory Rate 26 H 21 H 20 H Respiratory Effort Respiratory Pattern Blood Pressure 129/53 H 136/73 H 131/68 H Blood Pressure Mean 75 94 84 Pulse Ox 95 94 94 Oxygen Delivery Method Room Air 03/11/24 00:15 03/11/24 00:30 03/11/24 00:45 Temperature Temperature Source Pulse Rate 104 H 101 H 100 Respiratory Rate 22 H 26 H 21 H Respiratory Effort Respiratory Pattern Blood Pressure 134/75 H 136/73 H 142/74 H Blood Pressure Mean 92 88 92 Pulse Ox 95 95 96 Oxygen Delivery Method 03/11/24 01:00 03/11/24 01:15 03/11/24 01:16 Temperature 98 F Temperature Source Pulse Rate 95 96 Respiratory Rate 19 H 23 H Respiratory Effort Respiratory Pattern Blood Pressure 135/71 H 131/74 H Blood Pressure Mean 89 93 Pulse Ox 96 94 Oxygen Delivery Method Weight Weight: 242 lb 14.4 oz Body Mass Index (BMI) 32.9 Physical Exam Narrative General: Alert, Oriented x3, Cooperative, No apparent distress HEENT: Atraumatic, PERRLA, EOMI, Normocephalic Oral: Moist Mucosa Neck: Supple, No JVD Lungs: Clear to auscultation, Normal air movement, No rhonchi, No wheeze, No rales Cardiovascular: Regular rate, Regular Rhythm, Normal S1, Normal S2, No murmurs Abdomen: Soft, Non Tender, Non-Distended, No Hepato-splenomegaly Extremities: Nonpitting edema, Capillary Refill Less than 3 Seconds Skin: No rashes, No breakdown Musculoskeletal: No Tenderness to Palpation of Joints or Extremities Neurological: No focal neurological deficits, Motor Exam 5/5 strength throughout, Sensory exam intact to light touch and pain Psych/Mental Status: Normal Affect, Appropriate Results Lab / Micro Data 03/11/24 03:50 03/10/24 20:00 Labs: Laboratory Results - last 24 hr 03/10/24 20:00: WBC 16.5 H, RBC 4.52 L, Hgb 14.1, Hct 43.2, MCV 95.6 H, MCH 31.2, MCHC 32.6, RDW Std Deviation 45.1 H, RDW Coeff of Alicia 12.7, Plt Count 280, MPV 9.6, Immature Gran % (Auto) 0.600, Neut % (Auto) 77.0 H, Lymph % (Auto) 14.4 L, [place] % (Auto) 7.8, Eos % (Auto) 0.0, Baso % (Auto) 0.2, Absolute Neuts (auto) 12.7 H, Absolute Lymphs (auto) 2.37, Nucleated RBC % 0, Sodium 122 L, Potassium 5.1, Chloride 94 L, Carbon Dioxide 18.0 L, Anion Gap 9, BUN 16, Creatinine 1.12, Estim Creat Clear Calc 70.81, Est GFR (MDRD) Af Amer 82, Est GFR (MDRD) Non-Af 68, BUN/Creatinine Ratio 14.3, Glucose 118 H, Lactic Acid 3.6 H*, Calcium 8.8, Total Bilirubin 1.10 H, AST 55 H, ALT 30, Alkaline Phosphatase 89, Total Protein 7.8, Albumin 2.4 L, Globulin 5.4 H, Albumin/Globulin Ratio 0.4 L 03/10/24 23:41: Urine Color Yellow, Urine Clarity Clear, Urine pH 6.0, Ur Specific [place] 1.015, Urine Protein 30 H, Urine Glucose (UA) Normal, Urine Ketones 50 H, Urine Occult Blood 150 H, Urine Nitrite Negative, Urine Bilirubin Negative, Urine Urobilinogen Normal, Ur Leukocyte Esterase 25 H, Urine RBC 5-10 SEEN, Urine WBC 10-25 SEEN, Ur Squamous Epith Cells 0 SEEN, Urine Bacteria 2+, Urine Mucus 0 SEEN Micro: Microbiology 03/10/24 22:10 Mucosa - Nose SARS-CoV-2, Influenza & RSV (PCR) - Final Imaging Radiology Impression Chest X-Ray 03/10/24 22:05 IMPRESSION: Possible slightly more prominent left upper lobe nodular density since the previous study. Electronically Signed: Mor Jim DO at 23:46 EST Reading Location ID and State: [address] [place] [address] Tel [phone], Service support , Assessment & Plan Assessment/Plan (1) Sepsis: PLAN: Plan 1. Sepsis secondary to UTI/hyponatremia ? Vital signs are stable ? Continue with Rocephin ? Urine cultures and blood cultures are pending ? Sepsis secondary to SIRS criteria in the setting of being Medicare A and B ? Will not consult the operations analyst at this time as placement in the ICU is precautionary versus necessary ? Given his decreased p.o. intake, will give him another liter of IV fluids and then monitor his response and sodium, if it does improve would recommend continued IV fluids until normalization 2. Essential HTN/HLD/CAD status post stent ? Will continue with his home aspirin ? Will hold his losartan and metoprolol secondary to his sepsis and hyponatremia ? Continue with a statin ? Will monitor make adjustments as necessary ? Continue with aspirin ? Continue with Plavix 3. Iron deficiency anemia ? Stable ? Continue with his iron replacement 4. Anxiety/depression ? Stable ? Continue with escitalopram DVT: Lovenox Sepsis Attestation Date exam was performed: 03/11/24 Time exam was performed: 01:30 Possible Source of Sepsis: Genitourinary Sepsis Organ Dysfunction Criteria Present: Lactic Acid > 2 mmol/L Sepsis Note Date exam was performed: 03/11/24 Time exam was performed: 04:12 Sepsis Attestation: Sepsis re-evaluation was performed Charges/Coding Visit Charges Inpatient E&M: 60411 Init Hosp L3
[2024-03-11] MEDS: 0.9% Normal Saline (1000mL) 1,000 ML 100 ML IV (02:50)
[2024-03-11 03:17] LABS: Reflex Lactate? Y
[2024-03-11] MEDS: 0.9% Saline Lock 10 ML Syringe IV (03:34)
[2024-03-11 03:58] LABS: Absolute Lymphocyte Count 1.06 X10^3/uL (0.83-4.51); Absolute Neutrophil Count 14.4 X10^3/uL (2.0-7.7); Basophil# 0.04 X10^3/uL; Basophil% 0.2 % (0-1); Hematocrit 37.8 % (40-54); Hemoglobin 12.7 g/dL (13.0-16.5); Lymphocyte # 1.06 X10^3/ul (0.83-4.51); Lymphocyte % 6.4 % (19-41); Mean Corp Hgb Conc 33.6 g/dL (32-36); Mean Corpuscular Hgb 31.1 pg (27.0-32.0); Mean Corpuscular Volume 92.6 fL (80-94); Mean Platelet Vol. 9.5 fl (6.2-12.0); Monocyte# 0.91 X10^3/uL; Monocyte% 5.5 % (0-10); NRBC Flagged by Analyzer 0 % (0-5); Neutrophil # 14.36 X10^3/uL (2.7-7.7); Platelet Count 245 K/mm3 (150-450); RBC Distribution Width CV 12.7 % (11.6-14.6); RBC Distribution Width SD 43.3 fl (35.1-43.9); Red Blood Count 4.08 M/mm3 (4.6-6.2); White Blood Count 16.5 K/mm3 (4.4-11.0)
[2024-03-11 04:20] LABS: Lactic Acid 2.5 mmol/L (0.4-1.9)
[2024-03-11 04:49] LABS: Anion Gap 9 (5-15); BUN 14 mg/dL (7-18); Calcium,Total 8.3 mg/dL (8.5-10.1); Chloride 96 mmol/L (98-107); EST Glomerular Filtration Rate 77 mL/min (>60); Est Glom Filt Rate - Afr Amer 93 mL/min (>60); Estimated Creatinine Clearance 78.61 ml/min; Glucose 121 mg/dL (74-106); Potassium 4.6 mmol/L (3.5-5.1); Sodium Level 128 mmol/L (136-145)
[2024-03-11] MEDS: Acetaminophen 500 MG Tablet PO ×2 (06:45→13:31)
--- NOTE | 2024-03-11 07:50 | US_ITS ---
STUDY: RENAL ULTRASOUND - COMPLETE REASON FOR EXAM: Male, 78 years old. UTI w/ sepsis, eval for pyelonephritis TECHNIQUE: Ultrasound evaluation of the kidneys was performed with real-time and static chatterjee-scale imaging. COMPARISON: None. FINDINGS: RIGHT KIDNEY: Normal location of the right kidney, which is normal in size. The right kidney measures 12.3 cm x 5 cm x 5.9 cm. There is a normal cortex of the right kidney. The renal cortex measures 1.3 cm. There is a 1.6 cm x 1.6 x 1.5 cm cyst in the lateral midportion of the right kidney. There are no right renal calculi. There is no right hydronephrosis. DISTAL RIGHT URETER: There is non-visualization of the distal right ureter. There is no demonstrated right ureterovesical junction calculus. There is a visualized right ureteral jet. LEFT KIDNEY: Normal location of the left kidney, which is normal in size. The left kidney measures 11 cm x 4.7 cm x 4.7 cm. There is a normal cortex of the left kidney. The renal cortex measures 1.1 cm. There are 2 cysts in the left kidney. The largest cyst is in the lower pole and measures 2.6 cm x 2.2 cm x 2.3 cm. There are no left renal calculi. There is no left hydronephrosis. DISTAL LEFT URETER: There is non-visualization of the distal left ureter. There is no demonstrated left ureterovesical junction calculus. There is a visualized left ureteral jet. BLADDER: The distended urinary bladder has a volume of 250 ml. There is a normal wall thickness of the distended urinary bladder. There is no demonstrated mass within the urinary bladder. There are no demonstrated bladder calculi. US/Kidney and Bladder IMPRESSION: Bilateral renal cysts. Electronically Signed: Gagan Buck MD at 10:57 EST ,
--- NOTE | 2024-03-11 09:52 | CASEMGMT ---
Readmission Note: Index: 02/21/24-02/22/24. Dx: Elevated Troponin, Generalized Weakness Readmission: 03/11/24. Dx: Sepsis From index admission, the patient was discharged home with his and denied the need for any outpatient therapy or home healthcare. 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 The patient was also prescribed Plavix. The patient re-presents to [facility] with shaking, fatigue, loss of appetite for about one week, and increased urinary frequency. Patient temperature, white blood cell count, and lactic acid were noted to be elevated upon arrival. The patient was admitted to the ICU for sepsis. This school operations manager to the patient room at this time. Pt at bedside. The patient states that he was able to get his Plavix and take it as ordered. The patient also states that he has been able to continue taking all of his regular prescriptions as ordered. The patient states that he followed up with the pari mut[employer] ticket cashier and his PCP. The patient states that he does not believe there?s anything that he could have done to prevent this current hospitalization. Moving forward, the patient states that he plans to be discharged home with his once he is medically ready. Pt states that he is completely independent. The patient states that he feels safe at home with his and denies further needs including home healthcare, outpatient therapy, or CCN. The patient denies any further questions or concerns at this time. Care management to continue to follow. Lito SAN RN CM
[2024-03-11] MEDS: 0.9% Normal Saline (1000mL) 1,000 ML 999 ML IV (10:05)
[2024-03-11] MEDS: Ferrous Sulfate 325 MG Tablet PO (10:09)
[2024-03-11] MEDS: Docusate Sodium 100 MG Capsule PO ×2 (10:09→22:06)
[2024-03-11] MEDS: Aspirin 81 MG TAB.CHEW PO (10:09)
[2024-03-11] MEDS: Clopidogrel Bisulfate 75 MG Tablet PO (10:10)
[2024-03-11] MEDS: Enoxaparin 40 MG/0.4 ML Syringe SC (10:10)
[2024-03-11] MEDS: Escitalopram Oxalate 10 MG Tablet PO (10:10)
--- NOTE | 2024-03-11 11:05 | PN.HOSP_ITS ---
Reason for Visit Reason for Visit: Diagnoses Sepsis, unspecified organism (03/11/24) Subjective Subjective Saw patient at bedside this morning. Patient was mildly fatigued appearing but otherwise sitting up comfortably in bed, conversing normally, in no acute distress. Denied any pain or discomfort currently. Did state that he has had some difficulty urinating recently but denied any significant pain or discomfort with urination. Has not had any further fevers or chills since overnight. Does feel a bit better after receiving IV fluids. No other acute concerns at this time. Objective Data Objective Data Vital Signs: Vital Signs Temp Pulse Resp BP Pulse Ox O2 Del Method 98 F 105 H 22 H 128/68 H 96 Room Air 03/11/24 01:16 03/11/24 09:00 03/11/24 09:00 03/11/24 09:00 03/11/24 09:00 03/11/24 09:00 Oxygen Delivery Method Room Air Weight: 108.2 kg Body Mass Index (BMI) 32.3 Intake & Output: Intake and Output for Last 24 Hours 03/09/24 03/10/24 03/11/24 23:59 23:59 23:59 Intake Total 1000 / 1000 170 / 170 Output Total 250 / 250 Balance 1000 / 1000 -80 / -80 Lab / Micro Data 03/11/24 03:50 03/11/24 04:15 Labs: Laboratory Results - last 24 hr 03/10/24 20:00: WBC 16.5 H, RBC 4.52 L, Hgb 14.1, Hct 43.2, MCV 95.6 H, MCH 31.2, MCHC 32.6, RDW Std Deviation 45.1 H, RDW Coeff of Alicia 12.7, Plt Count 280, MPV 9.6, Immature Gran % (Auto) 0.600, Neut % (Auto) 77.0 H, Lymph % (Auto) 14.4 L, [place] % (Auto) 7.8, Eos % (Auto) 0.0, Baso % (Auto) 0.2, Absolute Neuts (auto) 12.7 H, Absolute Lymphs (auto) 2.37, Nucleated RBC % 0, Sodium 122 L, Potassium 5.1, Chloride 94 L, Carbon Dioxide 18.0 L, Anion Gap 9, BUN 16, Creatinine 1.12, Estim Creat Clear Calc 70.81, Est GFR (MDRD) Af Amer 82, Est GFR (MDRD) Non-Af 68, BUN/Creatinine Ratio 14.3, Glucose 118 H, Lactic Acid 3.6 H*, Calcium 8.8, T otal Bilirubin 1.10 H, AST 55 H, ALT 30, Alkaline Phosphatase 89, Total Protein 7.8, Albumin 2.4 L, Globulin 5.4 H, Albumin/Globulin Ratio 0.4 L 03/10/24 23:41: Urine Color Yellow, Urine Clarity Clear, Urine pH 6.0, Ur Specific [place] 1.015, Urine Protein 30 H, Urine Glucose (UA) Normal, Urine Ketones 50 H, Urine Occult Blood 150 H, Urine Nitrite Negative, Urine Bilirubin Negative, Urine Urobilinogen Normal, Ur Leukocyte Esterase 25 H, Urine RBC 5-10 SEEN, Urine WBC 10-25 SEEN, Ur Squamous Epith Cells 0 SEEN, Urine Bacteria 2+, Urine Mucus 0 SEEN 03/11/24 03:40: Lactic Acid 2.5 H* 03/11/24 03:50: WBC 16.5 H, RBC 4.08 L, Hgb 12.7 L, Hct 37.8 L, MCV 92.6, MCH 31.1, MCHC 33.6, RDW Std Deviation 43.3, RDW Coeff of Alicia 12.7, Plt Count 245, MPV 9.5, Immature Gran % (Auto) 0.900, Neut % (Auto) 87.0 H, Lymph % (Auto) 6.4 L, [place] % (Auto) 5.5, Eos % (Auto) 0.0, Baso % (Auto) 0.2, Absolute Neuts (auto) 14.4 H, Absolute Lymphs (auto) 1.06, Nucleated RBC % 0, Sodium Cancelled, Potassium Cancelled, Chloride Cancelled, Carbon Dioxide Cancelled, Anion Gap Cancelled, BUN Cancelled, Creatinine Cancelled, Estim Creat Clear Calc Cancelled, Est GFR (MDRD) Af Amer Cancelled, Est GFR (MDRD) Non-Af Cancelled, BUN/Creatinine Ratio Cancelled, Glucose Cancelled, Calcium Cancelled 03/11/24 04:15: Sodium 128 L, Potassium 4.6, Chloride 96 L, Carbon Dioxide 24.0, Anion Gap 9, BUN 14, Creatinine 1.00, Estim Creat Clear Calc 78.61, Est GFR (MDRD) Af Amer 93, Est GFR (MDRD) Non-Af 77, BUN/Creatinine Ratio 14.0, Glucose 121 H, Calcium 8.3 L Micro: Microbiology 03/10/24 22:10 Mucosa - Nose SARS-CoV-2, Influenza & RSV (PCR) - Final Radiography Diagnostic Testing: Radiology Impression Chest X-Ray 03/10/24 22:05 IMPRESSION: Possible slightly more prominent left upper lobe nodular density since the previous study. Electronically Signed: Mor Jim DO at 23:46 EST , Renal Ultrasound 03/11/24 07:50 IMPRESSION: Bilateral renal cysts. Electronically Signed: Gagan Buck MD at 10:57 EST , Physical Exam Const alert, oriented x3 and no apparent distress Constitutional Narrative: Pleasant elderly male, class I obesity, mildly fatigued appearing, otherwise sitting up comfortably in bed, conversing normally, no acute distress. General Appearance: cooperative and comfortable HEENT normocephalic, head/scalp atraumatic, hearing grossly normal bilaterally and nasal mucous membranes and turbinates normal Eyes PERRL, EOMs intact bilaterally and conjunctivae normal Neck full ROM Chest inspection of chest normal Resp normal respiratory effort, no use of accessory muscles and clear to auscultation bilaterally Cardio no murmurs and peripheral pulses 2+ throughout Cardio Narrative: Tachycardic, regular rhythm. GI normal to inspection, nondistended, normoactive bowel sounds, soft to palpation, non-tender and non-distended no CVA tenderness Bladder / Kidney Exam: bladder normal to palpation Back/Spine normal ROM Extremity normal to inspection, full ROM and no pedal edema Skin no rashes or lesions noted Neuro moves all extremities Speech: speech normal Motor Exam: strength 5/5 throughout Psych mental status grossly normal Assessment & Plan Assessment/Plan (1) Sepsis: (2) Acute UTI: (3) Acute hyponatremia: PLAN: Plan Patient is a 78-year-old male who presented [facility] ED on 03/10/2024 with chills and rigors. 1. Sepsis without shock suspected secondary to acute cystitis versus unclear source ? Met SIRS criteria on admit and thus sepsis in the setting of being Medicare A and B. Chest x-ray unremarkable. UA showed 25 leukocyte esterase, negative nitrites, 2+ bacteria. Renal/bladder ultrasound unremarkable. COVID/flu/RSV negative. Blood cultures and urine culture pending. Suspected sepsis due to UTI but continuing to have fevers and tachycardia on 03/11 despite 30 cc/kg of fluid resuscitation. Given 1 dose of IV ceftriaxone 2 g on admission, will broaden to IV vancomycin and Zosyn on 03/11. Monitor patient closely and follow-up cultures. 2. Hyponatremia, improving ? Sodium 122 on admission, was previously stable at 133-136 at end of January. Chloride low at 94. Suspected due to hypovolemia with poor p.o. intake. Sodium improved to 128 on hospital day 2 with IV fluid resuscitation. Patient with no mental status changes. Continue to monitor sodium daily. Okay to continue home escitalopram. Chronic medical conditions: ? Class I obesity: BMI 32 on admit. Complicates hospital course, care and prognosis. ? CAD with stenting, hypertension, hyperlipidemia: Stable. Continue home aspirin, Plavix and statin. Holding home Lopressor and losartan for now. ? Iron deficiency anemia: Hemoglobin 10.7 on admit, stable at baseline. Continue home iron supplement. ? Anxiety/depression: Stable. Continue home escitalopram. DVT prophylaxis: Lovenox CODE STATUS: Full code, verified Expected disposition: Home, TBD Total clinical time spent by myself addressing the patient's medical issues, reviewing all the data, and collaborating with patient's care team: 35 minutes. Charges/Coding Visit Charges Inpatient E&M: 38997 Subs Hosp L2
[2024-03-11] MEDS: Ondansetron 4 MG/2 ML Vial IV (13:18)
[2024-03-11] MEDS: Piperacil/Tazobactam 3.375 GM in 0.9% Normal Saline (50mL MB+) 50 ML IV ×2 (14:46→22:04)
[2024-03-11] MEDS: Vancomycin HCl 2,000 MG in 0.9% Normal Saline (500mL Bag) 500 ML 250 MG IV (15:24)
--- NOTE | 2024-03-11 15:58 | PCM.RX.CS ---
Consult Antibiotic Management Pharmacy has been consulted to manage selected antibiotic: Vancomycin Type of Intervention Type of Consult: New start Labs Labs: Sodium 128 mmol/L (136-145) L 03/11/24 04:15 Potassium 4.6 mmol/L (3.5-5.1) 03/11/24 04:15 Chloride 96 mmol/L (98-107) L 03/11/24 04:15 Carbon Dioxide 24.0 mmol/L (21.0-32.0) 03/11/24 04:15 Anion Gap 9 (5-15) 03/11/24 04:15 BUN 14 mg/dL (7-18) 03/11/24 04:15 Creatinine 1.00 mg/dL (0.70-1.30) 03/11/24 04:15 Est GFR (MDRD) Af Amer 93 mL/min (>60) 03/11/24 04:15 Est GFR (MDRD) Non-Af 77 mL/min (>60) 03/11/24 04:15 BUN/Creatinine Ratio 14.0 RATIO (10-20) 03/11/24 04:15 Glucose 121 mg/dL (74-106) H 03/11/24 04:15 Microbiology Microbiology: Microbiology 03/10/24 22:10 Mucosa - Nose SARS-CoV-2, Influenza & RSV (PCR) - Final Pharmacy Plan for Drug Dosing Pharmacy Plan for Drug Dosing: NEW START IV VANCOMYCIN Consulting Physician: Chuyita Indication: sepsis/UTI Goal Trough: 15-20 mg/dL SrCr: 1 mg/dl CrCl: 78 ml/min Comments: Loading dose of 2000mg given 03/11 @ 1524 Vancomycin Dose: Will start 1500mg Q12 (03/12 @ 0330) and get a trough prior to 4th total dose per policy. Pending Level: 03/13/24 @ 0300 Pharmacy Service will continue to monitor and adjust dosing as required.
[2024-03-11] MEDS: Atorvastatin Calcium 40 MG Tablet PO (22:06)
[2024-03-12] VITALS (7 sets, daily range): BP systolic 102–136; BP diastolic 58–81; PULSE 96–104; RESP 15–18; TEMP 36.1–36.9; O2SAT 95–97; BMI 34.4
[2024-03-12] MEDS: Acetaminophen 500 MG Tablet PO ×5 (01:26→22:19)
[2024-03-12] MEDS: Vancomycin HCl 1,500 MG in 0.9% Normal Saline (500mL Bag) 500 ML 250 MG IV ×2 (02:50→16:25)
[2024-03-12] MEDS: Piperacil/Tazobactam 3.375 GM in 0.9% Normal Saline (50mL MB+) 50 ML IV ×3 (05:22→21:35)
[2024-03-12 06:24] LABS: Hematocrit 40.2 % (40-54); Hemoglobin 13.1 g/dL (13.0-16.5); Mean Corp Hgb Conc 32.6 g/dL (32-36); Mean Corpuscular Hgb 30.9 pg (27.0-32.0); Mean Corpuscular Volume 94.8 fL (80-94); Mean Platelet Vol. 9.6 fl (6.2-12.0); Platelet Count 220 K/mm3 (150-450); RBC Distribution Width SD 44.8 fl (35.1-43.9); Red Blood Count 4.24 M/mm3 (4.6-6.2); White Blood Count 16.2 K/mm3 (4.4-11.0)
[2024-03-12 06:45] LABS: Anion Gap 8 (5-15); BUN 13 mg/dL (7-18); BUN/Creat Ratio 12.3 RATIO (10-20); Calcium,Total 8.1 mg/dL (8.5-10.1); Chloride 97 mmol/L (98-107); Creatinine, Serum 1.06 mg/dL (0.70-1.30); EST Glomerular Filtration Rate 72 mL/min (>60); Est Glom Filt Rate - Afr Amer 87 mL/min (>60); Glucose 101 mg/dL (74-106); Potassium 3.7 mmol/L (3.5-5.1); Sodium Level 128 mmol/L (136-145)
[2024-03-12] MEDS: Aspirin 81 MG TAB.CHEW PO (08:37)
--- NOTE | 2024-03-12 09:19 | NURSING ---
charge nurse also monitoring telemetry at desk
[2024-03-12] MEDS: Escitalopram Oxalate 10 MG Tablet PO (09:37)
[2024-03-12] MEDS: Clopidogrel Bisulfate 75 MG Tablet PO (09:37)
[2024-03-12] MEDS: Docusate Sodium 100 MG Capsule PO ×2 (09:37→21:33)
[2024-03-12] MEDS: Enoxaparin 40 MG/0.4 ML Syringe SC (09:37)
--- NOTE | 2024-03-12 10:06 | CT_ITS ---
STUDY: CT ABDOMEN AND PELVIS WITH CONTRAST REASON FOR EXAM: Male, 78 years old. Sepsis w/ unclear source, eval abd and low back -- ... RADIATION DOSAGE (If Supplied By Facility): CTDIvol = ( 13.77 ) mGy, DLP = ( 1175.72 ) mGycm TECHNIQUE: Transaxial images were obtained from the dome of the diaphragm to the symphysis pubis without oral contrast. IV 100mL Isovue-370 was administered. Sagittal and coronal images were reconstructed. Individualized dose optimization techniques were used for this CT. COMPARISON: None. FINDINGS: Mild degree of the right basilar atelectasis. Right pleural effusion. Coronary artery calcification. There is decreased attenuation of the liver consistent with steatosis. There is a 8 cm x 5.2 cm x 5.7 cm heterogeneous multiloculated mass in the posterior lateral aspect of the dome of the right lobe of the liver. This may represent either a metastatic deposit or possible abscess. Normal gallbladder and extrahepatic biliary system. Normal spleen. Normal pancreas. Normal bilateral adrenal glands. 1.6 m cyst in the lower pole of the right kidney. 2.6 m cyst in the anterior medial aspect of the left kidney. 2.9 cm cyst in the lower pole of the left kidney. Nonspecific bilateral perinephric stranding. Normal visualized stomach. Normal small intestine. Moderate amount of fecal material is seen in the rectum. Prior surgery in the right hemicolon with anastomosis. There is diffuse atherosclerotic calcification of the abdominal aorta, without a demonstrated aneurysm. Normal inferior vena cava. Normal retroperitoneum. Normal urinary bladder. There is a small umbilical hernia containing fat. The neck of the hernia measures 1.9 cm. Small right inguinal hernia containing fat. Prior anterior abdominal wall hernia repair with mesh. There are diffuse degenerative changes of the visualized lumbar spine. CT/Abdomen/Pelvis W IV Cont ONLY IMPRESSION: 8 cm x centimeters x 5.7 cm heterogeneous multiloculated mass in the posterolateral aspect of the dome of the right lobe of the liver as described. This may represent either a metastatic deposit or possibly abscess. Bilateral renal cysts. Nonspecific bilateral perinephric stranding. Small umbilical hernia containing fat as well as small right inguinal hernia. Electronically Signed: Gagan Buck MD at 11:06 EST ,
--- NOTE | 2024-03-12 10:18 | CT_ITS ---
STUDY: CT LUMBAR SPINE WITH CONTRAST REASON FOR EXAM: Male, 78 years old. eval for L-spine abscess RADIATION DOSAGE (If Supplied By Facility): CTDIvol = ( 32.88 ) mGy, DLP = ( 1136.34 ) mGycm TECHNIQUE: The patient was scanned in a multi detector CT scanner. High resolution transaxial imaging was performed following the intravenous administration of IV 100mL Isovue-370. Images were obtained from L1 to S1 vertebral level. Sagittal and coronal images were reconstructed. Individualized dose optimization techniques were used for this CT. COMPARISON: None FINDINGS: Normal lumbar lordosis. There is no substantial scoliosis. Multilevel spondylosis. L1-2: Moderate degree of disc space narrowing. Spondylosis. No significant spinal stenosis seen. L2-3: Marked degree of disc space narrowing and disc degeneration. Spondylosis. Mild central canal stenosis and moderate degree of bilateral neural foraminal stenosis due to facet joint hypertrophy and mild diffuse disc bulge. L3-4: Diffuse posterior disc bulge with bilateral neural foraminal stenosis. L4-5: Mild degree of disc space narrowing and disc degeneration. Facet joint osteoarthritis and hypertrophy. Bilateral neural foraminal stenosis and mild central canal stenosis due to hypertrophy of the ligamentum flavum. L5-S1: Normal endplates. Normal disc height and morphology. Normal bilateral facet joints. Normal central canal and bilateral lateral recesses. Normal bilateral intervertebral neural foramina. Calcification of the abdominal aorta and iliac arteries. CT/Spine Lumbar WITH Contrast IMPRESSION: Multilevel degenerative changes, as described above. Electronically Signed: Gagan Buck MD at 11:09 EST ,
[2024-03-12] MEDS: 0.9% Normal Saline (1000mL) 1,000 ML 200 ML IV (10:54)
--- NOTE | 2024-03-12 11:43 | PCM.PN.HOSP ---
Reason for Visit Reason for Visit: Diagnoses Sepsis, unspecified organism (03/11/24) Hypo-osmolality and hyponatremia (03/11/24) Urinary tract infection, site not specified (03/11/24) Subjective Subjective Saw patient at bedside this morning, present. Patient reports having an episode of shaking overnight but denies any fevers with that. States he feels somewhat better today and has a little more energy. Patient does report chronic low back pain and stated it has been somewhat worse recently. Denies any abdominal pain or discomfort. No other new concerns. Given concern for infection with unclear source, made decision to image patient's abdomen and pelvis and low back. CT abdomen pelvis showed an 8 x 5 x 5 cm mass versus abscess in the right lobe of the liver. Discussed over the phone with general surgery who recommended that patient be transferred for further evaluation. Patient has been accepted for transfer at [facility] and is awaiting bed placement. Objective Data Objective Data Vital Signs: Vital Signs Temp Pulse Resp BP Pulse Ox O2 Del Method 98.1 F 103 H 16 129/81 H 95 Room Air 03/12/24 08:40 03/12/24 08:40 03/12/24 08:40 03/12/24 08:40 03/12/24 08:40 03/12/24 08:58 Oxygen Delivery Method Room Air Weight: 115.3 kg Body Mass Index (BMI) 34.4 Intake & Output: Intake and Output for Last 24 Hours 03/10/24 03/11/24 03/12/24 23:59 23:59 23:59 Intake Total 1000 / 1000 4125 / 4125 630 / 630 Output Total 1500 / 1500 300 / 300 Balance 1000 / 1000 2625 / 2625 330 / 330 Lab / Micro Data 03/12/24 05:22 03/12/24 05:22 Labs: Laboratory Results - last 24 hr 03/12/24 05:22: WBC 16.2 H, RBC 4.24 L, Hgb 13.1, Hct 40.2, MCV 94.8 H, MCH 30.9, MCHC 32.6, RDW Std Deviation 44.8 H, RDW Coeff of Alicia 13.0, Plt Count 220, MPV 9.6, Sodium 128 L, Potassium 3.7, Chloride 97 L, Carbon Dioxide 23.0, Anion Gap 8, BUN 13, Creatinine 1.06, Estim Creat Clear Calc 76.50, Est GFR (MDRD) Af Amer 87, Est GFR (MDRD) Non-Af 72, BUN/Creatinine Ratio 12.3, Glucose 101, Calcium 8.1 L Micro: Microbiology 03/10/24 22:10 Mucosa - Nose SARS-CoV-2, Influenza & RSV (PCR) - Final Radiography Diagnostic Testing: Radiology Impression Abdomen/Pelvis CT 03/12/24 10:06 IMPRESSION: 8 cm x centimeters x 5.7 cm heterogeneous multiloculated mass in the posterolateral aspect of the dome of the right lobe of the liver as described. This may represent either a metastatic deposit or possibly abscess. Bilateral renal cysts. Nonspecific bilateral perinephric stranding. Small umbilical hernia containing fat as well as small right inguinal hernia. Electronically Signed: Gagan Buck MD at 11:06 EST , Lumbar Spine CT 03/12/24 10:18 IMPRESSION: Multilevel degenerative changes, as described above. Electronically Signed: Gagan Buck MD at 11:09 EST , Physical Exam Const alert, oriented x3 and no apparent distress Constitutional Narrative: Pleasant elderly male, class I obesity, mildly fatigued appearing, otherwise sitting up comfortably in bed, conversing normally, no acute distress. Stable. General Appearance: cooperative and comfortable HEENT normocephalic, head/scalp atraumatic, hearing grossly normal bilaterally and nasal mucous membranes and turbinates normal Eyes PERRL, EOMs intact bilaterally and conjunctivae normal Neck full ROM Chest inspection of chest normal Resp normal respiratory effort, no use of accessory muscles and clear to auscultation bilaterally Cardio no murmurs and peripheral pulses 2+ throughout Cardio Narrative: Tachycardic, regular rhythm. GI normal to inspection, nondistended, normoactive bowel sounds, soft to palpation, non-tender and non-distended no CVA tenderness Bladder / Kidney Exam: bladder normal to palpation Back/Spine normal ROM Extremity normal to inspection, full ROM and no pedal edema Skin no rashes or lesions noted Neuro moves all extremities Speech: speech normal Motor Exam: strength 5/5 throughout Psych mental status grossly normal Assessment & Plan Assessment/Plan (1) Sepsis: (2) Acute UTI: (3) Acute hyponatremia: (4) Liver mass, right lobe: PLAN: Plan Patient is a 78-year-old male who presented [facility] ED on 03/10/2024 with chills and rigors. 1. Sepsis without shock with unclear source ? Met SIRS criteria on admit and thus sepsis in the setting of being Medicare A and B. Chest x-ray unremarkable. UA showed 25 leukocyte esterase, negative nitrites, 2+ bacteria. Renal/bladder ultrasound unremarkable. COVID/flu/RSV negative. Blood cultures and urine culture pending. CT abdomen pelvis with concern for possible abscess versus metastatic lesion as noted below and I suspect this may be the cause of patient's sepsis. Received 30 cc/kg of IV fluids on admission with good improvement in blood pressure. Continue IV vancomycin and Zosyn for now. 2. Hyponatremia, improving ? Sodium 122 on admission, was previously stable at 133-136 at end of January. Chloride low at 94. Suspected due to hypovolemia with poor p.o. intake. Sodium improved to 128 on hospital day 2 with IV fluid resuscitation. Patient with no mental status changes. Continue to monitor sodium daily. Okay to continue home escitalopram. 3. Large liver mass ? CT abdomen pelvis with IV contrast on 03/12 showed an 8 x 5.2 x 5.7 cm heterogenous multiloculated mass in the posterior lateral aspect of the dome of the right lobe of the liver, that may represent either a metastatic deposit versus possible abscess. Gallbladder, extrahepatic biliary system, spleen and pancreas otherwise normal. Discussed with general surgery and patient will be transferred for further evaluation. Accepted for transfer at [facility], awaiting bed placement. Continue treatment as above. Chronic medical conditions: ? Class I obesity: BMI 32 on admit. Complicates hospital course, care and prognosis. ? CAD with stenting, hypertension, hyperlipidemia: Stable. Continue home aspirin, Plavix and statin. Holding home Lopressor and losartan for now. ? Iron deficiency anemia: Hemoglobin 10.7 on admit, stable at baseline. Continue home iron supplement. ? Anxiety/depression: Stable. Continue home escitalopram. DVT prophylaxis: Lovenox CODE STATUS: Full code, verified Expected disposition: Transfer to [facility] when bed is available Total clinical time spent by myself addressing the patient's medical issues, reviewing all the data, and collaborating with patient's care team: 35 minutes. Charges/Coding Visit Charges Inpatient E&M: 60339 Subs Hosp L2
[2024-03-12] MEDS: Polyethylene Glycol 3350 17 GM PACKET PO (14:39)
[2024-03-12] MEDS: Senna Tablet 1 TABLET PO ×2 (17:56→21:33)
[2024-03-12] MEDS: Atorvastatin Calcium 40 MG Tablet PO (21:33)
[2024-03-12] MEDS: 0.9% Saline Lock 10 ML Syringe IV (21:35)
[2024-03-13] VITALS (8 sets, daily range): BP systolic 141–149; BP diastolic 81–93; PULSE 83–109; RESP 16–22; TEMP 36–37.1; O2SAT 95–97; BMI 35.2
[2024-03-13 03:16] LABS: Hematocrit 32.1 % (40-54); Hemoglobin 10.7 g/dL (13.0-16.5); Mean Corp Hgb Conc 33.3 g/dL (32-36); Mean Corpuscular Hgb 30.5 pg (27.0-32.0); Mean Corpuscular Volume 91.5 fL (80-94); Mean Platelet Vol. 9.4 fl (6.2-12.0); Platelet Count 217 K/mm3 (150-450); RBC Distribution Width CV 13.1 % (11.6-14.6); RBC Distribution Width SD 43.8 fl (35.1-43.9); Red Blood Count 3.51 M/mm3 (4.6-6.2); White Blood Count 13.9 K/mm3 (4.4-11.0)
[2024-03-13 03:32] LABS: Anion Gap 5 (5-15); BUN 11 mg/dL (7-18); BUN/Creat Ratio 14.3 RATIO (10-20); Calcium,Total 7.7 mg/dL (8.5-10.1); Chloride 100 mmol/L (98-107); Creatinine, Serum 0.77 mg/dL (0.70-1.30); EST Glomerular Filtration Rate 104 mL/min (>60); Est Glom Filt Rate - Afr Amer 126 mL/min (>60); Estimated Creatinine Clearance 101.37 ml/min; Glucose 115 mg/dL (74-106); Potassium 3.5 mmol/L (3.5-5.1); Sodium Level 130 mmol/L (136-145)
[2024-03-13 03:33] LABS: Vancomycin, Trough Level 13.2 ug/mL (5.0-15.0)
[2024-03-13] MEDS: Vancomycin HCl 1,750 MG in 0.9% Normal Saline (500mL Bag) 500 ML 250 MG IV ×2 (03:52→15:44)
[2024-03-13] MEDS: 0.9% Saline Lock 10 ML Syringe IV ×2 (03:55→15:44)
--- NOTE | 2024-03-13 04:34 | PCM.RX.CS ---
Consult Antibiotic Management Pharmacy has been consulted to manage selected antibiotic: Vancomycin Type of Intervention Type of Consult: Follow-up Labs Labs: Sodium 130 mmol/L (136-145) L 03/13/24 03:03 Potassium 3.5 mmol/L (3.5-5.1) 03/13/24 03:03 Chloride 100 mmol/L (98-107) 03/13/24 03:03 Carbon Dioxide 25.0 mmol/L (21.0-32.0) 03/13/24 03:03 Anion Gap 5 (5-15) 03/13/24 03:03 BUN 11 mg/dL (7-18) 03/13/24 03:03 Creatinine 0.77 mg/dL (0.70-1.30) 03/13/24 03:03 Est GFR (MDRD) Af Amer 126 mL/min (>60) 03/13/24 03:03 Est GFR (MDRD) Non-Af 104 mL/min (>60) 03/13/24 03:03 BUN/Creatinine Ratio 14.3 RATIO (10-20) 03/13/24 03:03 Glucose 115 mg/dL (74-106) H 03/13/24 03:03 Vancomycin Trough 13.2 ug/mL (5.0-15.0) 03/13/24 03:03 Microbiology Microbiology: Microbiology 03/10/24 23:41 Urine, Catheterized Urine Culture - Preliminary Culture exhibits no growth. 03/10/24 22:10 Mucosa - Nose SARS-CoV-2, Influenza & RSV (PCR) - Final Pharmacy Plan for Drug Dosing Pharmacy Plan for Drug Dosing: Pharmacy Service will continue to monitor and adjust dosing as required. TROUGH 13.2 @ 10.5 HOURS. INCREASE TO 1750MG Q12H AND FOLLOW UP TROUGH PRIOR TO 4TH DOSE Follow-Up Labs Follow-Up Labs: Trough: Vancomycin Date/Time Labs Ordered Labs to be done on [date and time ordered]: 03/14 @ 1500
[2024-03-13] MEDS: Piperacil/Tazobactam 3.375 GM in 0.9% Normal Saline (50mL MB+) 50 ML IV ×3 (05:18→19:46)
[2024-03-13] MEDS: Escitalopram Oxalate 10 MG Tablet PO (09:41)
[2024-03-13] MEDS: Aspirin 81 MG TAB.CHEW PO (09:41)
[2024-03-13] MEDS: Clopidogrel Bisulfate 75 MG Tablet PO (09:41)
[2024-03-13] MEDS: Ferrous Sulfate 325 MG Tablet PO (09:42)
[2024-03-13] MEDS: Enoxaparin 40 MG/0.4 ML Syringe SC (09:42)
[2024-03-13] MEDS: Docusate Sodium 100 MG Capsule PO ×2 (09:42→19:45)
[2024-03-13] MEDS: Senna Tablet 1 TABLET PO ×2 (09:42→19:45)
[2024-03-13] MEDS: Polyethylene Glycol 3350 17 GM PACKET PO (09:46)
[2024-03-13] MEDS: Acetaminophen 500 MG Tablet PO ×2 (09:47→22:29)
--- NOTE | 2024-03-13 11:15 | PCM.PN.HOSP ---
Reason for Visit Reason for Visit: Diagnoses Sepsis, unspecified organism (03/11/24) Hypo-osmolality and hyponatremia (03/11/24) Urinary tract infection, site not specified (03/11/24) Hepatomegaly, not elsewhere classified (03/11/24) Subjective Subjective Saw patient at bedside this morning, present. Patient reported slightly more abdominal distention today and was asking for a suppository to help with getting his bowels moving. He also had mild wheezing noted his upper airways per nursing staff and states he feels like he is not taking good deep breaths while he is laying in bed. He felt somewhat congested and noted that he has not been on his home Flonase since arrival here. No other new concern this morning. Objective Data Objective Data Vital Signs: Vital Signs Temp Pulse Resp BP Pulse Ox O2 Del Method 96.8 F L 96 18 145/91 H 97 Room Air 03/13/24 03:20 03/13/24 03:20 03/13/24 03:20 03/13/24 03:20 03/13/24 03:20 03/13/24 03:20 Oxygen Delivery Method Room Air Weight: 117.9 kg Body Mass Index (BMI) 35.2 Intake & Output: Intake and Output for Last 24 Hours 03/11/24 03/12/24 03/13/24 23:59 23:59 23:59 Intake Total 4125 / 4125 2630 / 2630 635 / 635 Output Total 1500 / 1500 1100 / 1100 750 / 750 Balance 2625 / 2625 1530 / 1530 -115 / -115 Lab / Micro Data 03/13/24 03:03 03/13/24 03:03 Labs: Laboratory Results - last 24 hr 03/13/24 03:03: WBC 13.9 H, RBC 3.51 L, Hgb 10.7 L, Hct 32.1 L, MCV 91.5, MCH 30.5, MCHC 33.3, RDW Std Deviation 43.8, RDW Coeff of Alicia 13.1, Plt Count 217, MPV 9.4, Sodium 130 L, Potassium 3.5, Chloride 100, Carbon Dioxide 25.0, Anion Gap 5, BUN 11, Creatinine 0.77, Estim Creat Clear Calc 101.37, Est GFR (MDRD) Af Amer 126, Est GFR (MDRD) Non-Af 104, BUN/Creatinine Ratio 14.3, Glucose 115 H, Calcium 7.7 L, Vancomycin Trough 13.2 Micro: Microbiology 03/10/24 23:41 Urine, Catheterized Urine Culture - Final Culture exhibits no growth. 03/10/24 21:00 Blood Culture (Wb) - Right Hand Blood Culture - Preliminary No growth in 48 hours. 03/10/24 22:12 Blood Culture (Wb) - Left Forearm Blood Culture - Preliminary No growth in 48 hours. 03/10/24 22:10 Mucosa - Nose SARS-CoV-2, Influenza & RSV (PCR) - Final Physical Exam Const alert, oriented x3 and no apparent distress Constitutional Narrative: Pleasant elderly male, class I obesity, mildly fatigued appearing, otherwise sitting up comfortably in bed, conversing normally, no acute distress. Stable. General Appearance: cooperative and comfortable HEENT normocephalic, head/scalp atraumatic, hearing grossly normal bilaterally and nasal mucous membranes and turbinates normal Eyes PERRL, EOMs intact bilaterally and conjunctivae normal Neck full ROM Chest inspection of chest normal Resp normal respiratory effort and no use of accessory muscles Resp Narrative: Mild wheezing noted in upper airways bilaterally. Patient otherwise breathing comfortably on room air at rest. No crackles noted. Cardio no murmurs and peripheral pulses 2+ throughout Cardio Narrative: Tachycardic, regular rhythm. GI normal to inspection, nondistended, normoactive bowel sounds, soft to palpation and non-tender GI Narrative: Abdomen mildly distended but otherwise soft and nontender to palpation. no CVA tenderness Bladder / Kidney Exam: bladder normal to palpation Back/Spine normal ROM Extremity normal to inspection, full ROM and no pedal edema Skin no rashes or lesions noted Neuro moves all extremities Speech: speech normal Motor Exam: strength 5/5 throughout Psych mental status grossly normal Assessment & Plan Assessment/Plan (1) Sepsis: (2) Acute UTI: (3) Acute hyponatremia: (4) Liver mass, right lobe: PLAN: Plan Patient is a 78-year-old male who presented [facility] ED on 03/10/2024 with chills and rigors. 1. Sepsis without shock with unclear source ? Met SIRS criteria on admit and thus sepsis in the setting of being Medicare A and B. Chest x-ray unremarkable. UA showed 25 leukocyte esterase, negative nitrites, 2+ bacteria. Renal/bladder ultrasound unremarkable. COVID/flu/RSV negative. Blood cultures and urine culture pending. CT abdomen pelvis with concern for possible abscess versus metastatic lesion as noted below and I suspect this may be the cause of patient's sepsis. Received 30 cc/kg of IV fluids on admission with good improvement in blood pressure. Continue IV vancomycin and Zosyn for now. 2. Hyponatremia, improving ? Sodium 122 on admission, was previously stable at 133-136 at end of January. Chloride low at 94. Suspected due to hypovolemia with poor p.o. intake. Sodium improved w/ fluid resuscitation, most recent sodium 130 on 03/13. Patient with no mental status changes. Continue to monitor sodium daily. Okay to continue home escitalopram. 3. Large liver mass ? CT abdomen pelvis with IV contrast on 03/12 showed an 8 x 5.2 x 5.7 cm heterogenous multiloculated mass in the posterior lateral aspect of the dome of the right lobe of the liver, that may represent either a metastatic deposit versus possible abscess. Gallbladder, extrahepatic biliary system, spleen and pancreas otherwise normal. Discussed with general surgery and patient will be transferred for further evaluation. Accepted for transfer at [facility], awaiting bed placement. Continue treatment as above. 4. Mild constipation ? Patient with mild constipation and mild abdominal distention while hospitalized. Treating with scheduled senna and Colace with MiraLAX as needed and Dulcolax suppository as needed. Chronic medical conditions: ? Class I obesity: BMI 32 on admit. Complicates hospital course, care and prognosis. ? CAD with stenting, hypertension, hyperlipidemia: Stable. Continue home aspirin, Plavix and statin. Holding home Lopressor and losartan for now. ? Iron deficiency anemia: Hemoglobin 10.7 on admit, stable at baseline. Decreased home iron supplement to every other day. ? Anxiety/depression: Stable. Continue home escitalopram. DVT prophylaxis: Lovenox CODE STATUS: Full code, verified Expected disposition: Transfer to [facility] when bed is available Total clinical time spent by myself addressing the patient's medical issues, reviewing all the data, and collaborating with patient's care team: 35 minutes. Charges/Coding Visit Charges Inpatient E&M: 28882 Subs Hosp L2
[2024-03-13 11:32] LABS: Ferritin 2204 ng/mL (26-388); Iron 20 ug/dL (65-175); Iron Binding Capacity,Total 184 ug/dL (250-450); PERCENT IRON SATURATION 10.9 % (15.0-55.0)
[2024-03-13] MEDS: Fluticasone 0.05% 1 SPRAY NASAL.SRY NASAL ×2 (12:33→19:46)
[2024-03-13] MEDS: guaiFENesin 600 MG Tablet PO ×2 (12:33→19:45)
[2024-03-13] MEDS: BENZOCAINE/MENTHOL 1 LOZENGE MUCOUS MEM ×2 (12:34→22:29)
[2024-03-13] MEDS: Ipratropium/Albuterol Sulfate 3 ML AMPUL.NEB INHALATION (13:50)
[2024-03-13] MEDS: Metoprolol Tartrate 50 MG Tablet PO (18:50)
[2024-03-13] MEDS: Atorvastatin Calcium 40 MG Tablet PO (19:45)
--- NOTE | 2024-03-14 07:11 | DS.PCM_ITS ---
Providers Date of Admission: 03/11/24 Date of Discharge: 03/13/24 Primary Care Physician: Dr. Anjali Hernandes MD Reason For Visit: SEPSIS Diagnosis Discharge Diagnosis (1) Sepsis: Status: Acute Code(s): A41.9 - Sepsis, unspecified organism (2) Acute UTI: Status: Acute Code(s): N39.0 - Urinary tract infection, site not specified (3) Acute hyponatremia: Status: Acute Code(s): E87.1 - Hypo-osmolality and hyponatremia (4) Liver mass, right lobe: Status: Acute Code(s): R16.0 - Hepatomegaly, not elsewhere classified Medications at Discharge Home Medications aspirin 81 mg chewable tablet 81 mg PO DAILY@0800 BLOOD THINNER 01/28/18 ondansetron 4 mg disintegrating tablet 4 mg PO Q6H PRN PRN NAUSEA 02/08/18 docusate sodium 100 mg capsule (Colace) 100 mg PO BID stool softner 05/20/19 escitalopram oxalate 10 mg tablet 10 mg PO DAILY 01/17/22 meclizine 12.5 mg tablet 12.5 mg PO TID PRN PRN Vertigo 5 days #15 tabs 10/23/22 losartan 50 mg tablet 50 mg PO DAILY #90 tabs 05/09/23 metoprolol tartrate 50 mg tablet 50 mg PO BID BP #180 tabs 06/11/23 fluticasone propionate 50 mcg/actuation nasal spray,suspension 2 spray intranasal DAILY PRN allergy 11/22/23 meloxicam 15 mg tablet 15 mg PO DAILY 11/22/23 rosuvastatin 20 mg tablet 20 mg PO DAILY #90 tabs 11/22/23 clopidogrel 75 mg tablet (Plavix) 75 mg PO DAILY #30 tabs 02/22/24 ferrous sulfate 325 mg (65 mg iron) tablet (Feosol) 325 mg PO QODAY vitamin 30 days #0 tabs 03/14/24 Hospital Course Operations None Procedures EKG and - (Chest x-ray, renal ultrasound, CT abdomen pelvis, CT lumbar spine) Summary of Care Provided Minutes Spent on Discharge: 35 Hospital Course: Patient is a 78-year-old male who presented [facility] ED on 03/10/2024 with chills and rigors. Hospital course as noted below. Patient transferred to [facility] on 03/13. 1. Sepsis without shock with unclear source ? Met SIRS criteria on admit and thus sepsis in the setting of being Medicare A and B. Chest x-ray unremarkable. UA showed 25 leukocyte esterase, negative nitrites, 2+ bacteria. Renal/bladder ultrasound unremarkable. COVID/flu/RSV negative. Blood cultures and urine culture with no growth to date. CT abdomen pelvis with concern for possible abscess versus metastatic lesion as noted below and I suspect this may be the cause of patient's sepsis. Received 30 cc/kg of IV fluids on admission with good improvement in blood pressure. Continue IV vancomycin and Zosyn for now. Transferred to [facility] for further management on 03/13. 2. Hyponatremia, improving ? Sodium 122 on admission, was previously stable at 133-136 at end of January. Chloride low at 94. Suspected due to hypovolemia with poor p.o. intake. Sodium improved w/ fluid resuscitation, most recent sodium 130 on 03/13. Patient with no mental status changes. Monitored sodium daily. Okay to continue home escitalopram. 3. Large liver mass ? CT abdomen pelvis with IV contrast on 03/12 showed an 8 x 5.2 x 5.7 cm heterogenous multiloculated mass in the posterior lateral aspect of the dome of the right lobe of the liver, that may represent either a metastatic deposit versus possible abscess. Gallbladder, extrahepatic biliary system, spleen and pancreas otherwise normal. Discussed with general surgery who recommended transfer for further management. Transferred to [facility] on 03/13. 4. Mild constipation ? Patient with mild constipation and mild abdominal distention while hospitalized. Treated with scheduled senna and Colace with MiraLAX as needed and Dulcolax suppository as needed. Chronic medical conditions: ? Class I obesity: BMI 32 on admit. Complicated hospital course, care and prognosis. ? CAD with stenting, hypertension, hyperlipidemia: Stable. Continue home aspirin, Plavix and statin. Restarted home Lopressor and losartan on 03/13. ? Iron deficiency anemia: Hemoglobin 10.7 on admit, stable at baseline. Decreased home iron supplement to every other day. ? Anxiety/depression: Stable. Continue home escitalopram. Total clinical time spent by myself addressing the patient's medical issues, reviewing all the data, and collaborating with patient's care team: 35 minutes. Physical Exam Const alert, oriented x3 and no apparent distress Constitutional Narrative: Pleasant elderly male, class I obesity, mildly fatigued appearing, otherwise sitting up comfortably in bed, conversing normally, no acute distress. Stable. General Appearance: cooperative and comfortable HEENT normocephalic, head/scalp atraumatic, hearing grossly normal bilaterally and nasal mucous membranes and turbinates normal Eyes PERRL, EOMs intact bilaterally and conjunctivae normal Neck full ROM Chest inspection of chest normal Resp normal respiratory effort and no use of accessory muscles Resp Narrative: Mild wheezing noted in upper airways bilaterally. Patient otherwise breathing comfortably on room air at rest. No crackles noted. Cardio no murmurs and peripheral pulses 2+ throughout Cardio Narrative: Tachycardic, regular rhythm. GI normal to inspection, nondistended, normoactive bowel sounds, soft to palpation and non-tender GI Narrative: Abdomen mildly distended but otherwise soft and nontender to palpation. no CVA tenderness Bladder / Kidney Exam: bladder normal to palpation Back/Spine normal ROM Extremity normal to inspection, full ROM and no pedal edema Skin no rashes or lesions noted Neuro moves all extremities Speech: speech normal Motor Exam: strength 5/5 throughout Psych mental status grossly normal Weight / BMI Weight Weight: 117.9 kg Body Mass Index (BMI) 35.2 ABG / Lab / Microbiology Data 03/13/24 03:03 03/13/24 03:03 Laboratory: Laboratory Results - last 24 hr 03/13/24 03:30: Iron 20 L, TIBC 184 L, Iron Saturation 10.9 L, Ferritin 2204 H Microbiology: Microbiology 03/10/24 23:41 Urine, Catheterized Urine Culture - Final Culture exhibits no growth. 03/10/24 21:00 Blood Culture (Wb) - Right Hand Blood Culture - Preliminary No growth in 48 hours. 03/10/24 22:12 Blood Culture (Wb) - Left Forearm Blood Culture - Preliminary No growth in 48 hours. 03/10/24 22:10 Mucosa - Nose SARS-CoV-2, Influenza & RSV (PCR) - Final D/C Instructions DC O2, CPAP, BIPAP Needs Home O2 Discharge instructions: No Meaningful Use Info Meaningful Use Meaningful Use Diagnoses (Choose all that apply): None applicable Ischemic Stroke Statin Dosing Therapy Reference: STATIN DOSE THERAPY REFERENCE: * Patients > 75 years receive moderate or high dose statin therapy. * Patients 75 years or YOUNGER should receive HIGH intensity statin dose unless contraindicated. You will be required to document reason for non-treatment if statin daily dose does not meet guidelines. HIGH DOSE STATIN THERAPY DAILY Atorvastatin > than or = to 40 mg Rosuvastatin > than or = to 20 mg Amlodipine + Atorvastatin > than or = to 2.5/40 mg Ezetimibe + Simvastatin 10/80 mg Simvastatin 80mg Discharge Plan Admission Admit Date/Time: 03/11/24 01:51 Primary Reason for Your Visit: fevers/chills Attending Provider: Chidi Boogie Primary Care Provider: Anjali Hernandes Consulting Providers: Yanick Quinonez Discharge Orders/Prescriptions Prescriptions: Continued docusate sodium [Colace] 100 mg capsule 100 mg PO BID fluticasone propionate 50 mcg/actuation spray,suspension 2 spray INTRANASAL DAILY PRN (Reason: allergy ) Rx Instructions: administer into each nostril escitalopram oxalate 10 mg tablet 10 mg PO DAILY losartan 50 mg tablet 50 mg PO DAILY Qty: 90 3RF meloxicam 15 mg tablet 15 mg PO DAILY Rx Instructions: Will resume after finished with prednisone rosuvastatin 20 mg tablet 20 mg PO DAILY Qty: 90 3RF aspirin 81 MG tablet,chewable 81 mg PO DAILY@0800 Patient Comments: [facility] ondansetron 4 MG tablet 4 mg PO Q6H PRN PRN (Reason: NAUSEA) 0RF meclizine 12.5 mg Tablet 12.5 mg PO TID PRN PRN (Reason: Vertigo) 5 Days Qty: 15 0RF clopidogrel [Plavix] 75 mg tablet 75 mg PO DAILY Qty: 30 0RF metoprolol tartrate 50 mg tablet 50 mg PO BID Qty: 180 3RF Changed ferrous sulfate [Feosol] 325 mg (65 mg iron) tablet 325 mg PO QODAY 30 Days Qty: 0 0RF Referrals / Follow Up: Anjali Hernandes MD [Primary Care Provider] - Disposition Disposition (needs filled in before D/C Order can be placed): Acute Care Hospital Charges/Coding Visit Charges Inpatient E&M: 45278 Disch Hosp >30min
== END 2024-03-14 00:20 | disposition short-term general hospital (02) | DRG 872 ==
LOC: ED 22:39 → ICU 03-11 01:57 → PCU 03-11 15:54
PROVIDERS: Admitting Provider Family Medicine; Emergency Provider Emergency Medicine; PCP Internal Medicine; Visit Provider Hospitalist
DX: A41.9 Sepsis, unspecified organism (principal); E87.1 Hypo-osmolality and hyponatremia; R16.0 Hepatomegaly, not elsewhere classified; D50.9 Iron deficiency anemia, unspecified; I10 Essential (primary) hypertension; F32.A Depression, unspecified; Z68.32 Body mass index [BMI] 32.0-32.9, adult; I25.10 Atherosclerotic heart disease of native coronary artery without angina pectoris; E78.2 Mixed hyperlipidemia; F41.9 Anxiety disorder, unspecified; E86.1 Hypovolemia; K59.00 Constipation, unspecified; I25.2 Old myocardial infarction; E66.811 Obesity, class 1; Z95.5 Presence of coronary angioplasty implant and graft; Z79.02 Long term (current) use of antithrombotics/antiplatelets; Z79.82 Long term (current) use of aspirin; Z79.899 Other long term (current) drug therapy; Z87.891 Personal history of nicotine dependence
CPT/HCPCS: 36415; 71046; 72132; 74177; 76770; 80048; 80053; 80202; 81001; 82728; 83540; 83550; 83605; 85025; 85027; 87040; 87086; 87631; 93005; 94640; 97802; 99285; P9612; Q9967; A4216; J0696; J2405

== ENCOUNTER 2024-03-31 10:58 | Emergency (ER) | payer MEDICARE, OTHER, SELFPAY ==
[2016-05-29 11:45] VITALS: BMI 29.2
[2024-03-31 11:00] VITALS: BP 135/69; PULSE 90; RESP 16; TEMP 36.6; O2SAT 96; BMI 32.2
--- NOTE | 2024-03-31 11:10 | EX.ED.DYSGE1 ---
HPI History of Present Illness Chief Complaint: Other, Pain/Inj Informant: patient Onset/Context/Timing Onset: Today Context: Sudden Onset Timing: Intermittent Quality: Blood clot Location: Drain tube from right upper abdomen Worsened by: Nothing Relieved by: Nothing Narrative Narrative: Patient presents because his PICC line would not flush today. Patient also has a drain tube from his right upper abdomen that passed a clot today. Patient denies any pain. Patient was recently diagnosed with sepsis and liver abscess. The patient had a drain placed at [facility] and was discharged from there on 03/27/2024. Patient is post be getting an antibiotic that begins with a Z. Patient does not remember the name of the antibiotic or the dose. Patient denies any fevers or chills. Patient denies any nausea or vomiting. Patient denies any abdominal pain. [facility] Medical History Low back pain Hypokalemia Anemia Myocardial infarct Coronary artery disease Hypertension URI (upper respiratory infection) Hyponatremia Thyroid nodule Presence of stent in coronary artery (~05/28/16) Old myocardial infarction Mixed hyperlipidemia Essential (primary) hypertension Depression Right carotid bruit History of rheumatic fever Smoking addiction STEMI (ST elevation myocardial infarction) Home Medications ?Medication ?Instructions ?Recorded ?Last Taken ?Type aspirin 81 mg chewable tablet 81 mg PO DAILY@0800 BLOOD THINNER 01/28/18 Unknown History ondansetron 4 mg disintegrating 4 mg PO Q6H PRN PRN NAUSEA 02/08/18 Unknown Rx tablet docusate sodium 100 mg capsule 100 mg PO BID stool softner 05/20/19 Unknown History (Colace) escitalopram oxalate 10 mg tablet 10 mg PO DAILY 01/17/22 Unknown History meclizine 12.5 mg tablet 12.5 mg PO TID PRN PRN Vertigo 5 10/23/22 Unknown Rx days #15 tabs losartan 50 mg tablet 50 mg PO DAILY #90 tabs 05/09/23 Unknown Rx metoprolol tartrate 50 mg tablet 50 mg PO BID BP #180 tabs 06/11/23 Unknown Rx fluticasone propionate 50 2 spray intranasal DAILY PRN 11/22/23 Unknown History mcg/actuation nasal allergy spray,suspension meloxicam 15 mg tablet 15 mg PO DAILY 11/22/23 Unknown History rosuvastatin 20 mg tablet 20 mg PO DAILY #90 tabs 11/22/23 Unknown Rx clopidogrel 75 mg tablet (Plavix) 75 mg PO DAILY #30 tabs 02/22/24 Unknown Rx ferrous sulfate 325 mg (65 mg 325 mg PO QODAY vitamin 30 days #0 03/14/24 Unknown Rx iron) tablet (Feosol) tabs Allergy/AdvReac Type Severity Reaction Status Date / Time No Known Allergies Allergy Verified 03/31/24 11:00 Family History Grandfather CAD (coronary artery disease) Heart disease Father CAD (coronary artery disease) CABG x 4 Mother Colon cancer Surgical History History of coronary artery stent placement Presence of coronary angioplasty implant and graft (~05/28/16) History of tonsillectomy and adenoidectomy (~1952) History of ear surgery (~1986) History of inguinal hernia repair History of partial colectomy (~01/2018) Atherosclerosis of [place] coronary artery of [place] heart without angina pectoris Social History Smoking Status: Former smoker how long ago did patient quit smokin alcohol intake: never substance use type: does not use caffeine: Yes Type: coffee Number of servings: 4 what type of physical activity do you participate in: walking, bicycling and weight training frequency: daily duration: 60-90 minutes/day ROS ROS ED Constitutional Constitutional ED: Denies chills or fever(s) Eyes Eyes: Denies blurry vision or change in vision ENT ENT ED: Denies rhinorrhea or sore throat Cardiovascular Cardiovascular: Denies chest pain or palpitations Respiratory/Chest Respiratory/Chest: Denies cough or dyspnea Gastrointestinal Gastrointestinal: Denies nausea or vomiting Genitourinary Genitourinary ED: Denies dysuria or hematuria Musculoskeletal Musculoskeletal: Reports neck pain; Denies back pain Integumentary Denies abscess or rash Neurologic Neurologic: Denies headache(s) or weakness Allergic/Immunologic Allergic/Immunologic ED: Denies mouth swelling or urticaria EXAM Physical Exam Const Vital Signs: 03/31/24 11:00 03/31/24 11:23 03/31/24 12:31 Temperature 97.8 F 98.1 F Temperature Source Oral Oral Pulse Rate 90 88 Respiratory Rate 16 18 Respiratory Effort Normal Non-Labored Respiratory Pattern Normal Blood Pressure 135/69 H 136/74 H Blood Pressure Mean 91 94 Pulse Ox 96 97 Oxygen Delivery Method Room Air Room Air 03/31/24 16:49 Temperature 98 F Temperature Source Pulse Rate 83 Respiratory Rate 16 Respiratory Effort Respiratory Pattern Blood Pressure 141/79 H Blood Pressure Mean 99 Pulse Ox 99 Oxygen Delivery Method Positive well nourished and well developed General Appearance ED: well developed and NAD HEENT Reports moist mucous membranes Neck supple and no JVD Resp normal respiratory effort and clear to auscultation bilaterally Cardio regular rate and regular rhythm GI non-tender and non-distended Palpation: soft Neuro oriented x3, CN's II-XII intact bilaterally and no sensory deficits noted Sensorium / Orientation: alert Motor Exam: strength 5/5 throughout Psych mental status grossly normal MDM MDM MDM Narrative Medical decision making narrative: Differential diagnosis includes sepsis, PICC line dysfunction, occlusion, and electrolyte abnormality. CBC will be obtained to assess for leukocytosis and anemia. Comprehensive metabolic profile will be obtained to assess for hepatic function, renal function, and electrolyte abnormality. History & Record Review Additional record(s) reviewed:: Prior inpatient record and Prior labs Lab Data Attestation: I reviewed the patient's lab results. Lab results narrative: CBC was reviewed. There is a mild anemia with a hemoglobin of 9.3 and hematocrit of 30.0. Platelets were slightly elevated at 566. Comprehensive metabolic profile was reviewed. Sodium was slightly low at 132 and chloride was 97. The remainder was essentially within normal limits. Labs: Laboratory Results - last 24 hr 03/31/24 11:30 WBC 10.4 RBC 3.21 L Hgb 9.3 L Hct 30.0 L MCV 93.5 MCH 29.0 MCHC 31.0 L RDW Std Deviation 47.9 H RDW Coeff of Alicia 14.2 Plt Count 566 H MPV 8.6 Immature Gran % (Auto) 0.400 Neut % (Auto) 78.4 H Lymph % (Auto) 14.1 L [place] % (Auto) 6.5 Eos % (Auto) 0.4 Baso % (Auto) 0.2 Absolute Neuts (auto) 8.2 H Absolute Lymphs (auto) 1.46 Nucleated RBC % 0 Sodium 132 L Potassium 3.8 Chloride 97 L Carbon Dioxide 27.0 Anion Gap 7 BUN 17 Creatinine 0.69 L Estim Creat Clear Calc 98.04 Est GFR (MDRD) Af Amer 142 Est GFR (MDRD) Non-Af 118 BUN/Creatinine Ratio 24.6 H Glucose 105 Calcium 8.7 Total Bilirubin 0.50 AST 40 H ALT 32 Alkaline Phosphatase 154 H Total Protein 7.1 Albumin 2.1 L Globulin 5.0 H Albumin/Globulin Ratio 0.4 L Treatment and Re-Evaluation :: Prior inpatient record was reviewed. Patient was getting Zosyn and vancomycin before he was transferred to [facility]. Patient was given a dose of Zosyn here. Patient was advised of his findings. Patient was instructed to follow-up with his primary care physician in 5 to 7 days. Patient was instructed to continue his home antibiotics as prescribed. Patient was instructed to return if worse in any way. Patient and spouse understood and were agreeable with the plan. All questions were answered. Prior to discharge, family was concerned about administering daily antibiotics. Because of this, social work was contacted. packing room worker was in to evaluate the patient. They recommended discharging the patient to a [facility] facility. Patient and spouse are agreeable with this. Patient will be discharged to a [facility] facility. was able to go home and get his discharge instructions with his medications listed on them. Patient is actually prescribed ertapenem (Invanz) 1 g once daily through 04/19/2023. Patient will be instructed to use ertapenem 1 g daily through his PICC line. Patient and spouse understood and are agreeable with plan. All questions were answered. Discharge Plan Triage Chief Complaint: Other, Pain/Inj ED Provider: Alfred Edwards Dx/Rx/DC Orders Clinical Impression: PIC line (peripherally inserted central catheter) flush, Essential (primary) hypertension Instructions: ED PICC Line Care Prescriptions: No Action docusate sodium [Colace] 100 mg capsule 100 mg PO BID fluticasone propionate 50 mcg/actuation spray,suspension 2 spray INTRANASAL DAILY PRN (Reason: allergy ) Rx Instructions: administer into each nostril escitalopram oxalate 10 mg tablet 10 mg PO DAILY losartan 50 mg tablet 50 mg PO DAILY Qty: 90 3RF meloxicam 15 mg tablet 15 mg PO DAILY Rx Instructions: Will resume after finished with prednisone rosuvastatin 20 mg tablet 20 mg PO DAILY Qty: 90 3RF aspirin 81 MG tablet,chewable 81 mg PO DAILY@0800 Patient Comments: [facility] ondansetron 4 MG tablet 4 mg PO Q6H PRN PRN (Reason: NAUSEA) 0RF meclizine 12.5 mg Tablet 12.5 mg PO TID PRN PRN (Reason: Vertigo) 5 Days Qty: 15 0RF clopidogrel [Plavix] 75 mg tablet 75 mg PO DAILY Qty: 30 0RF ferrous sulfate [Feosol] 325 mg (65 mg iron) tablet 325 mg PO QODAY 30 Days Qty: 0 0RF metoprolol tartrate 50 mg tablet 50 mg PO BID Qty: 180 3RF Primary Care Provider: Anjali Hernandes Referrals: Anjali Hernandes MD [Primary Care Provider] - 5-7 Days Activity Restrictions/Additional Instructions: Patient to be transferred to [facility] facility. PT and OT to evaluate and treat. Patient to be given ertapenem (Invanz) 1 g daily through 04/19/2024. Print Language: Amharic Disposition Disposition: Long-Term Facility Discharge Location: [facility]
[2024-03-31 11:43] LABS: Absolute Lymphocyte Count 1.46 X10^3/uL (0.83-4.51); Absolute Neutrophil Count 8.2 X10^3/uL (2.0-7.7); Basophil# 0.02 X10^3/uL; Basophil% 0.2 % (0-1); Eosinophil# 0.04 X10^3/uL; Eosinophils% 0.4 % (0-5); Hemoglobin 9.3 g/dL (13.0-16.5); Lymphocyte # 1.46 X10^3/ul (0.83-4.51); Lymphocyte % 14.1 % (19-41); Mean Corpuscular Volume 93.5 fL (80-94); Mean Platelet Vol. 8.6 fl (6.2-12.0); Monocyte# 0.67 X10^3/uL; Monocyte% 6.5 % (0-10); NRBC Flagged by Analyzer 0 % (0-5); Neutrophil # 8.15 X10^3/uL (2.7-7.7); Neutrophil % 78.4 % (47-70); Platelet Count 566 K/mm3 (150-450); RBC Distribution Width CV 14.2 % (11.6-14.6); RBC Distribution Width SD 47.9 fl (35.1-43.9); Red Blood Count 3.21 M/mm3 (4.6-6.2); White Blood Count 10.4 K/mm3 (4.4-11.0)
[2024-03-31] MEDS: Piperacil/Tazobactam 4.5 GM in 0.9% Normal Saline (100mL MB+) 100 ML IV (11:52)
[2024-03-31 12:00] LABS: ALB/GLOB Ratio 0.4 RATIO (0.9-2.4); AST(SGOT) 40 U/L (15-37); Alanine Aminotransfer ALT/SGPT 32 U/L (16-61); Albumin, Serum 2.1 g/dL (3.2-5.0); Alkaline Phosphatase 154 U/L (45-117); Anion Gap 7 (5-15); BUN 17 mg/dL (7-18); BUN/Creat Ratio 24.6 RATIO (10-20); Calcium,Total 8.7 mg/dL (8.5-10.1); Chloride 97 mmol/L (98-107); Creatinine, Serum 0.69 mg/dL (0.70-1.30); EST Glomerular Filtration Rate 118 mL/min (>60); Est Glom Filt Rate - Afr Amer 142 mL/min (>60); Estimated Creatinine Clearance 98.04 ml/min; Glucose 105 mg/dL (74-106); Potassium 3.8 mmol/L (3.5-5.1); Protein, Total 7.1 g/dL (6.4-8.2); Sodium Level 132 mmol/L (136-145)
[2024-03-31 12:31] VITALS: BP 136/74; PULSE 88; RESP 18; TEMP 36.7; O2SAT 97
--- NOTE | 2024-03-31 16:11 | CM.ED ---
Social work Reason for referral: Discharge planning - home health care, versus outpatient infusion, versus possible SNF placement Referral source: brazing furnace feeder Alyssa This SW was approached by brazing furnace feeder Alyssa stating patient and patient's , Margaret, were stressed regarding patient's PICC line and need for IV antibiotics. Patient reportedly has had difficulty urinating and patient has had a decreased appetite. This has reportedly caused patient and patient's much stress and patient's has inquired about daily infusions at [facility] outpatient infusion suites. This SW and EFRAIN Granados acknowledged need to talk with patient and patient's . This SW and EFRAIN Granados entered patient's room, introducing selves and roles at [facility]. This SW broached the topic of patient's being stressed regarding IV antibiotics and patient's stated being more than a little stressed. Patient's stated receiving no more than 5 minutes of teaching from [facility] regarding patient's IV and port drain. Patient's stated being overwhelmed with the IV antibiotics specifically, stating the most stressful part to be that patient's could kill patient if air bubbles get in. Active listening and empathic support provided throughout initial conversation. reports to feel comfortable with the HEMANT drain. This SW and EFRAIN Granados called [facility] ([place] office) and spoke with Carmen, patient's home health nurse. Carmen's direct phone number is [phone] and [facility]'s main number is [phone]. Carmen stated that Carmen started care with patient on Sunday03/28/24 and was present at patient's home for 2 hours providing instruction for patient and patient's on administering the IV antibiotics. Carmen stated seeing patient today, 03/31/24, as well. Carmen shared that patient's is incredibly stressed and stated that the IV antibiotics are not easy to administer due to having to calculate dosages. Carmen shared that patient's had accidentally thrown away supplies over the weekend and patient's was not comfortable with helping patient. Per Carmen, patient reportedly refused to let patient's touch patient's PICC today due to patient's belief that patient's was too nervous and would mess things up. Carmen shared that Carmen called patient's Infectious Disease doctor, Joon Orellana (ph: [phone]) (f: [phone]). Dr. Orellana was reportedly concerned with the PICC clotting. Carmen and Dr. Orellana reportedly both wondered if a SNF would better suit patient's current needs. Carmen reported that [facility] is reportedly providing the infusions. Carmen stated [facility] does not have staffing for consecutive home visits to increase teaching and Carmen is only allowed to go to patient's home once per week for PICC dressing. This SW called Dr. Orellana's office and spoke with nurse Hanh. Hanh's direct number is [phone]. Hanh stated that Dr. Orellana would be willing to write an order for outpatient infusions if patient would like this. This SW stated the need to confirm with patient and patient's , but wanted to make sure this was an option. This SW and EFRAIN Granados reentered patient's room and provided patient with the following options: switching to daily outpatient infusion treatments which would end [facility] (nursing and PT) or going to a SNF for rehabilitation and daily infusion treatments, as well as physical therapy. Patient's stated not being in favor of SNF and stated preference would be patient's outpatient option. Patient initially stated feeling too tired to make a decision, stating patient would be okay with whatever patient's decided. Patient then stated patient was feeling very weak and did not know if patient would be able to leave the house each day for outpatient infusions. EFRAIN Granados addressed the SNF option again, stating patient could receive infusions and rehabilitation without having to leave the facility. Educated patient to SNF benefit under [facility], for which patient qualifies due to having a 3 day inpatient stay in within the last 30 days. Patient stated this would be a more realistic option and patient's agreed. Dr. Edwards and nursing updated of patient's desire to go to SNF and patient's ability to go from the ED due to patient having a 3 day inpatient stay in the last 30 days. This SW created a list of SNF providers in patient's insurance network and geographical region, including [facility] quality and star data ratings. List provided to patient and patient's . EFRAIN Granados educated patient and patient's on the meaning of Medicare star ratings. Patient stated choices in order of: [facility], [facility], [facility], and [facility]. EFRAIN Granados called TCU and no beds available. EFRAIN Granados called Olivia at [facility] ([phone]) and [facility] had one bed available. Documents were sent via Careport to patient's 3 choices with available beds. Carmen from patient's [facility] was updated via phone call from this SW. Carmen stated patient's IV antibiotic was Invanz 1g every 24 hours; stop date of 04/17/24. This information was provided to Dr. Edwadrs and patient's was asked to go home to get patient's discharge instructions from [facility]. Olivia from [facility] called this SW about 1600 and stated needing further documents: discharge packets from patient's [facility] stay and patient's [facility] stay. Permission given from patient to send patient's [facility] discharge packet. [facility] responded stating ability to accept patient; this SW responded stating patient and patient's would be made aware of option. Olivia from [place] called at 1645 stating ability to accept patient at [facility]. N2N: [phone] at [facility] nurses station. Discharge documents to be sent to f: [phone]. faxed discharge instructions to confirmed fax. Dr. Edwards, brazing furnace feeder Alyssa, and SUMI Copeland updated. Patient and patient's updated of the same. PASRR completed and documents added to packet for transport to [facility]. Plan: Discharge skilled level of care under Medicare benefit, with PASRR completed, to [facility]. Iesha Skinner, TRANSPORT ENGINEER, SHRINK PIT SUPERVISOR
[2024-03-31 16:49] VITALS: BP 141/79; PULSE 83; RESP 16; TEMP 36.6; O2SAT 99
--- NOTE | 2024-03-31 16:55 | ED.RN ---
report called to Ruma at [place].
[2024-03-31] MEDS: LORazepam 0.5 MG Tablet PO (17:23)
--- NOTE | 2024-04-01 10:25 | CM.ED ---
Social Work This SW received handoff from CHITO Julian regarding need to update Dr. Joon Fisher office regarding patient being admitted to a SNF. EFRAIN contacted Suze at Dr. Fisher office at [phone] notified of patients SNF admission. Suze stated they had been aware as she was able to access patients ED information. Suze thanked EFRAIN for calling. No other questions or concerns. CHITO Mckoy, TECHNICAL SERVICE REP
== END 2024-03-31 17:56 | disposition skilled nursing facility (03) ==
PROVIDERS: Emergency Provider Emergency Medicine; PCP Internal Medicine; Visit Provider Emergency Medicine
DX: Z45.2 Encounter for adjustment and management of vascular access device (principal); I25.10 Atherosclerotic heart disease of native coronary artery without angina pectoris; I10 Essential (primary) hypertension; I25.2 Old myocardial infarction; E78.2 Mixed hyperlipidemia; Z95.5 Presence of coronary angioplasty implant and graft; Z79.02 Long term (current) use of antithrombotics/antiplatelets; Z79.899 Other long term (current) drug therapy; Z87.891 Personal history of nicotine dependence
CPT/HCPCS: 36592; 80053; 85025; 96365; 99285; A4216

== ENCOUNTER 2024-05-09 06:30 | Emergency (ER) | payer MEDICARE, OTHER, SELFPAY ==
[2016-05-29 11:45] VITALS: BMI 29.2
[2024-05-09] VITALS (12 sets, daily range): BP systolic 114–138; BP diastolic 58–98; PULSE 76–103; RESP 16–20; TEMP 36.2–36.9; O2SAT 92–96; BMI 29.6
--- NOTE | 2024-05-09 07:18 | CT_ITS ---
EXAM: CT Abdomen and Pelvis With Intravenous Contrast CLINICAL INDICATION: TECHNIQUE: Axial computed tomography images of the abdomen and pelvis with intravenous contrast. This CT exam was performed using one or more of the following dose reduction techniques: automated exposure control, adjustment of the mA and/or kV according to patient size, and/or use of iterative reconstruction technique. COMPARISON: CT Abdomen Pelvis dated 03/12/2024 FINDINGS: LUNG BASES: See below. PLEURAL SPACE: Right pleural effusion with compressive atelectasis. ABDOMEN: LIVER: Heterogeneously dense lesion of the right hepatic lobe measuring up to 10.8 cm. This could be a hematoma/laceration from recent trauma, a hemorrhaging mass, abscess or a combination there of. It appears to be larger than the prior exam which measures up to approximately 5.8 cm. GALLBLADDER AND BILE DUCTS: Unremarkable. No calcified stones. No ductal dilation. PANCREAS: Unremarkable. No mass. No ductal dilation. SPLEEN: Unremarkable. No splenomegaly. ADRENALS: Unremarkable. No mass. KIDNEYS AND URETERS: Bilateral renal cysts, largest measuring up to 3.2 cm. STOMACH AND BOWEL: Fecal retention in the colon consistent with constipation. No obstruction. No mucosal thickening. PELVIS: APPENDIX: No findings to suggest acute appendicitis. BLADDER: Unremarkable. No mass. REPRODUCTIVE: Unremarkable as visualized. ABDOMEN and PELVIS: INTRAPERITONEAL SPACE: Unremarkable. No free air. No significant fluid collection. BONES/JOINTS: No acute fracture. No dislocation. SOFT TISSUES: Anterior ventral hernia of the lower abdomen containing fat. VASCULATURE: Scattered calcified atherosclerotic disease of aorta. No abdominal aortic aneurysm. LYMPH NODES: Unremarkable. No enlarged lymph nodes. CT/Abdomen/Pelvis W IV Cont ONLY IMPRESSION: 1. Heterogeneously dense lesion of the right hepatic lobe measuring up to 10.8 cm. This could be a hematoma/laceration from recent trauma, a hemorrhaging mass, abscess or a combination there of. It appe ars to be larger than the prior exam which measures up to approximately 5.8 cm. 2. Fecal retention in the colon consistent with constipation. 3. Anterior ventral hernia of the lower abdomen containing fat. 4. Right pleural effusion with compressive atelectasis. 5. Bilateral simple renal cysts. Findings were discussed with Dr. Jorge by phone on 05/09/2024 at 0840 hours. Reading [facility]
--- NOTE | 2024-05-09 07:22 | EX.ED.DYSGE1 ---
HPI History of Present Illness Chief Complaint: Wound Informant: patient Narrative Narrative: Patient is a 78-year-old male with history of coronary artery disease, hypertension and recent abscess of the liver requiring IR drainage and a HEMANT drain. He currently is in [facility] at [place] and receiving IV antibiotics. He follows through [facility] and saw Dr. Hernando Turner. He had his HEMANT drain removed about 2 weeks ago. Today he notes increased soreness to the area at 5 AM woke up and saw that there was blood in his bed. Is coming from his HEMANT drain site. He states overall he is active and feeling well the last few days his appetite is improving denies any fever or chills. Denies any change in his bowel movements, nausea or vomiting. Has noticed that there is increased redness around the HEMANT drain site but is not sure how long it has been there. Does not know which antibiotics he is on. Notes he did not have his morning medications. [facility] Medical History Low back pain Hypokalemia Anemia Myocardial infarct Coronary artery disease Hypertension URI (upper respiratory infection) Hyponatremia Thyroid nodule Presence of stent in coronary artery (~05/28/16) Old myocardial infarction Mixed hyperlipidemia Essential (primary) hypertension Depression Right carotid bruit History of rheumatic fever Smoking addiction STEMI (ST elevation myocardial infarction) Home Medications ?Medication ?Instructions ?Recorded ?Last Taken ?Type aspirin 81 mg chewable tablet 81 mg PO DAILY@0800 BLOOD THINNER 01/28/18 05/08/24 History ondansetron 4 mg disintegrating 4 mg PO Q6H PRN PRN NAUSEA 02/08/18 Unknown Rx tablet docusate sodium 100 mg capsule 100 mg PO BID stool softner 05/20/19 05/08/24 History (Colace) escitalopram oxalate 10 mg tablet 10 mg PO DAILY 01/17/22 05/08/24 History meclizine 12.5 mg tablet 12.5 mg PO TID PRN PRN Vertigo 5 10/23/22 Unknown Rx days #15 tabs losartan 50 mg tablet 50 mg PO DAILY #90 tabs 05/09/23 Unknown Rx metoprolol tartrate 50 mg tablet 50 mg PO BID BP #180 tabs 06/11/23 05/09/24 Rx fluticasone propionate 50 2 spray intranasal DAILY PRN 11/22/23 Unknown History mcg/actuation nasal allergy spray,suspension meloxicam 15 mg tablet 15 mg PO DAILY 11/22/23 Unknown History clopidogrel 75 mg tablet (Plavix) 75 mg PO DAILY #30 tabs 02/22/24 05/08/24 Rx ferrous sulfate 325 mg (65 mg 325 mg PO QODAY vitamin 30 days #0 03/14/24 05/08/24 Rx iron) tablet (Feosol) tabs atorvastatin 40 mg tablet 40 mg PO QHS 05/09/24 05/08/24 History lorazepam 0.5 mg tablet 0.5 mg PO DAILY anxiety 05/09/24 Unknown History trazodone 50 mg tablet 50 mg PO QHS PRN insomnia 05/09/24 Unknown History Allergy/AdvReac Type Severity Reaction Status Date / Time No Known Allergies Allergy Verified 05/09/24 06:32 Family History Grandfather CAD (coronary artery disease) Heart disease Father CAD (coronary artery disease) CABG x 4 Mother Colon cancer Surgical History History of coronary artery stent placement Presence of coronary angioplasty implant and graft (~05/28/16) History of tonsillectomy and adenoidectomy (~1952) History of ear surgery (~1986) History of inguinal hernia repair History of partial colectomy (~01/2018) Atherosclerosis of viejas coronary artery of viejas heart without angina pectoris Social History Smoking Status: Former smoker how long ago did patient quit smokin alcohol intake: never substance use type: does not use caffeine: Yes Type: coffee Number of servings: 4 what type of physical activity do you participate in: walking, bicycling and weight training frequency: daily duration: 60-90 minutes/day ROS ROS ED Constitutional Constitutional ED: Denies chills or fever(s) Respiratory/Chest Respiratory/Chest: Denies dyspnea Gastrointestinal Gastrointestinal: Denies abdominal pain, diarrhea, nausea or vomiting Genitourinary Genitourinary ED: Denies dysuria Musculoskeletal Musculoskeletal: Denies arthralgias or myalgias Integumentary Reports other Details: increased redness, bleeding and swelling to right flank over HEMANT site EXAM Physical Exam Const Vital Signs: 05/09/24 06:33 05/09/24 06:36 05/09/24 07:36 Temperature 97.1 F L 97.1 F L 98.3 F Temperature Source Oral Oral Oral Pulse Rate 102 H 103 H 97 Respiratory Rate 18 18 16 Blood Pressure 134/98 H 137/83 H 121/58 H Blood Pressure Mean 110 101 79 Pulse Ox 94 94 93 Oxygen Delivery Method Room Air Room Air Room Air 05/09/24 08:32 05/09/24 08:51 05/09/24 09:00 Temperature 97.7 F L 97.7 F L Temperature Source Temporal Temporal Pulse Rate 77 77 76 Respiratory Rate 16 16 17 Blood Pressure 116/72 116/72 114/61 Blood Pressure Mean 86 86 78 Pulse Ox 93 93 92 Oxygen Delivery Method Room Air Room Air Room Air 05/09/24 10:00 05/09/24 11:00 05/09/24 12:00 Temperature 98.4 F 98.5 F 98.5 F Temperature Source Oral Oral Oral Pulse Rate 80 80 84 Respiratory Rate 17 18 20 H Blood Pressure 129/72 H 117/69 138/71 H Blood Pressure Mean 91 85 93 Pulse Ox 94 93 96 Oxygen Delivery Method Room Air Room Air 05/09/24 13:00 05/09/24 13:42 Temperature 98.5 F 98.5 F Temperature Source Oral Pulse Rate 87 87 Respiratory Rate 18 18 Blood Pressure 133/69 H 133/69 H Blood Pressure Mean 90 90 Pulse Ox 92 92 Oxygen Delivery Method Room Air Positive well nourished and well developed General Appearance ED: well developed and NAD HEENT Reports moist mucous membranes Neck supple Chest Wall inspection of chest normal Resp normal respiratory effort and clear to auscultation bilaterally Cardio regular rhythm Rate: tachycardic GI normal to inspection, nondistended, normoactive bowel sounds and non-tender Palpation: soft; Negative for tender or guarding Back/Spine no CVA tenderness Back/Spine Narrative: On patient's right flank more around the mid axillary line there is swelling of the abdominal wall with some questionable deep fluctuance versus hematoma palpated. There is approximately 18 cm x 10 cm of erythema and warmth and at the center of this is the HEMANT drain site that is draining bloody and questionably purulent fluid. General Back: Negative for CVA tenderness Extremity normal to inspection Neuro oriented x3 Sensorium / Orientation: alert Motor Exam: Negative for general weakness Psych mental status grossly normal Skin Skin Narrative: 10 cm x 16 cm area of erythema, warmth and induration with central draining wounds of the right flank around the mid axillary line MDM MDM MDM Narrative Medical decision making narrative: Surgical progress note reviewed from 03/26/2024 at [facility]?patient was found to have multiloculated liver abscess with newly developed collection of the right liver on 03/21 and MRI of liver identified a 12.3 x 11.5 x 8.7 cm hematoma. He had a PICC line inserted on 03/24. At that time patient was on meropenem. He does not appear to be on any anticoagulation besides Plavix. ID note with Dr. Joon Orellana from 04/17/2024?patient is on a course of IV or ertapenem. Most recent CT showed possible communication or sinus tract communicating with inguinal hernia mesh. Surgical note with Dr. Turner from 04/17/2024 reviewed?Patient will require mesh removal due to erosion of right inguinal hernia mesh into ileocolic anastomosis. Pending optimization for physical therapy and nutritional support at this time. Differential includes worsening abdominal wall/liver abscess, hematoma, fistula. No trauma reported. Will check labs including CRP, lactate obtain blood cultures. Will repeat CT of the abdomen and pelvis for further evaluation. On exam patient appears to be developing cellulitis of his chest wall/abdominal wall on the right side. Patient is a leukocytosis white blood cell count of 13.1. Hemoglobin stable at 10.1 making acute hemorrhage less likely. No shift. Lactate is normal. CRP is significantly elevated 145. CMP otherwise unremarkable. CT of the abdomen and pelvis shows heterogenously dense lesion of the right hepatic lobe measuring up to 10.8 cm which could be hematoma/laceration, hemorrhaging mass, abscess or combination. Appears larger than prior exam were measured 5.8 cm. There is also signs of constipation. Given the patient does not report any trauma his hemoglobin is stable as well as his vital signs I do not think this is an acute hemorrhage. I did call the transfer line as patient is established with [facility] To speak to his surgeon and the images were sent over. Ultimately the case was reviewed by surgeon on-call, Dr. Land, who did not request conference but would like the patient to be transferred ER to ER to [facility]. Case is discussed with Dr. Guillory who accepts the patient in the emergency room. Patient is given a dose of his ertapenem in the emergency room. Blood cultures are pending. History & Record Review Additional record(s) reviewed:: Prior outpatient record Lab Data Attestation: I reviewed the patient's lab results. Labs: Laboratory Results - last 24 hr 05/09/24 07:45 WBC 13.1 H RBC 3.74 L Hgb 10.1 L Hct 31.9 L MCV 85.3 MCH 27.0 MCHC 31.7 L RDW Std Deviation 47.4 H RDW Coeff of Alicia 15.3 H Plt Count 435 MPV 9.9 Immature Gran % (Auto) 0.500 Neut % (Auto) 79.4 H Lymph % (Auto) 12.2 L Foard % (Auto) 7.5 Eos % (Auto) 0.2 Baso % (Auto) 0.2 Absolute Neuts (auto) 10.4 H Absolute Lymphs (auto) 1.60 Nucleated RBC % 0 Sodium 132 L Potassium 3.6 Chloride 96 L Carbon Dioxide 30.0 Anion Gap 5 BUN 15 Creatinine 0.74 Estim Creat Clear Calc 94.28 Est GFR (MDRD) Af Amer 132 Est GFR (MDRD) Non-Af 109 BUN/Creatinine Ratio 20.3 H Glucose 97 Lactic Acid 0.7 Calcium 8.3 L Total Bilirubin 0.50 AST 50 H ALT 27 Alkaline Phosphatase 108 C-React Prot Ext Range 145.00 H Total Protein 7.2 Albumin 1.8 L Globulin 5.4 H Albumin/Globulin Ratio 0.3 L Radiography Diagnostic Testing: Clinical Impression(s) from Imaging Studies Abdomen/Pelvis CT 05/09/24 07:18 IMPRESSION: 1. Heterogeneously dense lesion of the right hepatic lobe measuring up to 10.8 cm. This could be a hematoma/laceration from recent trauma, a hemorrhaging mass, abscess or a combination there of. It appears to be larger than the prior exam which measures up to approximately 5.8 cm. 2. Fecal retention in the colon consistent with constipation. 3. Anterior ventral hernia of the lower abdomen containing fat. 4. Right pleural effusion with compressive atelectasis. 5. Bilateral simple renal cysts. Findings were discussed with Dr. Jogre by phone on 05/09/2024 at 0840 hours. Reading Location: [facility] Management Discussion w/another healthcare provider: Radiologist and Other ([facility] Emergency room, transfer line) Discharge Plan Triage Chief Complaint: Wound ED Provider: Cara Krishnamurthy Dx/Rx/DC Orders Clinical Impression: Sepsis, Abscess of liver, Leukocytosis, Abscess or cellulitis of chest wall Prescriptions: No Action docusate sodium [Colace] 100 mg capsule 100 mg PO BID fluticasone propionate 50 mcg/actuation spray,suspension 2 spray INTRANASAL DAILY PRN (Reason: allergy ) Rx Instructions: administer into each nostril escitalopram oxalate 10 mg tablet 10 mg PO DAILY losartan 50 mg tablet 50 mg PO DAILY Qty: 90 3RF meloxicam 15 mg tablet 15 mg PO DAILY Rx Instructions: Will resume after finished with prednisone aspirin 81 MG tablet,chewable 81 mg PO DAILY@0800 Patient Comments: [facility] ondansetron 4 MG tablet 4 mg PO Q6H PRN PRN (Reason: NAUSEA) 0RF meclizine 12.5 mg Tablet 12.5 mg PO TID PRN PRN (Reason: Vertigo) 5 Days Qty: 15 0RF clopidogrel [Plavix] 75 mg tablet 75 mg PO DAILY Qty: 30 0RF ferrous sulfate [Feosol] 325 mg (65 mg iron) tablet 325 mg PO QODAY 30 Days Qty: 0 0RF atorvastatin 40 mg tablet 40 mg PO QHS trazodone 50 mg tablet 50 mg PO QHS PRN (Reason: insomnia) lorazepam 0.5 mg tablet 0.5 mg PO DAILY metoprolol tartrate 50 mg tablet 50 mg PO BID Qty: 180 3RF Primary Care Provider: Anjali Hernandes Referrals: Anjali Hernandes MD [Primary Care Provider] - Print Language: Malay Disposition Disposition: Acute Care Hospital Discharge Location: [facility]
[2024-05-09] MEDS: Metoprolol Tartrate 50 MG Tablet PO (07:59)
[2024-05-09 08:24] LABS: ALB/GLOB Ratio 0.3 RATIO (0.9-2.4); AST(SGOT) 50 U/L (15-37); Alanine Aminotransfer ALT/SGPT 27 U/L (16-61); Albumin, Serum 1.8 g/dL (3.2-5.0); Alkaline Phosphatase 108 U/L (45-117); Anion Gap 5 (5-15); BUN 15 mg/dL (7-18); BUN/Creat Ratio 20.3 RATIO (10-20); Calcium,Total 8.3 mg/dL (8.5-10.1); Chloride 96 mmol/L (98-107); Creatinine, Serum 0.74 mg/dL (0.70-1.30); EST Glomerular Filtration Rate 109 mL/min (>60); Est Glom Filt Rate - Afr Amer 132 mL/min (>60); Estimated Creatinine Clearance 94.28 ml/min; Globulin 5.4 g/dL (2.2-4.2); Glucose 97 mg/dL (74-106); Potassium 3.6 mmol/L (3.5-5.1); Protein, Total 7.2 g/dL (6.4-8.2); Sodium Level 132 mmol/L (136-145)
[2024-05-09 08:28] LABS: Lactic Acid 0.7 mmol/L (0.4-1.9)
[2024-05-09 09:03] LABS: Absolute Neutrophil Count 10.4 X10^3/uL (2.0-7.7); Basophil# 0.02 X10^3/uL; Basophil% 0.2 % (0-1); Eosinophil# 0.03 X10^3/uL; Eosinophils% 0.2 % (0-5); Hematocrit 31.9 % (40-54); Hemoglobin 10.1 g/dL (13.0-16.5); Lymphocyte % 12.2 % (19-41); Mean Corp Hgb Conc 31.7 g/dL (32-36); Mean Corpuscular Volume 85.3 fL (80-94); Mean Platelet Vol. 9.9 fl (6.2-12.0); Monocyte# 0.98 X10^3/uL; Monocyte% 7.5 % (0-10); NRBC Flagged by Analyzer 0 % (0-5); Neutrophil # 10.38 X10^3/uL (2.7-7.7); Neutrophil % 79.4 % (47-70); Platelet Count 435 K/mm3 (150-450); RBC Distribution Width CV 15.3 % (11.6-14.6); RBC Distribution Width SD 47.4 fl (35.1-43.9); Red Blood Count 3.74 M/mm3 (4.6-6.2); White Blood Count 13.1 K/mm3 (4.4-11.0)
[2024-05-09] MEDS: 0.9% Normal Saline (1000mL) 1,000 ML 150 ML IV (09:15)
[2024-05-09] MEDS: Ertapenem Sod 1 GM in 0.9% Normal Saline (50mL MB+) 50 ML IV (12:09)
--- NOTE | 2024-05-09 12:29 | ED.RN ---
ACCEPTED AT [facility] @[facility]. ETA [id number]
== END 2024-05-09 15:03 | disposition short-term general hospital (02) ==
PROVIDERS: Emergency Provider Emergency Medicine; PCP Internal Medicine; Visit Provider Emergency Medicine
DX: K75.0 Abscess of liver (principal); L03.313 Cellulitis of chest wall; L02.213 Cutaneous abscess of chest wall; I25.10 Atherosclerotic heart disease of native coronary artery without angina pectoris; I10 Essential (primary) hypertension; I25.2 Old myocardial infarction; R79.82 Elevated C-reactive protein (CRP); E78.2 Mixed hyperlipidemia; Z95.5 Presence of coronary angioplasty implant and graft; Z79.02 Long term (current) use of antithrombotics/antiplatelets; Z79.82 Long term (current) use of aspirin; Z79.899 Other long term (current) drug therapy; Z87.891 Personal history of nicotine dependence
CPT/HCPCS: 36592; 74177; 80053; 83605; 85025; 86140; 87040; 96361; 96365; 99285; Q9967; A4216

== ENCOUNTER → 2024-07-03 | Outpatient (CLI) | payer MEDICARE, OTHER, SELFPAY ==
[2016-05-29 11:45] VITALS: BMI 29.2
--- NOTE | 2024-07-03 12:59 | ECHOD_ITS ---
Reason For Study : CAD Procedure This was a 2D Doppler, Color Flow transthoracic echocardiogram. Exam performed in department. Left Ventricle Normal LV size. Mild concentric left ventricular hypertrophy. Apical false tendon noted. Estimated LVEF 52%. Posterior basal hypokinesis. Global longitudinal strain -16.7% which is borderline. Stage I diastolic dysfunction. Right Ventricle Normal right ventricle. Atria The left and right atria are normal. Mitral Valve Trivial mitral valve insufficiency. Tricuspid Valve Trivial tricuspid valve insufficiency. Unable to estimate RV systolic pressure due to insufficient tricuspid regurgitant envelope. Aortic Valve Trisinus/trileaflet aortic valve. Pulmonic Valve The pulmonic valve is not well visualized. Trivial pulmonic valve insufficiency. Great Vessels Normal sized aortic root. Pericardium/Pleural No pericardial effusion. MMode/2D Measurements & Calculations LVIDd: 5.0 cm IVSd: 1.2 cm Ao root diam: 3.3 cm LVIDs: 4.3 cm LVPWd: 0.61 cm RVDd: 3.5 cm FS: 14.2 % LAV(MOD-bp): 33.8 ml LVAd ap4: 28.8 cm2 LVAd ap2: 28.5 cm2 LAV(MOD-bp) Indexed: 15.7 ml/m2 LVLd ap4: 8.4 cm LVLd ap2: 8.6 cm LAV(MOD-sp2): 37.0 ml EDV(MOD-sp4): 81.6 ml EDV(MOD-sp2): 78.4 ml LAV(MOD-sp4): 25.1 ml EDV(sp4-el): 84.0 ml EDV(sp2-el): 80.5 ml LVAs ap4: 18.0 cm2 LVAs ap2: 17.8 cm2 LVLs ap4: 7.1 cm LVLs ap2: 7.4 cm ESV(MOD-sp4): 39.7 ml ESV(MOD-sp2): 35.3 ml ESV(sp4-el): 38.9 ml ESV(sp2-el): 36.4 ml EF(MOD-sp4): 51.3 % EF(MOD-sp2): 54.9 % EF(sp4-el): 53.7 % SV(MOD-sp4): 41.9 ml SV(MOD-sp2): 43.1 ml SV(sp4-el): 45.2 ml SI(MOD-sp4): 19.4 ml/m2 SI(MOD-sp2): 20.0 ml/m2 LA A4 area: 11.7 cm2 LA dimension(2D): 3.6 cm RA A4 area: 12.6 cm2 TAPSE: 1.8 cm Time Measurements MV dec time: 0.28 sec Doppler Measurements & Calculations MV E max burak: 57.0 cm/sec Lat Peak E' Burak: 8.7 cm/sec Med Peak E' Burak: 6.8 cm/sec MV A max burak: 74.0 cm/sec E/E' lat: 6.6 E/E' med: 8.3 MV E/A: 0.77 Ao V2 max: 118.5 cm/sec LV V1 max: 86.2 cm/sec MV dec slope: 203.3 cm/sec2 Ao max P.6 mmHg LV V1 max P.0 mmHg Ao V2 mean: 90.5 cm/sec LV V1 mean P.6 mmHg Ao mean P.4 mmHg LV V1 mean: 60.6 cm/sec Ao V2 VTI: 25.0 cm LV V1 VTI: 17.3 cm AV (velocity ratio): 0.69 ECHO/Echo Complete Interpretation Summary Mild concentric left ventricular hypertrophy. Estimated LVEF 52%. Posterior basal hypokinesis. Global longitudinal strain -16 .7% which is borderline. Stage I diastolic dysfunction. Ordering Physician: Toro Loving Referring Physician: Anjali Hernandes M.D. Performed By: Иван, Rose, RDCS
== END | disposition home or self-care (01) ==
LOC: CVS 12:59
PROVIDERS: PCP Internal Medicine; Referring Provider Internal Medicine Cardiovascular Disease; Visit Provider Internal Medicine Cardiovascular Disease
DX: I25.10 Atherosclerotic heart disease of native coronary artery without angina pectoris (principal); R53.1 Weakness
CPT/HCPCS: 93306

== ENCOUNTER → 2024-12-05 | Outpatient (CLI) | payer MEDICARE, OTHER, SELFPAY ==
[2016-05-29 11:45] VITALS: BMI 29.2
--- NOTE | 2024-12-05 09:45 | CDU_ITS ---
Reason For Study Reason For Study: Right carotid bruit Rt. Velocities/BP Lt. Velocities/BP Prox CCA 78.7/11.6 cm/sec. Prox CCA 90/14.5 cm/sec. Mid CCA 75.9/8.8 cm/sec. Mid CCA 79.6/8.8 cm/sec. Dist CCA 57.9/8.8 cm/sec. Dist CCA 68.3/14.5 cm/sec. Prox ICA 48.5/12.6 cm/sec. Prox ICA 32.2/10.9 cm/sec. Mid ICA 60.7/17.3 cm/sec. Mid ICA 81.5/25.8 cm/sec. Dist ICA 70.2/23.9 cm/sec. Dist ICA 57/21.1 cm/sec. Rt. ICA/CCA = 0.92. Lt. ICA/CCA = 1.02. Prox ECA 77.8/6.9 cm/sec. Prox ECA 76.8/9.7 cm/sec. Rt. Vert. 48.5/15.4 cm/sec. Lt. Vert. 44.8/8.1 cm/sec. Right Extracranial There is intimal thickening but no significant atherosclerotic plaque noted in the right common carotid artery. There is homogeneous, smooth atherosclerotic plaque noted in the right internal carotid artery. There is intimal thickening but no significant atherosclerotic plaque noted in the right external carotid artery. Antegrade flow is noted in the right vertebral artery. Left Extracranial There is intimal thickening but no significant atherosclerotic plaque noted in the left common carotid artery. There is homogeneous, smooth atherosclerotic plaque noted in the left internal carotid artery. There is intimal thickening but no significant atherosclerotic plaque noted in the left external carotid artery. Antegrade flow is noted in the left vertebral artery. Procedure Carotid Duplex 33991. This is a Carotid Duplex examination using B-mode, color flow and specral Doppler. Exam performed in department. VL/Carotid Duplex Ultrasound Interpretation Summary Mild (<50%) stenosis right extracranial internal carotid. Mild (<50%) stenosis left extracranial internal carotid. Flow within the vertebral arteries is antegrade bilaterally. Ordering Physician: Toro Loving Referring Physician: Anjali Hernandes M.D. Performed By: Pippa Weldon RVT
== END | disposition home or self-care (01) ==
LOC: CVS 09:44
PROVIDERS: PCP Internal Medicine; Referring Provider Internal Medicine Cardiovascular Disease; Visit Provider Internal Medicine Cardiovascular Disease
DX: R09.89 Other specified symptoms and signs involving the circulatory and respiratory systems (principal)
CPT/HCPCS: 93880